=== PATIENT | male | born 1955 | race Two or more races ===

== ENCOUNTER → 2016-09-17 | Outpatient (CLI) | payer OTHER ==
[2016-09-15 09:01] VITALS: BP 166/74
[~2016-09-17] MED LIST: ASPI81TA2 PO; ATOR40TA PO; CARV12.52 PO; CEFA2PIG IV; CLOP75TA27 PO; ESOM40CA25 PO; FLUC100T7 PO; FURO-68 PO; HYDR-2868 PO; HYDR-971 PO; INSU100I17 SQ; INSU100I27 SQ; INSU100V5 IJ; ISOS30TA PO; Insulin Detemir SQ; LISI-338 PO; METO5TAB55 PO; MIDO5TAB PO; OXYC1TAB7 PO; PANT40TA3 PO; PREG75CA PO; SIMV10TA3 PO
--- NOTE | 2016-09-17 16:02 | RAD ---
Bilateral lower extremity venous Doppler ultrasound History: Bilateral lower extremity swelling. Comparison: Lower extremity doppler 09/08/2016. Procedure: Color Doppler, spectral Doppler, and grayscale images are obtained with and without compression in the area of the common femoral vein, superficial femoral vein - femoral vein junction, main femoral vein (superficial femoral vein) and popliteal vein. Veins of the proximal calf are also imaged. Findings: There is normal duplex flow, color flow and compressibility of all visualized vein segments. No evidence of deep venous thrombosis is present. Impression: No evidence of lower extremity deep venous thrombosis.
== END | disposition home or self-care (01) ==
LOC: US 15:09
PROVIDERS: ATTEND Internal Medicine
DX: R22.43 Localized swelling, mass and lump, lower limb, bilateral (principal)
CPT/HCPCS: 93970

== ENCOUNTER 2016-09-22 11:21 | Emergency (ER) | payer OTHER ==
[~2016-09-22] VITALS: Ht 167.6 cm; Wt 73.5 kg
--- NOTE | 2016-09-22 11:32 | PHYS DOC ---
Past Medical History Past Medical History: Arthritis, Diabetes-Type II, Hypertension, Other Additional Past Medical Histor: hyperlipidemia, peripheral neuropathy, hypoglycemia, gastroparesis Past Surgical History: Appendectomy, Pacemaker Additional Past Surgical Histo: LEFT LEG, R toes 3 and 4 amputated, Alcohol Use: None Drug Use: None Adult General Chief Complaint Chief Complaint: HYPOTENSION HPI HPI Patient is a 61 year old male who presents with oxygen. He states he was at wound care this morning at his blood pressure and his systolic blood pressure was perhaps in the 70s. He did feel lightheaded and dizzy at that time. He is sent for the emergency department for evaluation treatment. He denies a chest pain shortness of breath he states he's been eating and drinking fine yesterday until he got to wound clinic he felt actually fine. He denies any dizziness now however he's laying flat. Does have past medical history of diabetes type 2, hypertension, dyslipidemia, gastroparesis, coronary disease with stents and a recent CODE BLUE in August 2016 secondary to oversedation from [facility]. He states he's post follow-up with Dr. Laurent this afternoon. Review of Systems Review of Systems Constitutional: Denies fever or chills [] Eyes: Denies change in visual acuity, redness, or eye pain [] HENT: Denies nasal congestion or sore throat [] Respiratory: Denies cough or shortness of breath [] Cardiovascular: No additional information not addressed in HPI [] GI: Denies abdominal pain, nausea, vomiting, bloody stools or diarrhea [] : Denies dysuria or hematuria [] Musculoskeletal: Denies back pain or joint pain [] Integument: Denies rash or skin lesions [] Neurologic: Denies headache, focal weakness or sensory changes [] Endocrine: Denies polyuria or polydipsia [] Allergies Allergies Allergies Coded Allergies Type Severity Reaction Last Updated Verified hydromorphone Allergy Severe apnea and asystole, code blue 09/02/16 Yes Physical Exam Physical Exam Constitutional: Well developed, well nourished, no acute distress, non-toxic appearance. [] HENT: Normocephalic, atraumatic, bilateral external ears normal, oropharynx moist, no oral exudates, nose normal. [] Eyes: PERRLA, EOMI, conjunctiva normal, no discharge. [] Neck: Normal range of motion, no tenderness, supple, no stridor. [] Cardiovascular:Heart rate regular rhythm, no murmur [] Lungs & Thorax: Bilateral breath sounds clear to auscultation [] Abdomen: Bowel sounds normal, soft, no tenderness, no masses, no pulsatile masses. [] Skin: Warm, dry, no erythema, no rash. [] Back: No tenderness, no CVA tenderness. [] Extremities: No tenderness, no cyanosis, no clubbing, ROM intact, no edema. [] Neurologic: Alert and oriented X 3, normal motor function, normal sensory function, no focal deficits noted. [] Psychologic: Affect normal, judgement normal, mood normal. [] Current Patient Data Vital Signs Vital Signs Date Time Temp Pulse Resp B/P Pulse Ox O2 Delivery O2 Flow Rate FiO2 09/22/16 12:23 81 12 114/59 100 Nasal Cannula 2 09/22/16 11:30 97.9 97.9 Lab Values Laboratory Tests Test 09/22/16 11:40 09/22/16 12:15 White Blood Count 7.6x10^3/uL (4.0-11.0) Red Blood Count 3.79x10^6/uL (4.30-5.70) L Hemoglobin 10.4g/dL (13.0-17.5) L Hematocrit 32.4% (39.0-53.0) L Mean Corpuscular Volume 86fL (79-100) Mean Corpuscular Hemoglobin 27pg (25-35) Mean Corpuscular Hemoglobin Concent 32g/dL (31-37) Red Cell Distribution Width 15.9% (11.5-14.5) H Platelet Count 507x10^3/uL (140-400) #H Neutrophils (%) (Auto) 73% (31-73) Lymphocytes (%) (Auto) 14% (24-48) L Monocytes (%) (Auto) 8% (0-9) Eosinophils (%) (Auto) 4% (0-3) H Basophils (%) (Auto) 1% (0-3) Neutrophils # (Auto) 5.5x10^3uL (1.8-7.7) Lymphocytes # (Auto) 1.0x10^3/uL (1.0-4.8) Monocytes # (Auto) 0.6x10^3/uL (0.0-1.1) Eosinophils # (Auto) 0.3x10^3/uL (0.0-0.7) Basophils # (Auto) 0.1x10^3/uL (0.0-0.2) Prothrombin Time 14.7SEC (11.7-14.0) H Prothrombin Time INR 1.2 (0.8-1.1) H Sodium Level 139mmol/L (136-145) Potassium Level 4.3mmol/L (3.5-5.1) Chloride Level 100mmol/L (98-107) Carbon Dioxide Level 29mmol/L (21-32) Anion Gap 10 (6-14) Blood Urea Nitrogen 59mg/dL (8-26) H Creatinine 2.1mg/dL (0.7-1.3) H Estimated GFR (Cockcroft-Gault) 32.3 Glucose Level 117mg/dL (70-99) H Calcium Level 8.9mg/dL (8.5-10.1) Magnesium Level 2.0mg/dL (1.8-2.4) Total Bilirubin 0.5mg/dL (0.2-1.0) Direct Bilirubin 0.1mg/dL (0.0-0.2) Aspartate Amino Transferase (AST) 12U/L (15-37) L Alanine Aminotransferase (ALT) 16U/L (16-63) Alkaline Phosphatase 153U/L (46-116) H Creatine Kinase 64U/L (39-308) Creatine Kinase MB (Mass) 1.5ng/mL (0.0-3.6) Creatine Kinase MB Relative Index % (0-4) Troponin I Quantitative < 0.017ng/mL (0.000-0.055) NO-Drp-Z-Type Natriuretic Peptide 4454pg/mL (0-124) H Total Protein 7.3g/dL (6.4-8.2) Albumin 3.2g/dL (3.4-5.0) L Thyroid Stimulating Hormone (TSH) 1.209uIU/mL (0.358-3.74) Urine Collection Type Unknown Urine Color Yellow Urine Clarity Clear Urine pH 6.0 Urine Specific [place] <=1.005 Urine Protein Negativemg/dL (NEG-TRACE) Urine Glucose (UA) 100mg/dL (NEG) Urine Ketones (Stick) Negativemg/dL (NEG) Urine Blood Negative (NEG) Urine Nitrite Negative (NEG) Urine Bilirubin Negative (NEG) Urine Urobilinogen Dipstick 0.2mg/dL (0.2 mg/dL) Urine Leukocyte Esterase Negative (NEG) Urine RBC Occ/HPF (0-2) Urine WBC Occ/HPF (0-4) Urine Bacteria Few/HPF (0-FEW) Urine Hyaline Casts Moderate/HPF Urine Mucus Slight/LPF Urine Yeast Present/HPF Urine Sperm Present/HPF Laboratory Tests 09/22/16 11:40 Laboratory Tests 09/22/16 11:40 EKG EKG EKG shows normal sinus any ST elevations or T-wave inversions, normal axis, as interpreted by me. Radiology/Procedures Radiology/Procedures [facility] [address] [place] [address] IMAGING REPORT Signed PATIENT: FREDRICK RUBIO ACCOUNT: [id number] : 1955 LOCATION: ER AGE: 61 SEX: M EXAM STATUS: REG ER ORD. PHYSICIAN: ADIEL KWONG MD REASON: hypotension PROCEDURE: PORTABLE CHEST 1V Indication dizziness and weakness. History of hypertension. A single view of the chest was obtained and is compared to an examination 16 days earlier. Heart size is at the upper limits of normal. There is no congestive heart failure. Pleural effusions, seen previously, have almost completely cleared. A tiny right pleural effusion likely persists. A new finding in the chest is not seen. Bipolar cardiac pacing device is noted. IMPRESSION: Substantial interval improvement. No new finding seen DICTATED and SIGNED BY: CHERYL BAJWA MD DATE: 09/22/16 1213 CC: ADIEL KWONG MD; GARRICK LAURENT MD ~ Impressions: Dizziness, resolved Course & Med Decision Making Course & Med Decision Making Pertinent Labs and Imaging studies reviewed. (See chart for details) His blood pressure initially was around 79 however ever since and HIS blood pressures been normal. He was up and able to Yumi around the department without any lightheadedness or dizziness. His labs are chronic. Spoke with Dr. Laurent is agreeable to patient being discharged home and follow-up as an outpatient. Return for significant lightheadedness dizziness or chest discomfort or other concerns. Dragon Disclaimer Dragon Disclaimer This electronic medical record was generated, in whole or in part, using a voice recognition dictation system. Departure Departure Impression: Primary Impression: Dizziness Disposition: 01 HOME, SELF-CARE Admitting Physician: Garrick Laurent Condition: STABLE Referrals: GARRICK LAURENT MD (PCP) Patient Instructions: Dizziness, Sgrp-de-Wtve Additional Instructions: You were seen for low blood pressure however it's fine here. He being discharged home. Return ER fear dizziness returns or gets worse or you have other concerns. ADIEL KWONG MD Sep 22, 2016 11:32
[2016-09-22 11:54] LABS: BASO # 0.1 x10^3/uL (0.0-0.2); BASO % 1 % (0-3); EOS % 4 % (0-3); HEMATOCRIT 32.4 % (39.0-53.0); HEMOGLOBIN 10.4 g/dL (13.0-17.5); LYMPH % 14 % (24-48); MEAN CORPUSCULAR HEMOGLOBIN 27 pg (25-35); MEAN CORPUSCULAR HGB CONC 32 g/dL (31-37); MEAN CORPUSCULAR VOLUME 86 fL (79-100); MONO % 8 % (0-9); NEUT % 73 % (31-73); PLATELET COUNT 507 x10^3/uL (140-400); RED BLOOD COUNT 3.79 x10^6/uL (4.30-5.70); RED CELL DISTRIBUTION WIDTH 15.9 % (11.5-14.5); WHITE BLOOD COUNT 7.6 x10^3/uL (4.0-11.0)
[2016-09-22 12:05] LABS: CALCIUM 8.9 mg/dL (8.5-10.1); CREATININE 2.1 mg/dL (0.7-1.3); GFR 32.3; INR 1.2 (0.8-1.1); POTASSIUM 4.3 mmol/L (3.5-5.1); PROTHROMBIN TIME PATIENT 14.7 SEC (11.7-14.0)
[2016-09-22 12:10] LABS: ALBUMIN 3.2 g/dL (3.4-5.0); DIRECT BILIRUBIN 0.1 mg/dL (0.0-0.2); TOTAL BILIRUBIN 0.5 mg/dL (0.2-1.0); TOTAL PROTEIN 7.3 g/dL (6.4-8.2)
--- NOTE | 2016-09-22 12:17 | RAD ---
Indication dizziness and weakness. History of hypertension. A single view of the chest was obtained and is compared to an examination 16 days earlier. Heart size is at the upper limits of normal. There is no congestive heart failure. Pleural effusions, seen previously, have almost completely cleared. A tiny right pleural effusion likely persists. A new finding in the chest is not seen. Bipolar cardiac pacing device is noted. IMPRESSION: Substantial interval improvement. No new finding seen
[2016-09-22 12:20] LABS: CKMB MASS 1.5 ng/mL (0.0-3.6); CREATINE KINASE 64 U/L (39-308)
[2016-09-22 12:26] LABS: BILIRUBIN,URINE NEGATIVE (NEG); GLUCOSE,URINE 100 mg/dL (NEG); NITRITE,URINE NEGATIVE (NEG); PROTEIN,URINE NEGATIVE (NEG-TRACE); UROBILINOGEN,URINE 0.2 mg/dL (0.2 mg/dL)
--- NOTE | 2016-09-22 12:26 | EKG ---
[facility] [address] [place] [address] Test Date: 2016-09-22 Test Time: 11:35:11 Pat Name: FREDRICK RUBIO Department: Room: Gender: M Clinic Physician: : 1955 Requested By: ADIEL KWONG Order Number: [id number] Reading MD: Clara Jeronimo Measurements Intervals [place] Rate: 78 P: 28 ND: 150 QRS: 26 QRSD: 86 T: 46 QT: 384 QTc: 441 Interpretive Statements SINUS RHYTHM NORMAL EKG RI6.01 Unconfirmed report Compared to ECG 08/30/2016 13:07:29 No significant changes Electronically Signed On 09-25-2016 0:03:07 [employer] by Clara Jeronimo
[2016-09-22 12:44] LABS: BACTERIA,URINE FEW /HPF (0-FEW); RBC,URINE OCC /HPF (0-2); WBC,URINE OCC /HPF (0-4)
[2016-09-22 12:45] LABS: SPERM,URINE PRESENT /HPF; YEAST,URINE PRESENT /HPF
[2016-09-22 14:15] VITALS: BP 140/68
== END 2016-09-22 14:42 | disposition home or self-care (01) ==
LOC: ER 11:21
DX: R42 Dizziness and giddiness (principal); I95.9 Hypotension, unspecified; E11.9 Type 2 diabetes mellitus without complications; E78.5 Hyperlipidemia, unspecified; I10 Essential (primary) hypertension; E11.42 Type 2 diabetes mellitus with diabetic polyneuropathy; M19.90 Unspecified osteoarthritis, unspecified site; Z95.0 Presence of cardiac pacemaker; Z95.5 Presence of coronary angioplasty implant and graft; Z89.421 Acquired absence of other right toe(s); Z90.49 Acquired absence of other specified parts of digestive tract; Z88.5 Allergy status to narcotic agent
CPT/HCPCS: 36415; 71010; 80048; 80076; 81001; 82553; 83735; 83880; 84443; 84484; 85027; 85610; 93005; 99285-25

== ENCOUNTER 2016-11-25 10:48 | Inpatient (IN) | payer OTHER ==
[~2016-11-25] VITALS: Ht 167.6 cm; Wt 70.5 kg
[2016-11-25] MEDS ORDERED: DEXTROSE 50% 25 GM / 50ML DISP.SYRIN. IV PRN ×2 (12:30→16:00)
[2016-11-25] MEDS ORDERED: HYDRALAZINE 25 MG TABLET PO PRN (13:00)
[2016-11-25] MEDS ORDERED: VANCOMYCIN 1 GM in IV NORMAL SALINE 250ML 250 ML IV SCH (14:00)
[2016-11-25] MEDS ORDERED: VANCOMYCIN 1.75 GM in IV NORMAL SALINE 500ML BAG 500 ML IV ONE (14:00)
[2016-11-25 14:20] LABS: BASO # 0.1 x10^3/uL (0.0-0.2); BASO % 1 % (0-3); EOS % 1 % (0-3); HEMATOCRIT 24.7 % (39.0-53.0); HEMOGLOBIN 7.9 g/dL (13.0-17.5); LYMPH # 1.5 x10^3/uL (1.0-4.8); LYMPH % 9 % (24-48); MEAN CORPUSCULAR HEMOGLOBIN 26 pg (25-35); MEAN CORPUSCULAR HGB CONC 32 g/dL (31-37); MEAN CORPUSCULAR VOLUME 81 fL (79-100); MONO % 7 % (0-9); NEUT % 83 % (31-73); PLATELET COUNT 547 x10^3/uL (140-400); RED BLOOD COUNT 3.06 x10^6/uL (4.30-5.70); RED CELL DISTRIBUTION WIDTH 16.3 % (11.5-14.5); WHITE BLOOD COUNT 17.2 x10^3/uL (4.0-11.0)
[2016-11-25 14:44] LABS: ALBUMIN 2.9 g/dL (3.4-5.0); ALBUMIN/GLOBULIN RATIO 0.6 (1.0-1.7); CALCIUM 9.3 mg/dL (8.5-10.1); CREATININE 2.1 mg/dL (0.7-1.3); GFR 32.3; POTASSIUM 5.5 mmol/L (3.5-5.1); TOTAL BILIRUBIN 0.7 mg/dL (0.2-1.0); TOTAL PROTEIN 7.9 g/dL (6.4-8.2)
[2016-11-25 15:00] VITALS: BP 110/76
--- NOTE | 2016-11-25 15:29 | PDOC2 ---
CONSULT Date of Consult Date of Consult DATE: 11/25/16 TIME: 15:22 Reason for Consult Reason for Consult: CKD III Referring Physician Referring Physician: Dr Slater Identification/Chief Complaint Chief Complaint DFU Problems: Source Source: Chart review, Patient History of Present Illness Reason for Visit: as dictated Past Medical History Cardiovascular: CAD, HTN, [place], Hyperlipidemia, Other Pulmonary: No pertinent hx CENTRAL NERVOUS SYSTEM: Other GI: GI bleed, Peptic Ulcer disease Heme/Onc: Anemia NOS Hepatobiliary: No pertinent hx Psych: No pertinent hx Rheumatologic: No pertinent hx Infectious disease: No pertinent hx Renal/: Chronic renal insuff, Acute renal failure Endocrine: Diabetes Past Surgical History Past Surgical History: Appendectomy, Other Family History Family History: Coronary Artery Disease, Diabetes Social History ALCOHOL: none Drugs: None Lives: with Family Domestic Violence: Neg Current Medications Current Medications Current Medications Dextrose 12.5 gm 12.5 gm PRN Q15MIN PRN IV SEE COMMENTS; Start 11/25/16 at 12: 30 Vancomycin HCl 1 gm/Sodium Chloride 250 ml @ 250 mls/hr Q24H IV ; Start at 14:00; Status UNV Piperacillin Sod/ Tazobactam Sod/ Sodium Chloride (Zosyn/Iv Sodium Chloride 0.9 % 50ml) 50 ml @ 100 mls/hr Q6HRS IV ; Start 11/25/16 at 13:00 Vancomycin HCl (Vanco Per Pharmacy) 1 each PRN DAILY PRN MC SEE COMMENTS; Start 11/25/16 at 13:00 Amlodipine Besylate (Norvasc) 5 mg HS PO ; Start 11/25/16 at 21:00 Aspirin (Children'S Aspirin) 81 mg DAILY PO ; Start 11/26/16 at 09:00 Atorvastatin Calcium (Lipitor) 40 mg QHS PO ; Start 11/25/16 at 21:00 Carvedilol (Coreg) 12.5 mg BIDWMEALS PO ; Start 11/25/16 at 17:00 Clopidogrel Bisulfate (Plavix) 75 mg DAILYWBKFT PO ; Start 11/26/16 at 08:00 Furosemide (Lasix) 40 mg DAILY PO ; Start 11/26/16 at 09:00 Hydralazine HCl (Apresoline) 25 mg PRN Q6HRS PRN PO ELEVATED BP, SEE COMMENTS; Start 3/22/17 at 13:00 Insulin Aspart (Novolog) 9 units TIDAC SQ ; Start 11/25/16 at 16:30 Insulin Detemir (Levemir) 15 units QHS SQ ; Start 11/25/16 at 21:00 Metoclopramide HCl (Reglan) 5 mg DAILY08 PO ; Start 11/26/16 at 08:00 Pantoprazole Sodium (Protonix) 40 mg BIDAC PO ; Start 11/25/16 at 16:30 Pregabalin 75 mg 75 mg BID PO ; Start 11/25/16 at 21:00 Vancomycin HCl/ Sodium Chloride (Iv Sodium Chloride 0.9% 500ml Bag) 500 ml @ 250 mls/hr 1X ONCE IV ; Start 11/25/16 at 14:00; Stop 11/25/16 at 15:59 Active Scripts Active Levemir Flextouch (Insulin Detemir) 100 Unit/1 Ml Insuln.pen 15 Units SQ QHS Protonix (Pantoprazole Sodium) 40 Mg Tablet 40 Mg PO BIDAC Plavix (Clopidogrel Bisulfate) 75 Mg Tablet 75 Mg PO DAILYWBKFT Lipitor (Atorvastatin Calcium) 40 Mg Tablet 40 Mg PO QHS Reported Amlodipine Besylate 5 Mg Tablet 5 Mg PO HS Reglan (Metoclopramide Hcl) 10 Mg Tablet 5 Mg PO DAILY08 Novolog Flexpen (Insulin Aspart) 100 Unit/1 Ml Insuln.pen 9 Unit SQ TIDAC Lasix (Furosemide) 40 Mg Tablet 1 Tab PO DAILY Hydralazine Hcl 25 Mg Tablet 1 Tab PO Q6HRS PRN Aspirin 81 Mg Tab.chew 1 Tab PO DAILY Lyrica (Pregabalin) 75 Mg Capsule 75 Mg PO BID Carvedilol 12.5 Mg Tablet 1 Tab PO BID Allergies Allergies: Coded Allergies: hydromorphone (Verified Allergy, Severe, apnea and asystole, code blue, ) ROS Review of System GEN: no Fevers no Chills EYES: ch Visual Complaints(grdually worsening due to Cataracts) ENT: no EN Drainage no Hearing deficiets CVS: no Orthopnea no CP RESP: no SOB no MAGANA GI: no Nausea no Vomiting : no Dysuria no Urgency HEME: no easy bruising no Palp Ly Nodes NEURO n Focal Weakness tania Sz PSYCH: no Suicidal Ideation no Depression SKIN: no Rashes Foot wound ENDO: no Polyuria or Polydipsia no Hot/Cold Intolerance MU SK: no Arthraigia no Myalgia Physical Exam Physical Exam General Appearance: Awake Alert Oriented x 3 In no Distress Eyes: ? + Cataracts; Conjunctiva Normal EN: No EN Drainage Mucous Memb. moist Neck: no JVD no JVP Supple no Thyromegaly CVS: S1 S2 sys Murmur No Gallop No Rub no Edema Resp: no Rales no Rhonchi no Acc. Muscle use GI: BS +ve NO Bruit Non Tender Non Distended : no CVA tenderness; no Suprapubic Tenderness SKIN: no Rashes Breast Exam deferred Mu.Sk: Adequate ROM Min Muscle Atrophy Heme: Unable to palpate Obvious LAD no Splenomegaly NEURO: Good Strength and Tone Cranial Nerves II - XII grossly intact Psych: not Depressed no Active hallucination Assessment & Plan CKD III - DM/ HTNsive /NS. Creat close to baseline. Current FLuid and E-lyte status does not necessitate emergent need for Dialysis. Will re-evaluate for Dialysis in am ^K - reval after FSBS is better controlled Vol Dpeltion - IVF as ordered Low Na - suspect due to ^ed FSBS - reval after Better controlled Anemai - Start EPO. check Iron, PO Fe prn DFU - Needs IV Access- Given Proximity to [employer] - hew ould benefit from preservation of his upper arm veins for future AV Access. hence a Central line will be placed. Labs Labs Laboratory Tests Test 11/25/16 14:00 White Blood Count 17.2x10^3/uL (4.0-11.0) Red Blood Count 3.06x10^6/uL (4.30-5.70) Hemoglobin 7.9g/dL (13.0-17.5) Hematocrit 24.7% (39.0-53.0) Mean Corpuscular Volume 81fL (79-100) Mean Corpuscular Hemoglobin 26pg (25-35) Mean Corpuscular Hemoglobin Concent 32g/dL (31-37) Red Cell Distribution Width 16.3% (11.5-14.5) Platelet Count 547x10^3/uL (140-400) Neutrophils (%) (Auto) 83% (31-73) Lymphocytes (%) (Auto) 9% (24-48) Monocytes (%) (Auto) 7% (0-9) Eosinophils (%) (Auto) 1% (0-3) Basophils (%) (Auto) 1% (0-3) Neutrophils # (Auto) 14.3x10^3uL (1.8-7.7) Lymphocytes # (Auto) 1.5x10^3/uL (1.0-4.8) Monocytes # (Auto) 1.2x10^3/uL (0.0-1.1) Eosinophils # (Auto) 0.1x10^3/uL (0.0-0.7) Basophils # (Auto) 0.1x10^3/uL (0.0-0.2) Sodium Level 131mmol/L (136-145) Potassium Level 5.5mmol/L (3.5-5.1) Chloride Level 97mmol/L (98-107) Carbon Dioxide Level 21mmol/L (21-32) Anion Gap 13 (6-14) Blood Urea Nitrogen 46mg/dL (8-26) Creatinine 2.1mg/dL (0.7-1.3) Estimated GFR (Cockcroft-Gault) 32.3 BUN/Creatinine Ratio 22 (6-20) Glucose Level 394mg/dL (70-99) Calcium Level 9.3mg/dL (8.5-10.1) Total Bilirubin 0.7mg/dL (0.2-1.0) Aspartate Amino Transf (AST/SGOT) 16U/L (15-37) Alanine Aminotransferase (ALT/SGPT) 14U/L (16-63) Alkaline Phosphatase 116U/L (46-116) Total Protein 7.9g/dL (6.4-8.2) Albumin 2.9g/dL (3.4-5.0) Albumin/Globulin Ratio 0.6 (1.0-1.7) Laboratory Tests Test 11/25/16 14:00 White Blood Count 17.2x10^3/uL (4.0-11.0) Red Blood Count 3.06x10^6/uL (4.30-5.70) Hemoglobin 7.9g/dL (13.0-17.5) Hematocrit 24.7% (39.0-53.0) Mean Corpuscular Volume 81fL (79-100) Mean Corpuscular Hemoglobin 26pg (25-35) Mean Corpuscular Hemoglobin Concent 32g/dL (31-37) Red Cell Distribution Width 16.3% (11.5-14.5) Platelet Count 547x10^3/uL (140-400) Neutrophils (%) (Auto) 83% (31-73) Lymphocytes (%) (Auto) 9% (24-48) Monocytes (%) (Auto) 7% (0-9) Eosinophils (%) (Auto) 1% (0-3) Basophils (%) (Auto) 1% (0-3) Neutrophils # (Auto) 14.3x10^3uL (1.8-7.7) Lymphocytes # (Auto) 1.5x10^3/uL (1.0-4.8) Monocytes # (Auto) 1.2x10^3/uL (0.0-1.1) Eosinophils # (Auto) 0.1x10^3/uL (0.0-0.7) Basophils # (Auto) 0.1x10^3/uL (0.0-0.2) Sodium Level 131mmol/L (136-145) Potassium Level 5.5mmol/L (3.5-5.1) Chloride Level 97mmol/L (98-107) Carbon Dioxide Level 21mmol/L (21-32) Anion Gap 13 (6-14) Blood Urea Nitrogen 46mg/dL (8-26) Creatinine 2.1mg/dL (0.7-1.3) Estimated GFR (Cockcroft-Gault) 32.3 BUN/Creatinine Ratio 22 (6-20) Glucose Level 394mg/dL (70-99) Calcium Level 9.3mg/dL (8.5-10.1) Total Bilirubin 0.7mg/dL (0.2-1.0) Aspartate Amino Transf (AST/SGOT) 16U/L (15-37) Alanine Aminotransferase (ALT/SGPT) 14U/L (16-63) Alkaline Phosphatase 116U/L (46-116) Total Protein 7.9g/dL (6.4-8.2) Albumin 2.9g/dL (3.4-5.0) Albumin/Globulin Ratio 0.6 (1.0-1.7) LEV CHAPA MD Nov 25, 2016 15:29
[2016-11-25] MEDS ORDERED: MAGNESIUM SULFATE 2GM 50 ML IV PRN (15:30)
[2016-11-25] MEDS: IV NORMAL SALINE 1000ML BAG 1,000 ML IV SCH (15:52)
[2016-11-25] MEDS: PIPERACILLIN/TAZOBACTAM 3.375 GM in IV NORMAL SALINE 50ML 50 ML IV SCH ×2 (15:52→20:54)
[2016-11-25 17:16] LABS: CREATININE 2.1 mg/dL (0.7-1.3); GFR 32.3; POTASSIUM 5.9 mmol/L (3.5-5.1)
[2016-11-25 17:26] LABS: CALCIUM 9.1 mg/dL (8.5-10.1)
[2016-11-25] MEDS ORDERED: INSULIN ASPART 300 UNITS/3 ML INSULN.PEN SQ ONE (17:45)
[2016-11-25] MEDS ORDERED: SODIUM POLYSTYRENE SULFONATE 15 GM/60 ML ORAL.SUSP. PO ONE (17:45)
[2016-11-25 17:49] LABS: % SAT IRON 9 % (15-34); IRON,SERUM 20 ug/dL (65-175)
[2016-11-25] MEDS: PANTOPRAZOLE 40 MG TABLET. PO SCH (18:06)
[2016-11-25] MEDS: CARVEDILOL 12.5 MG TABLET PO SCH (18:06)
[2016-11-25] MEDS: HEPARIN PF for SUB-Q USE 5,000 UNIT/0.5 ML VIAL. SQ SCH ×2 (18:23→21:03)
[2016-11-25] MEDS: INSULIN ASPART 300 UNITS/3 ML INSULN.PEN SQ SCH ×2 (18:24→18:25)
[2016-11-25] MEDS: VANCOMYCIN PER PHARMACY MC PRN ×2 (18:38→18:51)
[2016-11-25 19:20] VITALS: BP 128/72
[2016-11-25] MEDS: AMLODIPINE BESYLATE 5 MG TABLET PO SCH (20:55)
[2016-11-25] MEDS: PREGABALIN 75 MG CAPSULE PO SCH (20:56)
[2016-11-25] MEDS: ATORVASTATIN CALCIUM 40 MG TABLET. PO SCH (20:56)
[2016-11-25] MEDS: INSULIN DETEMIR 300 UNITS/3 ML INSULN.PEN. SQ SCH (21:03)
[2016-11-25] MEDS: DARBEPOETIN ALFA 60 MCG/0.3 ML DISP.SYRIN. SQ SCH (21:05)
[2016-11-25] MEDS ORDERED: GUAIFENESIN DM 200MG/20MG 10 ML SYRUP. PO PRN ×2 (22:45)
[2016-11-25 23:19] VITALS: BP 141/77
[2016-11-26] VITALS (13 sets, daily range): BP systolic 92–151; BP diastolic 44–73
[2016-11-26] MEDS: PIPERACILLIN/TAZOBACTAM 3.375 GM in IV NORMAL SALINE 50ML 50 ML IV SCH ×4 (01:40→20:09)
--- NOTE | 2016-11-26 04:55 | CONS ---
DATE OF CONSULTATION: REASON FOR CONSULTATION: CKD stage 3. HISTORY OF PRESENT ILLNESS: The patient is a 61-year-old gentleman, has history of diabetes and chronic kidney disease. He is known to have a baseline creatinine of about 1.6-2.0. He is followed by Dr. Lewis. He was at wound care for a foot wound. He is summoned to go to the hospital for further evaluation and treatment. I was initially called to approve the PICC line placement in this gentleman with CKD. This, however, has been changed to a central line as and when [facility] facilities are not available. For rest of details, see electronic records. LEV CHAPA MD DR: KRUPA/andre JOB#: [id number] / [id number]
[2016-11-26 04:57] LABS: BASO # 0.1 x10^3/uL (0.0-0.2); BASO % 1 % (0-3); EOS % 2 % (0-3); LYMPH # 1.3 x10^3/uL (1.0-4.8); LYMPH % 11 % (24-48); MEAN CORPUSCULAR HEMOGLOBIN 27 pg (25-35); MEAN CORPUSCULAR HGB CONC 34 g/dL (31-37); MEAN CORPUSCULAR VOLUME 79 fL (79-100); MONO % 10 % (0-9); NEUT % 77 % (31-73); PLATELET COUNT 510 x10^3/uL (140-400); RED BLOOD COUNT 2.61 x10^6/uL (4.30-5.70); RED CELL DISTRIBUTION WIDTH 15.9 % (11.5-14.5); WHITE BLOOD COUNT 11.8 x10^3/uL (4.0-11.0)
[2016-11-26 05:01] LABS: HEMATOCRIT 20.7 % (39.0-53.0)
[2016-11-26 05:15] LABS: ALBUMIN 2.3 g/dL (3.4-5.0); CALCIUM 8.8 mg/dL (8.5-10.1); CREATININE 1.8 mg/dL (0.7-1.3); GFR 38.6; PHOSPHORUS 4.3 mg/dL (2.6-4.7); POTASSIUM 4.1 mmol/L (3.5-5.1)
[2016-11-26] MEDS: IV NORMAL SALINE 1000ML BAG 1,000 ML IV SCH ×3 (05:28→22:05)
[2016-11-26] MEDS: INSULIN ASPART 300 UNITS/3 ML INSULN.PEN SQ SCH ×6 (07:30→17:23)
--- NOTE | 2016-11-26 08:24 | PDOC ---
Infectious Disease Note Vital Sign Vital Signs Vital Signs Date Time Temp Pulse Resp B/P Pulse Ox O2 Delivery O2 Flow Rate FiO2 11/26/16 07:55 Room Air 11/26/16 03:22 99.1 77 18 139/71 95 99.1 Labs Lab Laboratory Tests Test 11/25/16 14:00 11/25/16 16:29 11/25/16 16:50 11/25/16 20:53 White Blood Count 17.2x10^3/uL (4.0-11.0) Red Blood Count 3.06x10^6/uL (4.30-5.70) Hemoglobin 7.9g/dL (13.0-17.5) Hematocrit 24.7% (39.0-53.0) Mean Corpuscular Volume 81fL (79-100) Mean Corpuscular Hemoglobin 26pg (25-35) Mean Corpuscular Hemoglobin Concent 32g/dL (31-37) Red Cell Distribution Width 16.3% (11.5-14.5) Platelet Count 547x10^3/uL (140-400) Neutrophils (%) (Auto) 83% (31-73) Lymphocytes (%) (Auto) 9% (24-48) Monocytes (%) (Auto) 7% (0-9) Eosinophils (%) (Auto) 1% (0-3) Basophils (%) (Auto) 1% (0-3) Neutrophils # (Auto) 14.3x10^3uL (1.8-7.7) Lymphocytes # (Auto) 1.5x10^3/uL (1.0-4.8) Monocytes # (Auto) 1.2x10^3/uL (0.0-1.1) Eosinophils # (Auto) 0.1x10^3/uL (0.0-0.7) Basophils # (Auto) 0.1x10^3/uL (0.0-0.2) Erythrocyte Sedimentation Rate 134 (0-15) Sodium Level 131mmol/L (136-145) 132mmol/L (136-145) Potassium Level 5.5mmol/L (3.5-5.1) 5.9mmol/L (3.5-5.1) Chloride Level 97mmol/L (98-107) 97mmol/L (98-107) Carbon Dioxide Level 21mmol/L (21-32) 21mmol/L (21-32) Anion Gap 13 (6-14) 14 (6-14) Blood Urea Nitrogen 46mg/dL (8-26) 48mg/dL (8-26) Creatinine 2.1mg/dL (0.7-1.3) 2.1mg/dL (0.7-1.3) Estimated GFR (Cockcroft-Gault) 32.3 32.3 BUN/Creatinine Ratio 22 (6-20) Glucose Level 394mg/dL (70-99) 478mg/dL (70-99) Calcium Level 9.3mg/dL (8.5-10.1) 9.1mg/dL (8.5-10.1) Total Bilirubin 0.7mg/dL (0.2-1.0) Aspartate Amino Transf (AST/SGOT) 16U/L (15-37) Alanine Aminotransferase (ALT/SGPT) 14U/L (16-63) Alkaline Phosphatase 116U/L (46-116) Total Protein 7.9g/dL (6.4-8.2) Albumin 2.9g/dL (3.4-5.0) Albumin/Globulin Ratio 0.6 (1.0-1.7) Glucose (Fingerstick) 430mg/dL (70-99) 355mg/dL (70-99) Iron Level 20ug/dL (65-175) Total Iron Binding Capacity 215ug/dL (250-450) Iron Saturation 9% (15-34) Ferritin 370ng/mL (26-388) Test 11/26/16 04:15 11/26/16 07:40 White Blood Count 11.8x10^3/uL (4.0-11.0) Red Blood Count 2.61x10^6/uL (4.30-5.70) Hemoglobin 7.0g/dL (13.0-17.5) Hematocrit 20.7% (39.0-53.0) Mean Corpuscular Volume 79fL (79-100) Mean Corpuscular Hemoglobin 27pg (25-35) Mean Corpuscular Hemoglobin Concent 34g/dL (31-37) Red Cell Distribution Width 15.9% (11.5-14.5) Platelet Count 510x10^3/uL (140-400) Neutrophils (%) (Auto) 77% (31-73) Lymphocytes (%) (Auto) 11% (24-48) Monocytes (%) (Auto) 10% (0-9) Eosinophils (%) (Auto) 2% (0-3) Basophils (%) (Auto) 1% (0-3) Neutrophils # (Auto) 9.1x10^3uL (1.8-7.7) Lymphocytes # (Auto) 1.3x10^3/uL (1.0-4.8) Monocytes # (Auto) 1.2x10^3/uL (0.0-1.1) Eosinophils # (Auto) 0.2x10^3/uL (0.0-0.7) Basophils # (Auto) 0.1x10^3/uL (0.0-0.2) Sodium Level 141mmol/L (136-145) Potassium Level 4.1mmol/L (3.5-5.1) Chloride Level 106mmol/L (98-107) Carbon Dioxide Level 22mmol/L (21-32) Anion Gap 13 (6-14) Blood Urea Nitrogen 42mg/dL (8-26) Creatinine 1.8mg/dL (0.7-1.3) Estimated GFR (Cockcroft-Gault) 38.6 Glucose Level 104mg/dL (70-99) Calcium Level 8.8mg/dL (8.5-10.1) Phosphorus Level 4.3mg/dL (2.6-4.7) Magnesium Level 2.7mg/dL (1.8-2.4) Albumin 2.3g/dL (3.4-5.0) Glucose (Fingerstick) 82mg/dL (70-99) Objective Assessment Rt foot 4 th amp site infection 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
[2016-11-26] MEDS: IPRATRPIUM/ALBUTEROL 0.5/2.5MG 3 ML NEBU. NEB SCH ×4 (08:27→18:14)
--- NOTE | 2016-11-26 09:13 | RAD ---
Right foot, 2 views, 11/26/2016: History: Diabetic foot ulcers, possible osteomyelitis There is moderate bony demineralization. There have been previous amputations of the third and fourth toes at the level of the proximal aspects of the proximal phalanges. The remaining fragments of the proximal phalanges demonstrate irregular margins suggesting bone destruction. There is definite cortical destruction involving the head of the third metatarsal. There is minimal loss of definition of the cortex along the medial aspect of the second metatarsal head. Scattered degenerative changes are present. Extensive arterial calcifications are noted. There is generalized subcutaneous edema about the foot. IMPRESSION: 1. Demineralization. 2. Bone destruction involving the stumps of the proximal phalanges of the third and fourth toes as well as the third metatarsal head and possibly the second metatarsal head, suggesting osteomyelitis.
[2016-11-26] MEDS: METOCLOPRAMIDE 10 MG TABLET PO SCH (09:33)
[2016-11-26] MEDS: PREGABALIN 75 MG CAPSULE PO SCH ×2 (09:33→20:09)
[2016-11-26] MEDS: ASPIRIN 81 MG TAB.CHEW PO SCH (09:33)
[2016-11-26] MEDS: PANTOPRAZOLE 40 MG TABLET. PO SCH ×2 (09:33→17:16)
[2016-11-26] MEDS: FUROSEMIDE 40 MG TABLET PO SCH (09:33)
[2016-11-26] MEDS: CLOPIDOGREL BISULFATE 75 MG TABLET PO SCH (09:33)
[2016-11-26] MEDS: CARVEDILOL 12.5 MG TABLET PO SCH ×2 (09:34→17:18)
[2016-11-26] MEDS: HEPARIN PF for SUB-Q USE 5,000 UNIT/0.5 ML VIAL. SQ SCH (09:36)
--- NOTE | 2016-11-26 09:38 | PDOC ---
SUBJECTIVE ROS CKD III Feels Ok today CVS: no Orthopnea, no CP RESP: no SOB, no MAGANA GI: no Nausea, no Vomiting : no Dysuria, no Urgency OBJECTIVE Vital Signs Vital Signs Date Time Temp Pulse Resp B/P Pulse Ox O2 Delivery O2 Flow Rate FiO2 11/26/16 08:34 97 Room Air 11/26/16 07:00 98.2 76 14 123/62 98.2 I & 0 Intake and Output 11/26/16 07:00 Intake Total 1350 ml Output Total 950 ml Balance 400 ml Intake Oral 400 ml IV Total 950 ml Output Urine Total 950 ml # Voids 1 PHYSICAL EXAM Physical Exam General Appearance: Awake Alert Oriented x 3 In no Distress Eyes: ? + Cataracts; Conjunctiva Normal EN: No EN Drainage Mucous Memb. moist Neck: no JVD no JVP Supple no Thyromegaly CVS: S1 S2 sys Murmur No Gallop No Rub no Edema Resp: no Rales no Rhonchi no Acc. Muscle use GI: BS +ve NO Bruit Non Tender Non Distended : no CVA tenderness; no Suprapubic Tenderness Assessment & Plan CKD III - DM/ HTNsive /NS. Creat close to baseline. Current FLuid and E-lyte status does not necessitate emergent need for Dialysis. Will re-evaluate for Dialysis in am ^K - better after FSBS is better controlled Vol Dpeltion - IVF as ordered - ? due to Poorly controlled DM Low Na - resolved after Better FSBS control Anemai - Start EPO. Low Iron, PO Fe for now due to ongoing infecton (Ferritin is not that high though) DFU - Needs (? half-way) IV Access- Given Proximity to TISSUE COORDINATOR - hew ould benefit from preservation of his upper arm veins for future AV Access. hence a Central line [id number] / Groshong should be placed if needed COMMENT/RELEVANT DATA Meds Current Medications Medications (Trade) Dose Ordered Sig/Perlita Start Time Stop Time Status Last Admin Dose Admin Albuterol/ Ipratropium (Duoneb) 3 ml RTQID 11/25/16 22:45 11/26/16 08:27 3 ML Amlodipine Besylate (Norvasc) 5 mg HS 11/25/16 21:00 11/25/16 20:55 5 MG Aspirin (Children'S Aspirin) 81 mg DAILY 11/26/16 09:00 Atorvastatin Calcium (Lipitor) 40 mg QHS 11/25/16 21:00 11/25/16 20:56 40 MG Carvedilol (Coreg) 12.5 mg BIDWMEALS 11/25/16 17:00 11/25/16 18:06 12.5 MG Clopidogrel Bisulfate (Plavix) 75 mg DAILYWBKFT 11/26/16 08:00 Darbepoetin Cali (Aranesp) 60 mcg WEEKLYHS 11/25/16 21:00 11/25/16 21:05 60 MCG Dextrose 12.5 gm PRN Q15MIN PRN 11/25/16 16:00 Dextrose 12.5 gm 12.5 gm PRN Q15MIN PRN 11/25/16 12:30 Furosemide (Lasix) 40 mg DAILY 11/26/16 09:00 Guaifenesin (Robitussin Dm) 10 ml PRN Q4HRS PRN 11/25/16 22:45 Heparin Sodium (Porcine) 5,000 unit Q12HR 11/25/16 17:00 11/25/16 21:03 5,000 UNIT Hydralazine HCl (Apresoline) 25 mg PRN Q6HRS PRN 11/25/16 13:00 Insulin Aspart (Novolog) 10 units 1X ONCE 11/25/16 17:45 11/25/16 17:46 DC 11/25/16 18:25 10 UNITS Insulin Detemir (Levemir) 15 units QHS 11/25/16 21:00 11/25/16 21:03 15 UNITS Magnesium Sulfate/ Dextrose 50 ml @ 25 mls/hr PRN DAILY PRN 11/25/16 15:30 Metoclopramide HCl (Reglan) 5 mg DAILY08 11/26/16 08:00 Pantoprazole Sodium (Protonix) 40 mg BIDAC 11/25/16 16:30 11/25/16 18:06 40 MG Piperacillin Sod/ Tazobactam Sod/ Sodium Chloride (Zosyn/Iv Sodium Chloride 0.9% 50ml) 50 ml @ 100 mls/hr Q6HRS 11/25/16 13:00 11/26/16 05:28 100 MLS/HR Pregabalin 75 mg 75 mg BID 11/25/16 21:00 11/25/16 20:56 75 MG Sodium Polystyrene Sulfonate 30 gm 30 gm 1X ONCE 11/25/16 17:45 11/25/16 17:46 DC 11/25/16 18:05 30 GM Sodium Chloride (Iv Sodium Chloride 0.9% 1000ml Bag) 1,000 ml @ 125 mls/hr Q8H 11/25/16 15:30 11/26/16 05:28 125 MLS/HR Vancomycin HCl 1 each 1X ONCE 11/27/16 17:30 11/27/16 17:30 DC Vancomycin HCl (Vanco Per Pharmacy) 1 each PRN DAILY PRN 11/25/16 13:00 11/26/16 08:23 DC 11/25/16 18:51 1 EACH Vancomycin HCl 1.75 gm/Sodium Chloride 500 ml @ 250 mls/hr 1X ONCE 11/25/16 14:00 11/25/16 15:59 DC 11/25/16 18:05 250 MLS/HR Vancomycin HCl 1 gm/Sodium Chloride 250 ml @ 250 mls/hr Q24H 11/25/16 14:00 UNV Vancomycin HCl/ Sodium Chloride (Iv Sodium Chloride 0.9% 250ml) 250 ml @ 250 mls/hr Q24H 11/26/16 18:00 11/26/16 18:00 DC Lab Laboratory Tests Test 11/25/16 14:00 11/25/16 16:29 11/25/16 16:50 11/25/16 20:53 White Blood Count 17.2x10^3/uL (4.0-11.0) Red Blood Count 3.06x10^6/uL (4.30-5.70) Hemoglobin 7.9g/dL (13.0-17.5) Hematocrit 24.7% (39.0-53.0) Mean Corpuscular Volume 81fL (79-100) Mean Corpuscular Hemoglobin 26pg (25-35) Mean Corpuscular Hemoglobin Concent 32g/dL (31-37) Red Cell Distribution Width 16.3% (11.5-14.5) Platelet Count 547x10^3/uL (140-400) Neutrophils (%) (Auto) 83% (31-73) Lymphocytes (%) (Auto) 9% (24-48) Monocytes (%) (Auto) 7% (0-9) Eosinophils (%) (Auto) 1% (0-3) Basophils (%) (Auto) 1% (0-3) Neutrophils # (Auto) 14.3x10^3uL (1.8-7.7) Lymphocytes # (Auto) 1.5x10^3/uL (1.0-4.8) Monocytes # (Auto) 1.2x10^3/uL (0.0-1.1) Eosinophils # (Auto) 0.1x10^3/uL (0.0-0.7) Basophils # (Auto) 0.1x10^3/uL (0.0-0.2) Erythrocyte Sedimentation Rate 134 (0-15) Sodium Level 131mmol/L (136-145) 132mmol/L (136-145) Potassium Level 5.5mmol/L (3.5-5.1) 5.9mmol/L (3.5-5.1) Chloride Level 97mmol/L (98-107) 97mmol/L (98-107) Carbon Dioxide Level 21mmol/L (21-32) 21mmol/L (21-32) Anion Gap 13 (6-14) 14 (6-14) Blood Urea Nitrogen 46mg/dL (8-26) 48mg/dL (8-26) Creatinine 2.1mg/dL (0.7-1.3) 2.1mg/dL (0.7-1.3) Estimated GFR (Cockcroft-Gault) 32.3 32.3 BUN/Creatinine Ratio 22 (6-20) Glucose Level 394mg/dL (70-99) 478mg/dL (70-99) Calcium Level 9.3mg/dL (8.5-10.1) 9.1mg/dL (8.5-10.1) Total Bilirubin 0.7mg/dL (0.2-1.0) Aspartate Amino Transf (AST/SGOT) 16U/L (15-37) Alanine Aminotransferase (ALT/SGPT) 14U/L (16-63) Alkaline Phosphatase 116U/L (46-116) Total Protein 7.9g/dL (6.4-8.2) Albumin 2.9g/dL (3.4-5.0) Albumin/Globulin Ratio 0.6 (1.0-1.7) Glucose (Fingerstick) 430mg/dL (70-99) 355mg/dL (70-99) Iron Level 20ug/dL (65-175) Total Iron Binding Capacity 215ug/dL (250-450) Iron Saturation 9% (15-34) Ferritin 370ng/mL (26-388) Test 11/26/16 04:15 11/26/16 07:40 White Blood Count 11.8x10^3/uL (4.0-11.0) Red Blood Count 2.61x10^6/uL (4.30-5.70) Hemoglobin 7.0g/dL (13.0-17.5) Hematocrit 20.7% (39.0-53.0) Mean Corpuscular Volume 79fL (79-100) Mean Corpuscular Hemoglobin 27pg (25-35) Mean Corpuscular Hemoglobin Concent 34g/dL (31-37) Red Cell Distribution Width 15.9% (11.5-14.5) Platelet Count 510x10^3/uL (140-400) Neutrophils (%) (Auto) 77% (31-73) Lymphocytes (%) (Auto) 11% (24-48) Monocytes (%) (Auto) 10% (0-9) Eosinophils (%) (Auto) 2% (0-3) Basophils (%) (Auto) 1% (0-3) Neutrophils # (Auto) 9.1x10^3uL (1.8-7.7) Lymphocytes # (Auto) 1.3x10^3/uL (1.0-4.8) Monocytes # (Auto) 1.2x10^3/uL (0.0-1.1) Eosinophils # (Auto) 0.2x10^3/uL (0.0-0.7) Basophils # (Auto) 0.1x10^3/uL (0.0-0.2) Sodium Level 141mmol/L (136-145) Potassium Level 4.1mmol/L (3.5-5.1) Chloride Level 106mmol/L (98-107) Carbon Dioxide Level 22mmol/L (21-32) Anion Gap 13 (6-14) Blood Urea Nitrogen 42mg/dL (8-26) Creatinine 1.8mg/dL (0.7-1.3) Estimated GFR (Cockcroft-Gault) 38.6 Glucose Level 104mg/dL (70-99) Calcium Level 8.8mg/dL (8.5-10.1) Phosphorus Level 4.3mg/dL (2.6-4.7) Magnesium Level 2.7mg/dL (1.8-2.4) Albumin 2.3g/dL (3.4-5.0) Glucose (Fingerstick) 82mg/dL (70-99) LEV CHAPA MD Nov 26, 2016 09:38
--- NOTE | 2016-11-26 10:24 | PDOC ---
Provider Note Provider Note Pt seen.H&P dictated.#[id number]. ELDER LAURENT MD Nov 26, 2016 10:24
--- NOTE | 2016-11-26 10:36 | CONS ---
DATE OF CONSULTATION: 11/26/2016 REQUESTING PHYSICIAN: Dr. Slater. REASON FOR CONSULTATION: Right foot infection. HISTORY OF PRESENT ILLNESS: This is a 61-year-old gentleman with history of diabetes who has had undergone right third and fourth toe amputation in August who comes in with right foot amp site wound with pus coming out. The patient even went through hyperbaric therapy, which did not work and now he is pussing out at the wound. The patient denies any fevers, chills, nausea, vomiting, diarrhea, chest pain, shortness of breath, abdominal pain, urinary symptoms or bowel symptoms. SOCIAL HISTORY: Negative for smoking, alcohol use or illicit drug use. ALLERGIES: No known drug allergies. CURRENT MEDICATIONS: Reviewed. The patient is started on vancomycin and Zosyn. REVIEW OF SYSTEMS: As per HPI, all other systems reviewed are negative. PHYSICAL EXAMINATION: GENERAL: Alert, oriented gentleman, not in any distress. VITAL SIGNS: Stable with a T-max of 99.1. HEENT: NAD. NECK: Supple, no JVP, no lymphadenopathy. LUNGS: Clear. HEART: S1, S2 regular. ABDOMEN: Benign. EXTREMITIES: Left lower extremity is unremarkable with good dorsalis pedis. Right lower extremity has amp site at third and fourth toe missing with that area has ulcer with alberta pus coming out. There is some discoloration of the foot. Dorsalis pedis is weak, but palpable. Rest of the skin examination and foot examination is unremarkable. NEUROLOGIC: The patient is neurologically intact. LABORATORY DATA: White count is 11.8, yesterday was 17,000, hemoglobin 7, platelets are 510,000. BUN 42, creatinine 1.8, albumin is 2.3. Prior cultures were MSSA. There are no x-rays or any scan of the foot done yet. IMPRESSION: 1. Right third and fourth toe amp site wound with alberta purulence, likely he has metatarsal osteomyelitis. 2. Diabetes. 3. Peripheral arterial disease. He has had angiogram done 3 months ago and it was good. 4. Chronic kidney disease. RECOMMENDATIONS: Recommend discontinue vancomycin, continue Zosyn. We will get a bone scan and likely the patient will need further I and D of the area, may be resection of the bone. Thank you very much, Dr. Slater, for giving me the opportunity to participate in this patient's care. LUKE CHAPA MD DR: SYDNEY/andre JOB#: [id number] / [id number]
--- NOTE | 2016-11-26 14:00 | HP ---
ADMIT DATE: 11/25/2016 REASON FOR ADMISSION TO THE HOSPITAL: Nonhealing wound, right foot, diabetic foot, previous amputation of the third and fourth toes and possible osteomyelitis. HISTORY OF PRESENT ILLNESS: The patient is a 61-year-old male with history of diabetes, hypertension, peripheral vascular disease, CAD, CHF, chronic kidney disease. He had amputation of the right fourth and fifth toes for osteomyelitis. He had amputation done more than a month ago and has [facility] and [facility] while probing the wound, you could feel the bone at the base of the ulcer, was admitted to the hospital for further investigation and antibiotics. ID was consulted. CT is being ordered. The patient has a pacemaker, MRI could not be done. PAST MEDICAL HISTORY: He has a history of diabetes insulin-dependent type 2, hypertension, coronary artery disease, peripheral vascular disease, congestive heart failure, arthritis, chronic kidney disease and diabetic neuropathy. PAST SURGICAL HISTORY: Appendectomy, pacemaker, cardiac catheterization, stent placed, amputation of the third and fourth toes. FAMILY HISTORY: Positive for diabetes. ALLERGIES: No known drug allergies. MEDICATIONS: He is on aspirin 81 mg daily, atorvastatin 40 mg daily, Coreg 12.5 twice a day, Plavix 75 mg daily, Lasix 40 mg once a day, hydralazine 25 mg every 6 hours, insulin 9 units with each meal, Levemir 15 units at bedtime, Reglan 5 mg before meals, Protonix 40 mg daily, Lyrica 75 mg twice daily. SOCIAL HISTORY: He does not smoke or drink alcohol. He uses cane for ambulation. REVIEW OF SYSTEMS: CARDIAC: No chest pain. LUNGS: No cough or sputum. GASTROINTESTINAL: No nausea, vomiting. Rest of the 14-system was reviewed and negative. PHYSICAL EXAMINATION: VITAL SIGNS: At the time of admission shows temperature of 98, pulse 87, respirations 22, blood pressure 110/76, 98% on room air. HEENT: Head is atraumatic. Pupils equal. Oral cavity: No congestion. Teeth are not very good with some caries. NECK: Supple. Thyroid not enlarged. JVD not elevated. CHEST: Symmetrical. CARDIOVASCULAR: S1, S2. LUNGS: Clear to auscultation. ABDOMEN: Soft. Bowel sounds present, no mass palpable. The patient has a pacemaker in left side of the chest. EXTERNAL GENITALIA: No Joyner. RECTAL: Deferred. EXTREMITIES: Right leg, no edema. Left foot, small callus at the plantar aspect, otherwise looks fine. Right foot had amputation of the fourth and fifth and there was open wound. Decreased pulses in both legs. NEUROLOGIC: Cranial nerves intact. Power 5/5 in all extremities. LABORATORY DATA: Shows a white count of 17, hemoglobin 7.9, platelets 547. Electrolytes show sodium 131, potassium 5.5, chloride 94, bicarbonate 21, BUN 46, creatinine 2.1, potassium came down to 4.1, creatinine 1.8. FINAL IMPRESSION: 1. Possible osteomyelitis of the right foot. 2. 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 3. Diabetic neuropathy. 4. Coronary artery disease. 5. Chronic systolic heart failure. 6. h/o Pacemaker for bradyarrhythmias. 7. Diabetes, insulin-dependent. 8. Hypertension. 9. Hyperlipidemia. 10. Diabetic neuropathy. PLAN: At this time, admit to hospital. Wound cultures. CT of the foot. ID is consulted. Renal is consulted to see if the infection is limited to superficial or in the bone. Further recommendation to follow. ELDER LAURENT MD DR: BENNIE/andre JOB#: [id number] / [id number] SHAHLA
[2016-11-26] MEDS ORDERED: LIDOCAINE 1% / SOD BICARB 8.4% 20 ML VIAL. IJ ONE ×2 (14:30→14:45)
--- NOTE | 2016-11-26 15:24 | RAD ---
Indication diabetic. Evaluate for potential osteomyelitis. Axial noncontrast images through the right foot were obtained. (IV contrast was not administered because of compromised renal status. Additionally IV contrast would not add appreciably to this study evaluating for potential osteomyelitis). Images were reformatted in the coronal and sagittal planes. There is soft tissue swelling. Moderately extensive vascular calcification is noted. Bony stumps are noted associated with the proximal phalanges of the third and fourth digits. The remaining stumps are not well defined and infection, osteomyelitis, at either these levels is not excluded. There is loss of cortical margins involving the third and fourth metatarsal heads. Osteomyelitis accounting for these findings is not excluded. No additional finding is seen. A dominant soft tissue mass is not seen. IMPRESSION: Irregularity associated with the stumps of the proximal phalanges of the third and fourth digits and bony loss of the metatarsal heads of the same digits. The findings are suggestive of underlying infection. Osteomyelitis not excluded. If additional imaging is clinically warranted MRI may be useful. PQRS Compliance Statement: One or more of the following individualized dose reduction techniques were utilized for this examination: 1. Automated exposure control 2. Adjustment of the mA and/or kV according to patient size 3. Use of iterative reconstruction technique
--- NOTE | 2016-11-26 15:36 | RAD ---
Procedure: Ultrasound and fluoroscopic guided Central line placement Clinical Indication: Patient requiring central venous access Sedation: None Antibiotics: None Fluoro Time: 0.1 minutes. Images: 1 Contrast: None Sterility: All elements of maximal sterile barrier technique including the use of a cap, mask, sterile gown, sterile gloves, large sterile sheet, appropriate hand hygiene, and 2% chlorhexidine for cutaneous antisepsis (or acceptable alternative antiseptic per current guidelines) were followed for this procedure. Consent: The procedure was explained in its entirety to the patient or the patients designated passenger service representative by a member of the treatment team, including a discussion of the risks, benefits and commonly accepted alternatives to the procedure, as well as the expected consequences of no therapy whatsoever. Discussion of the risks included, but was not limited to, those that are most frequent and those that are rare but possibly severe or life-threatening, as well as the possibility of unforeseen complications. Technique and Findings: Following informed consent, the patient was prepped and draped in usual sterile fashion. Ultrasound interrogation of the right neck revealed patency and compressibility of the right internal jugular vein. A hard copy ultrasound image was recorded as a 21-gauge micro puncture needle was used to gain access to this vein with a single stick. The needle was exchanged over a wire for a small dilator followed by a triple lumen central line. All 3 lumens flushed and aspirated with ease and the catheter was sutured to the skin. Complications: No immediate Impression: 1. Central line placement as described
[2016-11-26] MEDS: FERROUS SULFATE 325 MG TABLET PO SCH (17:55)
[2016-11-26] MEDS ORDERED: VANCOMYCIN 1 GM in IV NORMAL SALINE 250ML 250 ML IV SCH (18:00)
[2016-11-26] MEDS: ATORVASTATIN CALCIUM 40 MG TABLET. PO SCH (20:08)
[2016-11-26] MEDS: AMLODIPINE BESYLATE 5 MG TABLET PO SCH (20:09)
[2016-11-26] MEDS: INSULIN DETEMIR 300 UNITS/3 ML INSULN.PEN. SQ SCH (22:37)
[2016-11-27] VITALS (8 sets, daily range): BP systolic 122–165; BP diastolic 61–78
[2016-11-27] MEDS: PIPERACILLIN/TAZOBACTAM 3.375 GM in IV NORMAL SALINE 50ML 50 ML IV SCH ×5 (01:40→23:54)
[2016-11-27 07:56] LABS: BASO # 0.1 x10^3/uL (0.0-0.2); BASO % 1 % (0-3); EOS % 4 % (0-3); HEMATOCRIT 29.1 % (39.0-53.0); HEMOGLOBIN 9.5 g/dL (13.0-17.5); LYMPH # 1.3 x10^3/uL (1.0-4.8); LYMPH % 11 % (24-48); MEAN CORPUSCULAR HEMOGLOBIN 27 pg (25-35); MEAN CORPUSCULAR HGB CONC 33 g/dL (31-37); MEAN CORPUSCULAR VOLUME 81 fL (79-100); MONO % 7 % (0-9); NEUT % 78 % (31-73); PLATELET COUNT 541 x10^3/uL (140-400); RED BLOOD COUNT 3.59 x10^6/uL (4.30-5.70); RED CELL DISTRIBUTION WIDTH 15.3 % (11.5-14.5); WHITE BLOOD COUNT 12.2 x10^3/uL (4.0-11.0)
[2016-11-27] MEDS: INSULIN ASPART 300 UNITS/3 ML INSULN.PEN SQ SCH ×6 (08:00→17:17)
[2016-11-27 08:09] LABS: ALBUMIN 2.4 g/dL (3.4-5.0); CALCIUM 8.5 mg/dL (8.5-10.1); CREATININE 1.7 mg/dL (0.7-1.3); GFR 41.2; PHOSPHORUS 3.4 mg/dL (2.6-4.7); POTASSIUM 4.4 mmol/L (3.5-5.1)
[2016-11-27] MEDS: IPRATRPIUM/ALBUTEROL 0.5/2.5MG 3 ML NEBU. NEB SCH ×4 (08:32→20:51)
[2016-11-27] MEDS: CLOPIDOGREL BISULFATE 75 MG TABLET PO SCH (08:50)
[2016-11-27] MEDS: FUROSEMIDE 40 MG TABLET PO SCH (08:50)
[2016-11-27] MEDS: PREGABALIN 75 MG CAPSULE PO SCH ×2 (08:50→21:54)
[2016-11-27] MEDS: PANTOPRAZOLE 40 MG TABLET. PO SCH ×2 (08:50→17:11)
[2016-11-27] MEDS: ASPIRIN 81 MG TAB.CHEW PO SCH (08:51)
[2016-11-27] MEDS: METOCLOPRAMIDE 10 MG TABLET PO SCH (08:51)
[2016-11-27] MEDS: FERROUS SULFATE 325 MG TABLET PO SCH ×2 (08:51→17:11)
[2016-11-27] MEDS: CARVEDILOL 12.5 MG TABLET PO SCH ×2 (08:52→17:12)
[2016-11-27] MEDS: IV NORMAL SALINE 1000ML BAG 1,000 ML IV SCH (08:55)
--- NOTE | 2016-11-27 09:38 | PDOC ---
Infectious Disease Note Subjective Subjective pt feeling better ROS ROS GEN: Denies fevers, chills, sweats HEENT: Denies blurred vision, sore throat CV: Denies chest pain RESP: Denies shortness of air, cough GI: Denies n/v/d NEURO: Denies confusion, dizziness MSK: Denies weakness, joint pain/swelling Vital Sign Vital Signs Vital Signs Date Time Temp Pulse Resp B/P Pulse Ox O2 Delivery O2 Flow Rate FiO2 11/27/16 08:52 84 151/71 11/27/16 07:00 98.4 18 93 Room Air 98.4 Physical Exam PHYSICAL EXAM GENERAL: NAD, Alert HEENT: PERRL, OC/OP NECK: Supple, no JVD, no LN LUNGS: Clear HEART: S1S2, no gallop, no murmur ABD: Soft, NT, no organomegaly, no rebound EXT: No edema, no cyanosis,, rt foot with drainage SEISMIC OBSERVER: Alert, oriented x 3, no focal neurologic deficit SKIN: No rash IV: ok Labs Lab Laboratory Tests Test 11/26/16 11:14 11/26/16 16:05 11/26/16 20:59 11/27/16 07:40 Glucose (Fingerstick) 214mg/dL (70-99) 184mg/dL (70-99) 134mg/dL (70-99) White Blood Count 12.2x10^3/uL (4.0-11.0) Red Blood Count 3.59x10^6/uL (4.30-5.70) Hemoglobin 9.5g/dL (13.0-17.5) Hematocrit 29.1% (39.0-53.0) Mean Corpuscular Volume 81fL (79-100) Mean Corpuscular Hemoglobin 27pg (25-35) Mean Corpuscular Hemoglobin Concent 33g/dL (31-37) Red Cell Distribution Width 15.3% (11.5-14.5) Platelet Count 541x10^3/uL (140-400) Neutrophils (%) (Auto) 78% (31-73) Lymphocytes (%) (Auto) 11% (24-48) Monocytes (%) (Auto) 7% (0-9) Eosinophils (%) (Auto) 4% (0-3) Basophils (%) (Auto) 1% (0-3) Neutrophils # (Auto) 9.5x10^3uL (1.8-7.7) Lymphocytes # (Auto) 1.3x10^3/uL (1.0-4.8) Monocytes # (Auto) 0.8x10^3/uL (0.0-1.1) Eosinophils # (Auto) 0.4x10^3/uL (0.0-0.7) Basophils # (Auto) 0.1x10^3/uL (0.0-0.2) Sodium Level 138mmol/L (136-145) Potassium Level 4.4mmol/L (3.5-5.1) Chloride Level 104mmol/L (98-107) Carbon Dioxide Level 24mmol/L (21-32) Anion Gap 10 (6-14) Blood Urea Nitrogen 28mg/dL (8-26) Creatinine 1.7mg/dL (0.7-1.3) Estimated GFR (Cockcroft-Gault) 41.2 Glucose Level 289mg/dL (70-99) Calcium Level 8.5mg/dL (8.5-10.1) Phosphorus Level 3.4mg/dL (2.6-4.7) Magnesium Level 1.9mg/dL (1.8-2.4) Albumin 2.4g/dL (3.4-5.0) Test 11/27/16 07:45 Glucose (Fingerstick) 283mg/dL (70-99) Objective Assessment Rt foot 4 th amp site infection likely osteo of metatarsal DM PAD CKD Plan Plan of Care cont zosyn likely will need revision ( amp site I and D) consult vascular surgery for I and D LUKE CHAPA MD Nov 27, 2016 09:37
--- NOTE | 2016-11-27 10:23 | PDOC ---
PROGRESS NOTES Subjective Subjective no new problems Objective Objective Vital Signs Date Time Temp Pulse Resp B/P Pulse Ox O2 Delivery O2 Flow Rate FiO2 11/27/16 09:56 Room Air 11/27/16 08:52 84 151/71 11/27/16 07:00 98.4 18 93 98.4 Intake and Output 11/27/16 07:00 Intake Total 1712 ml Output Total 1225 ml Balance 487 ml Intake Oral 250 ml IV Total 1150 ml Blood Product IV Normal Saline Flush 312 ml Output Urine Total 1225 ml # Voids 1 Physical Exam Abdomen: Normal bowel sounds, Soft Heart: Regular rate, Normal S1 Extremities: No clubbing General: Alert HEENT: Atraumatic MUSCULOSKELETAL: No deformity, No swelling Neuro: Normal speech Psych/Mental Status: Mental status NL Skin: No rashes Diagnosis Problem List Problems Medical Problems: (1) Foot osteomyelitis Status: Acute Assessment Assessment Problems Medical Problems: (1) Foot osteomyelitis Status: Acute FINAL IMPRESSION: 1. Possible osteomyelitis of the right foot. 2. 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 3. Diabetic neuropathy. 4. Coronary artery disease. 5. Chronic systolic heart failure. 6. h/o Pacemaker for bradyarrhythmias. 7. Diabetes, insulin-dependent. 8. Hypertension. 9. Hyperlipidemia. 10. Diabetic neuropathy. PLAN: ct foot showed osteomyelitis. spoke with ID ,will consult vascular. central line placed yesterday. s/p transfusion 2 u prbc ,hb 9 today. cr 1.8 stable At this time, admit to hospital. Wound cultures. CT of the foot. ID is consulted. Renal is consulted to see if the infection is limited to superficial or in the bone. Further recommendation to follow. Problems: Plan Plan of Care Problems Medical Problems: (1) Foot osteomyelitis Status: Acute Comment Review of Relevant I have reviewed the following items luís (where applicable) has been applied. Labs Laboratory Tests Test 11/26/16 11:14 11/26/16 16:05 11/26/16 20:59 11/27/16 07:40 Glucose (Fingerstick) 214mg/dL (70-99) 184mg/dL (70-99) 134mg/dL (70-99) White Blood Count 12.2x10^3/uL (4.0-11.0) Red Blood Count 3.59x10^6/uL (4.30-5.70) Hemoglobin 9.5g/dL (13.0-17.5) Hematocrit 29.1% (39.0-53.0) Mean Corpuscular Volume 81fL (79-100) Mean Corpuscular Hemoglobin 27pg (25-35) Mean Corpuscular Hemoglobin Concent 33g/dL (31-37) Red Cell Distribution Width 15.3% (11.5-14.5) Platelet Count 541x10^3/uL (140-400) Neutrophils (%) (Auto) 78% (31-73) Lymphocytes (%) (Auto) 11% (24-48) Monocytes (%) (Auto) 7% (0-9) Eosinophils (%) (Auto) 4% (0-3) Basophils (%) (Auto) 1% (0-3) Neutrophils # (Auto) 9.5x10^3uL (1.8-7.7) Lymphocytes # (Auto) 1.3x10^3/uL (1.0-4.8) Monocytes # (Auto) 0.8x10^3/uL (0.0-1.1) Eosinophils # (Auto) 0.4x10^3/uL (0.0-0.7) Basophils # (Auto) 0.1x10^3/uL (0.0-0.2) Sodium Level 138mmol/L (136-145) Potassium Level 4.4mmol/L (3.5-5.1) Chloride Level 104mmol/L (98-107) Carbon Dioxide Level 24mmol/L (21-32) Anion Gap 10 (6-14) Blood Urea Nitrogen 28mg/dL (8-26) Creatinine 1.7mg/dL (0.7-1.3) Estimated GFR (Cockcroft-Gault) 41.2 Glucose Level 289mg/dL (70-99) Calcium Level 8.5mg/dL (8.5-10.1) Phosphorus Level 3.4mg/dL (2.6-4.7) Magnesium Level 1.9mg/dL (1.8-2.4) Albumin 2.4g/dL (3.4-5.0) Test 11/27/16 07:45 Glucose (Fingerstick) 283mg/dL (70-99) Microbiology 11/25/16 Gram Stain - Final, Complete Medications Current Medications Ferrous Sulfate (Feosol) 325 mg BIDWMEALS PO Last administered on 11/27/16 08: 51; Start 11/26/16 at 17:00 Heparin Sodium/ Sodium Chloride 60 unit 1X ONCE IV Last administered on 14:30; Start 11/26/16 at 14:30; Stop 11/26/16 at 14:31; Status DC Heparin Sodium/ Sodium Chloride 1,000 unit 1X ONCE IART ; Start 11/26/16 at 14: 45; Stop 11/26/16 at 14:46; Status DC Lidocaine/Sodium Bicarbonate (Buffered Lidocaine 1%) 3 ml 1X ONCE IJ Last administered on 11/26/16 14:30; Start 11/26/16 at 14:30; Stop 11/26/16 at 14:31 ; Status DC Lidocaine/Sodium Bicarbonate (Buffered Lidocaine 1%) 20 ml 1X ONCE IJ ; Start 11/26/16 at 14:45; Stop 11/26/16 at 14:46; Status DC Vancomycin HCl 1 each 1X ONCE MC ; Start 11/27/16 at 17:30; Stop 11/27/16 at 17 :30; Status DC Vancomycin HCl/ Sodium Chloride (Iv Sodium Chloride 0.9% 250ml) 250 ml @ 250 mls/hr Q24H IV ; Start 11/26/16 at 18:00; Stop 11/26/16 at 18:00; Status DC Vitals/I & O Vital Sign - Last 24 Hours 11/26/16 11/26/16 11/26/16 11/26/16 11:00 11:31 15:00 15:40 Temp 98.3 97.9 98.3 97.9 Pulse 79 73 Resp 14 14 B/P 143/69 92/44 Pulse Ox 96 97 96 97 O2 Delivery Room Air Room Air Room Air Room Air 11/26/16 11/26/16 11/26/16 11/26/16 17:18 17:53 18:08 18:14 Temp 97.9 97.7 97.9 97.7 Pulse 76 72 74 Resp 16 16 B/P 92/44 92/44 130/61 O2 Delivery Room Air 11/26/16 11/26/16 11/26/16 11/26/16 18:27 19:15 19:35 19:50 Temp 98.3 98.3 98.3 98.3 Pulse 75 78 78 Resp 20 B/P 133/64 133/73 133/73 Pulse Ox 94 O2 Delivery Room Air Room Air 11/26/16 11/26/16 11/26/16 11/26/16 20:01 20:09 22:37 22:55 Temp 98.5 97.9 97.9 98.5 97.9 97.9 Pulse 77 78 71 71 Resp 20 B/P 137/71 133/73 132/64 132/64 Pulse Ox 93 O2 Delivery Room Air 11/26/16 11/27/16 11/27/16 11/27/16 23:27 00:25 01:31 03:47 Temp 98.1 98.1 98.6 98.7 98.1 98.1 98.6 98.7 Pulse 76 71 71 84 Resp 18 18 B/P 151/68 136/62 158/68 151/71 Pulse Ox 92 O2 Delivery Room Air 11/27/16 11/27/16 11/27/16 07:00 08:52 09:56 Temp 98.4 98.4 Pulse 80 84 Resp 18 B/P 165/78 151/71 Pulse Ox 93 O2 Delivery Room Air Room Air Intake and Output 11/26/16 11/26/16 11/27/16 15:00 23:00 07:00 Intake Total 1362 ml 350 ml Output Total 450 ml 775 ml Balance 912 ml -425 ml ELDER LAURENT MD Nov 27, 2016 10:23
--- NOTE | 2016-11-27 11:19 | PDOC ---
SUBJECTIVE ROS KAYLEE/ CKD III Doing better overall CVS: no Orthopnea, no CP RESP: no SOB, no MAGANA GI: no Nausea, no Vomiting : no Dysuria, no Urgency OBJECTIVE Vital Signs Vital Signs Date Time Temp Pulse Resp B/P Pulse Ox O2 Delivery O2 Flow Rate FiO2 11/27/16 09:56 Room Air 11/27/16 08:52 84 151/71 11/27/16 07:00 98.4 18 93 98.4 I & 0 Intake and Output 11/27/16 07:00 Intake Total 1712 ml Output Total 1225 ml Balance 487 ml Intake Oral 250 ml IV Total 1150 ml Blood Product IV Normal Saline Flush 312 ml Output Urine Total 1225 ml # Voids 1 PHYSICAL EXAM Physical Exam General Appearance: Awake Alert Oriented x 3 In no Distress Eyes: ? + Cataracts; Conjunctiva Normal EN: No EN Drainage Mucous Memb. moist Neck: no JVD no JVP Supple no Thyromegaly CVS: S1 S2 sys Murmur No Gallop No Rub no Edema Resp: no Rales no Rhonchi no Acc. Muscle use GI: BS +ve NO Bruit Non Tender Non Distended : no CVA tenderness; no Suprapubic Tenderness Assessment & Plan CKD III - DM/ HTNsive /NS. Creat close to baseline. Current FLuid and E-lyte status does not necessitate emergent need for Dialysis. Will re-evaluate for Dialysis in am Vol Dpeltion - watch off ofIVF Anemai - Started on EPO. Low Iron, PO Fe for now due to ongoing infecton ( Ferritin is not that high though) DFU - Needs (? 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 hence a Central line [id number] / Groshong should be placed if needed COMMENT/RELEVANT DATA Meds Current Medications Medications (Trade) Dose Ordered Sig/Perlita Start Time Stop Time Status Last Admin Dose Admin Albuterol/ Ipratropium (Duoneb) 3 ml RTQID 11/25/16 22:45 11/27/16 08:32 3 ML Amlodipine Besylate (Norvasc) 5 mg HS 11/25/16 21:00 11/26/16 20:09 5 MG Aspirin (Children'S Aspirin) 81 mg DAILY 11/26/16 09:00 11/27/16 08:51 81 MG Atorvastatin Calcium (Lipitor) 40 mg QHS 11/25/16 21:00 11/26/16 20:08 40 MG Carvedilol (Coreg) 12.5 mg BIDWMEALS 11/25/16 17:00 11/27/16 08:52 12.5 MG Clopidogrel Bisulfate (Plavix) 75 mg DAILYWBKFT 11/26/16 08:00 11/27/16 08:50 75 MG Darbepoetin Cali (Aranesp) 60 mcg WEEKLYHS 11/25/16 21:00 11/25/16 21:05 60 MCG Dextrose 12.5 gm PRN Q15MIN PRN 11/25/16 16:00 Dextrose 12.5 gm 12.5 gm PRN Q15MIN PRN 11/25/16 12:30 11/26/16 11:39 DC Ferrous Sulfate (Feosol) 325 mg BIDWMEALS 11/26/16 17:00 11/27/16 08:51 325 MG Furosemide (Lasix) 40 mg DAILY 11/26/16 09:00 11/27/16 08:50 40 MG Guaifenesin (Robitussin Dm) 10 ml PRN Q4HRS PRN 11/25/16 22:45 11/26/16 20:23 10 ML Heparin Sodium (Porcine) 5,000 unit Q12HR 11/25/16 17:00 11/26/16 13:15 DC 11/26/16 09:36 5,000 UNIT Heparin Sodium/ Sodium Chloride 1,000 unit 1X ONCE 11/26/16 14:45 11/26/16 14:46 DC Hydralazine HCl (Apresoline) 25 mg PRN Q6HRS PRN 11/25/16 13:00 Insulin Aspart (Novolog) 10 units 1X ONCE 11/25/16 17:45 11/25/16 17:46 DC 11/25/16 18:25 10 UNITS Insulin Detemir (Levemir) 15 units QHS 11/25/16 21:00 11/26/16 22:37 15 UNITS Lidocaine/Sodium Bicarbonate (Buffered Lidocaine 1%) 20 ml 1X ONCE 11/26/16 14:45 11/26/16 14:46 DC Magnesium Sulfate/ Dextrose 50 ml @ 25 mls/hr PRN DAILY PRN 11/25/16 15:30 Metoclopramide HCl (Reglan) 5 mg DAILY08 11/26/16 08:00 11/27/16 08:51 5 MG Pantoprazole Sodium (Protonix) 40 mg BIDAC 11/25/16 16:30 11/27/16 08:50 40 MG Piperacillin Sod/ Tazobactam Sod/ Sodium Chloride (Zosyn/Iv Sodium Chloride 0.9% 50ml) 50 ml @ 100 mls/hr Q6HRS 11/25/16 13:00 11/27/16 05:38 100 MLS/HR Pregabalin 75 mg 75 mg BID 11/25/16 21:00 11/27/16 08:50 75 MG Sodium Polystyrene Sulfonate 30 gm 30 gm 1X ONCE 11/25/16 17:45 11/25/16 17:46 DC 11/25/16 18:05 30 GM Sodium Chloride (Iv Sodium Chloride 0.9% 1000ml Bag) 1,000 ml @ 125 mls/hr Q8H 11/25/16 15:30 11/27/16 08:55 125 MLS/HR Vancomycin HCl 1 each 1X ONCE 11/27/16 17:30 11/27/16 17:30 DC Vancomycin HCl (Vanco Per Pharmacy) 1 each PRN DAILY PRN 11/25/16 13:00 11/26/16 08:23 DC 11/25/16 18:51 1 EACH Vancomycin HCl 1.75 gm/Sodium Chloride 500 ml @ 250 mls/hr 1X ONCE 11/25/16 14:00 11/25/16 15:59 DC 11/25/16 18:05 250 MLS/HR Vancomycin HCl 1 gm/Sodium Chloride 250 ml @ 250 mls/hr Q24H 11/25/16 14:00 UNV Vancomycin HCl/ Sodium Chloride (Iv Sodium Chloride 0.9% 250ml) 250 ml @ 250 mls/hr Q24H 11/26/16 18:00 11/26/16 18:00 DC Lab Laboratory Tests Test 11/26/16 16:05 11/26/16 20:59 11/27/16 07:40 11/27/16 07:45 Glucose (Fingerstick) 184mg/dL (70-99) 134mg/dL (70-99) 283mg/dL (70-99) White Blood Count 12.2x10^3/uL (4.0-11.0) Red Blood Count 3.59x10^6/uL (4.30-5.70) Hemoglobin 9.5g/dL (13.0-17.5) Hematocrit 29.1% (39.0-53.0) Mean Corpuscular Volume 81fL (79-100) Mean Corpuscular Hemoglobin 27pg (25-35) Mean Corpuscular Hemoglobin Concent 33g/dL (31-37) Red Cell Distribution Width 15.3% (11.5-14.5) Platelet Count 541x10^3/uL (140-400) Neutrophils (%) (Auto) 78% (31-73) Lymphocytes (%) (Auto) 11% (24-48) Monocytes (%) (Auto) 7% (0-9) Eosinophils (%) (Auto) 4% (0-3) Basophils (%) (Auto) 1% (0-3) Neutrophils # (Auto) 9.5x10^3uL (1.8-7.7) Lymphocytes # (Auto) 1.3x10^3/uL (1.0-4.8) Monocytes # (Auto) 0.8x10^3/uL (0.0-1.1) Eosinophils # (Auto) 0.4x10^3/uL (0.0-0.7) Basophils # (Auto) 0.1x10^3/uL (0.0-0.2) Sodium Level 138mmol/L (136-145) Potassium Level 4.4mmol/L (3.5-5.1) Chloride Level 104mmol/L (98-107) Carbon Dioxide Level 24mmol/L (21-32) Anion Gap 10 (6-14) Blood Urea Nitrogen 28mg/dL (8-26) Creatinine 1.7mg/dL (0.7-1.3) Estimated GFR (Cockcroft-Gault) 41.2 Glucose Level 289mg/dL (70-99) Calcium Level 8.5mg/dL (8.5-10.1) Phosphorus Level 3.4mg/dL (2.6-4.7) Magnesium Level 1.9mg/dL (1.8-2.4) Albumin 2.4g/dL (3.4-5.0) LEV CHAPA MD Nov 27, 2016 11:19
[2016-11-27] MEDS: ACETAMINOPHEN 325 MG TABLET. PO PRN (18:15)
--- NOTE | 2016-11-27 18:32 | PDOC ---
Provider Note Provider Note VASCULAR CONSULT DICTATED right forefoot wound with drainage at the site of previous digit amputation x-ray c/w osteo of metatarsal head#3,4 palpable femoral pulses recent arteriogram show relatively well preserved arterial tree. IMP osteo right foot , metatarsal #3,4 PLAN Ray amp #3,4 with wound VAC , consider HBO, ABX until the residual met head is completely covered with granulation tissue will schedule LASHONDA RODRIGUEZ MD Nov 27, 2016 18:32
--- NOTE | 2016-11-27 19:07 | CONS ---
DATE OF CONSULTATION: 11/27/2016 REASON FOR CONSULTATION: Open wound right foot, status post right third and fourth toes amputation. HISTORY OF PRESENT ILLNESS: This is a 61-year-old male, with history of underlying diabetes, hypertension, peripheral vascular disease, chronic renal insufficiency, coronary artery disease, and congestive heart failure. He underwent third and fourth toes amputation of the right foot and [facility] that [facility]. He was admitted to the hospital because on examination the wound had not healed. There was necrotic tissue at the base. It was draining cloudy serous fluid and there was palpable bone at the base of the wound. Infectious Disease was consulted. Vascular Surgery was consulted. Plain x-rays were obtained. Those have been reviewed. The patient has a history of pacemaker insertion previously. He is an insulin-dependent diabetic. He did have an arteriogram performed prior to his previous digital amputations. That arteriogram shows a patent aortoiliac tree as well as the infrainguinal tree including the infrapopliteal and tibial vessels. He does not appear to have poor circulation as a reason for poor healing. The patient's plain x-rays however show some bony reabsorption in the proximal phalanx. I do not have old films to review, but this certainly is suspicious for underlying osteomyelitis. ASSESSMENT AND PLAN: I discussed this with the patient. If this is in fact ongoing bone infection, then additional surgical debridement and resection of metatarsal head and wound VAC placement for long-term management of this chronic wound would be appropriate. We will examine this wound further tomorrow with a curette which I will procure from the operating room and then make further recommendations and schedule him for surgical debridement early next week. Thank you for this consult. LASHONDA RODRIGUEZ MD DR: LAURA/andre JOB#: [id number] / [id number]
[2016-11-27] MEDS: ATORVASTATIN CALCIUM 40 MG TABLET. PO SCH (21:54)
[2016-11-27] MEDS: AMLODIPINE BESYLATE 5 MG TABLET PO SCH (21:55)
[2016-11-27] MEDS: INSULIN DETEMIR 300 UNITS/3 ML INSULN.PEN. SQ SCH (22:02)
[2016-11-28 03:07] VITALS: BP 152/69
--- NOTE | 2016-11-28 05:34 | PDOC ---
MARTADAVID ORTHODONTIST 11/28/16 0534: IM PROGRESS NOTES- Subjective Subjective sleeping, no c/o when awakened Objective Objective no distress Vitals Vital Signs Date Time Temp Pulse Resp B/P Pulse Ox O2 Delivery O2 Flow Rate FiO2 11/28/16 03:07 98.5 73 18 152/69 100 Room Air 98.5 Input & Output Intake and Output 11/28/16 07:00 Intake Total 800 ml Output Total 1950 ml Balance -1150 ml Intake Oral 800 ml Output Urine Total 1950 ml Physical Exam Physical Exam General appearance - alert,well appearing, and in no distress Mental Status - alert, oriented to person, place, and time, affect appropriate to mood Head - normal Chest - clear to auscultation, no wheezes, rales or rhonchi, symmetric air entry Heart - S1 and S2 normal Abdomen - soft, nontender, nondistended, no masses or organomegaly Neurological - no acute focal neurological deficits ntoed Musculoskeletal - no muscular tenderness noted Extremities - no pedal edema, dressing R foot. Skin - warm and dry Labs Laboratory Tests Test 11/26/16 07:40 11/26/16 11:14 11/26/16 16:05 11/26/16 20:59 Glucose (Fingerstick) 82mg/dL (70-99) 214mg/dL (70-99) 184mg/dL (70-99) 134mg/dL (70-99) Test 11/27/16 07:40 11/27/16 07:45 11/27/16 11:14 11/27/16 16:48 White Blood Count 12.2x10^3/uL (4.0-11.0) Red Blood Count 3.59x10^6/uL (4.30-5.70) Hemoglobin 9.5g/dL (13.0-17.5) Hematocrit 29.1% (39.0-53.0) Mean Corpuscular Volume 81fL (79-100) Mean Corpuscular Hemoglobin 27pg (25-35) Mean Corpuscular Hemoglobin Concent 33g/dL (31-37) Red Cell Distribution Width 15.3% (11.5-14.5) Platelet Count 541x10^3/uL (140-400) Neutrophils (%) (Auto) 78% (31-73) Lymphocytes (%) (Auto) 11% (24-48) Monocytes (%) (Auto) 7% (0-9) Eosinophils (%) (Auto) 4% (0-3) Basophils (%) (Auto) 1% (0-3) Neutrophils # (Auto) 9.5x10^3uL (1.8-7.7) Lymphocytes # (Auto) 1.3x10^3/uL (1.0-4.8) Monocytes # (Auto) 0.8x10^3/uL (0.0-1.1) Eosinophils # (Auto) 0.4x10^3/uL (0.0-0.7) Basophils # (Auto) 0.1x10^3/uL (0.0-0.2) Sodium Level 138mmol/L (136-145) Potassium Level 4.4mmol/L (3.5-5.1) Chloride Level 104mmol/L (98-107) Carbon Dioxide Level 24mmol/L (21-32) Anion Gap 10 (6-14) Blood Urea Nitrogen 28mg/dL (8-26) Creatinine 1.7mg/dL (0.7-1.3) Estimated GFR (Cockcroft-Gault) 41.2 Glucose Level 289mg/dL (70-99) Calcium Level 8.5mg/dL (8.5-10.1) Phosphorus Level 3.4mg/dL (2.6-4.7) Magnesium Level 1.9mg/dL (1.8-2.4) Albumin 2.4g/dL (3.4-5.0) Glucose (Fingerstick) 283mg/dL (70-99) 264mg/dL (70-99) 220mg/dL (70-99) Test 11/27/16 20:31 Glucose (Fingerstick) 220mg/dL (70-99) Laboratory Tests Test 11/27/16 07:40 11/27/16 07:45 11/27/16 11:14 11/27/16 16:48 White Blood Count 12.2x10^3/uL (4.0-11.0) Red Blood Count 3.59x10^6/uL (4.30-5.70) Hemoglobin 9.5g/dL (13.0-17.5) Hematocrit 29.1% (39.0-53.0) Mean Corpuscular Volume 81fL (79-100) Mean Corpuscular Hemoglobin 27pg (25-35) Mean Corpuscular Hemoglobin Concent 33g/dL (31-37) Red Cell Distribution Width 15.3% (11.5-14.5) Platelet Count 541x10^3/uL (140-400) Neutrophils (%) (Auto) 78% (31-73) Lymphocytes (%) (Auto) 11% (24-48) Monocytes (%) (Auto) 7% (0-9) Eosinophils (%) (Auto) 4% (0-3) Basophils (%) (Auto) 1% (0-3) Neutrophils # (Auto) 9.5x10^3uL (1.8-7.7) Lymphocytes # (Auto) 1.3x10^3/uL (1.0-4.8) Monocytes # (Auto) 0.8x10^3/uL (0.0-1.1) Eosinophils # (Auto) 0.4x10^3/uL (0.0-0.7) Basophils # (Auto) 0.1x10^3/uL (0.0-0.2) Sodium Level 138mmol/L (136-145) Potassium Level 4.4mmol/L (3.5-5.1) Chloride Level 104mmol/L (98-107) Carbon Dioxide Level 24mmol/L (21-32) Anion Gap 10 (6-14) Blood Urea Nitrogen 28mg/dL (8-26) Creatinine 1.7mg/dL (0.7-1.3) Estimated GFR (Cockcroft-Gault) 41.2 Glucose Level 289mg/dL (70-99) Calcium Level 8.5mg/dL (8.5-10.1) Phosphorus Level 3.4mg/dL (2.6-4.7) Magnesium Level 1.9mg/dL (1.8-2.4) Albumin 2.4g/dL (3.4-5.0) Glucose (Fingerstick) 283mg/dL (70-99) 264mg/dL (70-99) 220mg/dL (70-99) Test 11/27/16 20:31 Glucose (Fingerstick) 220mg/dL (70-99) Meds Current Medications Acetaminophen (Tylenol) 650 mg PRN Q6HRS PRN PO MILD PAIN / TEMP Last administered on 11/27/16t 18:15; Start 11/27/16 at 18:15 Vancomycin HCl 1 each 1X ONCE MC ; Start 11/27/16 at 17:30; Stop 11/27/16 at 17 :30; Status DC Assessment Assessment Problems Medical Problems: (1) Foot osteomyelitis Status: Acute FINAL IMPRESSION: 1. Possible osteomyelitis of the right foot. 2. 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 3. Diabetic neuropathy. 4. Coronary artery disease. 5. Chronic systolic heart failure. 6. h/o Pacemaker for bradyarrhythmias. 7. Diabetes, insulin-dependent. 8. Hypertension. 9. Hyperlipidemia. 10. Diabetic neuropathy. PLAN: PLAN: osteo metatarsal #3-4, surgical consult: planned Ray amp, wound vac, HBO, IV antibx leukocytosis Admit 17.2 11/27 12.2 wound +gm neg rods Zosyn DM II not controlled BS 220-289 Increase scheduled Novolog to 12u TID ac +SSI low intensity KAYLEE CKD III - Admit BUN/Cr 46/2.1 11/27 28/1.7 off IVF, renal consulted Anemia Admit Hgb 7.9 11/27 9.5 11/26 7.0-2unit PRC For further plan of care, please refer to the orders. Plan Plan For more details regarding further plans, please refer to the orders. AG GUILLAUME MD 11/28/16 0919: IM PROGRESS NOTES- Assessment Assessment The patient was seen and examined by me. Chart reviewed and plan of care formulated. Discussed with, reviewed and agree with [facility]'s notes, plan of care and orders with modifications as necessary. For more details regarding further plans, please refer to the orders. DAVID LOZANO APRN Nov 28, 2016 05:34 AG GUILLAUME MD Nov 28, 2016 09:19
[2016-11-28] MEDS: PANTOPRAZOLE 40 MG TABLET. PO SCH ×2 (05:58→17:24)
[2016-11-28] MEDS: PIPERACILLIN/TAZOBACTAM 3.375 GM in IV NORMAL SALINE 50ML 50 ML IV SCH ×3 (05:59→17:25)
[2016-11-28 07:00] VITALS: BP 159/71
[2016-11-28] MEDS: INSULIN ASPART 300 UNITS/3 ML INSULN.PEN SQ SCH ×6 (07:30→17:32)
[2016-11-28] MEDS: IPRATRPIUM/ALBUTEROL 0.5/2.5MG 3 ML NEBU. NEB SCH ×4 (08:28→20:22)
[2016-11-28] MEDS: PREGABALIN 75 MG CAPSULE PO SCH ×2 (08:40→21:06)
[2016-11-28] MEDS: FERROUS SULFATE 325 MG TABLET PO SCH ×2 (08:40→17:24)
[2016-11-28] MEDS: METOCLOPRAMIDE 10 MG TABLET PO SCH (08:40)
[2016-11-28] MEDS: CLOPIDOGREL BISULFATE 75 MG TABLET PO SCH (08:40)
[2016-11-28] MEDS: ACETAMINOPHEN 325 MG TABLET. PO PRN (08:41)
[2016-11-28] MEDS: CARVEDILOL 12.5 MG TABLET PO SCH ×2 (08:44→17:24)
[2016-11-28] MEDS: ASPIRIN 81 MG TAB.CHEW PO SCH (09:00)
[2016-11-28 11:00] VITALS: BP 123/99
--- NOTE | 2016-11-28 12:40 | PDOC ---
Infectious Disease Note Subjective Subjective Comfortable at the moment ROS ROS GEN: Denies fevers, chills, sweats CV: Denies chest pain RESP: Denies shortness of air, cough GI: Denies n/v/d NEURO: Denies confusion, dizziness MSK: Denies weakness, swelling Vital Sign Vital Signs Vital Signs Date Time Temp Pulse Resp B/P Pulse Ox O2 Delivery O2 Flow Rate FiO2 11/28/16 12:18 98 Room Air 11/28/16 11:00 98.2 70 18 123/99 98.2 Physical Exam PHYSICAL EXAM GENERAL: Propped up in bed, eating HEENT: PERRL, OC/OP clear. edentulous NECK: Supple, no JVD, no LN LUNGS: Clear HEART: S1S2, no gallop, no murmur ABD: Soft, NT, BS present EXT: No edema, no cyanosis. Right toe amp site bandaged. 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 (11/26). clean Labs Lab Laboratory Tests Test 11/27/16 16:48 11/27/16 20:31 11/28/16 07:30 11/28/16 11:27 Glucose (Fingerstick) 220mg/dL (70-99) 220mg/dL (70-99) 76mg/dL (70-99) 194mg/dL (70-99) Micro ANAEROBIC-AEROBIC CULTURE PENDING ANAEROBIC RES 1 PENDING AEROBIC CULT Preliminary Preliminary report AEROBIC RES 1 Preliminary Comment Enterobacter aerogenes Heavy growth AEROBIC RES 2 Preliminary Enterococcus species Moderate growth AEROBIC RES 3 Preliminary Staphylococcus aureus Scant growth Antibiotic RSLT#1 RSLT#2 RSLT#3 RSLT#4 Amoxicillin/Clavulanic Acid R Cefazolin R Cefepime S Ceftriaxone S Cefuroxime R Ciprofloxacin S Ertapenem S Gentamicin S Imipenem S Levofloxacin S Piperacillin S Tetracycline S Tobramycin S Trimethoprim/Sulfa S Objective Assessment Right foot 3rd & 4th amp site infection 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 -Enterobacter, staph auras & enterococcus DM PAD CKD Plan Plan of Care Zosyn Last dose vanc 11/25 ESR 134 Monitor WBC, Cr and temp Appreciate vacular input. further recs to follow likely will need revision ( amp site I and D) Patient seen and examined. Chart reviewed in detail. Case d/w SOFTWARE APPLICATIONS SPECIALIST.Agree with above plan Enterococcus and S. aureus susceptibilities pending Add Zyvox empirically till results are back LESTER DUARTE APRN Nov 28, 2016 12:40 CONRADO CALERO MD Nov 28, 2016 15:42
[2016-11-28 13:50] LABS: ALBUMIN 2.4 g/dL (3.4-5.0); CALCIUM 8.7 mg/dL (8.5-10.1); CREATININE 1.7 mg/dL (0.7-1.3); GFR 41.2; PHOSPHORUS 2.8 mg/dL (2.6-4.7); POTASSIUM 3.8 mmol/L (3.5-5.1)
[2016-11-28 15:00] VITALS: BP 159/73
[2016-11-28 19:32] VITALS: BP 138/67
[2016-11-28] MEDS: INSULIN DETEMIR 300 UNITS/3 ML INSULN.PEN. SQ SCH (21:00)
[2016-11-28] MEDS: LINEZOLID 600 MG TABLET PO SCH (21:05)
[2016-11-28] MEDS: ATORVASTATIN CALCIUM 40 MG TABLET. PO SCH (21:06)
[2016-11-28] MEDS: AMLODIPINE BESYLATE 5 MG TABLET PO SCH (21:10)
[2016-11-28 23:04] VITALS: BP 159/73
[2016-11-29] MEDS: PIPERACILLIN/TAZOBACTAM 3.375 GM in IV NORMAL SALINE 50ML 50 ML IV SCH ×4 (00:28→16:58)
[2016-11-29 03:08] VITALS: BP 157/70
[2016-11-29 07:00] VITALS: BP 158/70
[2016-11-29] MEDS: IPRATRPIUM/ALBUTEROL 0.5/2.5MG 3 ML NEBU. NEB SCH ×4 (07:12→19:36)
[2016-11-29 07:33] LABS: ALBUMIN 2.3 g/dL (3.4-5.0); CALCIUM 8.6 mg/dL (8.5-10.1); CREATININE 1.6 mg/dL (0.7-1.3); GFR 44.2; PHOSPHORUS 2.8 mg/dL (2.6-4.7)
[2016-11-29 07:43] LABS: BASO # 0.2 x10^3/uL (0.0-0.2); BASO % 1 % (0-3); EOS % 3 % (0-3); HEMATOCRIT 28.6 % (39.0-53.0); HEMOGLOBIN 9.3 g/dL (13.0-17.5); LYMPH # 1.4 x10^3/uL (1.0-4.8); LYMPH % 11 % (24-48); MEAN CORPUSCULAR HEMOGLOBIN 27 pg (25-35); MEAN CORPUSCULAR HGB CONC 33 g/dL (31-37); MEAN CORPUSCULAR VOLUME 82 fL (79-100); MONO % 8 % (0-9); NEUT % 76 % (31-73); PLATELET COUNT 551 x10^3/uL (140-400); RED CELL DISTRIBUTION WIDTH 15.4 % (11.5-14.5); WHITE BLOOD COUNT 12.2 x10^3/uL (4.0-11.0)
[2016-11-29] MEDS: INSULIN ASPART 300 UNITS/3 ML INSULN.PEN SQ SCH ×6 (08:00→16:58)
[2016-11-29] MEDS ORDERED: MAGNESIUM SULFATE 2GM 50 ML IV ONE (08:30)
[2016-11-29] MEDS: CLOPIDOGREL BISULFATE 75 MG TABLET PO SCH (08:46)
[2016-11-29] MEDS: METOCLOPRAMIDE 10 MG TABLET PO SCH (08:46)
[2016-11-29] MEDS: ASPIRIN 81 MG TAB.CHEW PO SCH (08:46)
[2016-11-29] MEDS: CARVEDILOL 12.5 MG TABLET PO SCH ×2 (08:47→16:53)
[2016-11-29] MEDS: FERROUS SULFATE 325 MG TABLET PO SCH ×2 (08:47→16:53)
[2016-11-29] MEDS: PREGABALIN 75 MG CAPSULE PO SCH ×2 (08:47→21:25)
[2016-11-29] MEDS: PANTOPRAZOLE 40 MG TABLET. PO SCH ×2 (08:47→16:53)
[2016-11-29] MEDS: LINEZOLID 600 MG TABLET PO SCH ×2 (08:47→21:26)
--- NOTE | 2016-11-29 10:03 | PDOC ---
Provider Note Provider Note VASCULAR Pt needs additional debridement of open infected wound right foot Discussed with pt , he agrees PLAN: debridement and wound VAC in am LASHONDA RODRIGUEZ MD Nov 29, 2016 10:03
--- NOTE | 2016-11-29 10:19 | PDOC ---
IM PROGRESS NOTES- Subjective Subjective No pain,dyspnea. Objective Objective no distress Vitals Vital Signs Date Time Temp Pulse Resp B/P Pulse Ox O2 Delivery O2 Flow Rate FiO2 11/29/16 08:47 75 158/70 11/29/16 07:13 93 Room Air 11/29/16 07:00 98.5 20 98.5 Input & Output Intake and Output 11/29/16 07:00 Intake Total 360 ml Output Total 1000 ml Balance -640 ml Intake Oral 360 ml Output Urine Total 1000 ml Physical Exam Physical Exam General appearance - alert,ill appearing, and in no distress Mental Status - alert, oriented to person, place, and time, affect appropriate to mood Head - normal Chest - clear to auscultation, no wheezes, rales or rhonchi, symmetric air entry Heart - S1 and S2 normal Abdomen - soft, nontender, nondistended, no masses or organomegaly Neurological - no acute focal neurological deficits ntoed Musculoskeletal - no muscular tenderness noted Extremities - no pedal edema, dressing R foot. Skin - warm and dry Labs Laboratory Tests Test 11/27/16 11:14 11/27/16 16:48 11/27/16 20:31 11/28/16 07:30 Glucose (Fingerstick) 264mg/dL (70-99) 220mg/dL (70-99) 220mg/dL (70-99) 76mg/dL (70-99) Test 11/28/16 11:27 11/28/16 13:25 11/28/16 16:50 11/28/16 20:51 Glucose (Fingerstick) 194mg/dL (70-99) 164mg/dL (70-99) 71mg/dL (70-99) Sodium Level 140mmol/L (136-145) Potassium Level 3.8mmol/L (3.5-5.1) Chloride Level 103mmol/L (98-107) Carbon Dioxide Level 26mmol/L (21-32) Anion Gap 11 (6-14) Blood Urea Nitrogen 22mg/dL (8-26) Creatinine 1.7mg/dL (0.7-1.3) Estimated GFR (Cockcroft-Gault) 41.2 Glucose Level 213mg/dL (70-99) Calcium Level 8.7mg/dL (8.5-10.1) Phosphorus Level 2.8mg/dL (2.6-4.7) Magnesium Level 1.6mg/dL (1.8-2.4) Albumin 2.4g/dL (3.4-5.0) Test 11/29/16 07:00 11/29/16 07:49 White Blood Count 12.2x10^3/uL (4.0-11.0) Red Blood Count 3.50x10^6/uL (4.30-5.70) Hemoglobin 9.3g/dL (13.0-17.5) Hematocrit 28.6% (39.0-53.0) Mean Corpuscular Volume 82fL (79-100) Mean Corpuscular Hemoglobin 27pg (25-35) Mean Corpuscular Hemoglobin Concent 33g/dL (31-37) Red Cell Distribution Width 15.4% (11.5-14.5) Platelet Count 551x10^3/uL (140-400) Neutrophils (%) (Auto) 76% (31-73) Lymphocytes (%) (Auto) 11% (24-48) Monocytes (%) (Auto) 8% (0-9) Eosinophils (%) (Auto) 3% (0-3) Basophils (%) (Auto) 1% (0-3) Neutrophils # (Auto) 9.3x10^3uL (1.8-7.7) Lymphocytes # (Auto) 1.4x10^3/uL (1.0-4.8) Monocytes # (Auto) 1.0x10^3/uL (0.0-1.1) Eosinophils # (Auto) 0.4x10^3/uL (0.0-0.7) Basophils # (Auto) 0.2x10^3/uL (0.0-0.2) Sodium Level 140mmol/L (136-145) Potassium Level 4.0mmol/L (3.5-5.1) Chloride Level 104mmol/L (98-107) Carbon Dioxide Level 28mmol/L (21-32) Anion Gap 8 (6-14) Blood Urea Nitrogen 21mg/dL (8-26) Creatinine 1.6mg/dL (0.7-1.3) Estimated GFR (Cockcroft-Gault) 44.2 Glucose Level 159mg/dL (70-99) Calcium Level 8.6mg/dL (8.5-10.1) Phosphorus Level 2.8mg/dL (2.6-4.7) Magnesium Level 1.7mg/dL (1.8-2.4) Albumin 2.3g/dL (3.4-5.0) Glucose (Fingerstick) 137mg/dL (70-99) Laboratory Tests Test 11/28/16 11:27 11/28/16 13:25 11/28/16 16:50 11/28/16 20:51 Glucose (Fingerstick) 194mg/dL (70-99) 164mg/dL (70-99) 71mg/dL (70-99) Sodium Level 140mmol/L (136-145) Potassium Level 3.8mmol/L (3.5-5.1) Chloride Level 103mmol/L (98-107) Carbon Dioxide Level 26mmol/L (21-32) Anion Gap 11 (6-14) Blood Urea Nitrogen 22mg/dL (8-26) Creatinine 1.7mg/dL (0.7-1.3) Estimated GFR (Cockcroft-Gault) 41.2 Glucose Level 213mg/dL (70-99) Calcium Level 8.7mg/dL (8.5-10.1) Phosphorus Level 2.8mg/dL (2.6-4.7) Magnesium Level 1.6mg/dL (1.8-2.4) Albumin 2.4g/dL (3.4-5.0) Test 11/29/16 07:00 11/29/16 07:49 White Blood Count 12.2x10^3/uL (4.0-11.0) Red Blood Count 3.50x10^6/uL (4.30-5.70) Hemoglobin 9.3g/dL (13.0-17.5) Hematocrit 28.6% (39.0-53.0) Mean Corpuscular Volume 82fL (79-100) Mean Corpuscular Hemoglobin 27pg (25-35) Mean Corpuscular Hemoglobin Concent 33g/dL (31-37) Red Cell Distribution Width 15.4% (11.5-14.5) Platelet Count 551x10^3/uL (140-400) Neutrophils (%) (Auto) 76% (31-73) Lymphocytes (%) (Auto) 11% (24-48) Monocytes (%) (Auto) 8% (0-9) Eosinophils (%) (Auto) 3% (0-3) Basophils (%) (Auto) 1% (0-3) Neutrophils # (Auto) 9.3x10^3uL (1.8-7.7) Lymphocytes # (Auto) 1.4x10^3/uL (1.0-4.8) Monocytes # (Auto) 1.0x10^3/uL (0.0-1.1) Eosinophils # (Auto) 0.4x10^3/uL (0.0-0.7) Basophils # (Auto) 0.2x10^3/uL (0.0-0.2) Sodium Level 140mmol/L (136-145) Potassium Level 4.0mmol/L (3.5-5.1) Chloride Level 104mmol/L (98-107) Carbon Dioxide Level 28mmol/L (21-32) Anion Gap 8 (6-14) Blood Urea Nitrogen 21mg/dL (8-26) Creatinine 1.6mg/dL (0.7-1.3) Estimated GFR (Cockcroft-Gault) 44.2 Glucose Level 159mg/dL (70-99) Calcium Level 8.6mg/dL (8.5-10.1) Phosphorus Level 2.8mg/dL (2.6-4.7) Magnesium Level 1.7mg/dL (1.8-2.4) Albumin 2.3g/dL (3.4-5.0) Glucose (Fingerstick) 137mg/dL (70-99) Meds Current Medications Insulin Detemir 10 units 10 units QHS SQ ; Start 11/29/16 at 21:00 Linezolid (Zyvox) 600 mg BID PO Last administered on 11/29/16 08:47; Start at 21:00 Magnesium Sulfate/ Dextrose (Magnesium Sulfate PREMIX 2GM) 50 ml @ 25 mls/hr 1X ONCE IV Last administered on 11/29/16 08:49; Start 11/29/16 at 08:30; Stop 11/29/16 at 10:29 Assessment Assessment FINAL IMPRESSION: 1. Possible osteomyelitis of the right foot. 2. 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 3. Diabetic neuropathy. 4. Coronary artery disease. 5. Chronic systolic heart failure. 6. h/o Pacemaker for bradyarrhythmias. 7. Diabetes, insulin-dependent. 8. Hypertension. 9. Hyperlipidemia. 10. Diabetic neuropathy. PLAN: PLAN: osteo metatarsal #3-4, surgical consult: planned Ray amp, wound vac, HBO, IV antibx leukocytosis Admit 17.2 11/29 12.2 wound +gm neg rods Zosyn Debridement,wound vac tomorropw. DM II not controlled Glucose 71 yesterday- Levemir held.Decrease Levemir from 15 units s/c to 10 units daily. KAYLEE CKD III - Creatinine 1.6 off IVF, renal consulted Anemia Admit Hgb 7.9 11/27 9.5 11/26 7.0-2unit PRC Hypomagnesemia- 1.7. Replace. Plan Plan For more details regarding further plans, please refer to the orders. AG GUILLAUME MD Nov 29, 2016 10:19
[2016-11-29 11:00] VITALS: BP 145/68
--- NOTE | 2016-11-29 11:13 | PDOC ---
Infectious Disease Note Subjective Subjective c/o neuropathy-type pain foot ROS ROS GEN: Denies fevers, chills, sweats CV: Denies chest pain RESP: Denies shortness of air, cough GI: Denies n/v/d Vital Sign Vital Signs Vital Signs Date Time Temp Pulse Resp B/P Pulse Ox O2 Delivery O2 Flow Rate FiO2 11/29/16 11:00 Room Air 11/29/16 08:47 75 158/70 11/29/16 07:13 93 11/29/16 07:00 98.5 20 98.5 Physical Exam PHYSICAL EXAM GENERAL: Propped up in bed, NAD HEENT: PERRL, OC/OP clear. edentulous NECK: Supple, no JVD, no LN LUNGS: Clear HEART: S1S2, no gallop, no murmur ABD: Soft, NT, BS present EXT: No edema, no cyanosis. Right toe amp site wound with thick purulent drainage. 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 (11/26). clean Labs Lab Laboratory Tests Test 11/28/16 11:27 11/28/16 13:25 11/28/16 16:50 11/28/16 20:51 Glucose (Fingerstick) 194mg/dL (70-99) 164mg/dL (70-99) 71mg/dL (70-99) Sodium Level 140mmol/L (136-145) Potassium Level 3.8mmol/L (3.5-5.1) Chloride Level 103mmol/L (98-107) Carbon Dioxide Level 26mmol/L (21-32) Anion Gap 11 (6-14) Blood Urea Nitrogen 22mg/dL (8-26) Creatinine 1.7mg/dL (0.7-1.3) Estimated GFR (Cockcroft-Gault) 41.2 Glucose Level 213mg/dL (70-99) Calcium Level 8.7mg/dL (8.5-10.1) Phosphorus Level 2.8mg/dL (2.6-4.7) Magnesium Level 1.6mg/dL (1.8-2.4) Albumin 2.4g/dL (3.4-5.0) Test 11/29/16 07:00 11/29/16 07:49 White Blood Count 12.2x10^3/uL (4.0-11.0) Red Blood Count 3.50x10^6/uL (4.30-5.70) Hemoglobin 9.3g/dL (13.0-17.5) Hematocrit 28.6% (39.0-53.0) Mean Corpuscular Volume 82fL (79-100) Mean Corpuscular Hemoglobin 27pg (25-35) Mean Corpuscular Hemoglobin Concent 33g/dL (31-37) Red Cell Distribution Width 15.4% (11.5-14.5) Platelet Count 551x10^3/uL (140-400) Neutrophils (%) (Auto) 76% (31-73) Lymphocytes (%) (Auto) 11% (24-48) Monocytes (%) (Auto) 8% (0-9) Eosinophils (%) (Auto) 3% (0-3) Basophils (%) (Auto) 1% (0-3) Neutrophils # (Auto) 9.3x10^3uL (1.8-7.7) Lymphocytes # (Auto) 1.4x10^3/uL (1.0-4.8) Monocytes # (Auto) 1.0x10^3/uL (0.0-1.1) Eosinophils # (Auto) 0.4x10^3/uL (0.0-0.7) Basophils # (Auto) 0.2x10^3/uL (0.0-0.2) Sodium Level 140mmol/L (136-145) Potassium Level 4.0mmol/L (3.5-5.1) Chloride Level 104mmol/L (98-107) Carbon Dioxide Level 28mmol/L (21-32) Anion Gap 8 (6-14) Blood Urea Nitrogen 21mg/dL (8-26) Creatinine 1.6mg/dL (0.7-1.3) Estimated GFR (Cockcroft-Gault) 44.2 Glucose Level 159mg/dL (70-99) Calcium Level 8.6mg/dL (8.5-10.1) Phosphorus Level 2.8mg/dL (2.6-4.7) Magnesium Level 1.7mg/dL (1.8-2.4) Albumin 2.3g/dL (3.4-5.0) Glucose (Fingerstick) 137mg/dL (70-99) Micro ANAEROBIC-AEROBIC CULTURE PENDING ANAEROBIC RES 1 PENDING AEROBIC CULT Preliminary Preliminary report AEROBIC RES 1 Preliminary Comment Enterobacter aerogenes Heavy growth AEROBIC RES 2 Preliminary Enterococcus species Moderate growth AEROBIC RES 3 Preliminary Staphylococcus aureus Scant growth Antibiotic RSLT#1 RSLT#2 RSLT#3 RSLT#4 Amoxicillin/Clavulanic Acid R Cefazolin R Cefepime S Ceftriaxone S Cefuroxime R Ciprofloxacin S Ertapenem S Gentamicin S Imipenem S Levofloxacin S Piperacillin S Tetracycline S Tobramycin S Trimethoprim/Sulfa S Objective Assessment Right foot 3rd & 4th amp site infection 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 -Enterobacter, staph auras & enterococcus DM PAD CKD Plan Plan of Care Zosyn and Zyvox Last dose vanc 11/25 ESR 134 Monitor WBC, Cr and temp I and D with wound vac scheduled for tomorrow Await further culture sensitivities. Patient seen and examined. Chart reviewed. Case discussed with INTEGRATED SPECIALIST. CT result viewed. Agree with above plan. LESTER DUARTE APRN Nov 29, 2016 11:13 CONRADO CALERO MD Nov 29, 2016 16:45
[2016-11-29 15:00] VITALS: BP 173/79
[2016-11-29 19:22] VITALS: BP 146/68
--- NOTE | 2016-11-29 20:41 | PDOC ---
Provider Note Provider Note Provider Note RENAL F/U : LIZABETH S : No new c/o O : Doing better/stable. VSS Afebrile. Lungs : Non labored. CVS : RRR Labs, I/Os reviewed. A/P : ARF : ATN. Cr stable. UOP good. HTN and DM II w CKD. PVD/ DIABETIC FOOT ULCER. Supportive care. No new issues. OMID BARONE MD Nov 29, 2016 20:40
[2016-11-29] MEDS: INSULIN DETEMIR 300 UNITS/3 ML INSULN.PEN. SQ SCH (21:00)
[2016-11-29] MEDS: ATORVASTATIN CALCIUM 40 MG TABLET. PO SCH (21:25)
[2016-11-29] MEDS: AMLODIPINE BESYLATE 5 MG TABLET PO SCH (21:26)
[2016-11-29 23:28] VITALS: BP 138/63
[2016-11-30] VITALS (12 sets, daily range): BP systolic 111–165; BP diastolic 50–67
[2016-11-30] MEDS: PIPERACILLIN/TAZOBACTAM 3.375 GM in IV NORMAL SALINE 50ML 50 ML IV SCH ×4 (00:22→17:41)
[2016-11-30 06:27] LABS: BASO # 0.1 x10^3/uL (0.0-0.2); BASO % 1 % (0-3); EOS % 3 % (0-3); HEMATOCRIT 28.2 % (39.0-53.0); LYMPH # 1.5 x10^3/uL (1.0-4.8); LYMPH % 14 % (24-48); MEAN CORPUSCULAR HEMOGLOBIN 26 pg (25-35); MEAN CORPUSCULAR HGB CONC 32 g/dL (31-37); MEAN CORPUSCULAR VOLUME 83 fL (79-100); MONO % 9 % (0-9); NEUT % 73 % (31-73); PLATELET COUNT 526 x10^3/uL (140-400); RED BLOOD COUNT 3.41 x10^6/uL (4.30-5.70); RED CELL DISTRIBUTION WIDTH 15.9 % (11.5-14.5); WHITE BLOOD COUNT 11.1 x10^3/uL (4.0-11.0)
[2016-11-30 06:43] LABS: ALBUMIN 2.2 g/dL (3.4-5.0); CALCIUM 8.6 mg/dL (8.5-10.1); CREATININE 1.6 mg/dL (0.7-1.3); GFR 44.2; PHOSPHORUS 3.2 mg/dL (2.6-4.7); POTASSIUM 5.2 mmol/L (3.5-5.1)
[2016-11-30] MEDS ORDERED: silver sulfADIAZINE 1% CREAM 25GM TUBE. TP ONE (06:46)
[2016-11-30] MEDS ORDERED: LIDOCAINE 1% 20 ML VIAL. ONE (06:46)
[2016-11-30] MEDS: FERROUS SULFATE 325 MG TABLET PO SCH ×2 (07:24→17:40)
[2016-11-30] MEDS: INSULIN ASPART 300 UNITS/3 ML INSULN.PEN SQ SCH ×6 (07:24→17:00)
[2016-11-30] MEDS: METOCLOPRAMIDE 10 MG TABLET PO SCH (07:24)
[2016-11-30] MEDS: CLOPIDOGREL BISULFATE 75 MG TABLET PO SCH (07:24)
[2016-11-30] MEDS: PANTOPRAZOLE 40 MG TABLET. PO SCH ×2 (07:24→17:40)
[2016-11-30] MEDS: LINEZOLID 600 MG TABLET PO SCH ×2 (07:25→20:35)
[2016-11-30] MEDS: ASPIRIN 81 MG TAB.CHEW PO SCH (07:25)
[2016-11-30] MEDS: PREGABALIN 75 MG CAPSULE PO SCH ×2 (07:25→20:34)
[2016-11-30] MEDS: IPRATRPIUM/ALBUTEROL 0.5/2.5MG 3 ML NEBU. NEB SCH ×4 (08:00→20:34)
[2016-11-30] MEDS: CARVEDILOL 12.5 MG TABLET PO SCH ×2 (08:10→17:40)
[2016-11-30] MEDS ORDERED: PROPOFOL 20 ML IV ONE (08:49)
[2016-11-30] MEDS ORDERED: ONDANSETRON PF 4 MG/2 ML VIAL. ONE (08:49)
[2016-11-30] MEDS ORDERED: LIDOCAINE 2% 100 MG/5 ML DISP.SYRIN. ONE (08:49)
[2016-11-30] MEDS ORDERED: FAMOTIDINE 20 MG/2 ML VIAL ONE (08:49)
[2016-11-30] MEDS ORDERED: FENTANYL PF 100 MCG/2 ML VIAL. ONE (08:50)
[2016-11-30] MEDS ORDERED: INSULIN ASPART 100 UNIT/ML 10ML VIAL. SQ ONE ×3 (09:00→11:30)
--- NOTE | 2016-11-30 09:44 | PDOC ---
PROGRESS NOTES Subjective Subjective foot surgery today Objective Objective Vital Signs Date Time Temp Pulse Resp B/P Pulse Ox O2 Delivery O2 Flow Rate FiO2 11/30/16 08:33 97.8 77 12 180/78 92 Room Air 97.8 Intake and Output 11/30/16 07:00 Intake Total 520 ml Output Total 775 ml Balance -255 ml Intake Oral 520 ml Output Urine Total 775 ml # Voids 1 Physical Exam Abdomen: Normal bowel sounds, Soft Heart: Regular rate, Normal S1 Extremities: No clubbing General: Alert HEENT: Atraumatic MUSCULOSKELETAL: No deformity, No swelling Neuro: Normal speech Psych/Mental Status: Mental status NL Skin: No rashes Diagnosis Problem List Problems Medical Problems: (1) Foot osteomyelitis Status: Acute Assessment Assessment FINAL IMPRESSION: 1. Osteomyelitis of the right foot. 2. 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 3. Diabetic neuropathy. 4. Coronary artery disease. 5. Chronic systolic heart failure. 6. h/o Pacemaker for bradyarrhythmias. 7. Diabetes, insulin-dependent. 8. Hypertension. 9. Hyperlipidemia. 10. Diabetic neuropathy. PLAN: PLAN:surgery today. labs noted. osteo metatarsal #3-4, surgical consult: planned Ray amp, wound vac, HBO, IV antibx leukocytosis Admit 17.2 11/29 12.2 wound +gm neg rods Zosyn Debridement,wound vac today DM II not controlled Glucose 71 yesterday- Levemir held.Decrease Levemir from 15 units s/c to 10 units daily. KAYLEE CKD III - Creatinine 1.6 off IVF, renal consulted Problems: Plan Plan of Care Problems Medical Problems: (1) Foot osteomyelitis Status: Acute Comment Review of Relevant I have reviewed the following items luís (where applicable) has been applied. Labs Laboratory Tests Test 11/29/16 11:50 11/29/16 16:49 11/29/16 20:51 11/30/16 06:10 Glucose (Fingerstick) 82mg/dL (70-99) 232mg/dL (70-99) 146mg/dL (70-99) White Blood Count 11.1x10^3/uL (4.0-11.0) Red Blood Count 3.41x10^6/uL (4.30-5.70) Hemoglobin 9.0g/dL (13.0-17.5) Hematocrit 28.2% (39.0-53.0) Mean Corpuscular Volume 83fL (79-100) Mean Corpuscular Hemoglobin 26pg (25-35) Mean Corpuscular Hemoglobin Concent 32g/dL (31-37) Red Cell Distribution Width 15.9% (11.5-14.5) Platelet Count 526x10^3/uL (140-400) Neutrophils (%) (Auto) 73% (31-73) Lymphocytes (%) (Auto) 14% (24-48) Monocytes (%) (Auto) 9% (0-9) Eosinophils (%) (Auto) 3% (0-3) Basophils (%) (Auto) 1% (0-3) Neutrophils # (Auto) 8.1x10^3uL (1.8-7.7) Lymphocytes # (Auto) 1.5x10^3/uL (1.0-4.8) Monocytes # (Auto) 1.0x10^3/uL (0.0-1.1) Eosinophils # (Auto) 0.4x10^3/uL (0.0-0.7) Basophils # (Auto) 0.1x10^3/uL (0.0-0.2) Sodium Level 134mmol/L (136-145) Potassium Level 5.2mmol/L (3.5-5.1) Chloride Level 100mmol/L (98-107) Carbon Dioxide Level 24mmol/L (21-32) Anion Gap 10 (6-14) Blood Urea Nitrogen 26mg/dL (8-26) Creatinine 1.6mg/dL (0.7-1.3) Estimated GFR (Cockcroft-Gault) 44.2 Glucose Level 358mg/dL (70-99) Calcium Level 8.6mg/dL (8.5-10.1) Phosphorus Level 3.2mg/dL (2.6-4.7) Magnesium Level 2.2mg/dL (1.8-2.4) Albumin 2.2g/dL (3.4-5.0) Test 11/30/16 07:17 Glucose (Fingerstick) 364mg/dL (70-99) Microbiology 11/25/16 Gram Stain - Final, Complete Medications Current Medications Famotidine (Pepcid) 20 mg STK-MED ONCE .ROUTE ; Start 3/27/17 at 08:49; Stop at 08:50; Status DC Fentanyl Citrate (Fentanyl 2ml Vial) 100 mcg STK-MED ONCE .ROUTE ; Start at 08:50; Stop 11/30/16 at 08:51; Status DC Insulin Aspart (Novolog Vial) 100 unit STK-MED ONCE SQ ; Start 11/30/16 at 09:00 ; Stop 11/30/16 at 09:01; Status DC Insulin Detemir (Levemir) 10 units QHS SQ ; Start 11/29/16 at 21:00 Lidocaine HCl 20 ml STK-MED ONCE .ROUTE ; Start 11/30/16 at 06:46; Stop at 06:47; Status DC Lidocaine HCl 100 mg 100 mg STK-MED ONCE .ROUTE ; Start 11/30/16 at 08:49; Stop 11/30/16 at 08:50; Status DC Ondansetron HCl (Zofran) 4 mg STK-MED ONCE .ROUTE ; Start 11/30/16 at 08:49; Stop 11/30/16 at 08:50; Status DC Propofol (Diprivan) 20 ml @ As Directed STK-MED ONCE IV ; Start 11/30/16 at 08: 49; Stop 11/30/16 at 08:50; Status DC Silver Sulfadiazine (Silvadene) 25 beba STK-MED ONCE TP ; Start 11/30/16 at 06:46 ; Stop 11/30/16 at 06:47; Status DC Vitals/I & O Vital Sign - Last 24 Hours 11/29/16 11/29/16 11/29/16 11/29/16 11:00 11:00 15:00 15:17 Temp 98.4 98.2 98.4 98.2 Pulse 74 74 Resp 18 18 B/P 145/68 173/79 Pulse Ox 95 93 O2 Delivery Room Air Room Air Room Air Room Air 11/29/16 11/29/16 11/29/16 11/29/16 16:53 19:22 19:36 20:00 Temp 97.7 97.7 Pulse 74 67 Resp 18 B/P 173/79 146/68 Pulse Ox 97 98 O2 Delivery Room Air Room Air Room Air 11/29/16 11/29/16 11/30/16/27/17 21:26 23:28 03:31 07:00 Temp 98.1 98.8 97.9 98.1 98.8 97.9 Pulse 67 70 79 74 Resp 18 18 20 B/P 146/68 138/63 142/64 155/60 Pulse Ox 95 92 93 O2 Delivery Room Air Room Air Room Air 11/30/16 11/30/16 11/30/16 07:19 08:10 08:33 Temp 97.8 97.8 Pulse 74 77 Resp 12 B/P 159/60 180/78 Pulse Ox 92 O2 Delivery Room Air Room Air Intake and Output 11/29/16 11/29/16 11/30/16 15:00 23:00 07:00 Intake Total 120 ml 400 ml Output Total 375 ml 400 ml Balance 120 ml -375 ml 0 ml ELDER LAURENT MD Nov 30, 2016 09:44
[2016-11-30] MEDS ORDERED: SEVOFLURANE 31 TO 60 MINUTES. IH ONE (10:07)
--- NOTE | 2016-11-30 10:20 | PDOC4 ---
Operative Note Operative Note Op note dictated Dx: nonhealing prior 3rd and 4th toe amp site with osteo of the met heads Op; soft tissue debridement, resection of the 3rd and 4th metatarsal heads, adjacent tendons irrigation and packing Surg: Yaima local mac to rr in [facility] cond. ALLISON SHAH II, MD Nov 30, 2016 10:19
--- NOTE | 2016-11-30 10:42 | OP ---
DATE OF SURGERY: 11/30/2016 PREOPERATIVE DIAGNOSIS: Nonhealing wound, pericardial, status post right 3rd and 4th toe amputations with probable osteomyelitis. POSTOPERATIVE DIAGNOSIS: Nonhealing wound, pericardial, status post right 3rd and 4th toe amputations with probable osteomyelitis. NAME OF OPERATION: Resection of the third and fourth metatarsal heads with subcutaneous and soft tissue debridement. SURGEON: Bryce Erwin M.D. LINUX ADMINISTRATOR: None. ANESTHESIA: Local with monitored sedation. INDICATIONS: This is a gentleman who underwent right third and fourth toe amputations. He has developed drainage from the wound. X-ray shows some bony reabsorption of the proximal phalanx suspicious for underlying osteomyelitis. Risks and benefits were explained. OPERATIVE FINDINGS: The patient had a draining wound extending down to the metatarsal heads, which were rather soft and these required resection. There was an excellent bleeding from the debrided soft tissues. A wedge type resection was done. The wound was irrigated and then packed open. He will have a wound VAC placed on the wound tomorrow. DESCRIPTION OF PROCEDURE: The right foot was prepped and draped in the usual manner. A hemostat was placed in the ____ and this extended down to the metatarsal heads. A wedge resection was done on the dorsum of the foot as well as on the plantar aspect between the fifth and second toe. There was some necrotic fat which was excised with the skin specimen. The metatarsal heads were then resected with a rongeur down to healthy metatarsals. The tendon was likewise were resected. A soft tissue debridement ____ as needed. The bleeding was excellent from the surrounding skin margins and from within the wound itself. Because of this bleeding issue, the wound was packed with saline moistened gauze and a compression dressing was applied. He will have a wound VAC placed tomorrow. BRYCE ERWIN MD DR: YUNIOR/andre JOB#: [id number] / [id number]
[2016-11-30] MEDS ORDERED: INSULIN REGULAR 100 UNIT/ML 10ML VIAL. IV ONE ×2 (11:39→11:45)
--- NOTE | 2016-11-30 11:54 | PDOC ---
Renal-Progress Notes Subjective Notes Notes NONE History of Present Illness Hx of present illness NO CHANGE Vitals Vitals Vital Signs Date Time Temp Pulse Resp B/P Pulse Ox O2 Delivery O2 Flow Rate FiO2 11/30/16 11:25 97.5 75 20 157/66 96 97.5 11/30/16 11:10 Room Air 11/30/16 10:10 10 Weight Weight [ ] I.O. Intake and Output Intake and Output 11/30/16 07:00 Intake Total 570 ml Output Total 775 ml Balance -205 ml Intake Oral 520 ml IV Total 50 ml Output Urine Total 775 ml # Voids 1 Labs Labs Laboratory Tests Test 11/29/16 16:49 11/29/16 20:51 11/30/16 06:10 11/30/16 07:17 Glucose (Fingerstick) 232mg/dL (70-99) 146mg/dL (70-99) 364mg/dL (70-99) White Blood Count 11.1x10^3/uL (4.0-11.0) Red Blood Count 3.41x10^6/uL (4.30-5.70) Hemoglobin 9.0g/dL (13.0-17.5) Hematocrit 28.2% (39.0-53.0) Mean Corpuscular Volume 83fL (79-100) Mean Corpuscular Hemoglobin 26pg (25-35) Mean Corpuscular Hemoglobin Concent 32g/dL (31-37) Red Cell Distribution Width 15.9% (11.5-14.5) Platelet Count 526x10^3/uL (140-400) Neutrophils (%) (Auto) 73% (31-73) Lymphocytes (%) (Auto) 14% (24-48) Monocytes (%) (Auto) 9% (0-9) Eosinophils (%) (Auto) 3% (0-3) Basophils (%) (Auto) 1% (0-3) Neutrophils # (Auto) 8.1x10^3uL (1.8-7.7) Lymphocytes # (Auto) 1.5x10^3/uL (1.0-4.8) Monocytes # (Auto) 1.0x10^3/uL (0.0-1.1) Eosinophils # (Auto) 0.4x10^3/uL (0.0-0.7) Basophils # (Auto) 0.1x10^3/uL (0.0-0.2) Sodium Level 134mmol/L (136-145) Potassium Level 5.2mmol/L (3.5-5.1) Chloride Level 100mmol/L (98-107) Carbon Dioxide Level 24mmol/L (21-32) Anion Gap 10 (6-14) Blood Urea Nitrogen 26mg/dL (8-26) Creatinine 1.6mg/dL (0.7-1.3) Estimated GFR (Cockcroft-Gault) 44.2 Glucose Level 358mg/dL (70-99) Calcium Level 8.6mg/dL (8.5-10.1) Phosphorus Level 3.2mg/dL (2.6-4.7) Magnesium Level 2.2mg/dL (1.8-2.4) Albumin 2.2g/dL (3.4-5.0) Test 11/30/16 10:16 Glucose (Fingerstick) 318mg/dL (70-99) Micro Micro Microbiology 11/25/16 Gram Stain - Final, Complete Review of Systems Constitutional: yes: alert, no symptom reported, weakness Ears/Nose/Throat: Yes: no symptom reported Eyes: Yes: no symptom reported Pulmonary: Yes no symptom reported Gastrointestional: Yes: no symptom reported Genitourinary: Yes: no symptom reported Physical Exam General Appearance: no apparent distress Skin: warm Respiratory: bilateral CTA Heart: S1S2, RRR Abdomen: soft, bowel sounds present Neurology: alert Assessment Assessment MP CKD STAGE 3 STABLE MILD HYPERKALEMIA DM II LE WOUND PLAN LABS IN AM ANTIBIOTICS ZUNILDA FARR MD Nov 30, 2016 11:54
[2016-11-30] MEDS: ACETAMINOPHEN 325 MG TABLET. PO PRN ×2 (12:00→20:58)
[2016-11-30] MEDS: ATORVASTATIN CALCIUM 40 MG TABLET. PO SCH (20:34)
[2016-11-30] MEDS: AMLODIPINE BESYLATE 5 MG TABLET PO SCH (20:35)
[2016-11-30] MEDS: INSULIN DETEMIR 300 UNITS/3 ML INSULN.PEN. SQ SCH (20:52)
[2016-12-01] MEDS: PIPERACILLIN/TAZOBACTAM 3.375 GM in IV NORMAL SALINE 50ML 50 ML IV SCH ×2 (00:12→05:41)
[2016-12-01] MEDS ORDERED: LIDOCAINE 1%/EPI 1:100,000 20 ML VIAL. INJ ONE (01:00)
[2016-12-01] MEDS ORDERED: HYDROCODONE/APAP 10/325 TABLET. PO PRN (01:15)
[2016-12-01] MEDS: HYDROCODONE/APAP 10/325 TABLET. PO PRN ×2 (01:31→09:49)
[2016-12-01 03:00] VITALS: BP 121/57
[2016-12-01 05:54] LABS: BASO # 0.1 x10^3/uL (0.0-0.2); BASO % 1 % (0-3); EOS % 4 % (0-3); HEMOGLOBIN 8.3 g/dL (13.0-17.5); LYMPH # 1.3 x10^3/uL (1.0-4.8); LYMPH % 13 % (24-48); MEAN CORPUSCULAR HEMOGLOBIN 27 pg (25-35); MEAN CORPUSCULAR HGB CONC 32 g/dL (31-37); MEAN CORPUSCULAR VOLUME 83 fL (79-100); MONO % 9 % (0-9); NEUT % 73 % (31-73); PLATELET COUNT 506 x10^3/uL (140-400); RED BLOOD COUNT 3.14 x10^6/uL (4.30-5.70); RED CELL DISTRIBUTION WIDTH 16.4 % (11.5-14.5); WHITE BLOOD COUNT 10.3 x10^3/uL (4.0-11.0)
[2016-12-01 06:19] LABS: ALBUMIN 2.1 g/dL (3.4-5.0); CALCIUM 8.5 mg/dL (8.5-10.1); CREATININE 1.6 mg/dL (0.7-1.3); GFR 44.2; PHOSPHORUS 3.7 mg/dL (2.6-4.7); POTASSIUM 4.5 mmol/L (3.5-5.1)
[2016-12-01 07:00] VITALS: BP 136/64
[2016-12-01] MEDS: IPRATRPIUM/ALBUTEROL 0.5/2.5MG 3 ML NEBU. NEB SCH ×4 (08:03→19:38)
[2016-12-01] MEDS: METOCLOPRAMIDE 10 MG TABLET PO SCH (09:48)
[2016-12-01] MEDS: CLOPIDOGREL BISULFATE 75 MG TABLET PO SCH (09:48)
[2016-12-01] MEDS: PANTOPRAZOLE 40 MG TABLET. PO SCH ×2 (09:49→17:44)
[2016-12-01] MEDS: ASPIRIN 81 MG TAB.CHEW PO SCH (09:49)
[2016-12-01] MEDS: PREGABALIN 75 MG CAPSULE PO SCH ×2 (09:49→20:56)
[2016-12-01] MEDS: CARVEDILOL 12.5 MG TABLET PO SCH ×2 (09:49→17:00)
[2016-12-01] MEDS: LINEZOLID 600 MG TABLET PO SCH ×2 (09:49→20:57)
[2016-12-01] MEDS: FERROUS SULFATE 325 MG TABLET PO SCH ×2 (09:49→17:44)
[2016-12-01] MEDS: INSULIN ASPART 300 UNITS/3 ML INSULN.PEN SQ SCH ×6 (09:52→17:00)
--- NOTE | 2016-12-01 10:19 | PDOC ---
PROGRESS NOTES Subjective Subjective feels ok today ,post op day #1 Objective Objective Vital Signs Date Time Temp Pulse Resp B/P Pulse Ox O2 Delivery O2 Flow Rate FiO2 12/01/16 09:49 18 Room Air 12/01/16 09:49 64 136/64 12/01/16 08:03 98 12/01/16 07:00 97.9 97.9 11/30/16 10:10 10 Intake and Output 12/01/16 07:00 Intake Total 300 ml Output Total 800 ml Balance -500 ml Intake Oral 250 ml IV Total 50 ml Output Urine Total 750 ml Estimated Blood Loss 50 ml # Voids 2 # Bowel Movements 1 Physical Exam Abdomen: Normal bowel sounds, Soft Heart: Regular rate, Normal S1 Extremities: No clubbing General: Alert HEENT: Atraumatic MUSCULOSKELETAL: No deformity, No swelling Neuro: Normal speech Psych/Mental Status: Mental status NL Skin: No rashes Diagnosis Problem List Problems Medical Problems: (1) Foot osteomyelitis Status: Acute Assessment Assessment FINAL IMPRESSION: 1. Osteomyelitis of the right foot. 2. 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 3. Diabetic neuropathy. 4. Coronary artery disease. 5. Chronic systolic heart failure. 6. h/o Pacemaker for bradyarrhythmias. 7. Diabetes, insulin-dependent. 8. Hypertension. 9. Hyperlipidemia. 10. Diabetic neuropathy. PLAN: PLAN:surgery yesterday,partial resection of bones in 3 ,4 th metatarsal Picc line today. zyvox+invanz, snu placement. spoke with director of casework department. osteo metatarsal #3-4, surgical consult: planned Ray amp, wound vac, HBO, IV antibx leukocytosis Admit 17.2 11/29 12.2 wound +gm neg rods Zosyn Debridement,wound vac today DM II not controlled Glucose 71 yesterday- Levemir held.Decrease Levemir from 15 units s/c to 10 units daily. KAYLEE CKD III - Creatinine 1.6 off IVF, renal consulted Problems: Plan Plan of Care Problems Medical Problems: (1) Foot osteomyelitis Status: Acute Comment Review of Relevant I have reviewed the following items luís (where applicable) has been applied. Labs Laboratory Tests Test 11/30/16 12:42 11/30/16 16:16 11/30/16 20:47 12/01/16 05:40 Glucose (Fingerstick) 270mg/dL (70-99) 134mg/dL (70-99) 130mg/dL (70-99) White Blood Count 10.3x10^3/uL (4.0-11.0) Red Blood Count 3.14x10^6/uL (4.30-5.70) Hemoglobin 8.3g/dL (13.0-17.5) Hematocrit 26.0% (39.0-53.0) Mean Corpuscular Volume 83fL (79-100) Mean Corpuscular Hemoglobin 27pg (25-35) Mean Corpuscular Hemoglobin Concent 32g/dL (31-37) Red Cell Distribution Width 16.4% (11.5-14.5) Platelet Count 506x10^3/uL (140-400) Neutrophils (%) (Auto) 73% (31-73) Lymphocytes (%) (Auto) 13% (24-48) Monocytes (%) (Auto) 9% (0-9) Eosinophils (%) (Auto) 4% (0-3) Basophils (%) (Auto) 1% (0-3) Neutrophils # (Auto) 7.6x10^3uL (1.8-7.7) Lymphocytes # (Auto) 1.3x10^3/uL (1.0-4.8) Monocytes # (Auto) 0.9x10^3/uL (0.0-1.1) Eosinophils # (Auto) 0.4x10^3/uL (0.0-0.7) Basophils # (Auto) 0.1x10^3/uL (0.0-0.2) Sodium Level 140mmol/L (136-145) Potassium Level 4.5mmol/L (3.5-5.1) Chloride Level 106mmol/L (98-107) Carbon Dioxide Level 27mmol/L (21-32) Anion Gap 7 (6-14) Blood Urea Nitrogen 25mg/dL (8-26) Creatinine 1.6mg/dL (0.7-1.3) Estimated GFR (Cockcroft-Gault) 44.2 Glucose Level 169mg/dL (70-99) Calcium Level 8.5mg/dL (8.5-10.1) Phosphorus Level 3.7mg/dL (2.6-4.7) Albumin 2.1g/dL (3.4-5.0) Test 12/01/16 07:30 Glucose (Fingerstick) 179mg/dL (70-99) Microbiology 11/30/16 Gram Stain - Final, Complete Medications Current Medications Acetaminophen/ Hydrocodone Bitart (Lortab 10/325) 1 tab PRN Q4HRS PRN PO PAIN; Start 12/01/16 at 01:15 Acetaminophen/ Hydrocodone Bitart (Lortab 10/325) 1 tab PRN Q6HRS PRN PO PAIN Last administered on 12/01/16 09:49; Start 12/01/16 at 01:15 Insulin Aspart (Novolog Vial) 4 unit 1X ONCE SQ ; Start 11/30/16 at 11:15; Stop 11/30/16 at 11:38; Status DC Insulin Aspart (Novolog Vial) 4 unit 1X ONCE SQ ; Start 11/30/16 at 11:30; Stop 11/30/16 at 11:38; Status DC Insulin Human Regular (Novolin R Vial) 4 unit 1X ONCE IV Last administered on 11/30/16 11:42; Start 11/30/16 at 11:39; Stop 11/30/16 at 11:41; Status DC Insulin Human Regular (Novolin R Vial) 4 unit 1X ONCE IV ; Start 11/30/16 at 11 :45; Stop 11/30/16 at 11:45; Status DC Lidocaine/ Epinephrine (Xylocaine 1%-Epi 1:100,000) 20 ml 1X ONCE INJ Last administered on 12/01/16 00:51; Start 12/01/16 at 01:00; Stop 12/01/16 at 01:01 ; Status DC Vitals/I & O Vital Sign - Last 24 Hours 11/30/16 11/30/16 11/30/16 11/30/16 10:25 10:40 10:55 11:10 Temp 97.8 97.8 Pulse 70 72 73 75 Resp 20 20 20 20 B/P 160/69 159/70 163/74 151/66 Pulse Ox 97 95 95 95 O2 Delivery Room Air Room Air Room Air Room Air 11/30/16 11/30/16 11/30/16 11/30/16 11:25 11:40 12:06 13:13 Temp 97.5 96.1 97.5 96.1 Pulse 75 72 71 Resp 20 20 16 B/P 157/66 157/69 136/64 Pulse Ox 96 96 94 94 O2 Delivery Room Air Room Air Room Air 11/30/16 11/30/16 11/30/16 11/30/16 13:27 13:42 13:57 14:12 Pulse 70 68 66 67 Resp 16 16 16 16 B/P 144/61 165/57 111/50 135/60 Pulse Ox 93 96 93 95 O2 Delivery Room Air Room Air Room Air Room Air 11/30/16 11/30/16 11/30/16 11/30/16 14:42 15:00 15:49 16:12 Pulse 68 64 63 Resp 16 16 16 B/P 147/65 134/65 120/54 Pulse Ox 96 96 97 96 O2 Delivery Room Air Room Air Room Air Room Air 11/30/16 11/30/16 11/30/16 11/30/16 17:40 19:00 20:30 20:34 Temp 98.4 98.4 Pulse 71 66 Resp 18 B/P 136/64 142/67 Pulse Ox 95 O2 Delivery Room Air Room Air Room Air 11/30/16 11/30/16 12/01/16 12/01/16 20:35 23:01 01:31 02:35 Temp 98.4 98.4 Pulse 66 74 Resp 18 20 20 B/P 142/67 142/63 Pulse Ox 97 97 97 O2 Delivery Room Air Room Air Room Air 12/01/16 12/01/16 12/01/16 12/01/16 03:00 07:00 07:50 08:03 Temp 97.9 97.9 97.9 97.9 Pulse 64 64 Resp 18 18 B/P 121/57 136/64 Pulse Ox 94 94 98 O2 Delivery Room Air Room Air Room Air Room Air 12/01/16 12/01/16 09:49 09:49 Pulse 64 Resp 18 B/P 136/64 O2 Delivery Room Air Intake and Output 11/30/16 11/30/16 12/01/16 15:00 23:00 07:00 Intake Total 50 ml 250 ml Output Total 50 ml 750 ml Balance 0 ml -500 ml ELDER LAURENT MD Dec 01, 2016 10:19
--- NOTE | 2016-12-01 10:26 | PDOC ---
Infectious Disease Note Subjective Subjective s/p I and D, pt feeling fine ROS ROS GEN: Denies fevers, chills, sweats HEENT: Denies blurred vision, sore throat CV: Denies chest pain RESP: Denies shortness of air, cough GI: Denies n/v/d NEURO: Denies confusion, dizziness MSK: Denies weakness, joint pain/swelling Vital Sign Vital Signs Vital Signs Date Time Temp Pulse Resp B/P Pulse Ox O2 Delivery O2 Flow Rate FiO2 12/01/16 09:49 18 Room Air 12/01/16 09:49 64 136/64 12/01/16 08:03 98 12/01/16 07:00 97.9 97.9 11/30/16 10:10 10 Physical Exam PHYSICAL EXAM GENERAL: NAD, Alert HEENT: PERRL, OC/OP NECK: Supple, no JVD, no LN LUNGS: Clear HEART: S1S2, no gallop, no murmur ABD: Soft, NT, no organomegaly, no rebound EXT: No edema, no cyanosis,, post op dressing not opened V[employer]: Alert, oriented x 3, no focal neurologic deficit SKIN: No rash IV: ok Labs Lab Laboratory Tests Test 11/30/16 12:42 11/30/16 16:16 11/30/16 20:47 12/01/16 05:40 Glucose (Fingerstick) 270mg/dL (70-99) 134mg/dL (70-99) 130mg/dL (70-99) White Blood Count 10.3x10^3/uL (4.0-11.0) Red Blood Count 3.14x10^6/uL (4.30-5.70) Hemoglobin 8.3g/dL (13.0-17.5) Hematocrit 26.0% (39.0-53.0) Mean Corpuscular Volume 83fL (79-100) Mean Corpuscular Hemoglobin 27pg (25-35) Mean Corpuscular Hemoglobin Concent 32g/dL (31-37) Red Cell Distribution Width 16.4% (11.5-14.5) Platelet Count 506x10^3/uL (140-400) Neutrophils (%) (Auto) 73% (31-73) Lymphocytes (%) (Auto) 13% (24-48) Monocytes (%) (Auto) 9% (0-9) Eosinophils (%) (Auto) 4% (0-3) Basophils (%) (Auto) 1% (0-3) Neutrophils # (Auto) 7.6x10^3uL (1.8-7.7) Lymphocytes # (Auto) 1.3x10^3/uL (1.0-4.8) Monocytes # (Auto) 0.9x10^3/uL (0.0-1.1) Eosinophils # (Auto) 0.4x10^3/uL (0.0-0.7) Basophils # (Auto) 0.1x10^3/uL (0.0-0.2) Sodium Level 140mmol/L (136-145) Potassium Level 4.5mmol/L (3.5-5.1) Chloride Level 106mmol/L (98-107) Carbon Dioxide Level 27mmol/L (21-32) Anion Gap 7 (6-14) Blood Urea Nitrogen 25mg/dL (8-26) Creatinine 1.6mg/dL (0.7-1.3) Estimated GFR (Cockcroft-Gault) 44.2 Glucose Level 169mg/dL (70-99) Calcium Level 8.5mg/dL (8.5-10.1) Phosphorus Level 3.7mg/dL (2.6-4.7) Albumin 2.1g/dL (3.4-5.0) Test 12/01/16 07:30 Glucose (Fingerstick) 179mg/dL (70-99) Micro ANAEROBIC-AEROBIC CULTURE Final Final report ANAEROBIC RES 1 Final Comment No anaerobic growth in five days. AEROBIC CULT Final Final report AEROBIC RES 1 Final Comment Enterobacter aerogenes Heavy growth AEROBIC RES 2 Final Enterococcus faecalis Moderate growth AEROBIC RES 3 Final Staphylococcus aureus Scant growth Methicillin resistant (MRSA) Based on resistance to oxacillin this isolate would be resistant to all currently available beta-lactam antimicrobial agents, with the exception of the newer cephalosporins with anti-MRSA activity, such as Ceftaroline ANTIMICROBIAL SUSCEPTIBILITY Final Comment CONTINUED ON NEXT PAGE RUN DATE: 12/01/16 PAGE 2 RUN TIME: 0825 [facility] [address] [place] [address] Brady Smith M.D., [employer] SPEC: [id number] PATIENT: FREDRICK RUBIO [id number] ( Continued) Procedure Result ANTIMICROBIAL SUSCEPTIBILITY Final (continued) S = Susceptible; I = Intermediate; R = Resistant P = Positive; N = Negative MICS are expressed in micrograms per mL Antibiotic RSLT#1 RSLT#2 RSLT#3 RSLT#4 Amoxicillin/Clavulanic Acid R Cefazolin R Cefepime S Ceftriaxone S Cefuroxime R Ciprofloxacin S R Clindamycin S Ertapenem S Erythromycin R Gentamicin S S Imipenem S Levofloxacin S R Linezolid S Oxacillin R Penicillin S R Piperacillin S Rifampin S Tetracycline S S Tobramycin S Trimethoprim/Sulfa S S Vancomycin S S Performed at: [facility] - [address], [place], [place] [id number] [employer] Member: Jazmín Enciso MD, Phone: [phone] END OF REPORT Objective Assessment Rt foot 4 th amp site infection 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
[2016-12-01 11:00] VITALS: BP 139/66
--- NOTE | 2016-12-01 11:20 | PDOC ---
Renal-Progress Notes Subjective Notes Notes FEELING OK History of Present Illness Hx of present illness STABLE Vitals Vitals Vital Signs Date Time Temp Pulse Resp B/P Pulse Ox O2 Delivery O2 Flow Rate FiO2 12/01/16 09:49 18 Room Air 12/01/16 09:49 64 136/64 12/01/16 08:03 98 12/01/16 07:00 97.9 97.9 11/30/16 10:10 10 Weight Weight [ ] I.O. Intake and Output Intake and Output 12/01/16 07:00 Intake Total 300 ml Output Total 800 ml Balance -500 ml Intake Oral 250 ml IV Total 50 ml Output Urine Total 750 ml Estimated Blood Loss 50 ml # Voids 2 # Bowel Movements 1 Labs Labs Laboratory Tests Test 11/30/16 12:42 11/30/16 16:16 11/30/16 20:47 12/01/16 05:40 Glucose (Fingerstick) 270mg/dL (70-99) 134mg/dL (70-99) 130mg/dL (70-99) White Blood Count 10.3x10^3/uL (4.0-11.0) Red Blood Count 3.14x10^6/uL (4.30-5.70) Hemoglobin 8.3g/dL (13.0-17.5) Hematocrit 26.0% (39.0-53.0) Mean Corpuscular Volume 83fL (79-100) Mean Corpuscular Hemoglobin 27pg (25-35) Mean Corpuscular Hemoglobin Concent 32g/dL (31-37) Red Cell Distribution Width 16.4% (11.5-14.5) Platelet Count 506x10^3/uL (140-400) Neutrophils (%) (Auto) 73% (31-73) Lymphocytes (%) (Auto) 13% (24-48) Monocytes (%) (Auto) 9% (0-9) Eosinophils (%) (Auto) 4% (0-3) Basophils (%) (Auto) 1% (0-3) Neutrophils # (Auto) 7.6x10^3uL (1.8-7.7) Lymphocytes # (Auto) 1.3x10^3/uL (1.0-4.8) Monocytes # (Auto) 0.9x10^3/uL (0.0-1.1) Eosinophils # (Auto) 0.4x10^3/uL (0.0-0.7) Basophils # (Auto) 0.1x10^3/uL (0.0-0.2) Sodium Level 140mmol/L (136-145) Potassium Level 4.5mmol/L (3.5-5.1) Chloride Level 106mmol/L (98-107) Carbon Dioxide Level 27mmol/L (21-32) Anion Gap 7 (6-14) Blood Urea Nitrogen 25mg/dL (8-26) Creatinine 1.6mg/dL (0.7-1.3) Estimated GFR (Cockcroft-Gault) 44.2 Glucose Level 169mg/dL (70-99) Calcium Level 8.5mg/dL (8.5-10.1) Phosphorus Level 3.7mg/dL (2.6-4.7) Albumin 2.1g/dL (3.4-5.0) Test 12/01/16 07:30 Glucose (Fingerstick) 179mg/dL (70-99) Micro Micro Microbiology 11/30/16 Gram Stain - Final, Complete Review of Systems Constitutional: yes: alert, no symptom reported, weakness Ears/Nose/Throat: Yes: no symptom reported Eyes: Yes: no symptom reported Pulmonary: Yes no symptom reported Gastrointestional: Yes: no symptom reported Genitourinary: Yes: no symptom reported Physical Exam General Appearance: no apparent distress Skin: warm Respiratory: bilateral CTA Heart: S1S2, RRR Abdomen: soft, bowel sounds present Neurology: alert Assessment Assessment MP CKD STAGE 3 STABLE WITH CR OF 1.6 MILD HYPERKALEMIA-RESOLVED DM II LE WOUND PLAN LABS IN AM ANTIBIOTICS HAS OP F/U APPT IN THE NEXT FEW MONTHS ZUNILDA FARR MD Dec 01, 2016 11:20
[2016-12-01] MEDS ORDERED: LIDOCAINE 1% / SOD BICARB 8.4% 20 ML VIAL. IJ ONE ×2 (11:29→12:00)
--- NOTE | 2016-12-01 12:02 | PDOC ---
PROGRESS NOTES Subjective Subjective "Will I have my own wound vac put back on?" Objective Objective Vascular Surgery - POD#1 Resection of the third and fourth metatarsal heads with subcutaneous and soft tissue debridement. Patient in wheelchair getting ready to go to radiology for PICC line placement. Complains of mild right foot pain. Right foot dressing dry and intact. No drainage noted through the dressing. I have spoke with Dr. Rush Gavin and need for chronic IV antibiotics upon discharge. Assessment/Plan: 1. Nonhealing wound status post right 3rd and 4th toe amputations with probable osteomyelitis - POD#1 Open amp to 3rd and 4th toes. 2. Dressing to be removed when wound vac placed. 3. PICC line to be placed shortly for chronic IV antibiotics - per ID 4. Plan for discharge back to SNF when medically stable. 5. May return to [facility] or be followed by Dr. Benítez at [facility] located in [place]. [phone] Vital Signs Date Time Temp Pulse Resp B/P Pulse Ox O2 Delivery O2 Flow Rate FiO2 12/01/16 11:00 97.7 64 18 139/66 96 Room Air 97.7 11/30/16 10:10 10 Intake and Output 12/01/16 07:00 Intake Total 300 ml Output Total 800 ml Balance -500 ml Intake Oral 250 ml IV Total 50 ml Output Urine Total 750 ml Estimated Blood Loss 50 ml # Voids 2 # Bowel Movements 1 Assessment Assessment Problems Medical Problems: (1) Foot osteomyelitis Status: Acute Comment Review of Relevant I have reviewed the following items luís (where applicable) has been applied. Labs Laboratory Tests Test 11/29/16 16:49 11/29/16 20:51 11/30/16 06:10 11/30/16 07:17 Glucose (Fingerstick) 232mg/dL (70-99) 146mg/dL (70-99) 364mg/dL (70-99) White Blood Count 11.1x10^3/uL (4.0-11.0) Red Blood Count 3.41x10^6/uL (4.30-5.70) Hemoglobin 9.0g/dL (13.0-17.5) Hematocrit 28.2% (39.0-53.0) Mean Corpuscular Volume 83fL (79-100) Mean Corpuscular Hemoglobin 26pg (25-35) Mean Corpuscular Hemoglobin Concent 32g/dL (31-37) Red Cell Distribution Width 15.9% (11.5-14.5) Platelet Count 526x10^3/uL (140-400) Neutrophils (%) (Auto) 73% (31-73) Lymphocytes (%) (Auto) 14% (24-48) Monocytes (%) (Auto) 9% (0-9) Eosinophils (%) (Auto) 3% (0-3) Basophils (%) (Auto) 1% (0-3) Neutrophils # (Auto) 8.1x10^3uL (1.8-7.7) Lymphocytes # (Auto) 1.5x10^3/uL (1.0-4.8) Monocytes # (Auto) 1.0x10^3/uL (0.0-1.1) Eosinophils # (Auto) 0.4x10^3/uL (0.0-0.7) Basophils # (Auto) 0.1x10^3/uL (0.0-0.2) Sodium Level 134mmol/L (136-145) Potassium Level 5.2mmol/L (3.5-5.1) Chloride Level 100mmol/L (98-107) Carbon Dioxide Level 24mmol/L (21-32) Anion Gap 10 (6-14) Blood Urea Nitrogen 26mg/dL (8-26) Creatinine 1.6mg/dL (0.7-1.3) Estimated GFR (Cockcroft-Gault) 44.2 Glucose Level 358mg/dL (70-99) Calcium Level 8.6mg/dL (8.5-10.1) Phosphorus Level 3.2mg/dL (2.6-4.7) Magnesium Level 2.2mg/dL (1.8-2.4) Albumin 2.2g/dL (3.4-5.0) Test 11/30/16 10:16 11/30/16 12:42 11/30/16 16:16 11/30/16 20:47 Glucose (Fingerstick) 318mg/dL (70-99) 270mg/dL (70-99) 134mg/dL (70-99) 130mg/dL (70-99) Test 12/01/16 05:40 12/01/16 07:30 12/01/16 10:37 White Blood Count 10.3x10^3/uL (4.0-11.0) Red Blood Count 3.14x10^6/uL (4.30-5.70) Hemoglobin 8.3g/dL (13.0-17.5) Hematocrit 26.0% (39.0-53.0) Mean Corpuscular Volume 83fL (79-100) Mean Corpuscular Hemoglobin 27pg (25-35) Mean Corpuscular Hemoglobin Concent 32g/dL (31-37) Red Cell Distribution Width 16.4% (11.5-14.5) Platelet Count 506x10^3/uL (140-400) Neutrophils (%) (Auto) 73% (31-73) Lymphocytes (%) (Auto) 13% (24-48) Monocytes (%) (Auto) 9% (0-9) Eosinophils (%) (Auto) 4% (0-3) Basophils (%) (Auto) 1% (0-3) Neutrophils # (Auto) 7.6x10^3uL (1.8-7.7) Lymphocytes # (Auto) 1.3x10^3/uL (1.0-4.8) Monocytes # (Auto) 0.9x10^3/uL (0.0-1.1) Eosinophils # (Auto) 0.4x10^3/uL (0.0-0.7) Basophils # (Auto) 0.1x10^3/uL (0.0-0.2) Sodium Level 140mmol/L (136-145) Potassium Level 4.5mmol/L (3.5-5.1) Chloride Level 106mmol/L (98-107) Carbon Dioxide Level 27mmol/L (21-32) Anion Gap 7 (6-14) Blood Urea Nitrogen 25mg/dL (8-26) Creatinine 1.6mg/dL (0.7-1.3) Estimated GFR (Cockcroft-Gault) 44.2 Glucose Level 169mg/dL (70-99) Calcium Level 8.5mg/dL (8.5-10.1) Phosphorus Level 3.7mg/dL (2.6-4.7) Albumin 2.1g/dL (3.4-5.0) Glucose (Fingerstick) 179mg/dL (70-99) 185mg/dL (70-99) Laboratory Tests Test 11/30/16 12:42 11/30/16 16:16 11/30/16 20:47 12/01/16 05:40 Glucose (Fingerstick) 270mg/dL (70-99) 134mg/dL (70-99) 130mg/dL (70-99) White Blood Count 10.3x10^3/uL (4.0-11.0) Red Blood Count 3.14x10^6/uL (4.30-5.70) Hemoglobin 8.3g/dL (13.0-17.5) Hematocrit 26.0% (39.0-53.0) Mean Corpuscular Volume 83fL (79-100) Mean Corpuscular Hemoglobin 27pg (25-35) Mean Corpuscular Hemoglobin Concent 32g/dL (31-37) Red Cell Distribution Width 16.4% (11.5-14.5) Platelet Count 506x10^3/uL (140-400) Neutrophils (%) (Auto) 73% (31-73) Lymphocytes (%) (Auto) 13% (24-48) Monocytes (%) (Auto) 9% (0-9) Eosinophils (%) (Auto) 4% (0-3) Basophils (%) (Auto) 1% (0-3) Neutrophils # (Auto) 7.6x10^3uL (1.8-7.7) Lymphocytes # (Auto) 1.3x10^3/uL (1.0-4.8) Monocytes # (Auto) 0.9x10^3/uL (0.0-1.1) Eosinophils # (Auto) 0.4x10^3/uL (0.0-0.7) Basophils # (Auto) 0.1x10^3/uL (0.0-0.2) Sodium Level 140mmol/L (136-145) Potassium Level 4.5mmol/L (3.5-5.1) Chloride Level 106mmol/L (98-107) Carbon Dioxide Level 27mmol/L (21-32) Anion Gap 7 (6-14) Blood Urea Nitrogen 25mg/dL (8-26) Creatinine 1.6mg/dL (0.7-1.3) Estimated GFR (Cockcroft-Gault) 44.2 Glucose Level 169mg/dL (70-99) Calcium Level 8.5mg/dL (8.5-10.1) Phosphorus Level 3.7mg/dL (2.6-4.7) Albumin 2.1g/dL (3.4-5.0) Test 12/01/16 07:30 12/01/16 10:37 Glucose (Fingerstick) 179mg/dL (70-99) 185mg/dL (70-99) Microbiology 11/30/16 Gram Stain - Final, Complete Medications Current Medications Dextrose 12.5 gm 12.5 gm PRN Q15MIN PRN IV SEE COMMENTS; Start 11/25/16 at 12: 30; Stop 11/26/16 at 11:39; Status DC Vancomycin HCl 1 gm/Sodium Chloride 250 ml @ 250 mls/hr Q24H IV ; Start at 14:00; Status UNV Piperacillin Sod/ Tazobactam Sod/ Sodium Chloride (Zosyn/Iv Sodium Chloride 0.9 % 50ml) 50 ml @ 100 mls/hr Q6HRS IV Last administered on 12/01/16 05:41; Start 11/25/16 at 13:00; Stop 12/01/16 at 10:28; Status DC Vancomycin HCl (Vanco Per Pharmacy) 1 each PRN DAILY PRN MC SEE COMMENTS Last administered on 11/25/16 18:51; Start 11/25/16 at 13:00; Stop 11/26/16 at 08:23 ; Status DC Amlodipine Besylate (Norvasc) 5 mg HS PO Last administered on 11/30/16 20:35; Start 11/25/16 at 21:00 Aspirin (Children'S Aspirin) 81 mg DAILY PO Last administered on 12/01/16 09: 49; Start 11/26/16 at 09:00 Atorvastatin Calcium (Lipitor) 40 mg QHS PO Last administered on 11/30/16 20: 34; Start 11/25/16 at 21:00 Carvedilol (Coreg) 12.5 mg BIDWMEALS PO Last administered on 12/01/16 09:49; Start 11/25/16 at 17:00 Clopidogrel Bisulfate (Plavix) 75 mg DAILYWBKFT PO Last administered on 09:48; Start 11/26/16 at 08:00 Furosemide (Lasix) 40 mg DAILY PO Last administered on 11/27/16 08:50; Start 11/26/16 at 09:00; Stop 11/27/16 at 11:20; Status DC Hydralazine HCl (Apresoline) 25 mg PRN Q6HRS PRN PO ELEVATED BP, SEE COMMENTS; Start 11/25/16 at 13:00 Insulin Aspart (Novolog) 9 units TIDAC SQ Last administered on 11/27/16 17:17 ; Start 11/25/16 at 16:30; Stop 11/28/16 at 05:28; Status DC Insulin Detemir (Levemir) 15 units QHS SQ Last administered on 11/27/16 22:02 ; Start 11/25/16 at 21:00; Stop 11/29/16 at 08:30; Status DC Metoclopramide HCl (Reglan) 5 mg DAILY08 PO Last administered on 12/01/16 09: 48; Start 11/26/16 at 08:00 Pantoprazole Sodium (Protonix) 40 mg BIDAC PO Last administered on 12/01/16 09 :49; Start 11/25/16 at 16:30 Pregabalin 75 mg 75 mg BID PO Last administered on 12/01/16 09:49; Start 11/25 at 21:00 Vancomycin HCl 1.75 gm/Sodium Chloride 500 ml @ 250 mls/hr 1X ONCE IV Last administered on 11/25/16 18:05; Start 11/25/16 at 14:00; Stop 11/25/16 at 15:59 ; Status DC Magnesium Sulfate/ Dextrose 50 ml @ 25 mls/hr PRN DAILY PRN IV for Mag < 1.7 on am labs; Start 11/25/16 at 15:30 Sodium Chloride (Iv Sodium Chloride 0.9% 1000ml Bag) 1,000 ml @ 125 mls/hr Q8H IV Last administered on 11/27/16 08:55; Start 11/25/16 at 15:30; Stop at 11:20; Status DC Darbepoetin Cali (Aranesp) 60 mcg WEEKLYHS SQ Last administered on 11/25/16 21 :05; Start 11/25/16 at 21:00 Insulin Aspart (Novolog) 0-5 UNITS TIDWMEALS SQ Last administered on 12/01/16 09:53; Start 11/25/16 at 17:00 Dextrose 12.5 gm PRN Q15MIN PRN IV SEE COMMENTS; Start 11/25/16 at 16:00 Heparin Sodium (Porcine) 5,000 unit Q12HR SQ Last administered on 11/26/16 09: 36; Start 11/25/16 at 17:00; Stop 11/26/16 at 13:15; Status DC Insulin Aspart (Novolog) 10 units 1X ONCE SQ Last administered on 11/25/16 18 :25; Start 11/25/16 at 17:45; Stop 11/25/16 at 17:46; Status DC Sodium Polystyrene Sulfonate 30 gm 30 gm 1X ONCE PO Last administered on 18:05; Start 11/25/16 at 17:45; Stop 11/25/16 at 17:46; Status DC Vancomycin HCl/ Sodium Chloride (Iv Sodium Chloride 0.9% 250ml) 250 ml @ 250 mls/hr Q24H IV ; Start 11/26/16 at 18:00; Stop 11/26/16 at 18:00; Status DC Vancomycin HCl 1 each 1X ONCE MC ; Start 11/27/16 at 17:30; Stop 11/27/16 at 17 :30; Status DC Albuterol/ Ipratropium (Duoneb) 3 ml RTQID NEB Last administered on 12/01/16 08:03; Start 11/25/16 at 22:45 Guaifenesin (Robitussin Dm) 5 ml PRN Q4HRS PRN PO COUGH, 1ST CHOICE Last administered on 11/25/16 22:55; Start 11/25/16 at 22:45 Guaifenesin (Robitussin Dm) 10 ml PRN Q4HRS PRN PO COUGH, 2ND CHOICE Last administered on 11/26/16 20:23; Start 11/25/16 at 22:45 Ferrous Sulfate (Feosol) 325 mg BIDWMEALS PO Last administered on 12/01/16 09: 49; Start 11/26/16 at 17:00 Lidocaine/Sodium Bicarbonate (Buffered Lidocaine 1%) 3 ml 1X ONCE IJ Last administered on 11/26/16 14:30; Start 11/26/16 at 14:30; Stop 11/26/16 at 14:31 ; Status DC Heparin Sodium/ Sodium Chloride 60 unit 1X ONCE IV Last administered on 14:30; Start 11/26/16 at 14:30; Stop 11/26/16 at 14:31; Status DC Heparin Sodium/ Sodium Chloride 1,000 unit 1X ONCE IART ; Start 11/26/16 at 14: 45; Stop 11/26/16 at 14:46; Status DC Lidocaine/Sodium Bicarbonate (Buffered Lidocaine 1%) 20 ml 1X ONCE IJ ; Start 11/26/16 at 14:45; Stop 11/26/16 at 14:46; Status DC Acetaminophen (Tylenol) 650 mg PRN Q6HRS PRN PO MILD PAIN / TEMP Last administered on 11/30/16 20:58; Start 11/27/16 at 18:15 Insulin Aspart (Novolog) 12 units TIDAC SQ Last administered on 12/01/16 09:52 ; Start 11/28/16 at 07:30 Linezolid (Zyvox) 600 mg BID PO Last administered on 12/01/16 09:49; Start at 21:00 Insulin Detemir 10 units 10 units QHS SQ Last administered on 11/30/16 20:52; Start 11/29/16 at 21:00 Magnesium Sulfate/ Dextrose (Magnesium Sulfate PREMIX 2GM) 50 ml @ 25 mls/hr 1X ONCE IV Last administered on 11/29/16 08:49; Start 11/29/16 at 08:30; Stop 11/29/16 at 10:29; Status DC Silver Sulfadiazine (Silvadene) 25 beba STK-MED ONCE TP ; Start 11/30/16 at 06:46 ; Stop 11/30/16 at 06:47; Status DC Lidocaine HCl 20 ml STK-MED ONCE .ROUTE ; Start 11/30/16 at 06:46; Stop at 06:47; Status DC Lidocaine HCl 100 mg 100 mg STK-MED ONCE .ROUTE ; Start 11/30/16 at 08:49; Stop 11/30/16 at 08:50; Status DC Propofol (Diprivan) 20 ml @ As Directed STK-MED ONCE IV ; Start 11/30/16 at 08: 49; Stop 11/30/16 at 08:50; Status DC Famotidine (Pepcid) 20 mg STK-MED ONCE .ROUTE ; Start 11/30/16 at 08:49; Stop at 08:50; Status DC Ondansetron HCl (Zofran) 4 mg STK-MED ONCE .ROUTE ; Start 11/30/16 at 08:49; Stop 11/30/16 at 08:50; Status DC Fentanyl Citrate (Fentanyl 2ml Vial) 100 mcg STK-MED ONCE .ROUTE ; Start at 08:50; Stop 11/30/16 at 08:51; Status DC Insulin Aspart (Novolog Vial) 100 unit STK-MED ONCE SQ ; Start 11/30/16 at 09:00 ; Stop 11/30/16 at 11:38; Status DC Sevoflurane (Ultane) 30 ml STK-MED ONCE IH ; Start 11/30/16 at 10:07; Stop 11/30 at 10:08; Status DC Insulin Aspart (Novolog Vial) 4 unit 1X ONCE SQ ; Start 11/30/16 at 11:15; Stop 11/30/16 at 11:38; Status DC Insulin Aspart (Novolog Vial) 4 unit 1X ONCE SQ ; Start 11/30/16 at 11:30; Stop 11/30/16 at 11:38; Status DC Insulin Human Regular (Novolin R Vial) 4 unit 1X ONCE IV ; Start 11/30/16 at 11 :45; Stop 11/30/16 at 11:45; Status DC Insulin Human Regular (Novolin R Vial) 4 unit 1X ONCE IV Last administered on 11/30/16 11:42; Start 11/30/16 at 11:39; Stop 11/30/16 at 11:41; Status DC Lidocaine/ Epinephrine (Xylocaine 1%-Epi 1:100,000) 20 ml 1X ONCE INJ Last administered on 12/01/16 00:51; Start 12/01/16 at 01:00; Stop 12/01/16 at 01:01 ; Status DC Acetaminophen/ Hydrocodone Bitart (Lortab 10/325) 1 tab PRN Q6HRS PRN PO PAIN Last administered on 3/28/17at 09:49; Start 12/01/16 at 01:15; Stop 12/01/16 at 10:29; Status DC Acetaminophen/ Hydrocodone Bitart 1 tab 1 tab PRN Q4HRS PRN PO PAIN; Start at 01:15 Ertapenem/Sodium Chloride (Invanz/Iv Sodium Chloride 0.9% 50ml) 50 ml @ 100 mls /hr Q24H IV ; Start 12/01/16 at 11:00 Lidocaine/Sodium Bicarbonate 20 ml 20 ml STK-MED ONCE IJ ; Start 12/01/16 at 11: 29; Stop 12/01/16 at 11:30; Status DC Heparin Sodium/ Sodium Chloride 500 ml @ As Directed STK-MED ONCE .ROUTE ; Start 12/01/16 at 11:29; Stop 12/01/16 at 11:30; Status DC Active Scripts Active Levemir Flextouch (Insulin Detemir) 100 Unit/1 Ml Insuln.pen 15 Units SQ QHS Protonix (Pantoprazole Sodium) 40 Mg Tablet 40 Mg PO BIDAC Plavix (Clopidogrel Bisulfate) 75 Mg Tablet 75 Mg PO DAILYWBKFT Lipitor (Atorvastatin Calcium) 40 Mg Tablet 40 Mg PO QHS Reported Amlodipine Besylate 5 Mg Tablet 5 Mg PO HS Reglan (Metoclopramide Hcl) 10 Mg Tablet 5 Mg PO DAILY08 Novolog Flexpen (Insulin Aspart) 100 Unit/1 Ml Insuln.pen 9 Unit SQ TIDAC Lasix (Furosemide) 40 Mg Tablet 1 Tab PO DAILY Hydralazine Hcl 25 Mg Tablet 1 Tab PO Q6HRS PRN Aspirin 81 Mg Tab.chew 1 Tab PO DAILY Lyrica (Pregabalin) 75 Mg Capsule 75 Mg PO BID Carvedilol 12.5 Mg Tablet 1 Tab PO BID Vitals/I & O Vital Sign - Last 24 Hours 11/30/16 11/30/16 11/30/16 11/30/16 12:06 13:13 13:27 13:42 Temp 96.1 96.1 Pulse 71 70 68 Resp 16 16 16 B/P 136/64 144/61 165/57 Pulse Ox 94 94 93 96 O2 Delivery Room Air Room Air Room Air Room Air 11/30/16 11/30/16 11/30/16 11/30/16 13:57 14:12 14:42 15:00 Pulse 66 67 68 64 Resp 16 16 16 16 B/P 111/50 135/60 147/65 134/65 Pulse Ox 93 95 96 96 O2 Delivery Room Air Room Air Room Air Room Air 11/30/16 11/30/16 11/30/16 11/30/16 15:49 16:12 17:40 19:00 Temp 98.4 98.4 Pulse 63 71 66 Resp 16 18 B/P 120/54 136/64 142/67 Pulse Ox 97 96 95 O2 Delivery Room Air Room Air Room Air 11/30/16 11/30/16 11/30/16 11/30/16 20:30 20:34 20:35 23:01 Temp 98.4 98.4 Pulse 66 74 Resp 18 B/P 142/67 142/63 Pulse Ox 97 O2 Delivery Room Air Room Air Room Air 12/01/16 12/01/16 12/01/16 12/01/16 01:31 02:35 03:00 07:00 Temp 97.9 97.9 97.9 97.9 Pulse 64 64 Resp 20 20 18 18 B/P 121/57 136/64 Pulse Ox 97 97 94 94 O2 Delivery Room Air Room Air Room Air Room Air 12/01/16 12/01/16 12/01/16 12/01/16 07:50 08:03 09:49 09:49 Pulse 64 Resp 18 B/P 136/64 Pulse Ox 98 O2 Delivery Room Air Room Air Room Air 12/01/16 11:00 Temp 97.7 97.7 Pulse 64 Resp 18 B/P 139/66 Pulse Ox 96 O2 Delivery Room Air Intake and Output 11/30/16 11/30/16 12/01/16 15:00 23:00 07:00 Intake Total 50 ml 250 ml Output Total 50 ml 750 ml Balance 0 ml -500 ml REAL WYLIE APRN Dec 01, 2016 12:02
--- NOTE | 2016-12-01 12:06 | PDOC ---
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 Post-Procedure Diagnosis Post-Procedure Diagnosis Same Procedure Performed Procedure Performed Sono/fluoro guided Power Picc insertion Type of Anesthesia Type of Anesthesia Local Estimated Blood Loss EBL: Minimal Drain/Tubes Drains/Tubes Right brachial vein 5F 2L 42cm Power Picc Condition of Patient Condition of Patient Stable. No apparent complication. Disposition Disposition From IR return to 416. OK to use Power Picc. Full report to follow. BAKARI NGO MD Dec 01, 2016 12:06
[2016-12-01] MEDS: ERTAPENEM 1 GM in IV NORMAL SALINE 50ML 50 ML IV SCH (12:42)
[2016-12-01] MEDS: ONDANSETRON PF 4 MG/2 ML VIAL. IV PRN ×2 (14:51→20:56)
[2016-12-01 15:00] VITALS: BP 146/68
[2016-12-01 19:00] VITALS: BP 149/67
[2016-12-01] MEDS: ATORVASTATIN CALCIUM 40 MG TABLET. PO SCH (20:56)
[2016-12-01] MEDS: AMLODIPINE BESYLATE 5 MG TABLET PO SCH (20:58)
[2016-12-01] MEDS: INSULIN DETEMIR 300 UNITS/3 ML INSULN.PEN. SQ SCH (21:02)
[2016-12-01 23:00] VITALS: BP 161/74
[2016-12-02 03:00] VITALS: BP 168/75
[2016-12-02 05:59] LABS: ALBUMIN 2.1 g/dL (3.4-5.0); CALCIUM 8.5 mg/dL (8.5-10.1); CREATININE 1.4 mg/dL (0.7-1.3); GFR 51.5; POTASSIUM 4.6 mmol/L (3.5-5.1)
[2016-12-02 06:00] LABS: BASO # 0.1 x10^3/uL (0.0-0.2); BASO % 2 % (0-3); EOS % 3 % (0-3); HEMOGLOBIN 8.4 g/dL (13.0-17.5); LYMPH # 1.4 x10^3/uL (1.0-4.8); LYMPH % 16 % (24-48); MEAN CORPUSCULAR HEMOGLOBIN 27 pg (25-35); MEAN CORPUSCULAR HGB CONC 33 g/dL (31-37); MEAN CORPUSCULAR VOLUME 82 fL (79-100); MONO % 8 % (0-9); NEUT % 73 % (31-73); PLATELET COUNT 445 x10^3/uL (140-400); RED BLOOD COUNT 3.16 x10^6/uL (4.30-5.70); WHITE BLOOD COUNT 9.2 x10^3/uL (4.0-11.0)
[2016-12-02 07:00] VITALS: BP 154/65
[2016-12-02] MEDS: IPRATRPIUM/ALBUTEROL 0.5/2.5MG 3 ML NEBU. NEB SCH ×4 (07:28→19:16)
--- NOTE | 2016-12-02 07:31 | RAD ---
Ultrasound and fluoro guided power PICC placement Indication: 61-year-old male with diabetes, PAD, and nonhealing right foot wounds with osteomyelitis, status post right toe amputations, followed by subsequent I&D and resection of metatarsal heads. Image guided PICC insertion has been requested for long-term IV antibiotics. Fluoro time: 1.7 minutes Kerma-Area Product: 2 Gycm2 Anesthesia: Local only Sterility: All elements of maximal sterile barrier technique were utilized, including cap, mask, sterile gown, sterile gloves, large sterile sheet, appropriate hand hygiene, and 2% chlorhexidine for cutaneous antisepsis Procedure: Informed consent was obtained from the patient. He was placed supine on the angiography table. Preliminary ultrasound examination of right upper arm revealed wide patency of right brachial vein, which was documented with a hard copy ultrasound image. Right upper arm was then prepped and draped in the usual sterile fashion, utilizing all elements of maximal sterile barrier technique, as described above. Using aseptic technique, local anesthesia, direct ultrasound guidance, and the micropuncture system, successful percutaneous entry was achieved into right brachial vein at the level of distal humerus. A 5 Marshallese dual lumen power PICC was trimmed to 42 cm in length, was inserted through a 5 Marshallese peel-away sheath, and was easily advanced centrally under fluoroscopic control. Tip of the power PICC was positioned at upper-mid right atrium. This was documented with a single fluoroscopic spot image. The PICC was then demonstrated to flush and aspirate normally, and was secured at the skin exit site utilizing suture and sterile dressing. The patient tolerated the procedure well without apparent complication. Impression: Successful, uneventful ultrasound and fluoro guided placement of right brachial vein 5 Marshallese dual-lumen 42 cm power PICC, as described.
[2016-12-02] MEDS: PREGABALIN 75 MG CAPSULE PO SCH ×2 (09:35→21:07)
[2016-12-02] MEDS: FERROUS SULFATE 325 MG TABLET PO SCH ×2 (09:35→17:48)
[2016-12-02] MEDS: PANTOPRAZOLE 40 MG TABLET. PO SCH ×2 (09:35→17:48)
[2016-12-02] MEDS: ASPIRIN 81 MG TAB.CHEW PO SCH (09:35)
[2016-12-02] MEDS: LINEZOLID 600 MG TABLET PO SCH ×2 (09:35→21:07)
[2016-12-02] MEDS: METOCLOPRAMIDE 10 MG TABLET PO SCH (09:35)
[2016-12-02] MEDS: CLOPIDOGREL BISULFATE 75 MG TABLET PO SCH (09:35)
[2016-12-02] MEDS: CARVEDILOL 12.5 MG TABLET PO SCH ×2 (09:36→17:48)
[2016-12-02] MEDS: INSULIN ASPART 300 UNITS/3 ML INSULN.PEN SQ SCH ×6 (09:39→17:00)
--- NOTE | 2016-12-02 10:20 | PDOC ---
PROGRESS NOTES Subjective Subjective no new complaints Objective Objective Vital Signs Date Time Temp Pulse Resp B/P Pulse Ox O2 Delivery O2 Flow Rate FiO2 12/02/16 09:36 Room Air 12/02/16 09:36 67 154/65 12/02/16 07:28 96 12/02/16 07:00 98.1 18 98.1 Intake and Output 12/02/16 07:00 Intake Total 50 ml Output Total 1125 ml Balance -1075 ml Intake Oral 50 ml Output Urine Total 1125 ml Physical Exam Abdomen: Normal bowel sounds, Soft Heart: Regular rate, Normal S1 Extremities: No clubbing General: Alert HEENT: Atraumatic MUSCULOSKELETAL: No deformity, No swelling Neuro: Normal speech Psych/Mental Status: Mental status NL Skin: No rashes Diagnosis Problem List Problems Medical Problems: (1) Foot osteomyelitis Status: Acute Assessment Assessment FINAL IMPRESSION: 1. Osteomyelitis of the right foot. 2. 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 3. Diabetic neuropathy. 4. Coronary artery disease. 5. Chronic systolic heart failure. 6. h/o Pacemaker for bradyarrhythmias. 7. Diabetes, insulin-dependent. 8. Hypertension. 9. Hyperlipidemia. 10. Diabetic neuropathy. PLAN:no skilled days left d/c home with home health surgery done,partial resection of bones in 3 ,4 th metatarsal Picc line placed po zyvox+invanz IV spoke with ID spoke with shoe caser. Problems: Plan Plan of Care Problems Medical Problems: (1) Foot osteomyelitis Status: Acute Comment Review of Relevant I have reviewed the following items luís (where applicable) has been applied. Labs Laboratory Tests Test 12/01/16 10:37 12/01/16 16:43 12/01/16 17:16 12/01/16 18:23 Glucose (Fingerstick) 185mg/dL (70-99) 44mg/dL (70-99) 44mg/dL (70-99) 155mg/dL (70-99) Test 12/01/16 20:48 12/02/16 05:35 12/02/16 08:10 Glucose (Fingerstick) 188mg/dL (70-99) 213mg/dL (70-99) White Blood Count 9.2x10^3/uL (4.0-11.0) Red Blood Count 3.16x10^6/uL (4.30-5.70) Hemoglobin 8.4g/dL (13.0-17.5) Hematocrit 26.0% (39.0-53.0) Mean Corpuscular Volume 82fL (79-100) Mean Corpuscular Hemoglobin 27pg (25-35) Mean Corpuscular Hemoglobin Concent 33g/dL (31-37) Red Cell Distribution Width 16.0% (11.5-14.5) Platelet Count 445x10^3/uL (140-400) Neutrophils (%) (Auto) 73% (31-73) Lymphocytes (%) (Auto) 16% (24-48) Monocytes (%) (Auto) 8% (0-9) Eosinophils (%) (Auto) 3% (0-3) Basophils (%) (Auto) 2% (0-3) Neutrophils # (Auto) 6.7x10^3uL (1.8-7.7) Lymphocytes # (Auto) 1.4x10^3/uL (1.0-4.8) Monocytes # (Auto) 0.7x10^3/uL (0.0-1.1) Eosinophils # (Auto) 0.3x10^3/uL (0.0-0.7) Basophils # (Auto) 0.1x10^3/uL (0.0-0.2) Sodium Level 138mmol/L (136-145) Potassium Level 4.6mmol/L (3.5-5.1) Chloride Level 104mmol/L (98-107) Carbon Dioxide Level 29mmol/L (21-32) Anion Gap 5 (6-14) Blood Urea Nitrogen 17mg/dL (8-26) Creatinine 1.4mg/dL (0.7-1.3) Estimated GFR (Cockcroft-Gault) 51.5 Glucose Level 228mg/dL (70-99) Calcium Level 8.5mg/dL (8.5-10.1) Phosphorus Level 3.0mg/dL (2.6-4.7) Albumin 2.1g/dL (3.4-5.0) Microbiology 11/30/16 Gram Stain - Final, Complete Medications Current Medications Ertapenem/Sodium Chloride (Invanz/Iv Sodium Chloride 0.9% 50ml) 50 ml @ 100 mls /hr Q24H IV Last administered on 12/01/16 12:42; Start 12/01/16 at 11:00 Heparin Sodium/ Sodium Chloride 60 unit 1X ONCE IV Last administered on 12:03; Start 12/01/16 at 12:00; Stop 12/01/16 at 12:01; Status DC Heparin Sodium/ Sodium Chloride 500 ml @ As Directed STK-MED ONCE .ROUTE ; Start 12/01/16 at 11:29; Stop 12/01/16 at 11:30; Status DC Insulin Aspart (Novolog) 10 units TIDAC SQ Last administered on 12/02/16 09:39 ; Start 12/02/16 at 07:30 Lidocaine/Sodium Bicarbonate (Buffered Lidocaine 1%) 3 ml 1X ONCE IJ Last administered on 12/01/16 12:03; Start 12/01/16 at 12:00; Stop 12/01/16 at 12:01 ; Status DC Lidocaine/Sodium Bicarbonate 20 ml 20 ml STK-MED ONCE IJ ; Start 12/01/16 at 11: 29; Stop 12/01/16 at 11:30; Status DC Ondansetron HCl (Zofran) 4 mg PRN Q6HRS PRN IV NAUSEA/VOMITING Last administered on 12/01/16 20:56; Start 12/01/16 at 14:45 Vitals/I & O Vital Sign - Last 24 Hours 12/01/16 12/01/16 12/01/16 12/01/16 11:00 15:00 16:42 17:00 Temp 97.7 97.4 97.7 97.4 Pulse 64 60 Resp 18 18 B/P 139/66 146/68 146/68 Pulse Ox 96 96 O2 Delivery Room Air Room Air Room Air 12/01/16 12/01/16 12/01/16 12/01/16 19:00 19:39 20:30 20:58 Temp 97.7 97.7 Pulse 63 63 Resp 18 B/P 149/67 149/67 Pulse Ox 94 O2 Delivery Room Air Room Air Room Air 12/01/16 12/02/16 12/02/16 12/02/16 23:00 03:00 07:00 07:28 Temp 97.9 97.7 98.1 97.9 97.7 98.1 Pulse 73 68 67 Resp 18 18 18 B/P 161/74 168/75 154/65 Pulse Ox 93 95 96 96 O2 Delivery Room Air Room Air Room Air Room Air 12/02/16 12/02/16 09:36 09:36 Pulse 67 B/P 154/65 O2 Delivery Room Air Intake and Output 12/01/16 12/01/16 12/02/16 15:00 23:00 07:00 Intake Total 0 ml 50 ml Output Total 325 ml 800 ml Balance -325 ml 0 ml -750 ml ELDER LAURENT MD Dec 02, 2016 10:20
--- NOTE | 2016-12-02 10:40 | PDOC ---
Infectious Disease Note Subjective Subjective pt feeling fine ROS ROS GEN: Denies fevers, chills, sweats HEENT: Denies blurred vision, sore throat CV: Denies chest pain RESP: Denies shortness of air, cough GI: Denies n/v/d NEURO: Denies confusion, dizziness MSK: Denies weakness, joint pain/swelling Vital Sign Vital Signs Vital Signs Date Time Temp Pulse Resp B/P Pulse Ox O2 Delivery O2 Flow Rate FiO2 12/02/16 09:36 Room Air 12/02/16 09:36 67 154/65 12/02/16 07:28 96 12/02/16 07:00 98.1 18 98.1 Physical Exam PHYSICAL EXAM GENERAL: NAD, Alert HEENT: PERRL, OC/OP NECK: Supple, no JVD, no LN LUNGS: Clear HEART: S1S2, no gallop, no murmur ABD: Soft, NT, no organomegaly, no rebound EXT: No edema, no cyanosis,, rt foot I and D TORCH CUTTER: Alert, oriented x 3, no focal neurologic deficit SKIN: No rash IV: ok Labs Lab Laboratory Tests Test 12/01/16 16:43 12/01/16 17:16 12/01/16 18:23 12/01/16 20:48 Glucose (Fingerstick) 44mg/dL (70-99) 44mg/dL (70-99) 155mg/dL (70-99) 188mg/dL (70-99) Test 12/02/16 05:35 12/02/16 08:10 White Blood Count 9.2x10^3/uL (4.0-11.0) Red Blood Count 3.16x10^6/uL (4.30-5.70) Hemoglobin 8.4g/dL (13.0-17.5) Hematocrit 26.0% (39.0-53.0) Mean Corpuscular Volume 82fL (79-100) Mean Corpuscular Hemoglobin 27pg (25-35) Mean Corpuscular Hemoglobin Concent 33g/dL (31-37) Red Cell Distribution Width 16.0% (11.5-14.5) Platelet Count 445x10^3/uL (140-400) Neutrophils (%) (Auto) 73% (31-73) Lymphocytes (%) (Auto) 16% (24-48) Monocytes (%) (Auto) 8% (0-9) Eosinophils (%) (Auto) 3% (0-3) Basophils (%) (Auto) 2% (0-3) Neutrophils # (Auto) 6.7x10^3uL (1.8-7.7) Lymphocytes # (Auto) 1.4x10^3/uL (1.0-4.8) Monocytes # (Auto) 0.7x10^3/uL (0.0-1.1) Eosinophils # (Auto) 0.3x10^3/uL (0.0-0.7) Basophils # (Auto) 0.1x10^3/uL (0.0-0.2) Sodium Level 138mmol/L (136-145) Potassium Level 4.6mmol/L (3.5-5.1) Chloride Level 104mmol/L (98-107) Carbon Dioxide Level 29mmol/L (21-32) Anion Gap 5 (6-14) Blood Urea Nitrogen 17mg/dL (8-26) Creatinine 1.4mg/dL (0.7-1.3) Estimated GFR (Cockcroft-Gault) 51.5 Glucose Level 228mg/dL (70-99) Calcium Level 8.5mg/dL (8.5-10.1) Phosphorus Level 3.0mg/dL (2.6-4.7) Albumin 2.1g/dL (3.4-5.0) Glucose (Fingerstick) 213mg/dL (70-99) Micro ANAEROBIC-AEROBIC CULTURE Final Final report ANAEROBIC RES 1 Final Comment No anaerobic growth in five days. AEROBIC CULT Final Final report AEROBIC RES 1 Final Comment Enterobacter aerogenes Heavy growth AEROBIC RES 2 Final Enterococcus faecalis Moderate growth AEROBIC RES 3 Final Staphylococcus aureus Scant growth Methicillin resistant (MRSA) Based on resistance to oxacillin this isolate would be resistant to all currently available beta-lactam antimicrobial agents, with the exception of the newer cephalosporins with anti-MRSA activity, such as Ceftaroline ANTIMICROBIAL SUSCEPTIBILITY Final Comment CONTINUED ON NEXT PAGE RUN DATE: 12/01/16 PAGE 2 RUN TIME: 0825 [facility] [address] [place] [address] Brady Smith M.D., [place] Operator SPEC: [id number] PATIENT: FREDRICK RUBIO [id number] ( Continued) Procedure Result ANTIMICROBIAL SUSCEPTIBILITY Final (continued) S = Susceptible; I = Intermediate; R = Resistant P = Positive; N = Negative MICS are expressed in micrograms per mL Antibiotic RSLT#1 RSLT#2 RSLT#3 RSLT#4 Amoxicillin/Clavulanic Acid R Cefazolin R Cefepime S Ceftriaxone S Cefuroxime R Ciprofloxacin S R Clindamycin S Ertapenem S Erythromycin R Gentamicin S S Imipenem S Levofloxacin S R Linezolid S Oxacillin R Penicillin S R Piperacillin S Rifampin S Tetracycline S S Tobramycin S Trimethoprim/Sulfa S S Vancomycin S S Performed at: [facility] - [address] [id number] [place] Maintainer: Jazmín Enciso MD, Phone: [phone] END OF REPORT Objective Assessment Rt foot 4 th amp site infection osteo of metatarsal s/p I and D DM PAD CKD Plan Plan of Care zyvox and invaz picc wound vac d/c cv line d/w dr Bryon CHAPA,LUKE Ackerman MD Dec 02, 2016 10:40
[2016-12-02 11:00] VITALS: BP 154/73
--- NOTE | 2016-12-02 11:00 | PDOC ---
Renal-Progress Notes Subjective Notes Notes NONE History of Present Illness Hx of present illness NO CHANGE Vitals Vitals Vital Signs Date Time Temp Pulse Resp B/P Pulse Ox O2 Delivery O2 Flow Rate FiO2 12/02/16 09:36 Room Air 12/02/16 09:36 67 154/65 12/02/16 07:28 96 12/02/16 07:00 98.1 18 98.1 Weight Weight [ ] I.O. Intake and Output Intake and Output 12/02/16 07:00 Intake Total 50 ml Output Total 1125 ml Balance -1075 ml Intake Oral 50 ml Output Urine Total 1125 ml Labs Labs Laboratory Tests Test 12/01/16 16:43 12/01/16 17:16 12/01/16 18:23 12/01/16 20:48 Glucose (Fingerstick) 44mg/dL (70-99) 44mg/dL (70-99) 155mg/dL (70-99) 188mg/dL (70-99) Test 12/02/16 05:35 12/02/16 08:10 White Blood Count 9.2x10^3/uL (4.0-11.0) Red Blood Count 3.16x10^6/uL (4.30-5.70) Hemoglobin 8.4g/dL (13.0-17.5) Hematocrit 26.0% (39.0-53.0) Mean Corpuscular Volume 82fL (79-100) Mean Corpuscular Hemoglobin 27pg (25-35) Mean Corpuscular Hemoglobin Concent 33g/dL (31-37) Red Cell Distribution Width 16.0% (11.5-14.5) Platelet Count 445x10^3/uL (140-400) Neutrophils (%) (Auto) 73% (31-73) Lymphocytes (%) (Auto) 16% (24-48) Monocytes (%) (Auto) 8% (0-9) Eosinophils (%) (Auto) 3% (0-3) Basophils (%) (Auto) 2% (0-3) Neutrophils # (Auto) 6.7x10^3uL (1.8-7.7) Lymphocytes # (Auto) 1.4x10^3/uL (1.0-4.8) Monocytes # (Auto) 0.7x10^3/uL (0.0-1.1) Eosinophils # (Auto) 0.3x10^3/uL (0.0-0.7) Basophils # (Auto) 0.1x10^3/uL (0.0-0.2) Sodium Level 138mmol/L (136-145) Potassium Level 4.6mmol/L (3.5-5.1) Chloride Level 104mmol/L (98-107) Carbon Dioxide Level 29mmol/L (21-32) Anion Gap 5 (6-14) Blood Urea Nitrogen 17mg/dL (8-26) Creatinine 1.4mg/dL (0.7-1.3) Estimated GFR (Cockcroft-Gault) 51.5 Glucose Level 228mg/dL (70-99) Calcium Level 8.5mg/dL (8.5-10.1) Phosphorus Level 3.0mg/dL (2.6-4.7) Albumin 2.1g/dL (3.4-5.0) Glucose (Fingerstick) 213mg/dL (70-99) Micro Micro Microbiology 11/30/16 Gram Stain - Final, Complete Review of Systems Constitutional: yes: alert, no symptom reported, weakness Ears/Nose/Throat: Yes: no symptom reported Eyes: Yes: no symptom reported Pulmonary: Yes no symptom reported Gastrointestional: Yes: no symptom reported Genitourinary: Yes: no symptom reported Physical Exam General Appearance: no apparent distress Skin: warm Respiratory: bilateral CTA Heart: S1S2, RRR Abdomen: soft, bowel sounds present Neurology: alert Assessment Assessment MP CKD STAGE 3 STABLE WITH CR OF 1.4 MILD HYPERKALEMIA-RESOLVED DM II LE WOUND PLAN LABS IN AM ANTIBIOTICS OP F/U APPT IN THE OFFICE ALREADY SET UP ZUNILDA FARR MD Dec 02, 2016 11:00
--- NOTE | 2016-12-02 11:32 | PDOC ---
PROGRESS NOTES Subjective Subjective "I have a wound vac machine at home. The nurse comes every Wednesday, Wednesday and Wednesday." Objective Objective Vascular Surgery - POD#2 Open amp toes #3/4 right foot Wound vac has been applied to right foot. Surrounding tissue without erythema or swelling. PICC line placed yesterday. Spoke with case mgmt and arrangements being made for d/c to home Will need ongoing wound vac therapy and dressing changes M-W- until healed. IV antibiotics per ID. Please follow up with [facility] or may follow at [facility] with Dr. Jeyson Palacios [facility] located in [place]. [phone] Vital Signs Date Time Temp Pulse Resp B/P Pulse Ox O2 Delivery O2 Flow Rate FiO2 12/02/16 11:08 Room Air 12/02/16 09:36 67 154/65 12/02/16 07:28 96 12/02/16 07:00 98.1 18 98.1 11/30/16 10:10 10 Intake and Output 12/02/16 07:00 Intake Total 50 ml Output Total 1125 ml Balance -1075 ml Intake Oral 50 ml Output Urine Total 1125 ml Assessment Assessment Problems Medical Problems: (1) Foot osteomyelitis Status: Acute Comment Review of Relevant I have reviewed the following items luís (where applicable) has been applied. Labs Laboratory Tests Test 11/30/16 12:42 11/30/16 16:16 11/30/16 20:47 12/01/16 05:40 Glucose (Fingerstick) 270mg/dL (70-99) 134mg/dL (70-99) 130mg/dL (70-99) White Blood Count 10.3x10^3/uL (4.0-11.0) Red Blood Count 3.14x10^6/uL (4.30-5.70) Hemoglobin 8.3g/dL (13.0-17.5) Hematocrit 26.0% (39.0-53.0) Mean Corpuscular Volume 83fL (79-100) Mean Corpuscular Hemoglobin 27pg (25-35) Mean Corpuscular Hemoglobin Concent 32g/dL (31-37) Red Cell Distribution Width 16.4% (11.5-14.5) Platelet Count 506x10^3/uL (140-400) Neutrophils (%) (Auto) 73% (31-73) Lymphocytes (%) (Auto) 13% (24-48) Monocytes (%) (Auto) 9% (0-9) Eosinophils (%) (Auto) 4% (0-3) Basophils (%) (Auto) 1% (0-3) Neutrophils # (Auto) 7.6x10^3uL (1.8-7.7) Lymphocytes # (Auto) 1.3x10^3/uL (1.0-4.8) Monocytes # (Auto) 0.9x10^3/uL (0.0-1.1) Eosinophils # (Auto) 0.4x10^3/uL (0.0-0.7) Basophils # (Auto) 0.1x10^3/uL (0.0-0.2) Sodium Level 140mmol/L (136-145) Potassium Level 4.5mmol/L (3.5-5.1) Chloride Level 106mmol/L (98-107) Carbon Dioxide Level 27mmol/L (21-32) Anion Gap 7 (6-14) Blood Urea Nitrogen 25mg/dL (8-26) Creatinine 1.6mg/dL (0.7-1.3) Estimated GFR (Cockcroft-Gault) 44.2 Glucose Level 169mg/dL (70-99) Calcium Level 8.5mg/dL (8.5-10.1) Phosphorus Level 3.7mg/dL (2.6-4.7) Albumin 2.1g/dL (3.4-5.0) Test 12/01/16 07:30 12/01/16 10:37 12/01/16 16:43 12/01/16 17:16 Glucose (Fingerstick) 179mg/dL (70-99) 185mg/dL (70-99) 44mg/dL (70-99) 44mg/dL (70-99) Test 12/01/16 18:23 12/01/16 20:48 12/02/16 05:35 12/02/16 08:10 Glucose (Fingerstick) 155mg/dL (70-99) 188mg/dL (70-99) 213mg/dL (70-99) White Blood Count 9.2x10^3/uL (4.0-11.0) Red Blood Count 3.16x10^6/uL (4.30-5.70) Hemoglobin 8.4g/dL (13.0-17.5) Hematocrit 26.0% (39.0-53.0) Mean Corpuscular Volume 82fL (79-100) Mean Corpuscular Hemoglobin 27pg (25-35) Mean Corpuscular Hemoglobin Concent 33g/dL (31-37) Red Cell Distribution Width 16.0% (11.5-14.5) Platelet Count 445x10^3/uL (140-400) Neutrophils (%) (Auto) 73% (31-73) Lymphocytes (%) (Auto) 16% (24-48) Monocytes (%) (Auto) 8% (0-9) Eosinophils (%) (Auto) 3% (0-3) Basophils (%) (Auto) 2% (0-3) Neutrophils # (Auto) 6.7x10^3uL (1.8-7.7) Lymphocytes # (Auto) 1.4x10^3/uL (1.0-4.8) Monocytes # (Auto) 0.7x10^3/uL (0.0-1.1) Eosinophils # (Auto) 0.3x10^3/uL (0.0-0.7) Basophils # (Auto) 0.1x10^3/uL (0.0-0.2) Sodium Level 138mmol/L (136-145) Potassium Level 4.6mmol/L (3.5-5.1) Chloride Level 104mmol/L (98-107) Carbon Dioxide Level 29mmol/L (21-32) Anion Gap 5 (6-14) Blood Urea Nitrogen 17mg/dL (8-26) Creatinine 1.4mg/dL (0.7-1.3) Estimated GFR (Cockcroft-Gault) 51.5 Glucose Level 228mg/dL (70-99) Calcium Level 8.5mg/dL (8.5-10.1) Phosphorus Level 3.0mg/dL (2.6-4.7) Albumin 2.1g/dL (3.4-5.0) Laboratory Tests Test 12/01/16 16:43 12/01/16 17:16 12/01/16 18:23 12/01/16 20:48 Glucose (Fingerstick) 44mg/dL (70-99) 44mg/dL (70-99) 155mg/dL (70-99) 188mg/dL (70-99) Test 12/02/16 05:35 12/02/16 08:10 White Blood Count 9.2x10^3/uL (4.0-11.0) Red Blood Count 3.16x10^6/uL (4.30-5.70) Hemoglobin 8.4g/dL (13.0-17.5) Hematocrit 26.0% (39.0-53.0) Mean Corpuscular Volume 82fL (79-100) Mean Corpuscular Hemoglobin 27pg (25-35) Mean Corpuscular Hemoglobin Concent 33g/dL (31-37) Red Cell Distribution Width 16.0% (11.5-14.5) Platelet Count 445x10^3/uL (140-400) Neutrophils (%) (Auto) 73% (31-73) Lymphocytes (%) (Auto) 16% (24-48) Monocytes (%) (Auto) 8% (0-9) Eosinophils (%) (Auto) 3% (0-3) Basophils (%) (Auto) 2% (0-3) Neutrophils # (Auto) 6.7x10^3uL (1.8-7.7) Lymphocytes # (Auto) 1.4x10^3/uL (1.0-4.8) Monocytes # (Auto) 0.7x10^3/uL (0.0-1.1) Eosinophils # (Auto) 0.3x10^3/uL (0.0-0.7) Basophils # (Auto) 0.1x10^3/uL (0.0-0.2) Sodium Level 138mmol/L (136-145) Potassium Level 4.6mmol/L (3.5-5.1) Chloride Level 104mmol/L (98-107) Carbon Dioxide Level 29mmol/L (21-32) Anion Gap 5 (6-14) Blood Urea Nitrogen 17mg/dL (8-26) Creatinine 1.4mg/dL (0.7-1.3) Estimated GFR (Cockcroft-Gault) 51.5 Glucose Level 228mg/dL (70-99) Calcium Level 8.5mg/dL (8.5-10.1) Phosphorus Level 3.0mg/dL (2.6-4.7) Albumin 2.1g/dL (3.4-5.0) Glucose (Fingerstick) 213mg/dL (70-99) Microbiology 11/30/16 Gram Stain - Final, Complete Medications Current Medications Dextrose 12.5 gm 12.5 gm PRN Q15MIN PRN IV SEE COMMENTS; Start 11/25/16 at 12: 30; Stop 11/26/16 at 11:39; Status DC Vancomycin HCl 1 gm/Sodium Chloride 250 ml @ 250 mls/hr Q24H IV ; Start at 14:00; Status UNV Piperacillin Sod/ Tazobactam Sod/ Sodium Chloride (Zosyn/Iv Sodium Chloride 0.9 % 50ml) 50 ml @ 100 mls/hr Q6HRS IV Last administered on 12/01/16 05:41; Start 11/25/16 at 13:00; Stop 12/01/16 at 10:28; Status DC Vancomycin HCl (Vanco Per Pharmacy) 1 each PRN DAILY PRN MC SEE COMMENTS Last administered on 11/25/16 18:51; Start 11/25/16 at 13:00; Stop 11/26/16 at 08:23 ; Status DC Amlodipine Besylate (Norvasc) 5 mg HS PO Last administered on 12/01/16 20:58; Start 11/25/16 at 21:00 Aspirin (Children'S Aspirin) 81 mg DAILY PO Last administered on 12/02/16 09: 35; Start 11/26/16 at 09:00 Atorvastatin Calcium (Lipitor) 40 mg QHS PO Last administered on 12/01/16 20: 56; Start 11/25/16 at 21:00 Carvedilol (Coreg) 12.5 mg BIDWMEALS PO Last administered on 12/02/16 09:36; Start 11/25/16 at 17:00 Clopidogrel Bisulfate (Plavix) 75 mg DAILYWBKFT PO Last administered on 09:35; Start 11/26/16 at 08:00 Furosemide (Lasix) 40 mg DAILY PO Last administered on 11/27/16 08:50; Start 11/26/16 at 09:00; Stop 11/27/16 at 11:20; Status DC Hydralazine HCl (Apresoline) 25 mg PRN Q6HRS PRN PO ELEVATED BP, SEE COMMENTS; Start 11/25/16 at 13:00 Insulin Aspart (Novolog) 9 units TIDAC SQ Last administered on 11/27/16 17:17 ; Start 11/25/16 at 16:30; Stop 11/28/16 at 05:28; Status DC Insulin Detemir (Levemir) 15 units QHS SQ Last administered on 11/27/16 22:02 ; Start 11/25/16 at 21:00; Stop 11/29/16 at 08:30; Status DC Metoclopramide HCl (Reglan) 5 mg DAILY08 PO Last administered on 12/02/16 09: 35; Start 11/26/16 at 08:00 Pantoprazole Sodium (Protonix) 40 mg BIDAC PO Last administered on 12/02/16 09 :35; Start 11/25/16 at 16:30 Pregabalin 75 mg 75 mg BID PO Last administered on 12/02/16 09:35; Start 11/25 at 21:00 Vancomycin HCl 1.75 gm/Sodium Chloride 500 ml @ 250 mls/hr 1X ONCE IV Last administered on 11/25/16 18:05; Start 11/25/16 at 14:00; Stop 11/25/16 at 15:59 ; Status DC Magnesium Sulfate/ Dextrose 50 ml @ 25 mls/hr PRN DAILY PRN IV for Mag < 1.7 on am labs; Start 11/25/16 at 15:30 Sodium Chloride (Iv Sodium Chloride 0.9% 1000ml Bag) 1,000 ml @ 125 mls/hr Q8H IV Last administered on 11/27/16 08:55; Start 11/25/16 at 15:30; Stop at 11:20; Status DC Darbepoetin Cali (Aranesp) 60 mcg WEEKLYHS SQ Last administered on 11/25/16 21 :05; Start 11/25/16 at 21:00 Insulin Aspart (Novolog) 0-5 UNITS TIDWMEALS SQ Last administered on 12/02/16 09:39; Start 11/25/16 at 17:00 Dextrose 12.5 gm PRN Q15MIN PRN IV SEE COMMENTS; Start 11/25/16 at 16:00 Heparin Sodium (Porcine) 5,000 unit Q12HR SQ Last administered on 11/26/16 09: 36; Start 11/25/16 at 17:00; Stop 11/26/16 at 13:15; Status DC Insulin Aspart (Novolog) 10 units 1X ONCE SQ Last administered on 11/25/16 18 :25; Start 11/25/16 at 17:45; Stop 11/25/16 at 17:46; Status DC Sodium Polystyrene Sulfonate 30 gm 30 gm 1X ONCE PO Last administered on 18:05; Start 11/25/16 at 17:45; Stop 11/25/16 at 17:46; Status DC Vancomycin HCl/ Sodium Chloride (Iv Sodium Chloride 0.9% 250ml) 250 ml @ 250 mls/hr Q24H IV ; Start 11/26/16 at 18:00; Stop 11/26/16 at 18:00; Status DC Vancomycin HCl 1 each 1X ONCE MC ; Start 11/27/16 at 17:30; Stop 11/27/16 at 17 :30; Status DC Albuterol/ Ipratropium (Duoneb) 3 ml RTQID NEB Last administered on 12/02/16 11:07; Start 11/25/16 at 22:45 Guaifenesin (Robitussin Dm) 5 ml PRN Q4HRS PRN PO COUGH, 1ST CHOICE Last administered on 11/25/16 22:55; Start 11/25/16 at 22:45 Guaifenesin (Robitussin Dm) 10 ml PRN Q4HRS PRN PO COUGH, 2ND CHOICE Last administered on 11/26/16 20:23; Start 11/25/16 at 22:45 Ferrous Sulfate (Feosol) 325 mg BIDWMEALS PO Last administered on 12/02/16 09: 35; Start 11/26/16 at 17:00 Lidocaine/Sodium Bicarbonate (Buffered Lidocaine 1%) 3 ml 1X ONCE IJ Last administered on 11/26/16 14:30; Start 11/26/16 at 14:30; Stop 11/26/16 at 14:31 ; Status DC Heparin Sodium/ Sodium Chloride 60 unit 1X ONCE IV Last administered on 14:30; Start 11/26/16 at 14:30; Stop 11/26/16 at 14:31; Status DC Heparin Sodium/ Sodium Chloride 1,000 unit 1X ONCE IART ; Start 11/26/16 at 14: 45; Stop 11/26/16 at 14:46; Status DC Lidocaine/Sodium Bicarbonate (Buffered Lidocaine 1%) 20 ml 1X ONCE IJ ; Start 11/26/16 at 14:45; Stop 11/26/16 at 14:46; Status DC Acetaminophen (Tylenol) 650 mg PRN Q6HRS PRN PO MILD PAIN / TEMP Last administered on 11/30/16 20:58; Start 11/27/16 at 18:15 Insulin Aspart (Novolog) 12 units TIDAC SQ Last administered on 12/01/16 12:57 ; Start 11/28/16 at 07:30; Stop 12/01/16 at 18:31; Status DC Linezolid (Zyvox) 600 mg BID PO Last administered on 12/02/16 09:35; Start at 21:00 Insulin Detemir 10 units 10 units QHS SQ Last administered on 12/01/16 21:02; Start 11/29/16 at 21:00 Magnesium Sulfate/ Dextrose (Magnesium Sulfate PREMIX 2GM) 50 ml @ 25 mls/hr 1X ONCE IV Last administered on 11/29/16 08:49; Start 11/29/16 at 08:30; Stop 11/29/16 at 10:29; Status DC Silver Sulfadiazine (Silvadene) 25 beba STK-MED ONCE TP ; Start 11/30/16 at 06:46 ; Stop 11/30/16 at 06:47; Status DC Lidocaine HCl 20 ml STK-MED ONCE .ROUTE ; Start 11/30/16 at 06:46; Stop at 06:47; Status DC Lidocaine HCl 100 mg 100 mg STK-MED ONCE .ROUTE ; Start 11/30/16 at 08:49; Stop 11/30/16 at 08:50; Status DC Propofol (Diprivan) 20 ml @ As Directed STK-MED ONCE IV ; Start 11/30/16 at 08: 49; Stop 11/30/16 at 08:50; Status DC Famotidine (Pepcid) 20 mg STK-MED ONCE .ROUTE ; Start 11/30/16 at 08:49; Stop at 08:50; Status DC Ondansetron HCl (Zofran) 4 mg STK-MED ONCE .ROUTE ; Start 11/30/16 at 08:49; Stop 11/30/16 at 08:50; Status DC Fentanyl Citrate (Fentanyl 2ml Vial) 100 mcg STK-MED ONCE .ROUTE ; Start at 08:50; Stop 11/30/16 at 08:51; Status DC Insulin Aspart (Novolog Vial) 100 unit STK-MED ONCE SQ ; Start 11/30/16 at 09:00 ; Stop 11/30/16 at 11:38; Status DC Sevoflurane (Ultane) 30 ml STK-MED ONCE IH ; Start 11/30/16 at 10:07; Stop 11/30 at 10:08; Status DC Insulin Aspart (Novolog Vial) 4 unit 1X ONCE SQ ; Start 11/30/16 at 11:15; Stop 11/30/16 at 11:38; Status DC Insulin Aspart (Novolog Vial) 4 unit 1X ONCE SQ ; Start 11/30/16 at 11:30; Stop 11/30/16 at 11:38; Status DC Insulin Human Regular (Novolin R Vial) 4 unit 1X ONCE IV ; Start 11/30/16 at 11 :45; Stop 11/30/16 at 11:45; Status DC Insulin Human Regular (Novolin R Vial) 4 unit 1X ONCE IV Last administered on 11/30/16 11:42; Start 11/30/16 at 11:39; Stop 11/30/16 at 11:41; Status DC Lidocaine/ Epinephrine (Xylocaine 1%-Epi 1:100,000) 20 ml 1X ONCE INJ Last administered on 12/01/16 00:51; Start 12/01/16 at 01:00; Stop 12/01/16 at 01:01 ; Status DC Acetaminophen/ Hydrocodone Bitart (Lortab 10/325) 1 tab PRN Q6HRS PRN PO PAIN Last administered on 12/01/16 09:49; Start 12/01/16 at 01:15; Stop 12/01/16 at 10:29; Status DC Acetaminophen/ Hydrocodone Bitart 1 tab 1 tab PRN Q4HRS PRN PO PAIN Last administered on 12/02/16 09:36; Start 12/01/16 at 01:15 Ertapenem/Sodium Chloride (Invanz/Iv Sodium Chloride 0.9% 50ml) 50 ml @ 100 mls /hr Q24H IV Last administered on 12/01/16 12:42; Start 12/01/16 at 11:00 Lidocaine/Sodium Bicarbonate 20 ml 20 ml STK-MED ONCE IJ ; Start 12/01/16 at 11: 29; Stop 12/01/16 at 11:30; Status DC Heparin Sodium/ Sodium Chloride 500 ml @ As Directed STK-MED ONCE .ROUTE ; Start 12/01/16 at 11:29; Stop 12/01/16 at 11:30; Status DC Lidocaine/Sodium Bicarbonate (Buffered Lidocaine 1%) 3 ml 1X ONCE IJ Last administered on 12/01/16 12:03; Start 12/01/16 at 12:00; Stop 12/01/16 at 12:01 ; Status DC Heparin Sodium/ Sodium Chloride 60 unit 1X ONCE IV Last administered on 12:03; Start 12/01/16 at 12:00; Stop 12/01/16 at 12:01; Status DC Ondansetron HCl (Zofran) 4 mg PRN Q6HRS PRN IV NAUSEA/VOMITING Last administered on 12/01/16 20:56; Start 12/01/16 at 14:45 Insulin Aspart (Novolog) 10 units TIDAC SQ Last administered on 12/02/16 09:39 ; Start 12/02/16 at 07:30 Active Scripts Active Levemir Flextouch (Insulin Detemir) 100 Unit/1 Ml Insuln.pen 15 Units SQ QHS Protonix (Pantoprazole Sodium) 40 Mg Tablet 40 Mg PO BIDAC Plavix (Clopidogrel Bisulfate) 75 Mg Tablet 75 Mg PO DAILYWBKFT Lipitor (Atorvastatin Calcium) 40 Mg Tablet 40 Mg PO QHS Reported Amlodipine Besylate 5 Mg Tablet 5 Mg PO HS Reglan (Metoclopramide Hcl) 10 Mg Tablet 5 Mg PO DAILY08 Novolog Flexpen (Insulin Aspart) 100 Unit/1 Ml Insuln.pen 9 Unit SQ TIDAC Lasix (Furosemide) 40 Mg Tablet 1 Tab PO DAILY Hydralazine Hcl 25 Mg Tablet 1 Tab PO Q6HRS PRN Aspirin 81 Mg Tab.chew 1 Tab PO DAILY Lyrica (Pregabalin) 75 Mg Capsule 75 Mg PO BID Carvedilol 12.5 Mg Tablet 1 Tab PO BID Vitals/I & O Vital Sign - Last 24 Hours 12/01/16 12/01/16 12/01/16 12/01/16 15:00 16:42 17:00 19:00 Temp 97.4 97.7 97.4 97.7 Pulse 60 63 Resp 18 18 B/P 146/68 146/68 149/67 Pulse Ox 96 94 O2 Delivery Room Air Room Air Room Air 12/01/16 12/01/16 12/01/16 12/01/16 19:39 20:30 20:58 23:00 Temp 97.9 97.9 Pulse 63 73 Resp 18 B/P 149/67 161/74 Pulse Ox 93 O2 Delivery Room Air Room Air Room Air 12/02/16 12/02/16 12/02/16 12/02/16 03:00 07:00 07:28 09:36 Temp 97.7 98.1 97.7 98.1 Pulse 68 67 67 Resp 18 18 B/P 168/75 154/65 154/65 Pulse Ox 95 96 96 O2 Delivery Room Air Room Air Room Air 12/02/16 12/02/16 09:36 11:08 O2 Delivery Room Air Room Air Intake and Output 12/01/16 12/01/16 12/02/16 15:00 23:00 07:00 Intake Total 0 ml 50 ml Output Total 325 ml 800 ml Balance -325 ml 0 ml -750 ml REAL WYLIE APRN Dec 02, 2016 11:32
--- NOTE | 2016-12-02 12:06 | PATHOLOGY ---
PATHOLOGY REPORT * * * * * * * * FINAL DIAGNOSIS: Segments of skin, subcutaneous tissue, and bone with focal attached articular cartilage, third and fourth metatarsal head right foot debridement: - Ulceration and pseudoepitheliomatous hyperplasia of skin with acute cellulitis and focal acute osteomyelitis. (JPM:; d/t: 12/02/16) REPORT ELECTRONICALLY SIGNED BY: Brady Smith M.D. DATE/TIME: 12/02/2016 12:04 * * * * * * * * GROSS PATHOLOGY: The specimen is received in formalin labeled "Fredrick Toney, third and fourth metatarsal head". Received are multiple segments of light alfaro bone admixed with yellow-alfaro to white-alfaro fibrous soft tissue measuring 5.2 x 4.3 x 1.5 cm in aggregate dimensions. The specimen is submitted representatively in cassette A1, following light decalcification. (CAA; 12/01/2016) INITIAL CPT CODE(S): A; 07701, 08429 Professional services performed [place] [facility] [place] [address] Technical services performed by [facility] at [address] [place] [address]. SPECIMEN(S) RECEIVED: A.3rd and 4th metatarsal head CLINICAL HISTORY: DM, right foot wound PATIENT: FREDRICK TONEY /AGE: 12 1955 (Age: 61) PATIENT #: [id number] ALT CASE #: SPECIMEN COLLECTION DATE: 11/30/2016 SPECIMEN RECEIVED DATE: 11/30/2016 [facility] - [address] [place] [address] - PHONE: [phone] * * * END OF REPORT * * *
[2016-12-02] MEDS: ERTAPENEM 1 GM in IV NORMAL SALINE 50ML 50 ML IV SCH (12:19)
[2016-12-02 15:00] VITALS: BP 117/55
[2016-12-02 19:25] VITALS: BP 162/78
[2016-12-02] MEDS: DARBEPOETIN ALFA 60 MCG/0.3 ML DISP.SYRIN. SQ SCH (21:07)
[2016-12-02] MEDS: ATORVASTATIN CALCIUM 40 MG TABLET. PO SCH (21:07)
[2016-12-02] MEDS: AMLODIPINE BESYLATE 5 MG TABLET PO SCH (21:08)
[2016-12-02] MEDS: INSULIN DETEMIR 300 UNITS/3 ML INSULN.PEN. SQ SCH (21:18)
[2016-12-02 23:31] VITALS: BP 162/69
[2016-12-03 03:33] VITALS: BP 147/66
[2016-12-03] MEDS ORDERED: ASPIRIN CHEWABLE 81 MG TABLET. PO SCH (05:10)
[2016-12-03] MEDS ORDERED: ACETAMINOPHEN 325 MG TABLET. PO PRN (05:10)
[2016-12-03] MEDS ORDERED: ONDANSETRON PF 4 MG/2 ML VIAL. IV PRN (05:11)
[2016-12-03] MEDS: PANTOPRAZOLE 40 MG TABLET. PO SCH (06:22)
[2016-12-03 07:00] VITALS: BP 149/62
[2016-12-03] MEDS: IPRATRPIUM/ALBUTEROL 0.5/2.5MG 3 ML NEBU. NEB SCH ×2 (07:29→11:22)
[2016-12-03] MEDS ORDERED: CARVEDILOL 12.5 MG TABLET. PO SCH (08:00)
[2016-12-03] MEDS: METOCLOPRAMIDE 10 MG TABLET PO SCH (08:43)
[2016-12-03] MEDS: CLOPIDOGREL BISULFATE 75 MG TABLET PO SCH (08:43)
[2016-12-03] MEDS: LINEZOLID 600 MG TABLET PO SCH (08:44)
[2016-12-03] MEDS: FERROUS SULFATE 325 MG TABLET PO SCH (08:44)
[2016-12-03] MEDS: PREGABALIN 75 MG CAPSULE PO SCH (08:44)
[2016-12-03] MEDS: INSULIN ASPART 300 UNITS/3 ML INSULN.PEN SQ SCH ×4 (08:53→12:00)
--- NOTE | 2016-12-03 10:06 | PDOC ---
Infectious Disease Note Subjective Subjective pt feeling fine ROS ROS GEN: Denies fevers, chills, sweats HEENT: Denies blurred vision, sore throat CV: Denies chest pain RESP: Denies shortness of air, cough GI: Denies n/v/d NEURO: Denies confusion, dizziness MSK: Denies weakness, joint pain/swelling Vital Sign Vital Signs Vital Signs Date Time Temp Pulse Resp B/P Pulse Ox O2 Delivery O2 Flow Rate FiO2 12/03/16 08:44 66 147/66 12/03/16 07:30 98 Room Air 12/03/16 07:00 98.5 18 98.5 Physical Exam PHYSICAL EXAM GENERAL: NAD, Alert HEENT: PERRL, OC/OP NECK: Supple, no JVD, no LN LUNGS: Clear HEART: S1S2, no gallop, no murmur ABD: Soft, NT, no organomegaly, no rebound EXT: No edema, no cyanosis, foot wound clean and red healthy tissue 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 AEROBIC CULT Final Final report AEROBIC RES 1 Final Comment Enterobacter aerogenes Heavy growth AEROBIC RES 2 Final Enterococcus faecalis Moderate growth AEROBIC RES 3 Final Staphylococcus aureus Scant growth Methicillin resistant (MRSA) Based on resistance to oxacillin this isolate would be resistant to all currently available beta-lactam antimicrobial agents, with the exception of the newer cephalosporins with anti-MRSA activity, such as Ceftaroline ANTIMICROBIAL SUSCEPTIBILITY Final Comment CONTINUED ON NEXT PAGE RUN DATE: 12/01/16 PAGE 2 RUN TIME: 08 [facility] [address] [place] [address] Brady Smith M.D., Acrobatic Dancer SPEC: [id number] PATIENT: FREDRICK RUBIO [id number] ( Continued) Procedure Result ANTIMICROBIAL SUSCEPTIBILITY Final (continued) S = Susceptible; I = Intermediate; R = Resistant P = Positive; N = Negative MICS are expressed in micrograms per mL Antibiotic RSLT#1 RSLT#2 RSLT#3 RSLT#4 Amoxicillin/Clavulanic Acid R Cefazolin R Cefepime S Ceftriaxone S Cefuroxime R Ciprofloxacin S R Clindamycin S Ertapenem S Erythromycin R Gentamicin S S Imipenem S Levofloxacin S R Linezolid S Oxacillin R Penicillin S R Piperacillin S Rifampin S Tetracycline S S Tobramycin S Trimethoprim/Sulfa S S Vancomycin S S Performed at: [address] [place], [place] [id number] [employer]: Jazmín Enciso MD, Phone: [phone] END OF REPORT Objective Assessment Rt foot 4 th amp site infection osteo of metatarsal s/p I and D DM PAD CKD Plan Plan of Care zyvox and invaz picc wound vac d/c cv line d/w dr Slater f/u with me in 2 wks wkly cbc, bun/cr and sed rate LUKE CHAPA MD Dec 03, 2016 10:06
[2016-12-03] MEDS: ERTAPENEM 1 GM in IV NORMAL SALINE 50ML 50 ML IV SCH (10:16)
--- NOTE | 2016-12-03 10:16 | PDOC ---
PROGRESS NOTES Subjective Subjective feeling good Objective Objective Vital Signs Date Time Temp Pulse Resp B/P Pulse Ox O2 Delivery O2 Flow Rate FiO2 12/03/16 08:44 66 147/66 12/03/16 07:30 98 Room Air 12/03/16 07:00 98.5 18 98.5 Intake and Output 12/03/16 07:00 Intake Total 360 ml Output Total 1600 ml Balance -1240 ml Intake Oral 360 ml Output Urine Total 1600 ml # Voids 3 Physical Exam Abdomen: Normal bowel sounds, Soft Heart: Regular rate, Normal S1 Extremities: No clubbing General: Alert HEENT: Atraumatic MUSCULOSKELETAL: No deformity, No swelling Neuro: Normal speech Psych/Mental Status: Mental status NL Skin: No rashes Diagnosis Problem List Problems Medical Problems: (1) Foot osteomyelitis Status: Acute Assessment Assessment FINAL IMPRESSION: 1. Osteomyelitis of the right foot. 2. 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 3. Diabetic neuropathy. 4. Coronary artery disease. 5. Chronic systolic heart failure. 6. h/o Pacemaker for bradyarrhythmias. 7. Diabetes, insulin-dependent. 8. Hypertension. 9. Hyperlipidemia. 10. Diabetic neuropathy. PLAN:wound vac at home no skilled days left d/c home with home health today surgery done,partial resection of bones in 3 ,4 th metatarsal Picc line placed po zyvox+invanz IV for 2 weeks at home spoke with ID spoke with egg caser. Problems: Plan Plan of Care Problems Medical Problems: (1) Foot osteomyelitis Status: Acute Comment Review of Relevant I have reviewed the following items luís (where applicable) has been applied. Labs Laboratory Tests Test 12/02/16 16:42 12/02/16 21:12 12/03/16 07:19 Glucose (Fingerstick) 90mg/dL (70-99) 239mg/dL (70-99) 234mg/dL (70-99) Microbiology 11/30/16 Gram Stain - Final, Complete Medications Current Medications Acetaminophen (Tylenol) 650 mg PRN Q6HRS PRN PO MILD PAIN / TEMP Last administered on 12/03/16 08:43; Start 12/03/16 at 05:10 Aspirin (Children'S Aspirin) 81 mg DAILY PO Last administered on 12/03/16 08: 43; Start 12/03/16 at 05:10 Atorvastatin Calcium (Lipitor) 40 mg QHS PO ; Start 12/03/16 at 21:00 Carvedilol (Coreg) 12.5 mg BIDWMEALS PO Last administered on 12/03/16 08:44; Start 12/03/16 at 08:00 Ondansetron HCl (Zofran) 4 mg PRN Q6HRS PRN IV NAUSEA/VOMITING Last administered on 12/03/16 06:28; Start 12/03/16 at 05:11 Vitals/I & O Vital Sign - Last 24 Hours 12/02/16 12/02/16 12/02/16 12/02/16 10:40 11:00 11:08 15:00 Temp 97.6 98.1 97.6 98.1 Pulse 68 61 Resp 18 18 B/P 154/73 117/55 Pulse Ox 95 97 O2 Delivery Room Air Room Air Room Air Room Air 12/02/16 12/02/16 12/02/16 12/02/16 17:48 19:16 19:25 20:00 Temp 98.0 98.0 Pulse 61 61 Resp 18 B/P 162/78 Pulse Ox 98 100 O2 Delivery Room Air Room Air Room Air 12/02/16 12/02/16 12/03/16 12/03/16 21:08 23:31 03:33 07:00 Temp 98.1 97.7 98.5 98.1 97.7 98.5 Pulse 61 68 66 69 Resp 18 18 18 B/P 162/78 162/69 147/66 149/62 Pulse Ox 94 96 94 O2 Delivery Room Air Room Air Room Air 12/03/16 12/03/16 07:30 08:44 Pulse 66 B/P 147/66 Pulse Ox 98 O2 Delivery Room Air Intake and Output 12/02/16 12/02/16 12/03/16 15:00 23:00 07:00 Intake Total 360 ml Output Total 1600 ml Balance 360 ml -1600 ml ELDER LAURENT MD Dec 03, 2016 10:16
[2016-12-03] MEDS ORDERED: ACET325T9 PO (10:39)
[2016-12-03] MEDS ORDERED: ERTA1VIA IV (10:41)
[2016-12-03] MEDS ORDERED: FERR-26 PO (10:42)
[2016-12-03] MEDS ORDERED: GUAI5SYR PO (10:42)
[2016-12-03] MEDS ORDERED: HYDR-2868 PO (10:45)
[2016-12-03] MEDS ORDERED: HYDR-2672 PO (10:47)
[2016-12-03] MEDS ORDERED: LINE600T PO (10:49)
[2016-12-03 11:00] VITALS: BP 144/68
--- NOTE | 2016-12-03 11:24 | PDOC ---
Renal-Progress Notes Subjective Notes Notes NONE History of Present Illness Hx of present illness STABLE Vitals Vitals Vital Signs Date Time Temp Pulse Resp B/P Pulse Ox O2 Delivery O2 Flow Rate FiO2 12/03/16 08:44 66 147/66 12/03/16 07:30 98 Room Air 12/03/16 07:00 98.5 18 98.5 Weight Weight [ ] I.O. Intake and Output Intake and Output 12/03/16 07:00 Intake Total 360 ml Output Total 1600 ml Balance -1240 ml Intake Oral 360 ml Output Urine Total 1600 ml # Voids 3 Labs Labs Laboratory Tests Test 12/02/16 16:42 12/02/16 21:12 12/03/16 07:19 Glucose (Fingerstick) 90mg/dL (70-99) 239mg/dL (70-99) 234mg/dL (70-99) Micro Micro Microbiology 11/30/16 Gram Stain - Final, Complete Review of Systems Constitutional: yes: alert, no symptom reported, weakness Ears/Nose/Throat: Yes: no symptom reported Eyes: Yes: no symptom reported Pulmonary: Yes no symptom reported Gastrointestional: Yes: no symptom reported Genitourinary: Yes: no symptom reported Physical Exam General Appearance: no apparent distress Skin: warm Respiratory: bilateral CTA Heart: S1S2, RRR Abdomen: soft, bowel sounds present Neurology: alert Assessment Assessment MP CKD STAGE 3 STABLE WITH CR OF 1.4 MILD HYPERKALEMIA-RESOLVED DM II HTN LE WOUND PLAN LABS IN AM ADD GEETHA-I ANTIBIOTICS OP F/U APPT IN THE OFFICE ALREADY SET UP ZUNILDA FARR MD Dec 03, 2016 11:24
[2016-12-03] MEDS ORDERED: LISINOPRIL 10 MG TABLET PO SCH (12:00)
[2016-12-03 12:01] VITALS: BP 147/66
[2016-12-03] MEDS ORDERED: ATORVASTATIN CALCIUM 40 MG TABLET. PO SCH (21:00)
== END 2016-12-03 13:30 | disposition home or self-care (01) | DRG 503 ==
LOC: 4 NORTH 10:59
PROVIDERS: ADMIT Internal Medicine; ATTEND Internal Medicine
PROC: 30233N1 Transfusion of Nonautologous Red Blood Cells into Peripheral Vein, Percutaneous Approach (ICD-10-PCS; 2016-11-26)
PROC: 0QBN0ZZ Excision of Right Metatarsal, Open Approach (ICD-10-PCS; principal; 2016-11-30 09:45)
PROC: 02HV33Z Insertion of Infusion Device into Superior Vena Cava, Percutaneous Approach (ICD-10-PCS; 2016-12-01)
PROC: B5181ZA Fluoroscopy of Superior Vena Cava using Low Osmolar Contrast, Guidance (ICD-10-PCS; 2016-12-01)
PROC: 3E04329 Introduction of Other Anti-infective into Central Vein, Percutaneous Approach (ICD-10-PCS; 2016-12-01)
DX: T87.43 Infection of amputation stump, right lower extremity (principal); E43 Unspecified severe protein-calorie malnutrition; N17.0 Acute kidney failure with tubular necrosis; I13.0 Hypertensive heart and chronic kidney disease with heart failure and stage 1 through stage 4 chronic kidney disease, or unspecified chronic kidney disease; I50.22 Chronic systolic (congestive) heart failure; M86.9 Osteomyelitis, unspecified; E11.69 Type 2 diabetes mellitus with other specified complication; E11.51 Type 2 diabetes mellitus with diabetic peripheral angiopathy without gangrene; E11.40 Type 2 diabetes mellitus with diabetic neuropathy, unspecified; E11.22 Type 2 diabetes mellitus with diabetic chronic kidney disease; E11.621 Type 2 diabetes mellitus with foot ulcer; E83.42 Hypomagnesemia; Y83.8 Other surgical procedures as the cause of abnormal reaction of the patient, or of later complication, without mention of misadventure at the time of the procedure; E78.5 Hyperlipidemia, unspecified; E87.5 Hyperkalemia; I25.10 Atherosclerotic heart disease of native coronary artery without angina pectoris; M19.90 Unspecified osteoarthritis, unspecified site; D64.9 Anemia, unspecified; L97.509 Non-pressure chronic ulcer of other part of unspecified foot with unspecified severity; N18.3 Chronic kidney disease, stage 3 (moderate); Z79.4 Long term (current) use of insulin; Z82.49 Family history of ischemic heart disease and other diseases of the circulatory system; Z87.11 Personal history of peptic ulcer disease; Z83.3 Family history of diabetes mellitus; Z89.429 Acquired absence of other toe(s), unspecified side; Z95.0 Presence of cardiac pacemaker; I25.2 Old myocardial infarction; Z90.49 Acquired absence of other specified parts of digestive tract; Z88.8 Allergy status to other drugs, medicaments and biological substances; Z79.2 Long term (current) use of antibiotics; Z68.23 Body mass index [BMI] 23.0-23.9, adult
CPT/HCPCS: 11043; 36415; 36556; 36569; 73620; 73700; 76937; 77001; 80048; 80053; 80069; 82728; 82947; 83540; 83550; 83735; 85027; 85651; 86850; 86900; 86901; 86920; 87071; 87075; 87186; 87205; 88304; 88311; 94250; 94640; 94760; C1751; C1892; J0881; J1335; J1815; J2405; J2543; J2704; J3010; J3370; J3490; J7030; J7040; J7060; J7120; J7620; J8597; P9016; S0028

== ENCOUNTER → 2016-11-25 | Outpatient (CLI) | payer OTHER ==
[2016-11-11 11:41] VITALS: BP 106/63
[~2016-11-25] MED LIST changes: +AMLO5TAB2 PO; +METO10TA81 PO
== END | disposition home or self-care (01) ==
LOC: PMGWOUND 09:36
PROVIDERS: ATTEND Preventive Medicine Undersea and Hyperbaric Medicine
DX: E11.621 Type 2 diabetes mellitus with foot ulcer (principal); L97.511 Non-pressure chronic ulcer of other part of right foot limited to breakdown of skin; E11.51 Type 2 diabetes mellitus with diabetic peripheral angiopathy without gangrene; I25.10 Atherosclerotic heart disease of native coronary artery without angina pectoris; I10 Essential (primary) hypertension; E78.5 Hyperlipidemia, unspecified; K21.9 Gastro-esophageal reflux disease without esophagitis; E11.40 Type 2 diabetes mellitus with diabetic neuropathy, unspecified; I25.2 Old myocardial infarction
CPT/HCPCS: 11043

== ENCOUNTER → 2016-12-11 | Outpatient (CLI) | payer OTHER ==
[2016-12-03 12:01] VITALS: BP 147/66
[~2016-12-11] MED LIST changes: +ACET325T9 PO; +ERTA1VIA IV; +FERR-26 PO; +GUAI5SYR PO; +HYDR-2672 PO; +KETO5DRO24 RIGHTEYE; +LINE600T PO; +PRED5DRO6 RIGHTEYE; +TOBR5DRO13 RIGHT EAR
== END | disposition home or self-care (01) ==
LOC: PMGWOUND 08:20
PROVIDERS: ATTEND Preventive Medicine Undersea and Hyperbaric Medicine
DX: E11.621 Type 2 diabetes mellitus with foot ulcer (principal); L97.514 Non-pressure chronic ulcer of other part of right foot with necrosis of bone; E11.51 Type 2 diabetes mellitus with diabetic peripheral angiopathy without gangrene; I25.10 Atherosclerotic heart disease of native coronary artery without angina pectoris; I10 Essential (primary) hypertension; I25.2 Old myocardial infarction; E78.5 Hyperlipidemia, unspecified; K21.9 Gastro-esophageal reflux disease without esophagitis; E11.40 Type 2 diabetes mellitus with diabetic neuropathy, unspecified; Z89.421 Acquired absence of other right toe(s)
CPT/HCPCS: 11042; 97597; 97605

== ENCOUNTER 2016-12-31 07:04 | Emergency (ER) | payer OTHER ==
[~2016-12-31 07:04] MED LIST changes: +CIPR250T PO; +DOXY100T PO
[2016-12-31] MEDS ORDERED: DEXTROSE 50% 25 GM / 50ML DISP.SYRIN. IV ONE (07:15)
--- NOTE | 2016-12-31 07:38 | PHYS DOC ---
Past Medical History Past Medical History: Arthritis, Diabetes-Type II, High Cholesterol, Hypertension, [place], Other Additional Past Medical Histor: peripheral neuropathy, hypoglycemia, gastroparesis Past Surgical History: Appendectomy, Pacemaker Additional Past Surgical Histo: LEFT LEG, R toes 3 and 4 amputated, cataract Alcohol Use: None Drug Use: None Adult General Chief Complaint Chief Complaint: HYPOGLYCEMIA HPI HPI Patient is a 61 year old male brought in by EMS for evaluation of altered mental status. Patient was very difficult to arouse this morning so the son called EMS and his blood sugar was found to be 27. Son said that the home glucose monitor said that his blood sugar was 50. Glucagon was given any started slowly arousing and he was brought to the emergency department for further evaluation. Currently patient is alert and oriented 3 says he feels slightly cold and tired but close to his baseline. Son thinks that his glucose monitor has been office he gave himself 15 units yesterday evening when his blood sugar was 200 and he thinks this may have been too much. Patient ate normally yesterday. Patient denies any pain nausea vomiting diarrhea dysuria. Patient does feel cold to the touch and his core temperature was found to be 93.8. Review of Systems Review of Systems Constitutional: Denies fever or chills [] Eyes: Denies change in visual acuity, redness, or eye pain [] HENT: Denies nasal congestion or sore throat [] Respiratory: Denies cough or shortness of breath [] Cardiovascular: No chest pain GI: Denies abdominal pain, nausea, vomiting, bloody stools or diarrhea [] : Denies dysuria or hematuria [] Musculoskeletal: Denies back pain or joint pain [] Integument: Denies rash or skin lesions [] Neurologic: Denies headache, focal weakness or sensory changes [] Current Medications Current Medications Current Medications Medications (Trade) Dose Ordered Sig/Perlita Start Time Stop Time Status Last Admin Dose Admin Dextrose 25 gm 25 gm 1X ONCE 12/31/16 07:15 12/31/16 07:16 DC Sodium Chloride (Iv Sodium Chloride 0.9% 500ml Bag) 500 ml @ 500 mls/hr 1X ONCE 12/31/16 09:00 12/31/16 09:59 12/31/16 08:47 500 MLS/HR Allergies Allergies Allergies Coded Allergies Type Severity Reaction Last Updated Verified hydromorphone Allergy Severe apnea and asystole, code blue 09/02/16 Yes I S O L A T I O N *CONTACT* Allergy Unknown 12/16/16 Yes Physical Exam Physical Exam Constitutional: Well developed, well nourished, no acute distress, non-toxic appearance. [] HENT: Normocephalic, atraumatic, bilateral external ears normal, oropharynx moist, no oral exudates, nose normal. [] Eyes: PERRLA, EOMI, conjunctiva normal, no discharge. [] Neck: Normal range of motion, no tenderness, supple, no stridor. [] Cardiovascular:Heart rate regular rhythm, no murmur [] Lungs & Thorax: Bilateral breath sounds clear to auscultation [] Abdomen: Bowel sounds normal, soft, no tenderness, no masses, no pulsatile masses. [] Skin: Cool to touch with diaphoresis noted in the axilla. Back: No tenderness, no CVA tenderness. [] Extremities: No tenderness, no cyanosis, no clubbing, ROM intact, no edema. Wound VAC intact to right foot. Neurologic: Alert and oriented X 3, normal motor function, normal sensory function, no focal deficits noted. [] Current Patient Data Vital Signs Vital Signs Date Time Temp Pulse Resp B/P Pulse Ox O2 Delivery O2 Flow Rate FiO2 12/31/16 09:00 97.4 97.4 12/31/16 09:00 82 15 95/54 99 Room Air Lab Values Laboratory Tests Test 12/31/16 07:11 12/31/16 07:58 12/31/16 08:52 Glucose (Fingerstick) 128mg/dL (70-99) H 372mg/dL (70-99) H White Blood Count 11.9x10^3/uL (4.0-11.0) H Red Blood Count 3.98x10^6/uL (4.30-5.70) L Hemoglobin 10.7g/dL (13.0-17.5) L Hematocrit 33.1% (39.0-53.0) L Mean Corpuscular Volume 83fL (79-100) Mean Corpuscular Hemoglobin 27pg (25-35) Mean Corpuscular Hemoglobin Concent 32g/dL (31-37) Red Cell Distribution Width 16.9% (11.5-14.5) H Platelet Count 482x10^3/uL (140-400) #H Neutrophils (%) (Auto) 89% (31-73) H Lymphocytes (%) (Auto) 6% (24-48) L Monocytes (%) (Auto) 4% (0-9) Eosinophils (%) (Auto) 1% (0-3) Basophils (%) (Auto) 1% (0-3) Neutrophils # (Auto) 10.6x10^3uL (1.8-7.7) H Lymphocytes # (Auto) 0.7x10^3/uL (1.0-4.8) L Monocytes # (Auto) 0.4x10^3/uL (0.0-1.1) Eosinophils # (Auto) 0.2x10^3/uL (0.0-0.7) Basophils # (Auto) 0.1x10^3/uL (0.0-0.2) Platelet Estimate Pending Sodium Level 137mmol/L (136-145) Potassium Level 4.0mmol/L (3.5-5.1) Chloride Level 103mmol/L (98-107) Carbon Dioxide Level 25mmol/L (21-32) Anion Gap 9 (6-14) Blood Urea Nitrogen 50mg/dL (8-26) H Creatinine 2.0mg/dL (0.7-1.3) H Estimated GFR (Cockcroft-Gault) 34.1 BUN/Creatinine Ratio 25 (6-20) H Glucose Level 209mg/dL (70-99) H Calcium Level 9.1mg/dL (8.5-10.1) Total Bilirubin 0.7mg/dL (0.2-1.0) Aspartate Amino Transferase (AST) 34U/L (15-37) Alanine Aminotransferase (ALT) 43U/L (16-63) Alkaline Phosphatase 181U/L (46-116) H Total Protein 8.1g/dL (6.4-8.2) Albumin 3.6g/dL (3.4-5.0) Albumin/Globulin Ratio 0.8 (1.0-1.7) L Thyroid Stimulating Hormone (TSH) 1.642uIU/mL (0.358-3.74) Laboratory Tests 12/31/16 07:58 Laboratory Tests 12/31/16 07:58 EKG EKG [] Radiology/Procedures Radiology/Procedures [] Impressions: #1 encephalopathy #2 hypoglycemia #3 hypothermia Course & Med Decision Making Course & Med Decision Making Patient is hypoglycemic and he started sweating which likely cooled his core temperature down. He will be put on bear hugger do some screening labs, give him a meal tray to eat, and then reassess. Patient ate a meal tray and was put on the bear hugger and his blood sugar increased to the 300s and his temperature is now 97.8. He was also given some IV fluids as he has some worsening renal insufficiency. Patient is now laughing and joking and requesting to go home as he feels he is back to his baseline. He was told to get a new blood sugar monitoring device and told to take his insulin as prescribed and make sure he is checking it more often. Patient and son aware and agreeable with plan for discharge and verbalized understanding of the need for short-term follow-up and strict ER return precautions discussed including worsening pain weakness or general concerns. Dragon Disclaimer Dragon Disclaimer This electronic medical record was generated, in whole or in part, using a voice recognition dictation system. Departure Departure Impression: Primary Impression: Hypoglycemia Additional Impressions: Encephalopathy acute Hypothermia Renal insufficiency Disposition: HOME, SELF-CARE Referrals: ELDER LAURENT MD (PCP) Patient Instructions: Hypoglycemia (Low Blood Sugar) Problem Qualifiers CEE TY DO Dec 31, 2016 07:38
[2016-12-31 08:11] LABS: BASO # 0.1 x10^3/uL (0.0-0.2); BASO % 1 % (0-3); EOS % 1 % (0-3); HEMATOCRIT 33.1 % (39.0-53.0); HEMOGLOBIN 10.7 g/dL (13.0-17.5); LYMPH # 0.7 x10^3/uL (1.0-4.8); LYMPH % 6 % (24-48); MEAN CORPUSCULAR HEMOGLOBIN 27 pg (25-35); MEAN CORPUSCULAR HGB CONC 32 g/dL (31-37); MEAN CORPUSCULAR VOLUME 83 fL (79-100); MONO % 4 % (0-9); NEUT % 89 % (31-73); PLATELET COUNT 482 x10^3/uL (140-400); RED BLOOD COUNT 3.98 x10^6/uL (4.30-5.70); RED CELL DISTRIBUTION WIDTH 16.9 % (11.5-14.5); WHITE BLOOD COUNT 11.9 x10^3/uL (4.0-11.0)
[2016-12-31 08:23] LABS: CALCIUM 9.1 mg/dL (8.5-10.1); GFR 34.1
[2016-12-31 08:27] LABS: ALBUMIN 3.6 g/dL (3.4-5.0); ALBUMIN/GLOBULIN RATIO 0.8 (1.0-1.7); TOTAL BILIRUBIN 0.7 mg/dL (0.2-1.0); TOTAL PROTEIN 8.1 g/dL (6.4-8.2)
[2016-12-31] MEDS ORDERED: IV NORMAL SALINE 1000ML BAG 1,000 ML IV ONE (08:30)
[2016-12-31] MEDS ORDERED: IV NORMAL SALINE 500ML BAG 500 ML IV ONE (09:00)
[2016-12-31 09:20] VITALS: BP 100/56
[2016-12-31 13:01] LABS: % EOS 1 % (0-5); PLT ESTIMATE INCREASED (ADEQUATE)
== END 2016-12-31 09:32 | disposition home or self-care (01) ==
LOC: ER 07:04
DX: E11.65 Type 2 diabetes mellitus with hyperglycemia (principal); T68.XXXA Hypothermia, initial encounter; G93.40 Encephalopathy, unspecified; E78.00 Pure hypercholesterolemia, unspecified; I10 Essential (primary) hypertension; Z95.0 Presence of cardiac pacemaker; N28.9 Disorder of kidney and ureter, unspecified; I25.2 Old myocardial infarction; Z90.49 Acquired absence of other specified parts of digestive tract; Z89.421 Acquired absence of other right toe(s); Z88.5 Allergy status to narcotic agent; Z91.041 Radiographic dye allergy status
CPT/HCPCS: 36415; 80053; 82533; 82947; 84443; 85007; 85027; 96360; 99284; J7030; J7040

== ENCOUNTER → 2017-01-01 | Outpatient (CLI) | payer OTHER ==
[2016-12-31 09:20] VITALS: BP 100/56
== END | disposition home or self-care (01) ==
LOC: PMGWOUND 09:02
PROVIDERS: ATTEND Preventive Medicine Undersea and Hyperbaric Medicine
DX: E11.621 Type 2 diabetes mellitus with foot ulcer (principal); L97.511 Non-pressure chronic ulcer of other part of right foot limited to breakdown of skin; I73.89 Other specified peripheral vascular diseases; I25.10 Atherosclerotic heart disease of native coronary artery without angina pectoris; I10 Essential (primary) hypertension; I25.2 Old myocardial infarction; E78.5 Hyperlipidemia, unspecified; K21.9 Gastro-esophageal reflux disease without esophagitis; E11.40 Type 2 diabetes mellitus with diabetic neuropathy, unspecified; Z95.0 Presence of cardiac pacemaker
CPT/HCPCS: 11042; 97605

== ENCOUNTER 2017-01-08 03:14 | Emergency (ER) | payer OTHER ==
[~2017-01-08] VITALS: Ht 167.6 cm; Wt 68.9 kg
[~2017-01-08 03:14] MED LIST changes: -FENT1PAT15 TD; -LIDO30CR TP; -LIDO700A27 TD
[2017-01-08 03:21] VITALS: BP 88/53
--- NOTE | 2017-01-08 03:39 | PHYS DOC ---
Past Medical History Past Medical History: Arthritis, Diabetes-Type II, High Cholesterol, Hypertension, [place], Other Additional Past Medical Histor: peripheral neuropathy, hypoglycemia, gastroparesis Past Surgical History: Appendectomy, Pacemaker Additional Past Surgical Histo: LEFT LEG RODS AND PLATES, R toes 3 and 4 amputated, cataract Alcohol Use: None Drug Use: None Adult General Chief Complaint Chief Complaint: HEMORRHOIDS HPI HPI Patient is a 61 year old male who presents with son for evaluation of external rectal pain that is constant, burning, and worse with BMs; associated with bright red blood streaks on stools. Denies large blood amounts or drips in toilet. Thinks he has hemorrhoids and has been using tucks hemorrhoid pads. Denies abdominal pain, nausea or vomiting, fever or chills, constipation, diarrhea. Denies internal rectal pain. Last bowel movement was yesterday, without straining. Review of Systems Review of Systems Constitutional: Denies fever or chills [] Eyes: Denies change in visual acuity, redness, or eye pain [] HENT: Denies nasal congestion or sore throat [] Respiratory: Denies cough or shortness of breath [] Cardiovascular: No additional information not addressed in HPI [] GI: Denies abdominal pain, nausea, vomiting, or diarrhea [] : Denies dysuria or hematuria [] Musculoskeletal: Denies back pain or joint pain [] Integument: Denies rash or skin lesions [] Neurologic: Denies headache, focal weakness or sensory changes [] Endocrine: Denies polyuria or polydipsia [] Allergies Allergies Allergies Coded Allergies Type Severity Reaction Last Updated Verified hydromorphone Allergy Severe apnea and asystole, code blue 09/02/16 Yes I S O L A T I O N *CONTACT* Allergy Unknown 12/16/16 Yes Physical Exam Physical Exam Constitutional: Well developed, well nourished, no acute distress, non-toxic appearance. [] HENT: Normocephalic, atraumatic, bilateral external ears normal, oropharynx moist, nose normal. [] Eyes: PERRLA, EOMI. [] Neck: Normal range of motion, supple. [] Cardiovascular:Heart rate regular rhythm [] Lungs & Thorax: Bilateral breath sounds clear to auscultation [] Abdomen: Bowel sounds normal, soft, no tenderness. Rectal exam shows external maceration with slight oozing bleeding with no hemorrhoid or fissure; there was formed stool that was wiped away to perform exam; digital rectal exam nontender with no palpable mass or induration or fullness; light brown stool on glove per FRANKO [] Skin: Warm, dry, no erythema, no rash. [] Back: No tenderness, no CVA tenderness. [] Extremities: ROM intact, no edema. [] Neurologic: Alert and oriented X 3, normal motor function, normal sensory function, no focal deficits noted. [] Psychologic: Affect normal, judgement normal, mood normal. [] Current Patient Data Vital Signs Vital Signs Date Time Temp Pulse Resp B/P (MAP) Pulse Ox O2 Delivery O2 Flow Rate FiO2 01/08/17 03:21 97.5 74 20 88/53 (65) 97 Room Air 97.5 Course & Med Decision Making Course & Med Decision Making Discussed he has maceration with bleeding. Discussed use of barrier cream and lido cream prn pain. Return precautions given. He and son understand and agree with plan. Dragon Disclaimer Dragon Disclaimer This electronic medical record was generated, in whole or in part, using a voice recognition dictation system. Departure Departure Impression: Primary Impression: Rectal pain Additional Impression: Maceration of skin Disposition: HOME, SELF-CARE Condition: STABLE Referrals: ELDER LAURENT MD (PCP) Patient Instructions: Skin Ulcer Additional Instructions: Use lidocaine jelly as needed for pain. Use a barrier cream (like Butt Paste brand) to help the rectal area heal. Follow up with your primary care doctor within 1 week. Return for any concerns. Scripts Lidocaine/Prilocaine (LIDOCAINE-PRILOCAINE CREAM) 30 Gm Cream..g. 1 RAEGAN TP UD Y for rectal pain, #30 GM 0 Refills Apply to rectal area as needed 3 times per day Prov: Drea FREY MD 01/08/17 Problem Qualifiers Drea FREY MD January 08, 2017 03:39
[2017-01-08] MEDS ORDERED: LIDO30CR TP (03:43)
== END 2017-01-08 03:50 | disposition home or self-care (01) ==
LOC: ER 03:14
DX: K62.89 Other specified diseases of anus and rectum (principal); M19.90 Unspecified osteoarthritis, unspecified site; E78.00 Pure hypercholesterolemia, unspecified; I25.2 Old myocardial infarction; E11.40 Type 2 diabetes mellitus with diabetic neuropathy, unspecified; E11.43 Type 2 diabetes mellitus with diabetic autonomic (poly)neuropathy; K31.84 Gastroparesis; I10 Essential (primary) hypertension; E11.36 Type 2 diabetes mellitus with diabetic cataract; Z95.0 Presence of cardiac pacemaker; Z88.5 Allergy status to narcotic agent; Z91.041 Radiographic dye allergy status
CPT/HCPCS: 99283

== ENCOUNTER → 2017-01-08 | Outpatient (CLI) | payer OTHER ==
[~2017-01-08] MED LIST changes: +FENT1PAT15 TD; +LIDO30CR TP; +LIDO700A27 TD
[2017-01-08 03:21] VITALS: BP 88/53
--- NOTE | 2017-01-08 16:46 | RAD ---
Indication pain. AP and lateral views of the thoracic spine were obtained as well as a swimmer's view. There is a suggested well-defined nodule in the right upper lobe. This is not apparent on a single view of the chest 12/15/2016 or on a study September 22, 2016. It may be artifactual. Additional imaging should be considered. The thoracic spine appears unremarkable. No acute finding is seen. There are no significant degenerative changes. IMPRESSION: Unremarkable thoracic spine. Possible pulmonary nodule in the right upper lobe.
--- NOTE | 2017-01-08 16:49 | RAD ---
Indication rib pain. Films, 3, targeted to left ribs were obtained. There is irregularity involving the posterior eighth rib and possibly the seventh rib consistent with recent traumatic fractures. IMPRESSION: Fractured left eighth rib and possible seventh
== END | disposition home or self-care (01) ==
LOC: RAD 16:08
PROVIDERS: ATTEND Internal Medicine
DX: S22.32XA Fracture of one rib, left side, initial encounter for closed fracture (principal); M54.6 Pain in thoracic spine; X58.XXXA Exposure to other specified factors, initial encounter; Y93.89 Activity, other specified; Y92.89 Other specified places as the place of occurrence of the external cause; Y99.8 Other external cause status
CPT/HCPCS: 71100; 72072

== ENCOUNTER → 2017-01-08 | Outpatient (CLI) | payer OTHER ==
[2017-01-08 03:21] VITALS: BP 88/53
== END | disposition home or self-care (01) ==
LOC: PMGWOUND 09:17
PROVIDERS: ATTEND Preventive Medicine Undersea and Hyperbaric Medicine
DX: E11.621 Type 2 diabetes mellitus with foot ulcer (principal); L97.514 Non-pressure chronic ulcer of other part of right foot with necrosis of bone; E11.51 Type 2 diabetes mellitus with diabetic peripheral angiopathy without gangrene; I25.10 Atherosclerotic heart disease of native coronary artery without angina pectoris; I10 Essential (primary) hypertension; E78.5 Hyperlipidemia, unspecified; K21.9 Gastro-esophageal reflux disease without esophagitis; E11.40 Type 2 diabetes mellitus with diabetic neuropathy, unspecified; Z89.421 Acquired absence of other right toe(s)
CPT/HCPCS: 99214

== ENCOUNTER → 2017-01-15 | Outpatient (CLI) | payer OTHER ==
[2017-01-12 08:28] VITALS: BP 171/83
[~2017-01-15] MED LIST changes: +FENT1PAT15 TD; +LIDO30CR TP; +LIDO700A27 TD
== END | disposition home or self-care (01) ==
LOC: PMGWOUND 09:42
PROVIDERS: ATTEND Preventive Medicine Undersea and Hyperbaric Medicine
DX: E11.621 Type 2 diabetes mellitus with foot ulcer (principal); L97.514 Non-pressure chronic ulcer of other part of right foot with necrosis of bone; I25.10 Atherosclerotic heart disease of native coronary artery without angina pectoris; I25.2 Old myocardial infarction; E78.5 Hyperlipidemia, unspecified; K21.9 Gastro-esophageal reflux disease without esophagitis; E78.00 Pure hypercholesterolemia, unspecified; E11.22 Type 2 diabetes mellitus with diabetic chronic kidney disease; I13.0 Hypertensive heart and chronic kidney disease with heart failure and stage 1 through stage 4 chronic kidney disease, or unspecified chronic kidney disease; N18.4 Chronic kidney disease, stage 4 (severe); I50.42 Chronic combined systolic (congestive) and diastolic (congestive) heart failure; E11.52 Type 2 diabetes mellitus with diabetic peripheral angiopathy with gangrene; E11.42 Type 2 diabetes mellitus with diabetic polyneuropathy; E11.69 Type 2 diabetes mellitus with other specified complication; E11.610 Type 2 diabetes mellitus with diabetic neuropathic arthropathy; M86.679 Other chronic osteomyelitis, unspecified ankle and foot; Z95.1 Presence of aortocoronary bypass graft; Z79.4 Long term (current) use of insulin; Z95.0 Presence of cardiac pacemaker; Z89.421 Acquired absence of other right toe(s)
CPT/HCPCS: 99214

== ENCOUNTER → 2017-01-22 | Outpatient (CLI) | payer OTHER ==
[2017-01-12 08:28] VITALS: BP 171/83
== END | disposition home or self-care (01) ==
LOC: PMGWOUND 09:48
PROVIDERS: ATTEND Preventive Medicine Undersea and Hyperbaric Medicine
DX: E11.621 Type 2 diabetes mellitus with foot ulcer (principal); L97.514 Non-pressure chronic ulcer of other part of right foot with necrosis of bone; E11.51 Type 2 diabetes mellitus with diabetic peripheral angiopathy without gangrene; K21.9 Gastro-esophageal reflux disease without esophagitis; E78.5 Hyperlipidemia, unspecified; I25.2 Old myocardial infarction; E78.00 Pure hypercholesterolemia, unspecified; E11.610 Type 2 diabetes mellitus with diabetic neuropathic arthropathy; E11.42 Type 2 diabetes mellitus with diabetic polyneuropathy; E11.52 Type 2 diabetes mellitus with diabetic peripheral angiopathy with gangrene; E11.43 Type 2 diabetes mellitus with diabetic autonomic (poly)neuropathy; E11.22 Type 2 diabetes mellitus with diabetic chronic kidney disease; I13.0 Hypertensive heart and chronic kidney disease with heart failure and stage 1 through stage 4 chronic kidney disease, or unspecified chronic kidney disease; N18.4 Chronic kidney disease, stage 4 (severe); I50.42 Chronic combined systolic (congestive) and diastolic (congestive) heart failure; I25.10 Atherosclerotic heart disease of native coronary artery without angina pectoris; Z95.0 Presence of cardiac pacemaker; Z95.1 Presence of aortocoronary bypass graft; Z79.4 Long term (current) use of insulin; Z89.421 Acquired absence of other right toe(s)
CPT/HCPCS: 99213

== ENCOUNTER → 2017-01-28 | Outpatient (CLI) | payer OTHER ==
[2017-01-12 08:28] VITALS: BP 171/83
[~2017-01-28] MED LIST changes: +ASPI-630 PO; -ASPI81TA2 PO; -CLOP75TA27 PO; +CLOP75TA57 PO; -HYDR-2672 PO; +HYDR-2766 PO; +PRED5DRO16 RIGHTEYE; -PRED5DRO6 RIGHTEYE
== END | disposition home or self-care (01) ==
LOC: PMGWOUND 11:48
PROVIDERS: ATTEND Emergency Medicine Undersea and Hyperbaric Medicine
DX: E11.621 Type 2 diabetes mellitus with foot ulcer (principal); L97.514 Non-pressure chronic ulcer of other part of right foot with necrosis of bone; K21.9 Gastro-esophageal reflux disease without esophagitis; E78.5 Hyperlipidemia, unspecified; I25.2 Old myocardial infarction; E78.00 Pure hypercholesterolemia, unspecified; E11.610 Type 2 diabetes mellitus with diabetic neuropathic arthropathy; E11.43 Type 2 diabetes mellitus with diabetic autonomic (poly)neuropathy; E11.52 Type 2 diabetes mellitus with diabetic peripheral angiopathy with gangrene; E11.69 Type 2 diabetes mellitus with other specified complication; M86.679 Other chronic osteomyelitis, unspecified ankle and foot; M19.90 Unspecified osteoarthritis, unspecified site; E11.36 Type 2 diabetes mellitus with diabetic cataract; E11.22 Type 2 diabetes mellitus with diabetic chronic kidney disease; I13.0 Hypertensive heart and chronic kidney disease with heart failure and stage 1 through stage 4 chronic kidney disease, or unspecified chronic kidney disease; N18.4 Chronic kidney disease, stage 4 (severe); Z95.0 Presence of cardiac pacemaker; Z79.4 Long term (current) use of insulin; Z95.1 Presence of aortocoronary bypass graft; Z89.421 Acquired absence of other right toe(s); I50.42 Chronic combined systolic (congestive) and diastolic (congestive) heart failure
CPT/HCPCS: 17250

== ENCOUNTER → 2017-02-04 | Outpatient (CLI) | payer OTHER ==
[2017-01-12 08:28] VITALS: BP 171/83
[~2017-02-04] MED LIST changes: -ASPI-630 PO; +ASPI81TA2 PO; +CLOP75TA27 PO; -CLOP75TA57 PO; +HYDR-2672 PO; -HYDR-2766 PO; -PRED5DRO16 RIGHTEYE; +PRED5DRO6 RIGHTEYE
== END | disposition home or self-care (01) ==
LOC: PMGWOUND 08:34
PROVIDERS: ATTEND Emergency Medicine Undersea and Hyperbaric Medicine
DX: E11.621 Type 2 diabetes mellitus with foot ulcer (principal); L97.514 Non-pressure chronic ulcer of other part of right foot with necrosis of bone; E11.51 Type 2 diabetes mellitus with diabetic peripheral angiopathy without gangrene; K21.9 Gastro-esophageal reflux disease without esophagitis; E78.5 Hyperlipidemia, unspecified; I25.2 Old myocardial infarction; E78.00 Pure hypercholesterolemia, unspecified; I13.0 Hypertensive heart and chronic kidney disease with heart failure and stage 1 through stage 4 chronic kidney disease, or unspecified chronic kidney disease; E11.22 Type 2 diabetes mellitus with diabetic chronic kidney disease; I50.42 Chronic combined systolic (congestive) and diastolic (congestive) heart failure; N18.4 Chronic kidney disease, stage 4 (severe); E11.610 Type 2 diabetes mellitus with diabetic neuropathic arthropathy; E11.43 Type 2 diabetes mellitus with diabetic autonomic (poly)neuropathy; E11.36 Type 2 diabetes mellitus with diabetic cataract; E11.52 Type 2 diabetes mellitus with diabetic peripheral angiopathy with gangrene; E11.42 Type 2 diabetes mellitus with diabetic polyneuropathy; M19.90 Unspecified osteoarthritis, unspecified site; E11.69 Type 2 diabetes mellitus with other specified complication; M86.679 Other chronic osteomyelitis, unspecified ankle and foot; Z79.4 Long term (current) use of insulin; Z89.421 Acquired absence of other right toe(s); Z95.1 Presence of aortocoronary bypass graft; Z95.0 Presence of cardiac pacemaker
CPT/HCPCS: 17250

== ENCOUNTER → 2017-02-11 | Outpatient (CLI) | payer OTHER ==
[2017-01-12 08:28] VITALS: BP 171/83
[~2017-02-11] MED LIST changes: +ASPI-630 PO; -ASPI81TA2 PO; -CLOP75TA27 PO; +CLOP75TA57 PO; -HYDR-2672 PO; +HYDR-2766 PO; +PRED5DRO16 RIGHTEYE; -PRED5DRO6 RIGHTEYE
== END | disposition home or self-care (01) ==
LOC: PMGWOUND 11:29
PROVIDERS: ATTEND Emergency Medicine Undersea and Hyperbaric Medicine
DX: E11.621 Type 2 diabetes mellitus with foot ulcer (principal); L97.514 Non-pressure chronic ulcer of other part of right foot with necrosis of bone; E11.51 Type 2 diabetes mellitus with diabetic peripheral angiopathy without gangrene; I25.10 Atherosclerotic heart disease of native coronary artery without angina pectoris; I10 Essential (primary) hypertension; E78.5 Hyperlipidemia, unspecified; K21.9 Gastro-esophageal reflux disease without esophagitis; E11.40 Type 2 diabetes mellitus with diabetic neuropathy, unspecified; I25.2 Old myocardial infarction; Z95.0 Presence of cardiac pacemaker; Z89.421 Acquired absence of other right toe(s)
CPT/HCPCS: 17250

== ENCOUNTER → 2017-02-25 | Outpatient (CLI) | payer OTHER ==
[2017-01-12 08:28] VITALS: BP 171/83
--- NOTE | 2017-02-25 12:50 | RAD ---
Indication nonhealing foot ulcer. AP oblique and lateral views of the left foot were obtained. Note is made of a previous examination 12/10/2014. There are some degenerative changes at the interphalangeal joint of the great toe and at the first metatarsal phalangeal joint. There is vascular calcification. An acute bony abnormality is not seen. A significant change relative to the previous exam is not seen. Orthopedic hardware is noted at the level of the ankle. Plain film findings of osteomyelitis are not seen. IMPRESSION: Chronic changes. No acute finding
== END | disposition home or self-care (01) ==
LOC: PMGWOUND 11:00
PROVIDERS: ATTEND Preventive Medicine Undersea and Hyperbaric Medicine
DX: E11.621 Type 2 diabetes mellitus with foot ulcer (principal); L97.514 Non-pressure chronic ulcer of other part of right foot with necrosis of bone; L97.523 Non-pressure chronic ulcer of other part of left foot with necrosis of muscle; E11.51 Type 2 diabetes mellitus with diabetic peripheral angiopathy without gangrene; K21.9 Gastro-esophageal reflux disease without esophagitis; E78.5 Hyperlipidemia, unspecified; I25.2 Old myocardial infarction; E11.22 Type 2 diabetes mellitus with diabetic chronic kidney disease; I13.0 Hypertensive heart and chronic kidney disease with heart failure and stage 1 through stage 4 chronic kidney disease, or unspecified chronic kidney disease; N18.4 Chronic kidney disease, stage 4 (severe); I50.42 Chronic combined systolic (congestive) and diastolic (congestive) heart failure; E78.00 Pure hypercholesterolemia, unspecified; E11.610 Type 2 diabetes mellitus with diabetic neuropathic arthropathy; E11.36 Type 2 diabetes mellitus with diabetic cataract; E11.42 Type 2 diabetes mellitus with diabetic polyneuropathy; E11.52 Type 2 diabetes mellitus with diabetic peripheral angiopathy with gangrene; M19.90 Unspecified osteoarthritis, unspecified site; Z89.421 Acquired absence of other right toe(s); Z79.4 Long term (current) use of insulin; Z95.0 Presence of cardiac pacemaker; Z95.1 Presence of aortocoronary bypass graft
CPT/HCPCS: 11042; 73630; 82962

== ENCOUNTER → 2017-03-04 | Outpatient (CLI) | payer OTHER ==
[2017-01-12 08:28] VITALS: BP 171/83
== END | disposition home or self-care (01) ==
LOC: PMGWOUND 08:00
PROVIDERS: ATTEND Preventive Medicine Undersea and Hyperbaric Medicine
DX: E11.621 Type 2 diabetes mellitus with foot ulcer (principal); L97.514 Non-pressure chronic ulcer of other part of right foot with necrosis of bone; L97.521 Non-pressure chronic ulcer of other part of left foot limited to breakdown of skin; I25.10 Atherosclerotic heart disease of native coronary artery without angina pectoris; I25.2 Old myocardial infarction; E78.5 Hyperlipidemia, unspecified; E11.40 Type 2 diabetes mellitus with diabetic neuropathy, unspecified; K21.9 Gastro-esophageal reflux disease without esophagitis; E78.00 Pure hypercholesterolemia, unspecified; E11.610 Type 2 diabetes mellitus with diabetic neuropathic arthropathy; E11.42 Type 2 diabetes mellitus with diabetic polyneuropathy; E11.52 Type 2 diabetes mellitus with diabetic peripheral angiopathy with gangrene; E11.22 Type 2 diabetes mellitus with diabetic chronic kidney disease; I13.0 Hypertensive heart and chronic kidney disease with heart failure and stage 1 through stage 4 chronic kidney disease, or unspecified chronic kidney disease; N18.4 Chronic kidney disease, stage 4 (severe); I50.42 Chronic combined systolic (congestive) and diastolic (congestive) heart failure; Z95.0 Presence of cardiac pacemaker; Z89.421 Acquired absence of other right toe(s); Z79.4 Long term (current) use of insulin; Z95.1 Presence of aortocoronary bypass graft
CPT/HCPCS: 99214

== ENCOUNTER → 2017-03-11 | Outpatient (CLI) | payer OTHER ==
[2017-01-12 08:28] VITALS: BP 171/83
== END | disposition home or self-care (01) ==
LOC: PMGWOUND 08:08
PROVIDERS: ATTEND Emergency Medicine Undersea and Hyperbaric Medicine
DX: E11.621 Type 2 diabetes mellitus with foot ulcer (principal); L97.521 Non-pressure chronic ulcer of other part of left foot limited to breakdown of skin; I25.10 Atherosclerotic heart disease of native coronary artery without angina pectoris; I25.2 Old myocardial infarction; E78.5 Hyperlipidemia, unspecified; K21.9 Gastro-esophageal reflux disease without esophagitis; E11.40 Type 2 diabetes mellitus with diabetic neuropathy, unspecified; E11.22 Type 2 diabetes mellitus with diabetic chronic kidney disease; I13.0 Hypertensive heart and chronic kidney disease with heart failure and stage 1 through stage 4 chronic kidney disease, or unspecified chronic kidney disease; N18.4 Chronic kidney disease, stage 4 (severe); I50.40 Unspecified combined systolic (congestive) and diastolic (congestive) heart failure; E78.00 Pure hypercholesterolemia, unspecified; E11.52 Type 2 diabetes mellitus with diabetic peripheral angiopathy with gangrene; E11.69 Type 2 diabetes mellitus with other specified complication; M86.68 Other chronic osteomyelitis, other site; E11.43 Type 2 diabetes mellitus with diabetic autonomic (poly)neuropathy; E11.36 Type 2 diabetes mellitus with diabetic cataract; Z79.4 Long term (current) use of insulin; Z95.1 Presence of aortocoronary bypass graft; Z95.0 Presence of cardiac pacemaker; Z89.421 Acquired absence of other right toe(s)
CPT/HCPCS: 99213

== ENCOUNTER → 2017-03-18 | Outpatient (CLI) | payer OTHER ==
[2017-01-12 08:28] VITALS: BP 171/83
== END | disposition home or self-care (01) ==
LOC: PMGWOUND 08:34
PROVIDERS: ATTEND Emergency Medicine Undersea and Hyperbaric Medicine
DX: E11.621 Type 2 diabetes mellitus with foot ulcer (principal); L97.521 Non-pressure chronic ulcer of other part of left foot limited to breakdown of skin; E11.52 Type 2 diabetes mellitus with diabetic peripheral angiopathy with gangrene; I25.10 Atherosclerotic heart disease of native coronary artery without angina pectoris; K21.9 Gastro-esophageal reflux disease without esophagitis; E78.5 Hyperlipidemia, unspecified; I25.2 Old myocardial infarction; E11.69 Type 2 diabetes mellitus with other specified complication; M86.679 Other chronic osteomyelitis, unspecified ankle and foot; E11.22 Type 2 diabetes mellitus with diabetic chronic kidney disease; I13.0 Hypertensive heart and chronic kidney disease with heart failure and stage 1 through stage 4 chronic kidney disease, or unspecified chronic kidney disease; N18.4 Chronic kidney disease, stage 4 (severe); I50.42 Chronic combined systolic (congestive) and diastolic (congestive) heart failure; E78.00 Pure hypercholesterolemia, unspecified; E11.610 Type 2 diabetes mellitus with diabetic neuropathic arthropathy; E11.36 Type 2 diabetes mellitus with diabetic cataract; E11.43 Type 2 diabetes mellitus with diabetic autonomic (poly)neuropathy; E11.42 Type 2 diabetes mellitus with diabetic polyneuropathy; Z89.421 Acquired absence of other right toe(s); Z79.4 Long term (current) use of insulin; Z95.1 Presence of aortocoronary bypass graft; Z95.0 Presence of cardiac pacemaker
CPT/HCPCS: 99214

== ENCOUNTER → 2017-03-25 | Outpatient (CLI) | payer OTHER ==
[2017-01-12 08:28] VITALS: BP 171/83
== END | disposition home or self-care (01) ==
LOC: PMGWOUND 09:06
PROVIDERS: ATTEND Emergency Medicine Undersea and Hyperbaric Medicine
DX: E11.621 Type 2 diabetes mellitus with foot ulcer (principal); L97.521 Non-pressure chronic ulcer of other part of left foot limited to breakdown of skin; I25.10 Atherosclerotic heart disease of native coronary artery without angina pectoris; E11.22 Type 2 diabetes mellitus with diabetic chronic kidney disease; I13.0 Hypertensive heart and chronic kidney disease with heart failure and stage 1 through stage 4 chronic kidney disease, or unspecified chronic kidney disease; N18.4 Chronic kidney disease, stage 4 (severe); I50.42 Chronic combined systolic (congestive) and diastolic (congestive) heart failure; K21.9 Gastro-esophageal reflux disease without esophagitis; E78.5 Hyperlipidemia, unspecified; I25.2 Old myocardial infarction; E11.69 Type 2 diabetes mellitus with other specified complication; M86.68 Other chronic osteomyelitis, other site; E78.00 Pure hypercholesterolemia, unspecified; E11.618 Type 2 diabetes mellitus with other diabetic arthropathy; E11.36 Type 2 diabetes mellitus with diabetic cataract; E11.42 Type 2 diabetes mellitus with diabetic polyneuropathy; E11.52 Type 2 diabetes mellitus with diabetic peripheral angiopathy with gangrene; E11.43 Type 2 diabetes mellitus with diabetic autonomic (poly)neuropathy; M19.90 Unspecified osteoarthritis, unspecified site; Z89.421 Acquired absence of other right toe(s); Z79.4 Long term (current) use of insulin; Z95.1 Presence of aortocoronary bypass graft; Z95.0 Presence of cardiac pacemaker
CPT/HCPCS: 99214

== ENCOUNTER → 2017-04-02 | Outpatient (CLI) | payer OTHER ==
[2017-01-12 08:28] VITALS: BP 171/83
== END | disposition home or self-care (01) ==
LOC: PMGWOUND 07:49
PROVIDERS: ATTEND Preventive Medicine Undersea and Hyperbaric Medicine
DX: E11.621 Type 2 diabetes mellitus with foot ulcer (principal); L97.521 Non-pressure chronic ulcer of other part of left foot limited to breakdown of skin; I25.10 Atherosclerotic heart disease of native coronary artery without angina pectoris; I25.2 Old myocardial infarction; E78.5 Hyperlipidemia, unspecified; K21.9 Gastro-esophageal reflux disease without esophagitis; E11.40 Type 2 diabetes mellitus with diabetic neuropathy, unspecified; E11.22 Type 2 diabetes mellitus with diabetic chronic kidney disease; I13.0 Hypertensive heart and chronic kidney disease with heart failure and stage 1 through stage 4 chronic kidney disease, or unspecified chronic kidney disease; N18.4 Chronic kidney disease, stage 4 (severe); I50.42 Chronic combined systolic (congestive) and diastolic (congestive) heart failure; E11.69 Type 2 diabetes mellitus with other specified complication; M86.68 Other chronic osteomyelitis, other site; E78.00 Pure hypercholesterolemia, unspecified; E11.36 Type 2 diabetes mellitus with diabetic cataract; E11.42 Type 2 diabetes mellitus with diabetic polyneuropathy; E11.52 Type 2 diabetes mellitus with diabetic peripheral angiopathy with gangrene; Z79.4 Long term (current) use of insulin; Z95.0 Presence of cardiac pacemaker; Z89.421 Acquired absence of other right toe(s)
CPT/HCPCS: 99213

== ENCOUNTER → 2017-04-08 | Outpatient (CLI) | payer OTHER ==
[2017-01-12 08:28] VITALS: BP 171/83
== END | disposition home or self-care (01) ==
LOC: PMGWOUND 09:03
PROVIDERS: ATTEND Emergency Medicine Undersea and Hyperbaric Medicine
DX: E11.621 Type 2 diabetes mellitus with foot ulcer (principal); L97.521 Non-pressure chronic ulcer of other part of left foot limited to breakdown of skin; E11.51 Type 2 diabetes mellitus with diabetic peripheral angiopathy without gangrene; I25.10 Atherosclerotic heart disease of native coronary artery without angina pectoris; E11.22 Type 2 diabetes mellitus with diabetic chronic kidney disease; I13.0 Hypertensive heart and chronic kidney disease with heart failure and stage 1 through stage 4 chronic kidney disease, or unspecified chronic kidney disease; N18.4 Chronic kidney disease, stage 4 (severe); I50.42 Chronic combined systolic (congestive) and diastolic (congestive) heart failure; E78.5 Hyperlipidemia, unspecified; I25.2 Old myocardial infarction; E11.69 Type 2 diabetes mellitus with other specified complication; M86.679 Other chronic osteomyelitis, unspecified ankle and foot; E78.00 Pure hypercholesterolemia, unspecified; E11.36 Type 2 diabetes mellitus with diabetic cataract; E11.42 Type 2 diabetes mellitus with diabetic polyneuropathy; E11.52 Type 2 diabetes mellitus with diabetic peripheral angiopathy with gangrene; E11.610 Type 2 diabetes mellitus with diabetic neuropathic arthropathy; E11.43 Type 2 diabetes mellitus with diabetic autonomic (poly)neuropathy; M19.90 Unspecified osteoarthritis, unspecified site; Z95.0 Presence of cardiac pacemaker; Z95.1 Presence of aortocoronary bypass graft; Z79.4 Long term (current) use of insulin; Z89.421 Acquired absence of other right toe(s)
CPT/HCPCS: 97597

== ENCOUNTER → 2017-04-16 | Outpatient (CLI) | payer OTHER ==
[2017-01-12 08:28] VITALS: BP 171/83
== END | disposition home or self-care (01) ==
LOC: PMGWOUND 08:39
PROVIDERS: ATTEND Preventive Medicine Undersea and Hyperbaric Medicine
DX: E11.621 Type 2 diabetes mellitus with foot ulcer (principal); L97.521 Non-pressure chronic ulcer of other part of left foot limited to breakdown of skin; E11.51 Type 2 diabetes mellitus with diabetic peripheral angiopathy without gangrene; E11.40 Type 2 diabetes mellitus with diabetic neuropathy, unspecified; I25.10 Atherosclerotic heart disease of native coronary artery without angina pectoris; I25.2 Old myocardial infarction; E78.5 Hyperlipidemia, unspecified; K21.9 Gastro-esophageal reflux disease without esophagitis; E11.22 Type 2 diabetes mellitus with diabetic chronic kidney disease; I13.0 Hypertensive heart and chronic kidney disease with heart failure and stage 1 through stage 4 chronic kidney disease, or unspecified chronic kidney disease; I50.42 Chronic combined systolic (congestive) and diastolic (congestive) heart failure; N18.4 Chronic kidney disease, stage 4 (severe); E11.69 Type 2 diabetes mellitus with other specified complication; M86.679 Other chronic osteomyelitis, unspecified ankle and foot; E78.00 Pure hypercholesterolemia, unspecified; E11.610 Type 2 diabetes mellitus with diabetic neuropathic arthropathy; Z95.0 Presence of cardiac pacemaker; Z98.61 Coronary angioplasty status; Z89.431 Acquired absence of right foot
CPT/HCPCS: 99214

== ENCOUNTER → 2017-04-23 | Outpatient (CLI) | payer OTHER ==
[2017-01-12 08:28] VITALS: BP 171/83
== END | disposition home or self-care (01) ==
LOC: PMGWOUND 08:39
PROVIDERS: ATTEND Preventive Medicine Undersea and Hyperbaric Medicine
DX: E11.621 Type 2 diabetes mellitus with foot ulcer (principal); L97.521 Non-pressure chronic ulcer of other part of left foot limited to breakdown of skin; I25.10 Atherosclerotic heart disease of native coronary artery without angina pectoris; K21.9 Gastro-esophageal reflux disease without esophagitis; E78.5 Hyperlipidemia, unspecified; E11.22 Type 2 diabetes mellitus with diabetic chronic kidney disease; I13.0 Hypertensive heart and chronic kidney disease with heart failure and stage 1 through stage 4 chronic kidney disease, or unspecified chronic kidney disease; N18.4 Chronic kidney disease, stage 4 (severe); I50.42 Chronic combined systolic (congestive) and diastolic (congestive) heart failure; E11.610 Type 2 diabetes mellitus with diabetic neuropathic arthropathy; E11.36 Type 2 diabetes mellitus with diabetic cataract; E11.42 Type 2 diabetes mellitus with diabetic polyneuropathy; E11.43 Type 2 diabetes mellitus with diabetic autonomic (poly)neuropathy; E11.52 Type 2 diabetes mellitus with diabetic peripheral angiopathy with gangrene; M19.90 Unspecified osteoarthritis, unspecified site; I25.2 Old myocardial infarction; E11.69 Type 2 diabetes mellitus with other specified complication; M86.679 Other chronic osteomyelitis, unspecified ankle and foot; Z95.1 Presence of aortocoronary bypass graft; Z99.2 Dependence on renal dialysis; Z79.4 Long term (current) use of insulin; Z89.431 Acquired absence of right foot
CPT/HCPCS: 11042

== ENCOUNTER → 2017-04-30 | Outpatient (CLI) | payer OTHER ==
[2017-01-12 08:28] VITALS: BP 171/83
== END | disposition home or self-care (01) ==
LOC: PMGWOUND 08:51
PROVIDERS: ATTEND Preventive Medicine Undersea and Hyperbaric Medicine
DX: E11.621 Type 2 diabetes mellitus with foot ulcer (principal); L97.521 Non-pressure chronic ulcer of other part of left foot limited to breakdown of skin; I25.10 Atherosclerotic heart disease of native coronary artery without angina pectoris; K21.9 Gastro-esophageal reflux disease without esophagitis; E11.22 Type 2 diabetes mellitus with diabetic chronic kidney disease; I13.0 Hypertensive heart and chronic kidney disease with heart failure and stage 1 through stage 4 chronic kidney disease, or unspecified chronic kidney disease; N18.4 Chronic kidney disease, stage 4 (severe); I50.42 Chronic combined systolic (congestive) and diastolic (congestive) heart failure; E78.5 Hyperlipidemia, unspecified; I25.2 Old myocardial infarction; E11.69 Type 2 diabetes mellitus with other specified complication; M86.679 Other chronic osteomyelitis, unspecified ankle and foot; E11.610 Type 2 diabetes mellitus with diabetic neuropathic arthropathy; E11.36 Type 2 diabetes mellitus with diabetic cataract; E11.42 Type 2 diabetes mellitus with diabetic polyneuropathy; E11.43 Type 2 diabetes mellitus with diabetic autonomic (poly)neuropathy; E11.52 Type 2 diabetes mellitus with diabetic peripheral angiopathy with gangrene; M19.90 Unspecified osteoarthritis, unspecified site; Z95.1 Presence of aortocoronary bypass graft; Z99.2 Dependence on renal dialysis; Z79.4 Long term (current) use of insulin; Z89.431 Acquired absence of right foot
CPT/HCPCS: 99214

== ENCOUNTER → 2017-05-06 | Outpatient (CLI) | payer OTHER ==
[2017-01-12 08:28] VITALS: BP 171/83
== END | disposition home or self-care (01) ==
LOC: PMGWOUND 08:44
PROVIDERS: ATTEND Emergency Medicine Undersea and Hyperbaric Medicine
DX: E11.621 Type 2 diabetes mellitus with foot ulcer (principal); L97.521 Non-pressure chronic ulcer of other part of left foot limited to breakdown of skin; I25.10 Atherosclerotic heart disease of native coronary artery without angina pectoris; K21.9 Gastro-esophageal reflux disease without esophagitis; E11.22 Type 2 diabetes mellitus with diabetic chronic kidney disease; I13.0 Hypertensive heart and chronic kidney disease with heart failure and stage 1 through stage 4 chronic kidney disease, or unspecified chronic kidney disease; N18.4 Chronic kidney disease, stage 4 (severe); I50.42 Chronic combined systolic (congestive) and diastolic (congestive) heart failure; E78.5 Hyperlipidemia, unspecified; I25.2 Old myocardial infarction; E11.69 Type 2 diabetes mellitus with other specified complication; M86.679 Other chronic osteomyelitis, unspecified ankle and foot; E11.610 Type 2 diabetes mellitus with diabetic neuropathic arthropathy; E11.42 Type 2 diabetes mellitus with diabetic polyneuropathy; E11.36 Type 2 diabetes mellitus with diabetic cataract; E11.43 Type 2 diabetes mellitus with diabetic autonomic (poly)neuropathy; E11.52 Type 2 diabetes mellitus with diabetic peripheral angiopathy with gangrene; M19.90 Unspecified osteoarthritis, unspecified site; Z99.2 Dependence on renal dialysis; Z95.1 Presence of aortocoronary bypass graft; Z98.61 Coronary angioplasty status; Z89.431 Acquired absence of right foot; Z79.4 Long term (current) use of insulin
CPT/HCPCS: 99214

== ENCOUNTER → 2017-05-20 | Outpatient (CLI) | payer OTHER ==
[2017-01-12 08:28] VITALS: BP 171/83
== END | disposition home or self-care (01) ==
LOC: PMGWOUND 08:53
PROVIDERS: ATTEND Emergency Medicine Undersea and Hyperbaric Medicine
DX: E11.621 Type 2 diabetes mellitus with foot ulcer (principal); L97.521 Non-pressure chronic ulcer of other part of left foot limited to breakdown of skin; I25.10 Atherosclerotic heart disease of native coronary artery without angina pectoris; K21.9 Gastro-esophageal reflux disease without esophagitis; E11.22 Type 2 diabetes mellitus with diabetic chronic kidney disease; I13.0 Hypertensive heart and chronic kidney disease with heart failure and stage 1 through stage 4 chronic kidney disease, or unspecified chronic kidney disease; N18.4 Chronic kidney disease, stage 4 (severe); I50.42 Chronic combined systolic (congestive) and diastolic (congestive) heart failure; E78.5 Hyperlipidemia, unspecified; I25.2 Old myocardial infarction; E11.69 Type 2 diabetes mellitus with other specified complication; M86.679 Other chronic osteomyelitis, unspecified ankle and foot; M86.68 Other chronic osteomyelitis, other site; E11.610 Type 2 diabetes mellitus with diabetic neuropathic arthropathy; E11.36 Type 2 diabetes mellitus with diabetic cataract; E11.42 Type 2 diabetes mellitus with diabetic polyneuropathy; E11.43 Type 2 diabetes mellitus with diabetic autonomic (poly)neuropathy; E11.52 Type 2 diabetes mellitus with diabetic peripheral angiopathy with gangrene; M19.90 Unspecified osteoarthritis, unspecified site; Z95.1 Presence of aortocoronary bypass graft; Z99.2 Dependence on renal dialysis; Z79.4 Long term (current) use of insulin; Z89.431 Acquired absence of right foot
CPT/HCPCS: 11042

== ENCOUNTER → 2017-05-27 | Outpatient (CLI) | payer OTHER ==
[2017-01-12 08:28] VITALS: BP 171/83
== END | disposition home or self-care (01) ==
LOC: PMGWOUND 10:04
PROVIDERS: ATTEND Emergency Medicine Undersea and Hyperbaric Medicine
DX: E11.621 Type 2 diabetes mellitus with foot ulcer (principal); L97.521 Non-pressure chronic ulcer of other part of left foot limited to breakdown of skin; E11.51 Type 2 diabetes mellitus with diabetic peripheral angiopathy without gangrene; I25.10 Atherosclerotic heart disease of native coronary artery without angina pectoris; I25.2 Old myocardial infarction; E78.5 Hyperlipidemia, unspecified; K21.9 Gastro-esophageal reflux disease without esophagitis; E11.40 Type 2 diabetes mellitus with diabetic neuropathy, unspecified; Z95.0 Presence of cardiac pacemaker; Z89.431 Acquired absence of right foot
CPT/HCPCS: 97597

== ENCOUNTER → 2017-06-03 | Outpatient (CLI) | payer OTHER ==
[2017-01-12 08:28] VITALS: BP 171/83
== END | disposition home or self-care (01) ==
LOC: PMGWOUND 09:47
PROVIDERS: ATTEND Emergency Medicine Undersea and Hyperbaric Medicine
DX: E11.621 Type 2 diabetes mellitus with foot ulcer (principal); L97.521 Non-pressure chronic ulcer of other part of left foot limited to breakdown of skin; I25.10 Atherosclerotic heart disease of native coronary artery without angina pectoris; K21.9 Gastro-esophageal reflux disease without esophagitis; E78.5 Hyperlipidemia, unspecified; I25.2 Old myocardial infarction; E11.69 Type 2 diabetes mellitus with other specified complication; M86.68 Other chronic osteomyelitis, other site; E11.22 Type 2 diabetes mellitus with diabetic chronic kidney disease; I13.0 Hypertensive heart and chronic kidney disease with heart failure and stage 1 through stage 4 chronic kidney disease, or unspecified chronic kidney disease; N18.4 Chronic kidney disease, stage 4 (severe); I50.42 Chronic combined systolic (congestive) and diastolic (congestive) heart failure; E11.610 Type 2 diabetes mellitus with diabetic neuropathic arthropathy; E11.43 Type 2 diabetes mellitus with diabetic autonomic (poly)neuropathy; E11.52 Type 2 diabetes mellitus with diabetic peripheral angiopathy with gangrene; E11.42 Type 2 diabetes mellitus with diabetic polyneuropathy; Z95.1 Presence of aortocoronary bypass graft; Z99.2 Dependence on renal dialysis; Z79.4 Long term (current) use of insulin; Z89.431 Acquired absence of right foot
CPT/HCPCS: 97597

== ENCOUNTER → 2017-06-10 | Outpatient (CLI) | payer OTHER ==
[2017-01-12 08:28] VITALS: BP 171/83
== END | disposition home or self-care (01) ==
LOC: PMGWOUND 09:49
PROVIDERS: ATTEND Emergency Medicine Undersea and Hyperbaric Medicine
DX: E11.621 Type 2 diabetes mellitus with foot ulcer (principal); L97.521 Non-pressure chronic ulcer of other part of left foot limited to breakdown of skin; E11.51 Type 2 diabetes mellitus with diabetic peripheral angiopathy without gangrene; I25.10 Atherosclerotic heart disease of native coronary artery without angina pectoris; I25.2 Old myocardial infarction; E78.5 Hyperlipidemia, unspecified; K21.9 Gastro-esophageal reflux disease without esophagitis; E11.40 Type 2 diabetes mellitus with diabetic neuropathy, unspecified; Z95.0 Presence of cardiac pacemaker; E11.36 Type 2 diabetes mellitus with diabetic cataract; E11.52 Type 2 diabetes mellitus with diabetic peripheral angiopathy with gangrene
CPT/HCPCS: 99214

== ENCOUNTER → 2017-06-17 | Outpatient (CLI) | payer OTHER ==
[2017-01-12 08:28] VITALS: BP 171/83
== END | disposition home or self-care (01) ==
LOC: PMGWOUND 10:17
PROVIDERS: ATTEND Emergency Medicine Undersea and Hyperbaric Medicine
DX: E11.621 Type 2 diabetes mellitus with foot ulcer (principal); L97.521 Non-pressure chronic ulcer of other part of left foot limited to breakdown of skin; E11.51 Type 2 diabetes mellitus with diabetic peripheral angiopathy without gangrene; I25.10 Atherosclerotic heart disease of native coronary artery without angina pectoris; I25.2 Old myocardial infarction; I10 Essential (primary) hypertension; K21.9 Gastro-esophageal reflux disease without esophagitis; E11.40 Type 2 diabetes mellitus with diabetic neuropathy, unspecified; Z95.0 Presence of cardiac pacemaker; Z89.431 Acquired absence of right foot
CPT/HCPCS: 99212

== ENCOUNTER 2017-12-24 17:34 | Emergency (ER) | payer OTHER ==
[2017-12-24 19:26] LABS: ADD MAN DIFF? NO
[2017-12-24 19:27] LABS: POC GLUCOSE 362 mg/dL (70-99)
[2017-12-24 19:31] LABS: BASO % 0 % (0-3); EOS # 0.1 x10^3/uL (0.0-0.7); EOS % 1 % (0-3); HEMATOCRIT 24.8 % (39.0-53.0); HEMOGLOBIN 8.2 g/dL (13.0-17.5); LYMPH # 1.1 x10^3/uL (1.0-4.8); LYMPH % 10 % (24-48); MEAN CORPUSCULAR HEMOGLOBIN 30 pg (25-35); MEAN CORPUSCULAR HGB CONC 33 g/dL (31-37); MEAN CORPUSCULAR VOLUME 90 fL (79-100); MONO # 0.5 x10^3/uL (0.0-1.1); MONO % 5 % (0-9); NEUT # 9.8 x10^3uL (1.8-7.7); NEUT % 84 % (31-73); PLATELET COUNT 209 x10^3/uL (140-400); RED BLOOD COUNT 2.74 x10^6/uL (4.30-5.70); RED CELL DISTRIBUTION WIDTH 14.8 % (11.5-14.5); WHITE BLOOD COUNT 11.6 x10^3/uL (4.0-11.0)
[2017-12-24 19:42] LABS: BILIRUBIN,URINE NEGATIVE (NEG); CLARITY,URINE CLEAR; COLOR,URINE YELLOW; GLUCOSE,URINE >=1000 mg/dL (NEG); NITRITE,URINE NEGATIVE (NEG); PH,URINE 5.5; PROTEIN,URINE NEGATIVE (NEG-TRACE); UROBILINOGEN,URINE 0.2 mg/dL (0.2 mg/dL)
[2017-12-24 19:53] LABS: BARBITURATES NEG (NEG); BENZODIAZEPINES NEG (NEG); CANNABINOIDS NEG (NEG); COCAINE NEG (NEG); METHADONE NEG (NEG); OPIATES NEG (NEG); PHENCYCLIDINE NEG (NEG)
[2017-12-24 19:54] LABS: ANION GAP 12 (6-14); BLOOD UREA NITROGEN 33 mg/dL (8-26); CALCIUM 8.6 mg/dL (8.5-10.1); CARBON DIOXIDE 22 mmol/L (21-32); CHLORIDE 103 mmol/L (98-107); CREATININE 1.6 mg/dL (0.7-1.3); GLUCOSE 399 mg/dL (70-99); HYALINE CASTS, URINE FEW /HPF; POTASSIUM 3.4 mmol/L (3.5-5.1); SODIUM 137 mmol/L (136-145)
[2017-12-24 19:55] LABS: BACTERIA,URINE 0 /HPF (0-FEW); RBC,URINE 0 /HPF (0-2); WBC,URINE OCC /HPF (0-4)
[2017-12-24 19:59] LABS: ALBUMIN 3.3 g/dL (3.4-5.0); ALK PHOS 87 U/L (46-116); ALT (SGPT) 40 U/L (16-63); AST (SGOT) 27 U/L (15-37); DIRECT BILIRUBIN 0.3 mg/dL (0.0-0.2); LIPASE 125 U/L (73-393); MAGNESIUM 2.1 mg/dL (1.8-2.4); TOTAL BILIRUBIN 1.2 mg/dL (0.2-1.0); TOTAL PROTEIN 6.7 g/dL (6.4-8.2)
[2017-12-24 20:03] LABS: NT-PRO BNP 1171 pg/mL (0-124)
[2017-12-24 20:16] LABS: AMPHETAMINE/METHAMPHETAMINE NEG (NEG); ETHANOL, URINE NEG (NEG)
[2017-12-24 20:16] LABS: TROPONINI < 0.017 ng/mL (0.000-0.055)
[2017-12-24 20:37] LABS: POC GLUCOSE 342 mg/dL (70-99)
[2017-12-24] MEDS: CARVEDILOL 12.5 MG TABLET. PO (20:48)
== END 2017-12-24 21:05 | disposition home or self-care (01) ==
LOC: ER 17:34
DX: E11.649 Type 2 diabetes mellitus with hypoglycemia without coma (principal); E78.00 Pure hypercholesterolemia, unspecified; K21.9 Gastro-esophageal reflux disease without esophagitis; I10 Essential (primary) hypertension; Z95.0 Presence of cardiac pacemaker; Z90.49 Acquired absence of other specified parts of digestive tract; Z79.4 Long term (current) use of insulin; Z88.8 Allergy status to other drugs, medicaments and biological substances; Z88.5 Allergy status to narcotic agent
CPT/HCPCS: 36415; 71045; 80048; 80076; 80307; 81001; 82962; 83690; 83735; 83880; 84484; 85025; 85610; 93005; 99285-25

== ENCOUNTER → 2018-10-25 | Outpatient (CLI) | payer OTHER ==
[2018-09-08 08:06] VITALS: BP 165/52
[~2018-10-25] MED LIST changes: +AMLO5TAB10 PO; -AMLO5TAB2 PO; +ASPI325T11 PO; +CARV12.511 PO; -CARV12.52 PO; +CARV3.1210 PO; +CIPR500T94 PO; -FERR-26 PO; +FERR325T14 PO; +HYDR-2761 PO; -HYDR-2766 PO; +HYDR-2769 PO; +HYDR-3164 PO; -HYDR-971 PO; +TAMS0.4C97 PO; +WARF10TA45 MC
--- NOTE | 2018-10-25 15:11 | RAD ---
Left calcaneus, 2 views, 10/25/2018: HISTORY: Pain and swelling, diabetic wound The bony structures are demineralized. No calcaneal fracture or destructive bony lesion is seen. There is a soft tissue defect along the plantar surface of the heel. There appears to be chronic fusion of the tibiotalar articulation with [address] There is degenerative change at the subtalar articulation. Extensive arterial calcifications are noted. IMPRESSION: 1. Demineralization. 2. No acute calcaneal abnormality is detected. Electronically signed by: Rob Seay MD (10/25/2018 3:08 PM) [facility]
== END | disposition home or self-care (01) ==
LOC: PMGWOUND 08:44
PROVIDERS: ATTEND Emergency Medicine Undersea and Hyperbaric Medicine
DX: E11.621 Type 2 diabetes mellitus with foot ulcer (principal); L97.511 Non-pressure chronic ulcer of other part of right foot limited to breakdown of skin; L97.421 Non-pressure chronic ulcer of left heel and midfoot limited to breakdown of skin; E11.65 Type 2 diabetes mellitus with hyperglycemia; E11.43 Type 2 diabetes mellitus with diabetic autonomic (poly)neuropathy; E11.51 Type 2 diabetes mellitus with diabetic peripheral angiopathy without gangrene; E11.40 Type 2 diabetes mellitus with diabetic neuropathy, unspecified; I12.9 Hypertensive chronic kidney disease with stage 1 through stage 4 chronic kidney disease, or unspecified chronic kidney disease; E11.22 Type 2 diabetes mellitus with diabetic chronic kidney disease; N18.9 Chronic kidney disease, unspecified; L84 Corns and callosities; I25.2 Old myocardial infarction; E78.5 Hyperlipidemia, unspecified; M19.90 Unspecified osteoarthritis, unspecified site; K21.9 Gastro-esophageal reflux disease without esophagitis; I25.10 Atherosclerotic heart disease of native coronary artery without angina pectoris; Z79.4 Long term (current) use of insulin; Z90.49 Acquired absence of other specified parts of digestive tract
CPT/HCPCS: 73650; 93923; 99214; G0463

== ENCOUNTER → 2018-11-01 | Outpatient (CLI) | payer OTHER ==
[2018-09-08 08:06] VITALS: BP 165/52
[~2018-11-01] MED LIST changes: +ASPI325T8 PO; +ATOR20TA58 PO; +CARV12.53 PO; +FURO20TA3 PO; +INSU100I32 SQ; +ISOS30TA4 PO; +MERO500V15 IV; +MULT1TAB52 PO; +OMEP20TA8 PO; +PANT20TA2 PO; +TRAM50TA PO
== END | disposition home or self-care (01) ==
LOC: MERGE 08:41 → UNMERGE 08:41 → PMGWOUND 08:41
PROVIDERS: ATTEND Emergency Medicine Undersea and Hyperbaric Medicine
DX: E11.621 Type 2 diabetes mellitus with foot ulcer (principal); L97.423 Non-pressure chronic ulcer of left heel and midfoot with necrosis of muscle; L97.511 Non-pressure chronic ulcer of other part of right foot limited to breakdown of skin; E11.65 Type 2 diabetes mellitus with hyperglycemia; E11.43 Type 2 diabetes mellitus with diabetic autonomic (poly)neuropathy; K31.84 Gastroparesis; E11.51 Type 2 diabetes mellitus with diabetic peripheral angiopathy without gangrene; I12.9 Hypertensive chronic kidney disease with stage 1 through stage 4 chronic kidney disease, or unspecified chronic kidney disease; E11.22 Type 2 diabetes mellitus with diabetic chronic kidney disease; N18.9 Chronic kidney disease, unspecified; L84 Corns and callosities; I25.2 Old myocardial infarction; E78.5 Hyperlipidemia, unspecified; M19.90 Unspecified osteoarthritis, unspecified site; K21.9 Gastro-esophageal reflux disease without esophagitis; I25.10 Atherosclerotic heart disease of native coronary artery without angina pectoris; Z79.4 Long term (current) use of insulin; Z90.49 Acquired absence of other specified parts of digestive tract
CPT/HCPCS: 11042; 11045

== ENCOUNTER → 2018-11-08 | Outpatient (CLI) | payer OTHER ==
[2018-09-08 08:06] VITALS: BP 165/52
== END | disposition home or self-care (01) ==
LOC: UNMERGE 09:02 → MERGE 09:02 → PMGWOUND 09:02
PROVIDERS: ATTEND Emergency Medicine Undersea and Hyperbaric Medicine
DX: E11.621 Type 2 diabetes mellitus with foot ulcer (principal); L97.423 Non-pressure chronic ulcer of left heel and midfoot with necrosis of muscle; L97.511 Non-pressure chronic ulcer of other part of right foot limited to breakdown of skin; E11.40 Type 2 diabetes mellitus with diabetic neuropathy, unspecified; E11.43 Type 2 diabetes mellitus with diabetic autonomic (poly)neuropathy; K31.84 Gastroparesis; E11.51 Type 2 diabetes mellitus with diabetic peripheral angiopathy without gangrene; E11.65 Type 2 diabetes mellitus with hyperglycemia; I13.10 Hypertensive heart and chronic kidney disease without heart failure, with stage 1 through stage 4 chronic kidney disease, or unspecified chronic kidney disease; E11.22 Type 2 diabetes mellitus with diabetic chronic kidney disease; N18.9 Chronic kidney disease, unspecified; L84 Corns and callosities; I25.2 Old myocardial infarction; E78.5 Hyperlipidemia, unspecified; M19.90 Unspecified osteoarthritis, unspecified site; K21.9 Gastro-esophageal reflux disease without esophagitis; I25.10 Atherosclerotic heart disease of native coronary artery without angina pectoris; Z79.4 Long term (current) use of insulin; Z90.49 Acquired absence of other specified parts of digestive tract
CPT/HCPCS: 99214; G0463

== ENCOUNTER → 2018-11-15 | Outpatient (CLI) | payer OTHER ==
[2018-09-08 08:06] VITALS: BP 165/52
== END | disposition home or self-care (01) ==
LOC: PMGWOUND 08:45 → MERGE 08:45 → UNMERGE 08:45
PROVIDERS: ATTEND Emergency Medicine Undersea and Hyperbaric Medicine
DX: E11.621 Type 2 diabetes mellitus with foot ulcer (principal); L97.423 Non-pressure chronic ulcer of left heel and midfoot with necrosis of muscle; E11.65 Type 2 diabetes mellitus with hyperglycemia; E11.43 Type 2 diabetes mellitus with diabetic autonomic (poly)neuropathy; K31.84 Gastroparesis; E11.51 Type 2 diabetes mellitus with diabetic peripheral angiopathy without gangrene; E11.40 Type 2 diabetes mellitus with diabetic neuropathy, unspecified; I12.9 Hypertensive chronic kidney disease with stage 1 through stage 4 chronic kidney disease, or unspecified chronic kidney disease; E11.22 Type 2 diabetes mellitus with diabetic chronic kidney disease; N18.9 Chronic kidney disease, unspecified; L84 Corns and callosities; I25.2 Old myocardial infarction; E78.5 Hyperlipidemia, unspecified; M19.90 Unspecified osteoarthritis, unspecified site; K21.9 Gastro-esophageal reflux disease without esophagitis; I25.10 Atherosclerotic heart disease of native coronary artery without angina pectoris; Z79.4 Long term (current) use of insulin; Z90.49 Acquired absence of other specified parts of digestive tract
CPT/HCPCS: 11042; 99214; G0463

== ENCOUNTER 2018-11-22 13:37 | Inpatient (IN) | payer OTHER ==
[~2018-11-22] VITALS: Ht 167.6 cm; Wt 73.9 kg
[~2018-11-22 13:37] MED LIST changes: -ASPI325T8 PO; -ATOR20TA58 PO; -CARV12.53 PO; -FURO20TA3 PO; -INSU100I32 SQ; -ISOS30TA4 PO; -MERO500V15 IV; -MULT1TAB52 PO; -OMEP20TA8 PO; -PANT20TA2 PO; -TRAM50TA PO
[2018-11-22 15:00] VITALS: BP 186/83
[2018-11-22 17:37] LABS: BASO % 0 % (0-3); EOS # 0.2 x10^3/uL (0.0-0.7); EOS % 2 % (0-3); HEMATOCRIT 32.8 % (39.0-53.0); HEMOGLOBIN 10.6 g/dL (13.0-17.5); LYMPH # 1.5 x10^3/uL (1.0-4.8); LYMPH % 14 % (24-48); MEAN CORPUSCULAR HEMOGLOBIN 28 pg (25-35); MEAN CORPUSCULAR HGB CONC 32 g/dL (31-37); MEAN CORPUSCULAR VOLUME 85 fL (79-100); MONO # 0.7 x10^3/uL (0.0-1.1); MONO % 6 % (0-9); NEUT # 8.7 x10^3uL (1.8-7.7); NEUT % 78 % (31-73); PLATELET COUNT 291 x10^3/uL (140-400); RED BLOOD COUNT 3.84 x10^6/uL (4.30-5.70); RED CELL DISTRIBUTION WIDTH 16.6 % (11.5-14.5); WHITE BLOOD COUNT 11.2 x10^3/uL (4.0-11.0)
[2018-11-22 17:43] LABS: CALCIUM 9.1 mg/dL (8.5-10.1); CREATININE 1.6 mg/dL (0.7-1.3); GFR 43.9; POTASSIUM 4.8 mmol/L (3.5-5.1)
[2018-11-22 17:52] LABS: ALBUMIN 3.5 g/dL (3.4-5.0); ALBUMIN/GLOBULIN RATIO 0.9 (1.0-1.7); TOTAL PROTEIN 7.5 g/dL (6.4-8.2)
[2018-11-22 19:00] VITALS: BP 197/98
[2018-11-22] MEDS ORDERED: PREG75CA PO (19:42)
[2018-11-22] MEDS ORDERED: CARV12.53 PO (19:42)
[2018-11-22] MEDS ORDERED: ASPI325T8 PO (19:42)
[2018-11-22] MEDS ORDERED: TAMS0.4C97 PO (19:42)
[2018-11-22] MEDS ORDERED: INSU100I17 SQ (19:42)
[2018-11-22] MEDS ORDERED: PANT20TA2 PO (19:42)
[2018-11-22] MEDS ORDERED: FERR325T14 PO (19:42)
[2018-11-22] MEDS ORDERED: INSU100I27 SQ (19:42)
[2018-11-22] MEDS ORDERED: HYDR-2761 PO (19:42)
[2018-11-22] MEDS ORDERED: MIDO5TAB PO (19:42)
[2018-11-22] MEDS: VANCOMYCIN PER PHARMACY MC PRN ×3 (19:50→21:09)
[2018-11-22] MEDS ORDERED: VANCOMYCIN 1.25 GM in IV NORMAL SALINE 250ML 250 ML IV SCH (20:00)
[2018-11-22] MEDS ORDERED: VANCOMYCIN 1.75 GM in IV NORMAL SALINE 500ML BAG 500 ML IV ONE ×2 (20:00→23:00)
[2018-11-22] MEDS: TAMSULOSIN 0.4 MG CAP.ER.24H. PO SCH (21:19)
[2018-11-22] MEDS: CARVEDILOL 12.5 MG TABLET. PO SCH (21:19)
[2018-11-22] MEDS: PREGABALIN 75 MG CAPSULE PO SCH (21:20)
[2018-11-22] MEDS: INSULIN GLARGINE 300 UNITS/3 ML INSULN.PEN. SQ SCH (21:26)
[2018-11-22] MEDS ORDERED: ATOR20TA58 PO (21:41)
[2018-11-22] MEDS ORDERED: HYDROcodone/APAP 5/325MG 1 TAB TABLET PO PRN (21:45)
[2018-11-22] MEDS: ATORVASTATIN CALCIUM 20 MG TABLET PO SCH (21:50)
[2018-11-22] MEDS ORDERED: INSULIN LISPRO 300 UNITS/3 ML INSULN.PEN. SQ ONE (22:00)
[2018-11-22 23:00] VITALS: BP 167/91
[2018-11-22] MEDS: hydrALAZINE 25 MG TABLET PO SCH (23:07)
--- NOTE | 2018-11-22 23:41 | RAD ---
CHEST AP ONLY History: line placement Comparison: September 01, 2018 Findings: Single view of the chest is submitted. There is again dual lead left electronic cardiac device. Heart size is stable. There is now a right upper extremity PICC with the tip near the cavoatrial junction. There is no pneumothorax, pleural fluid, infiltrate. Impression: 1. There is right upper extremity PICC with the tip near the cavoatrial junction. Electronically signed by: Adrian Chaudhary MD (11/22/2018 11:39 PM) [facility]
[2018-11-23] VITALS (7 sets, daily range): BP systolic 121–151; BP diastolic 66–93
[2018-11-23] MEDS ORDERED: TRAM50TA PO (01:15)
[2018-11-23] MEDS: traMADol 50 MG TABLET PO PRN ×2 (01:25→08:48)
[2018-11-23] MEDS: PIPERACILLIN/TAZOBACTAM 3.375 GM in IV NORMAL SALINE 50ML 50 ML IV SCH ×4 (01:25→21:54)
[2018-11-23] MEDS: MIDODRINE 5 MG TABLET PO SCH ×3 (06:05→18:00)
[2018-11-23] MEDS: FERROUS SULFATE 325 MG TABLET. PO SCH (08:46)
[2018-11-23] MEDS: CARVEDILOL 12.5 MG TABLET. PO SCH ×2 (08:46→20:49)
[2018-11-23] MEDS: ASPIRIN 325 MG TABLET PO SCH (08:46)
[2018-11-23] MEDS: PANTOPRAZOLE 40 MG TABLET.DR. PO SCH (08:46)
[2018-11-23] MEDS: PREGABALIN 75 MG CAPSULE PO SCH ×2 (08:47→20:48)
[2018-11-23] MEDS: INSULIN LISPRO 300 UNITS/3 ML INSULN.PEN. SQ SCH ×4 (08:51→18:01)
[2018-11-23] MEDS: hydrALAZINE 25 MG TABLET PO SCH ×3 (08:52→22:15)
--- NOTE | 2018-11-23 09:20 | PDOC ---
ORTHO PROGRESS NOTES Vitals Vital Signs Date Time Temp Pulse Resp B/P (MAP) Pulse Ox O2 Delivery O2 Flow Rate FiO2 11/23/18 08:52 75 130/77 11/23/18 08:48 18 98 Room Air 11/23/18 07:00 97.9 97.9 Labs Laboratory Tests Test 11/22/18 17:30 11/22/18 17:49 11/22/18 21:07 11/23/18 06:10 White Blood Count 11.2 x10^3/uL (4.0-11.0) Red Blood Count 3.84 x10^6/uL (4.30-5.70) Hemoglobin 10.6 g/dL (13.0-17.5) Hematocrit 32.8 % (39.0-53.0) Mean Corpuscular Volume 85 fL (79-100) Mean Corpuscular Hemoglobin 28 pg (25-35) Mean Corpuscular Hemoglobin Concent 32 g/dL (31-37) Red Cell Distribution Width 16.6 % (11.5-14.5) Platelet Count 291 x10^3/uL (140-400) Neutrophils (%) (Auto) 78 % (31-73) Lymphocytes (%) (Auto) 14 % (24-48) Monocytes (%) (Auto) 6 % (0-9) Eosinophils (%) (Auto) 2 % (0-3) Basophils (%) (Auto) 0 % (0-3) Neutrophils # (Auto) 8.7 x10^3uL (1.8-7.7) Lymphocytes # (Auto) 1.5 x10^3/uL (1.0-4.8) Monocytes # (Auto) 0.7 x10^3/uL (0.0-1.1) Eosinophils # (Auto) 0.2 x10^3/uL (0.0-0.7) Basophils # (Auto) 0.0 x10^3/uL (0.0-0.2) Sodium Level 135 mmol/L (136-145) Potassium Level 4.8 mmol/L (3.5-5.1) Chloride Level 101 mmol/L (98-107) Carbon Dioxide Level 21 mmol/L (21-32) Anion Gap 13 (6-14) Blood Urea Nitrogen 43 mg/dL (8-26) Creatinine 1.6 mg/dL (0.7-1.3) Estimated GFR (Cockcroft-Gault) 43.9 BUN/Creatinine Ratio 27 (6-20) Glucose Level 366 mg/dL (70-99) Calcium Level 9.1 mg/dL (8.5-10.1) Total Bilirubin 1.0 mg/dL (0.2-1.0) Aspartate Amino Transf (AST/SGOT) 26 U/L (15-37) Alanine Aminotransferase (ALT/SGPT) 32 U/L (16-63) Alkaline Phosphatase 113 U/L (46-116) Total Protein 7.5 g/dL (6.4-8.2) Albumin 3.5 g/dL (3.4-5.0) Albumin/Globulin Ratio 0.9 (1.0-1.7) Glucose (Fingerstick) 351 mg/dL (70-99) 499 mg/dL (70-99) Erythrocyte Sedimentation Rate 32 (0-15) Test 11/23/18 07:48 Glucose (Fingerstick) 95 mg/dL (70-99) Laboratory Tests Test 11/22/18 17:30 11/22/18 17:49 11/22/18 21:07 11/23/18 06:10 White Blood Count 11.2 x10^3/uL (4.0-11.0) Red Blood Count 3.84 x10^6/uL (4.30-5.70) Hemoglobin 10.6 g/dL (13.0-17.5) Hematocrit 32.8 % (39.0-53.0) Mean Corpuscular Volume 85 fL (79-100) Mean Corpuscular Hemoglobin 28 pg (25-35) Mean Corpuscular Hemoglobin Concent 32 g/dL (31-37) Red Cell Distribution Width 16.6 % (11.5-14.5) Platelet Count 291 x10^3/uL (140-400) Neutrophils (%) (Auto) 78 % (31-73) Lymphocytes (%) (Auto) 14 % (24-48) Monocytes (%) (Auto) 6 % (0-9) Eosinophils (%) (Auto) 2 % (0-3) Basophils (%) (Auto) 0 % (0-3) Neutrophils # (Auto) 8.7 x10^3uL (1.8-7.7) Lymphocytes # (Auto) 1.5 x10^3/uL (1.0-4.8) Monocytes # (Auto) 0.7 x10^3/uL (0.0-1.1) Eosinophils # (Auto) 0.2 x10^3/uL (0.0-0.7) Basophils # (Auto) 0.0 x10^3/uL (0.0-0.2) Sodium Level 135 mmol/L (136-145) Potassium Level 4.8 mmol/L (3.5-5.1) Chloride Level 101 mmol/L (98-107) Carbon Dioxide Level 21 mmol/L (21-32) Anion Gap 13 (6-14) Blood Urea Nitrogen 43 mg/dL (8-26) Creatinine 1.6 mg/dL (0.7-1.3) Estimated GFR (Cockcroft-Gault) 43.9 BUN/Creatinine Ratio 27 (6-20) Glucose Level 366 mg/dL (70-99) Calcium Level 9.1 mg/dL (8.5-10.1) Total Bilirubin 1.0 mg/dL (0.2-1.0) Aspartate Amino Transf (AST/SGOT) 26 U/L (15-37) Alanine Aminotransferase (ALT/SGPT) 32 U/L (16-63) Alkaline Phosphatase 113 U/L (46-116) Total Protein 7.5 g/dL (6.4-8.2) Albumin 3.5 g/dL (3.4-5.0) Albumin/Globulin Ratio 0.9 (1.0-1.7) Glucose (Fingerstick) 351 mg/dL (70-99) 499 mg/dL (70-99) Erythrocyte Sedimentation Rate 32 (0-15) Test 11/23/18 07:48 Glucose (Fingerstick) 95 mg/dL (70-99) Assessment and Plan Patient seen, we will plan on irrigation and debridement with wound VAC application tomorrow at about 11 AM. Nothing by mouth midnight. I discussed this plan with his nurse. I discussed his care with the wound care team as well. IVY SARMIENTO II, MD Nov 23, 2018 09:20
--- NOTE | 2018-11-23 09:42 | PDOC ---
Provider Note Provider Note Pt seen .H&P to be dictated. ELDER LAURENT MD Nov 23, 2018 09:42
[2018-11-23] MEDS: IV NORMAL SALINE 1000ML BAG 1,000 ML IV SCH (10:27)
--- NOTE | 2018-11-23 10:31 | PDOC ---
Infectious Disease Note Vital Sign Vital Signs Vital Signs Date Time Temp Pulse Resp B/P (MAP) Pulse Ox O2 Delivery O2 Flow Rate FiO2 11/23/18 08:52 75 130/77 11/23/18 08:48 18 98 Room Air 11/23/18 07:00 97.9 97.9 Labs Lab Laboratory Tests Test 11/22/18 17:30 11/22/18 17:49 11/22/18 21:07 11/23/18 06:10 White Blood Count 11.2 x10^3/uL (4.0-11.0) Red Blood Count 3.84 x10^6/uL (4.30-5.70) Hemoglobin 10.6 g/dL (13.0-17.5) Hematocrit 32.8 % (39.0-53.0) Mean Corpuscular Volume 85 fL (79-100) Mean Corpuscular Hemoglobin 28 pg (25-35) Mean Corpuscular Hemoglobin Concent 32 g/dL (31-37) Red Cell Distribution Width 16.6 % (11.5-14.5) Platelet Count 291 x10^3/uL (140-400) Neutrophils (%) (Auto) 78 % (31-73) Lymphocytes (%) (Auto) 14 % (24-48) Monocytes (%) (Auto) 6 % (0-9) Eosinophils (%) (Auto) 2 % (0-3) Basophils (%) (Auto) 0 % (0-3) Neutrophils # (Auto) 8.7 x10^3uL (1.8-7.7) Lymphocytes # (Auto) 1.5 x10^3/uL (1.0-4.8) Monocytes # (Auto) 0.7 x10^3/uL (0.0-1.1) Eosinophils # (Auto) 0.2 x10^3/uL (0.0-0.7) Basophils # (Auto) 0.0 x10^3/uL (0.0-0.2) Sodium Level 135 mmol/L (136-145) Potassium Level 4.8 mmol/L (3.5-5.1) Chloride Level 101 mmol/L (98-107) Carbon Dioxide Level 21 mmol/L (21-32) Anion Gap 13 (6-14) Blood Urea Nitrogen 43 mg/dL (8-26) Creatinine 1.6 mg/dL (0.7-1.3) Estimated GFR (Cockcroft-Gault) 43.9 BUN/Creatinine Ratio 27 (6-20) Glucose Level 366 mg/dL (70-99) Calcium Level 9.1 mg/dL (8.5-10.1) Total Bilirubin 1.0 mg/dL (0.2-1.0) Aspartate Amino Transf (AST/SGOT) 26 U/L (15-37) Alanine Aminotransferase (ALT/SGPT) 32 U/L (16-63) Alkaline Phosphatase 113 U/L (46-116) Total Protein 7.5 g/dL (6.4-8.2) Albumin 3.5 g/dL (3.4-5.0) Albumin/Globulin Ratio 0.9 (1.0-1.7) Glucose (Fingerstick) 351 mg/dL (70-99) 499 mg/dL (70-99) Erythrocyte Sedimentation Rate 32 (0-15) Test 11/23/18 07:48 Glucose (Fingerstick) 95 mg/dL (70-99) Objective Assessment Left calcaneal wound DM HTN CAD Pacemaker Renal insufficiency Plan Plan of Care change vanco to zyvox cont zosyn I and D today supportive care LUKE CHAPA MD Nov 23, 2018 10:31
--- NOTE | 2018-11-23 10:36 | RAD ---
EXAM: CT left foot DATE: 11/23/2018 9:40 AM COMPARISON: No prior INDICATION: Soft tissue ulceration, evaluate for osteomyelitis. TECHNIQUE: CT of the left foot was performed without IV contrast. Axial, coronal and sagittal reformatted images were generated at the groover operator console. PQRS compliance statement - One or more of the following individualized dose reduction techniques were utilized for this study: 1. Automated exposure control 2. Adjustment of the mA and/or kV according to patient size 3. Use of iterative reconstruction technique FINDINGS: Large soft tissue ulceration is seen overlying the calcaneus dorsally with prominent soft tissue defect. This ulceration extends inferiorly from the inferior margin of the calcaneal attachment. Intermittent erosive change of the posterior calcaneus is seen. Although there is diffuse osteopenia of the left lower extremity, focal relatively increased osteopenia is seen within the dorsal calcaneus. Postoperative changes of ankle joint arthrodesis are seen with solid fusion at the ankle joint. No evidence for fracture or AVN. Borderline hallux valgus. Hallux MTP joint degenerative changes. Dense atherosclerotic vascular calcifications are seen. There is deformity of several toes and respective nails, this is amenable to clinical examination. IMPRESSION: 1. Prominent soft tissue ulceration at the dorsal aspect of the calcaneus with subtle erosive change and associated focal relative increased osteopenia, highly suspicious for acute osteomyelitis. 2. Solid fusion at the ankle joint arthrodesis. 3. Within the constraints of diffuse osteopenia no evidence for acute fracture. 4. Dense atherosclerotic calcifications are seen throughout the visualized lower leg and ankle. Electronically signed by: Wilfrid Holder MD (11/23/2018 10:33 AM) [id number]
--- NOTE | 2018-11-23 12:05 | PDOC2 ---
CONSULT Date of Consult Date of Consult DATE: 11/23/18 TIME: 12:03 Reason for Consult Reason for Consult: PVD, Left heel ulcer Referring Physician Referring Physician: Dr. Slater Identification/Chief Complaint Chief Complaint Left heel ulcer Source Source: Chart review, Patient History of Present Illness Reason for Visit: 63-year-old male who presents with left heel ulcer with necrotic tissue. Lower extremity arterial Ultrasound does demonstrate dimished arterial flow left leg. The patient states the ulcer has been present for approximately 3 weeks, he has been followed in the wound care center. He denies any pain, states he has neuropathy. He has a remote history of left hip, left knee surgery and left ankle fusion. In addition he has a history of right 3rd toe ulcer with well healed left 3rd toe amputation. He is currently scheduled for an I&D with wound VAC placement tomorrow with orthopedics. He denies any symptoms of claudication. He denies any fever or chills. His Creatinine on admission is 1.6. The patient has a history of CAD with previous stent placement and pacemaker. Past Medical History Cardiovascular: CAD, HTN, Other (pacemaker) CENTRAL NERVOUS SYSTEM: Periperal neuropathy Renal/: Other (renal insufficiency) Endocrine: Diabetes Past Surgical History Past Surgical History: Appendectomy, Total hip replacement, Other (left ankle fusion, knee fracture) Family History Family History non-contributory Social History No ALCOHOL: none Lives: with Family Current Medications Current Medications Current Medications Piperacillin Sod/ Tazobactam Sod 3.375 gm/Sodium Chloride 50 ml @ 100 mls/hr Q8HRS IV Last administered on 11/23/18at 06:05; Start 11/22/18 at 22:00 Vancomycin HCl (Vanco Per Pharmacy) 1 each PRN DAILY PRN MC SEE COMMENTS Last administered on 11/22/18at 21:09; Start 11/22/18 at 18:15; Stop 11/23/18 at 10:27 ; Status DC Vancomycin HCl 1.75 gm/Sodium Chloride 500 ml @ 250 mls/hr 1X ONCE IV ; Start 11/22/18 at 20:00; Stop 11/22/18 at 21:06; Status DC Vancomycin HCl 1.25 gm/Sodium Chloride 250 ml @ 167 mls/hr Q24H IV ; Start at 20:00; Stop 11/22/18 at 21:05; Status DC Vancomycin HCl (Vancomycin Trough Level) 1 each 1X ONCE MC ; Start 11/24/18 at 23:00; Stop 11/24/18 at 23:01; Status Cancel Aspirin (Tera Aspirin) 325 mg DAILY PO Last administered on 11/23/18at 08:46; Start 11/23/18 at 09:00 Carvedilol (Coreg) 12.5 mg BID PO Last administered on 11/23/18 08:46; Start 11/22/18 at 21:00 Ferrous Sulfate (Feosol) 325 mg DAILYWBKFT PO Last administered on 11/23/18 08 :46; Start 11/23/18 at 08:00 Pregabalin (Lyrica) 75 mg BID PO Last administered on 11/23/18 08:47; Start at 21:00 Tamsulosin HCl (Flomax) 0.4 mg QHS PO Last administered on 11/22/18at 21:19; Start 11/22/18 at 21:00 Insulin Human Lispro (HumaLOG) 10 units TIDWMEALS SQ Last administered on at 08:51; Start 11/23/18 at 08:00 Insulin Glargine (Lantus) 15 units QHS SQ Last administered on 11/22/18 21:26 ; Start 11/22/18 at 21:00 Pantoprazole Sodium (Protonix) 40 mg DAILYAC PO Last administered on 11/23/18 08:46; Start 11/23/18 at 07:30 Midodrine (Proamatine) 5 mg [id number] PO ; Start 11/23/18 at 07:00 Vancomycin HCl 1.25 gm/Sodium Chloride 250 ml @ 167 mls/hr Q24H IV ; Start at 23:00; Stop 11/23/18 at 23:00; Status DC Vancomycin HCl 1.75 gm/Sodium Chloride 500 ml @ 250 mls/hr 1X ONCE IV Last administered on 11/22/18at 23:00; Start 11/22/18 at 23:00; Stop 11/23/18 at 00:59 ; Status DC Atorvastatin Calcium (Lipitor) 20 mg HS PO Last administered on 11/22/18at 21:50 ; Start 11/22/18 at 22:00 Acetaminophen/ Hydrocodone Bitart (Lortab 5/325) 1 tab PRN Q6HRS PRN PO MODERATE PAIN; Start 11/22/18 at 21:45; Status Cancel Hydralazine HCl (Apresoline) 25 mg TID PO Last administered on 11/23/18at 08:52 ; Start 11/22/18 at 22:00 Insulin Human Lispro (HumaLOG) 10 units 1X ONCE SQ Last administered on at 21:53; Start 11/22/18 at 22:00; Stop 11/22/18 at 22:01; Status DC Tramadol HCl (Ultram) 50 mg PRN BID PRN PO MODERATE PAIN Last administered on at 08:48; Start 11/23/18 at 01:15 Sodium Chloride 1,000 ml @ 75 mls/hr [id number] IV Last administered on at 10:27; Start 11/23/18 at 10:30 Linezolid/Dextrose 300 ml @ 300 mls/hr Q12HR IV ; Start 11/23/18 at 21:00 Active Scripts Active Reported Tramadol Hcl 50 Mg Tablet 50 Mg PO PRN BID PRN Atorvastatin Calcium 20 Mg Tablet 20 Mg PO HS Levemir Flextouch (Insulin Detemir) 100 Unit/1 Ml Insuln.pen 15 Unit SQ QHS Novolog Flexpen (Insulin Aspart) 100 Unit/1 Ml Insuln.pen 10 Unit SQ TIDAC Protonix (Pantoprazole Sodium) 20 Mg Tablet.dr 40 Mg PO DAILY Lyrica (Pregabalin) 75 Mg Capsule 1 Cap PO BID Aspirin 325 Mg Tablet 1 Tab PO DAILY Carvedilol 12.5 Mg Tablet 12.5 Mg PO BID Ferrous Sulfate 325 Mg Tablet 1 Tab PO DAILYWBKFT Flomax (Tamsulosin Hcl) 0.4 Mg Cap.er.24h 1 Cap PO QHS Midodrine Hcl 5 Mg Tablet 5 Mg PO [id number] Allergies Allergies: Coded Allergies: hydromorphone (Verified Allergy, Severe, Anaphylaxis, 11/23/18) Apnea and asystole, CODE BLUE Tolerates hydrocodone ertapenem (Verified Adverse Reaction, Severe, 11/23/18) Insomnia, confusion oxycodone (Verified Adverse Reaction, Mild, Nausea and Vomiting, 11/22/18) ROS Review of System Constitutional: No fever, chills, fatigue or weight loss. Respiratory: No cough or sputum production. Cardiovascular: No chest pain, palpitations or peripheral edema. Gastrointestinal: No abdominal pain, nausea, constipation or diarrhea. Integumentary/breast: as per HPI Musculoskeletal: as per HPI Neurological: No gross deficits All other reviews systems negative except history of present illness. Physical Exam General: Alert, Oriented X3, Cooperative Heart: Regular rate, Other (normal carotid pulses) Abdomen: Normal bowel sounds, Soft, No tenderness, No masses Extremities: Other (1+ bilateral femoral pulses, unable to palpated distal pulses, 2+ bilateral brachial pulses) Skin: Other (healed right 3rd toe amputation, left heel with dark eschar, no bogginess or drainage noted, no swelling, mild surrounding erythema.) Neuro: Strength at 5/5 X4 ext, Sensation intact MUSCULOSKELETAL: No swelling Vitals VITALS Vital Signs Date Time Temp Pulse Resp B/P (MAP) Pulse Ox O2 Delivery O2 Flow Rate FiO2 11/23/18 11:00 97.9 71 16 121/66 (84) 97 Room Air 97.9 Labs Labs Laboratory Tests Test 11/22/18 17:30 11/22/18 17:49 11/22/18 21:07 11/23/18 06:10 White Blood Count 11.2 x10^3/uL (4.0-11.0) Red Blood Count 3.84 x10^6/uL (4.30-5.70) Hemoglobin 10.6 g/dL (13.0-17.5) Hematocrit 32.8 % (39.0-53.0) Mean Corpuscular Volume 85 fL (79-100) Mean Corpuscular Hemoglobin 28 pg (25-35) Mean Corpuscular Hemoglobin Concent 32 g/dL (31-37) Red Cell Distribution Width 16.6 % (11.5-14.5) Platelet Count 291 x10^3/uL (140-400) Neutrophils (%) (Auto) 78 % (31-73) Lymphocytes (%) (Auto) 14 % (24-48) Monocytes (%) (Auto) 6 % (0-9) Eosinophils (%) (Auto) 2 % (0-3) Basophils (%) (Auto) 0 % (0-3) Neutrophils # (Auto) 8.7 x10^3uL (1.8-7.7) Lymphocytes # (Auto) 1.5 x10^3/uL (1.0-4.8) Monocytes # (Auto) 0.7 x10^3/uL (0.0-1.1) Eosinophils # (Auto) 0.2 x10^3/uL (0.0-0.7) Basophils # (Auto) 0.0 x10^3/uL (0.0-0.2) Sodium Level 135 mmol/L (136-145) Potassium Level 4.8 mmol/L (3.5-5.1) Chloride Level 101 mmol/L (98-107) Carbon Dioxide Level 21 mmol/L (21-32) Anion Gap 13 (6-14) Blood Urea Nitrogen 43 mg/dL (8-26) Creatinine 1.6 mg/dL (0.7-1.3) Estimated GFR (Cockcroft-Gault) 43.9 BUN/Creatinine Ratio 27 (6-20) Glucose Level 366 mg/dL (70-99) Calcium Level 9.1 mg/dL (8.5-10.1) Total Bilirubin 1.0 mg/dL (0.2-1.0) Aspartate Amino Transf (AST/SGOT) 26 U/L (15-37) Alanine Aminotransferase (ALT/SGPT) 32 U/L (16-63) Alkaline Phosphatase 113 U/L (46-116) Total Protein 7.5 g/dL (6.4-8.2) Albumin 3.5 g/dL (3.4-5.0) Albumin/Globulin Ratio 0.9 (1.0-1.7) Glucose (Fingerstick) 351 mg/dL (70-99) 499 mg/dL (70-99) Erythrocyte Sedimentation Rate 32 (0-15) Test 11/23/18 07:48 11/23/18 10:33 Glucose (Fingerstick) 95 mg/dL (70-99) 97 mg/dL (70-99) Laboratory Tests Test 11/22/18 17:30 11/22/18 17:49 11/22/18 21:07 11/23/18 06:10 White Blood Count 11.2 x10^3/uL (4.0-11.0) Red Blood Count 3.84 x10^6/uL (4.30-5.70) Hemoglobin 10.6 g/dL (13.0-17.5) Hematocrit 32.8 % (39.0-53.0) Mean Corpuscular Volume 85 fL (79-100) Mean Corpuscular Hemoglobin 28 pg (25-35) Mean Corpuscular Hemoglobin Concent 32 g/dL (31-37) Red Cell Distribution Width 16.6 % (11.5-14.5) Platelet Count 291 x10^3/uL (140-400) Neutrophils (%) (Auto) 78 % (31-73) Lymphocytes (%) (Auto) 14 % (24-48) Monocytes (%) (Auto) 6 % (0-9) Eosinophils (%) (Auto) 2 % (0-3) Basophils (%) (Auto) 0 % (0-3) Neutrophils # (Auto) 8.7 x10^3uL (1.8-7.7) Lymphocytes # (Auto) 1.5 x10^3/uL (1.0-4.8) Monocytes # (Auto) 0.7 x10^3/uL (0.0-1.1) Eosinophils # (Auto) 0.2 x10^3/uL (0.0-0.7) Basophils # (Auto) 0.0 x10^3/uL (0.0-0.2) Sodium Level 135 mmol/L (136-145) Potassium Level 4.8 mmol/L (3.5-5.1) Chloride Level 101 mmol/L (98-107) Carbon Dioxide Level 21 mmol/L (21-32) Anion Gap 13 (6-14) Blood Urea Nitrogen 43 mg/dL (8-26) Creatinine 1.6 mg/dL (0.7-1.3) Estimated GFR (Cockcroft-Gault) 43.9 BUN/Creatinine Ratio 27 (6-20) Glucose Level 366 mg/dL (70-99) Calcium Level 9.1 mg/dL (8.5-10.1) Total Bilirubin 1.0 mg/dL (0.2-1.0) Aspartate Amino Transf (AST/SGOT) 26 U/L (15-37) Alanine Aminotransferase (ALT/SGPT) 32 U/L (16-63) Alkaline Phosphatase 113 U/L (46-116) Total Protein 7.5 g/dL (6.4-8.2) Albumin 3.5 g/dL (3.4-5.0) Albumin/Globulin Ratio 0.9 (1.0-1.7) Glucose (Fingerstick) 351 mg/dL (70-99) 499 mg/dL (70-99) Erythrocyte Sedimentation Rate 32 (0-15) Test 11/23/18 07:48 11/23/18 10:33 Glucose (Fingerstick) 95 mg/dL (70-99) 97 mg/dL (70-99) Assessment/Plan Assessment/Plan Assessment/Plan: Atherosclerosis left lower extremity with left calcaneal wound with necrotic eschar. Dr. Bravo has reviewed chart along with the arterial US which demonstrates diminished arterial flow left lower extremity. The patient was unavailable for him to examine earlier today. Bone Scan 11/18/2017 demonstrates abnormal increase in uptake raising possibility of osteomyelitis. Today's CT scan suggests soft tissue ulceration at the dorsal aspect of the calcaneus with subtle erosive change and associated focal relative increased osteopenia, highly suspicious for acute osteomyelitis. Recommend angiogram with possible intervention left lower extremity to optimize healing. Tentatively planned for tomorrow afternoon following patient's scheduled I&D procedure. Cr. 1.6 patient, recommend hydration prior to procedure. Continue antibiotics and wound care therapy. Discussed plan of care with the nurse and patient. I spent 70 minutes in review of images, chart and coordination of care and counseling of patient. I did discuss with the patient the difficulty of healing wounds in this location and that aggressive therapy is recommended in order for limb salvage. I independently saw and examined this patient and then discussed above with WILNER Comer. I independently reviewed his ultrasound, etc. This was all done on 11/23 day of initial note. Fatimah Bravo MD Vascular Surgery ENRICO BARKLEY APRN Nov 23, 2018 12:04 FATIMAH BRAVO MD Nov 30, 2018 12:33
[2018-11-23] MEDS ORDERED: ZOLPIDEM 5 MG TABLET. PO PRN (13:30)
[2018-11-23] MEDS: HYDROcodone/APAP 5/325MG 1 TAB TABLET PO PRN ×2 (13:51→20:49)
--- NOTE | 2018-11-23 18:20 | HP ---
ADMIT DATE: 11/22/2018 PATIENT LOCATION: 4 REASON FOR ADMISSION TO THE HOSPITAL: Left heel ulcer, osteomyelitis. HISTORY OF PRESENT ILLNESS: The patient is a 63-year-old male with history of diabetes. The patient also has a history of peripheral vascular disease. He had a previous amputation of the toes on the right foot. He has a nonhealing ulcer on the left Achilles tendon, which has been not healing well, been [facility], has come to a point where he could feel the bone at the base of the ulcer with necrosis and the patient was admitted to the hospital for more aggressive treatment including IV antibiotics, CT scan, surgical debridement of the wound and maybe a vascular consult. PAST MEDICAL HISTORY: As mentioned above, the patient has a history of diabetes, insulin dependent; peripheral vascular disease; coronary artery disease, previous angioplasty, stent; congestive heart failure; sick sinus syndrome; pacemaker; orthostatic hypotension; diabetic neuropathy; previous strokes. PAST SURGICAL HISTORY: Had a pacemaker, cardiac catheterization and stent, amputation of the right third and fourth toes. PERSONAL HISTORY: Smoked long time back. Has not smoked for many years. Denies alcohol, drug abuse. SOCIAL HISTORY: Lives at home with the family. The patient is ambulating with a wheelchair now, is offloading shoe at bedtime. ALLERGIES: THE PATIENT IS ALLERGIC TO IV ANTIBIOTICS, I BELIEVE, ERTAPENEM THAT MADE HIM CONFUSED. MEDICATIONS AT HOME: The patient is on midodrine 5 mg 3 times daily, insulin 15 units Lantus, NovoLog 10 units 3 times daily. He is on Coreg, Lipitor, aspirin, Plavix and Lyrica twice a day. REVIEW OF SYMPTOMS: CARDIAC: Denies any chest pain, shortness of breath. GASTROINTESTINAL: No nausea or vomiting. FAMILY HISTORY: Positive for diabetes, heart disease. PHYSICAL EXAMINATION: GENERAL: The patient is pleasant, not in any distress. VITAL SIGNS: Temperature 98; pulse 80; blood pressure 110/60, it was like 180/70 yesterday; 93% on room air. HEENT: Head is atraumatic. Pupils are equal. Oral cavity: Few teeth present. NECK: Supple. Thyroid not enlarged. JVD not elevated. CHEST: Symmetrical. CARDIOVASCULAR: S1, S2. No murmurs. LUNGS: Clear to auscultation. No wheezing. ABDOMEN: Soft, bowel sounds present, no mass palpable. The patient has a PICC line, right upper extremity, placed yesterday. EXTERNAL GENITALIA: No Joyner. RECTAL: Deferred. EXTREMITIES: The patient has 30 dorsalis and posterior pulsations. No edema. Has a large necrotic ulcer on the left heel, which is 1 inch size with necrotic base. The patient has a significant diabetic neuropathy, decreased sensation. Right foot: The patient has decreased pulsation, but had a previous amputation of the third and fourth toes on the right side. FINAL IMPRESSION: 1. Left heel ulcer, over Achillis tendon and calcaneus , not improving even with the outpatient treatment. Possible osteomyelitis of the calcaneus. 2. Peripheral vascular disease with diabetes. 3. Insulin-dependent diabetes. 4. Coronary artery disease, previous angioplasty, stent. 5. Chronic systolic heart failure. 6. Pacemaker for sick sinus syndrome. 7. Hypertension. 8. Hyperlipidemia. 9. 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 CRF stage 3, cr 1.6 PLAN: At this time was admitted to hospital. Wound culture, IV antibiotics. ID was consulted. The patient is scheduled to see Vascular as well as Orthopedics, scheduled to have a surgical debridement of the heel ulcer and possible arteriogram to look at the circulation. In the meantime, the patient was placed in a PICC line for long-term IV antibiotics. ELDER LAURENT MD DR: BENNIE/andre JOB#: [id number] / [id number]
--- NOTE | 2018-11-23 20:30 | CONS ---
DATE OF CONSULTATION: 11/23/2018 REQUESTING PHYSICIAN: Dr. Slater. REASON FOR CONSULTATION: Left calcaneal osteomyelitis. HISTORY OF PRESENT ILLNESS: This is a 63-year-old gentleman who was admitted for left calcaneal wound, which he says is there for about 3 weeks or so. The patient did have a hip replacement done in August and he underwent rehabilitation, etc., but he says he had not been bedbound and he does not know how he got this wound. The patient has had black eschar on the left heel. Denies any fever, denies any nausea, vomiting, diarrhea. In fact, he has been in this hospital multiple times before, but I cannot see his records because they are not merging right now. The patient has been started on vancomycin and Zosyn and the patient has been seen by Dr. Vallejo and surgery has been planned. PAST MEDICAL HISTORY: Positive for diabetes mellitus, hypertension, renal insufficiency, coronary artery disease with coronary artery surgery done as well as pacemaker in place, cerebrovascular accident, diverticulitis, gastroesophageal reflux disease. PAST SURGICAL HISTORY: Right foot 2 toe amputation done in the past, left ankle surgery done in the past and the hip surgery done recently. SOCIAL HISTORY: Negative for smoking, alcohol, illicit drug use. ALLERGIES: LISTED ALLERGIC TO ERTAPENEM. IT MADE HIM CONFUSED AND HALLUCINATING. CURRENT MEDICATIONS: Reviewed. REVIEW OF SYSTEMS: As per HPI, all other systems reviewed are negative. PHYSICAL EXAMINATION: GENERAL: Alert, oriented gentleman, not in any distress. VITAL SIGNS: Stable, afebrile. HEENT: NAD. NECK: Supple, no JVP, no lymphadenopathy. LUNGS: Clear. HEART: S1, S2 regular. ABDOMEN: Benign. EXTREMITIES: Thin legs with no muscle mass. Dorsalis pedis is palpable. He does have a calcaneal black eschar, depth cannot be judged. NEUROLOGIC: The patient is alert, awake, no focal neurologic deficit. LABORATORY DATA: White count is 11.2. Sed rate is 32, BUN and creatinine is [address] of the lower extremities is pending. Chest x-ray is unremarkable. IMPRESSION: 1. Left calcaneal wound with eschar depth cannot be judged. Evidently, he had CT done 2 weeks ago. The results are not available. 2. Diabetes. 3. Hypertension. 4. Coronary artery disease. 5. Renal insufficiency. RECOMMENDATIONS: We would discontinue vancomycin, replace with Zyvox, continue Zosyn, supportive care. I and D has been planned for today. We will try to obtain the records and check on the CT and we will continue to follow. Thank you very much, Dr. Slater, for giving me the opportunity to participate in this patient's care. LUKE CHAPA MD DR: SYDNEY/andre JOB#: [id number] / [id number]
[2018-11-23] MEDS: TAMSULOSIN 0.4 MG CAP.ER.24H. PO SCH (20:48)
[2018-11-23] MEDS: ATORVASTATIN CALCIUM 20 MG TABLET PO SCH (20:48)
[2018-11-23] MEDS: LACTOBACILLUS RHAMNOSUS GG 1 CAPSULE. PO SCH (20:49)
[2018-11-23] MEDS: INSULIN GLARGINE 300 UNITS/3 ML INSULN.PEN. SQ SCH (20:51)
[2018-11-23] MEDS ORDERED: VANCOMYCIN 1.25 GM in IV NORMAL SALINE 250ML 250 ML IV SCH (23:00)
[2018-11-23] MEDS: ONDANSETRON PF 4 MG/2 ML VIAL. IV PRN (23:33)
[2018-11-24] MEDS: IV NORMAL SALINE 1000ML BAG 1,000 ML IV SCH ×3 (02:42→20:33)
[2018-11-24 03:00] VITALS: BP 132/63
[2018-11-24] MEDS: PIPERACILLIN/TAZOBACTAM 3.375 GM in IV NORMAL SALINE 50ML 50 ML IV SCH ×3 (05:32→20:31)
[2018-11-24 06:01] LABS: BASO # 0.1 x10^3/uL (0.0-0.2); BASO % 1 % (0-3); EOS # 0.4 x10^3/uL (0.0-0.7); EOS % 6 % (0-3); HEMOGLOBIN 8.3 g/dL (13.0-17.5); LYMPH # 1.3 x10^3/uL (1.0-4.8); LYMPH % 16 % (24-48); MEAN CORPUSCULAR HEMOGLOBIN 27 pg (25-35); MEAN CORPUSCULAR HGB CONC 32 g/dL (31-37); MEAN CORPUSCULAR VOLUME 85 fL (79-100); MONO # 0.6 x10^3/uL (0.0-1.1); MONO % 8 % (0-9); NEUT # 5.4 x10^3uL (1.8-7.7); NEUT % 70 % (31-73); PLATELET COUNT 231 x10^3/uL (140-400); RED BLOOD COUNT 3.07 x10^6/uL (4.30-5.70); RED CELL DISTRIBUTION WIDTH 16.9 % (11.5-14.5); WHITE BLOOD COUNT 7.8 x10^3/uL (4.0-11.0)
[2018-11-24 06:14] LABS: CALCIUM 8.3 mg/dL (8.5-10.1); CREATININE 1.8 mg/dL (0.7-1.3); GFR 38.3; POTASSIUM 4.9 mmol/L (3.5-5.1)
[2018-11-24] MEDS: MIDODRINE 5 MG TABLET PO SCH ×3 (06:24→17:02)
[2018-11-24 07:00] VITALS: BP 175/88
[2018-11-24] MEDS ORDERED: IV RINGERS,LACTATED 1000ML 1,000 ML IV SCH ×2 (07:00)
[2018-11-24] MEDS ORDERED: ONDANSETRON PF 4 MG/2 ML VIAL. IV PRN (07:00)
[2018-11-24] MEDS ORDERED: LIDOCAINE 1% PF 2 ML VIAL. ID PRN (07:00)
[2018-11-24] MEDS ORDERED: PROCHLORPERAZINE 10 MG/2 ML VIAL. IV PRN ×2 (07:00)
[2018-11-24] MEDS: FERROUS SULFATE 325 MG TABLET. PO SCH (07:29)
[2018-11-24] MEDS: PANTOPRAZOLE 40 MG TABLET.DR. PO SCH (07:29)
[2018-11-24] MEDS: LACTOBACILLUS RHAMNOSUS GG 1 CAPSULE. PO SCH ×2 (07:30→20:28)
[2018-11-24] MEDS: PREGABALIN 75 MG CAPSULE PO SCH ×2 (07:30→20:29)
[2018-11-24] MEDS: ASPIRIN 325 MG TABLET PO SCH (07:30)
[2018-11-24] MEDS: CARVEDILOL 12.5 MG TABLET. PO SCH ×2 (07:58→20:30)
[2018-11-24] MEDS: HYDROcodone/APAP 5/325MG 1 TAB TABLET PO PRN ×3 (07:58→22:14)
[2018-11-24] MEDS: hydrALAZINE 25 MG TABLET PO SCH ×3 (07:59→20:30)
[2018-11-24] MEDS: INSULIN LISPRO 300 UNITS/3 ML INSULN.PEN. SQ SCH ×3 (08:04→17:05)
[2018-11-24] MEDS ORDERED: INSULIN LISPRO 300 UNITS/3 ML INSULN.PEN. SQ ONE (09:30)
[2018-11-24] MEDS ORDERED: INSULIN GLARGINE 300 UNITS/3 ML INSULN.PEN. SQ ONE (09:30)
--- NOTE | 2018-11-24 09:31 | PDOC ---
Infectious Disease Note Subjective Subjective pt is feeling good, waiting for surgery ROS ROS no n/v/d/sob/fever Vital Sign Vital Signs Vital Signs Date Time Temp Pulse Resp B/P (MAP) Pulse Ox O2 Delivery O2 Flow Rate FiO2 11/24/18 07:59 84 174/88 11/24/18 07:58 Room Air 11/24/18 07:00 98.0 17 97 98.0 Physical Exam PHYSICAL EXAM GENERAL: Alert, oriented gentleman, not in any distress. VITAL SIGNS: Stable, afebrile. HEENT: NAD. NECK: Supple, no JVP, no lymphadenopathy. LUNGS: Clear. HEART: S1, S2 regular. ABDOMEN: Benign. EXTREMITIES: Thin legs with no muscle mass. Dorsalis pedis is palpable. He does have a calcaneal black eschar, depth cannot be judged. NEUROLOGIC: The patient is alert, awake, no focal neurologic deficit. Labs Lab Laboratory Tests Test 11/23/18 10:33 11/23/18 12:44 11/23/18 13:11 11/23/18 17:00 Glucose (Fingerstick) 97 mg/dL (70-99) 43 mg/dL (70-99) 99 mg/dL (70-99) 250 mg/dL (70-99) Test 11/23/18 20:45 11/24/18 05:35 11/24/18 07:38 11/24/18 09:15 Glucose (Fingerstick) 262 mg/dL (70-99) 364 mg/dL (70-99) 416 mg/dL (70-99) White Blood Count 7.8 x10^3/uL (4.0-11.0) Red Blood Count 3.07 x10^6/uL (4.30-5.70) Hemoglobin 8.3 g/dL (13.0-17.5) Hematocrit 26.0 % (39.0-53.0) Mean Corpuscular Volume 85 fL (79-100) Mean Corpuscular Hemoglobin 27 pg (25-35) Mean Corpuscular Hemoglobin Concent 32 g/dL (31-37) Red Cell Distribution Width 16.9 % (11.5-14.5) Platelet Count 231 x10^3/uL (140-400) Neutrophils (%) (Auto) 70 % (31-73) Lymphocytes (%) (Auto) 16 % (24-48) Monocytes (%) (Auto) 8 % (0-9) Eosinophils (%) (Auto) 6 % (0-3) Basophils (%) (Auto) 1 % (0-3) Neutrophils # (Auto) 5.4 x10^3uL (1.8-7.7) Lymphocytes # (Auto) 1.3 x10^3/uL (1.0-4.8) Monocytes # (Auto) 0.6 x10^3/uL (0.0-1.1) Eosinophils # (Auto) 0.4 x10^3/uL (0.0-0.7) Basophils # (Auto) 0.1 x10^3/uL (0.0-0.2) Sodium Level 138 mmol/L (136-145) Potassium Level 4.9 mmol/L (3.5-5.1) Chloride Level 103 mmol/L (98-107) Carbon Dioxide Level 25 mmol/L (21-32) Anion Gap 10 (6-14) Blood Urea Nitrogen 29 mg/dL (8-26) Creatinine 1.8 mg/dL (0.7-1.3) Estimated GFR (Cockcroft-Gault) 38.3 Glucose Level 400 mg/dL (70-99) Calcium Level 8.3 mg/dL (8.5-10.1) Objective Assessment Left calcaneal wound,, CT + for osteo DM HTN CAD Pacemaker Renal insufficiency Plan Plan of Care zyvox cont zosyn I and D today supportive care LUKE CHAPA MD Nov 24, 2018 09:31
[2018-11-24] MEDS ORDERED: LIDOCAINE 1% PF 30 ML VIAL. ONE (09:32)
[2018-11-24] MEDS ORDERED: BUPIVACAINE MPF 0.5% 30 ML VIAL. ONE (09:32)
--- NOTE | 2018-11-24 09:48 | PDOC ---
PROGRESS NOTES Subjective Subjective feeling better today Objective Objective Vital Signs Date Time Temp Pulse Resp B/P (MAP) Pulse Ox O2 Delivery O2 Flow Rate FiO2 11/24/18 07:59 84 174/88 11/24/18 07:58 Room Air 11/24/18 07:00 98.0 17 97 98.0 Intake and Output 11/24/18 07:00 Intake Total 1950 ml Balance 1950 ml Intake Oral 600 ml IV Total 1350 ml # Voids 3 # Bowel Movements 1 Physical Exam Abdomen: Normal bowel sounds, Soft, No tenderness, No masses Heart: Regular rate, Other (normal carotid pulses) Extremities: Other (1+ bilateral femoral pulses, unable to palpated distal pulses, 2+ bilateral brachial pulses) General: Alert, Oriented X3, Cooperative MUSCULOSKELETAL: No swelling Neuro: Strength at 5/5 X4 ext, Sensation intact Skin: Other (healed right 3rd toe amputation, left heel with dark eschar, no bogginess or drainage noted, no swelling, mild surrounding erythema.) Assessment Assessment FINAL IMPRESSION: 1. Left heel ulcer, over Achillis tendon and calcaneus , not improving even with the outpatient treatment. Possible osteomyelitis of the calcaneus.CT scan and bone scan suggestive of osteo. 2. Peripheral vascular disease with diabetes. 3. Insulin-dependent diabetes. 4. Coronary artery disease, previous angioplasty, stent. 5. Chronic systolic heart failure. 6. Pacemaker for sick sinus syndrome. 7. Hypertension. 8. Hyperlipidemia. 9. 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 CRF stage 3, cr 1.6-1.8 PLAN: Hydrate with iv fluids surgical debridement today. arteriogram today monitor kidney function.1.8 today. IV antibiotics. At this time was admitted to hospital. Wound culture, IV antibiotics. ID was consulted. The patient is scheduled to see Vascular as well as Orthopedics, scheduled to have a surgical debridement of the heel ulcer and possible arteriogram to look at the circulation. In the meantime, the patient was placed in a PICC line for long-term IV antibiotics. Comment Review of Relevant I have reviewed the following items luís (where applicable) has been applied. Labs Laboratory Tests Test 11/23/18 10:33 11/23/18 12:44 11/23/18 13:11 11/23/18 17:00 Glucose (Fingerstick) 97 mg/dL (70-99) 43 mg/dL (70-99) 99 mg/dL (70-99) 250 mg/dL (70-99) Test 11/23/18 20:45 11/24/18 05:35 11/24/18 07:38 11/24/18 09:15 Glucose (Fingerstick) 262 mg/dL (70-99) 364 mg/dL (70-99) 416 mg/dL (70-99) White Blood Count 7.8 x10^3/uL (4.0-11.0) Red Blood Count 3.07 x10^6/uL (4.30-5.70) Hemoglobin 8.3 g/dL (13.0-17.5) Hematocrit 26.0 % (39.0-53.0) Mean Corpuscular Volume 85 fL (79-100) Mean Corpuscular Hemoglobin 27 pg (25-35) Mean Corpuscular Hemoglobin Concent 32 g/dL (31-37) Red Cell Distribution Width 16.9 % (11.5-14.5) Platelet Count 231 x10^3/uL (140-400) Neutrophils (%) (Auto) 70 % (31-73) Lymphocytes (%) (Auto) 16 % (24-48) Monocytes (%) (Auto) 8 % (0-9) Eosinophils (%) (Auto) 6 % (0-3) Basophils (%) (Auto) 1 % (0-3) Neutrophils # (Auto) 5.4 x10^3uL (1.8-7.7) Lymphocytes # (Auto) 1.3 x10^3/uL (1.0-4.8) Monocytes # (Auto) 0.6 x10^3/uL (0.0-1.1) Eosinophils # (Auto) 0.4 x10^3/uL (0.0-0.7) Basophils # (Auto) 0.1 x10^3/uL (0.0-0.2) Sodium Level 138 mmol/L (136-145) Potassium Level 4.9 mmol/L (3.5-5.1) Chloride Level 103 mmol/L (98-107) Carbon Dioxide Level 25 mmol/L (21-32) Anion Gap 10 (6-14) Blood Urea Nitrogen 29 mg/dL (8-26) Creatinine 1.8 mg/dL (0.7-1.3) Estimated GFR (Cockcroft-Gault) 38.3 Glucose Level 400 mg/dL (70-99) Calcium Level 8.3 mg/dL (8.5-10.1) Medications Current Medications Acetaminophen/ Hydrocodone Bitart (Lortab 5/325) 1 tab PRN Q6HRS PRN PO PAIN Last administered on 11/24/18at 07:58; Start 11/23/18 at 13:30 Insulin Glargine (Lantus) 7 units 1X ONCE SQ Last administered on 11/24/18at 09 :37; Start 11/24/18 at 09:30; Stop 11/24/18 at 09:31; Status DC Insulin Human Lispro (HumaLOG) 5 units 1X ONCE SQ Last administered on at 09:38; Start 11/24/18 at 09:30; Stop 11/24/18 at 09:31; Status DC Lactobacillus Rhamnosus (Culturelle) 1 cap BID PO Last administered on at 20:49; Start 11/23/18 at 21:00 Lidocaine HCl (Xylocaine-Mpf 1% 2ml Vial) 2 ml PRN 1X PRN ID PRIOR TO IV START ; Start 11/24/18 at 07:00; Stop 11/25/18 at 06:59 Linezolid/Dextrose 300 ml @ 300 mls/hr Q12HR IV Last administered on at 07:59; Start 11/23/18 at 21:00 Ondansetron HCl (Zofran) 4 mg PRN Q6HRS PRN IV NAUSEA/VOMITING; Start 11/24/18 at 07:00; Stop 11/25/18 at 06:59 Ondansetron HCl (Zofran) 8 mg PRN Q6HRS PRN IV NAUSEA/VOMITING Last administered on 11/23/18at 23:33; Start 11/23/18 at 23:30 Prochlorperazine Edisylate (Compazine) 5 mg PACU PRN PRN IV NAUSEA, MRX1; Start 11/24/18 at 07:00; Stop 11/24/18 at 19:00 Prochlorperazine Edisylate (Compazine) 5 mg PACU PRN PRN IV NAUSEA, MRX1; Start 11/24/18 at 07:00; Stop 11/25/18 at 06:59 Ringer's Solution 1,000 ml @ 30 mls/hr Q24H IV ; Start 11/24/18 at 07:00; Stop 11/24/18 at 18:59 Ringer's Solution 1,000 ml @ 30 mls/hr Q24H IV ; Start 11/24/18 at 07:00; Stop 11/24/18 at 18:59 Sodium Chloride 1,000 ml @ 75 mls/hr [id number] IV Last administered on at 02:42; Start 11/23/18 at 10:30 Vancomycin HCl (Vancomycin Trough Level) 1 each 1X ONCE MC ; Start 11/24/18 at 23:00; Stop 11/24/18 at 23:01; Status Cancel Vancomycin HCl 1.25 gm/Sodium Chloride 250 ml @ 167 mls/hr Q24H IV ; Start at 23:00; Stop 11/23/18 at 23:00; Status DC Zolpidem Tartrate (Ambien) 5 mg PRN QHS PRN PO INSOMNIA Last administered on at 22:14; Start 11/23/18 at 13:30 Vitals/I & O Vital Sign - Last 24 Hours 11/23/18 11/23/18 11/23/18 11/23/18 09:48 11:00 11:00 13:51 Temp 97.8 97.9 97.8 97.9 Pulse 71 71 Resp 18 16 16 18 B/P (MAP) 121/66 (84) 121/66 (84) Pulse Ox 98 97 97 97 O2 Delivery Room Air Room Air Room Air Room Air 11/23/18 11/23/18 11/23/18 11/23/18 13:52 15:00 16:17 18:00 Temp 97.9 97.9 Pulse 72 69 69 76 Resp 19 B/P (MAP) 99/53 129/68 (88) 129/68 133/52 Pulse Ox 99 O2 Delivery Room Air 11/23/18 11/23/18 11/23/18 11/23/18 19:00 20:00 20:49 20:49 Temp 98.1 98.1 Pulse 71 71 Resp 20 16 B/P (MAP) 132/68 (89) 132/68 Pulse Ox 97 97 O2 Delivery Room Air Room Air Room Air 11/23/18 11/23/18 11/23/18 11/23/18 21:55 22:15 22:15 23:00 Temp 98.4 97.9 98.4 97.9 Pulse 66 66 67 Resp 14 17 20 B/P (MAP) 151/93 151/93 (112) 128/70 (89) Pulse Ox 97 97 98 O2 Delivery Room Air Room Air Room Air 11/24/18 11/24/18 11/24/18 11/24/18 03:00 06:24 07:00 07:58 Temp 97.6 98.0 97.6 98.0 Pulse 69 73 84 84 Resp 20 17 B/P (MAP) 132/63 (86) 178/88 175/88 (117) 174/88 Pulse Ox 95 97 O2 Delivery Room Air Room Air 11/24/18 11/24/18 07:58 07:59 Pulse 84 B/P (MAP) 174/88 O2 Delivery Room Air Intake and Output 11/23/18 11/23/18 11/24/18 15:00 23:00 07:00 Intake Total 550 ml 1400 ml Balance 550 ml 1400 ml ELDER LAURENT MD Nov 24, 2018 09:48
[2018-11-24] MEDS ORDERED: PROPOFOL 20 ML IV ONE (10:25)
[2018-11-24] MEDS ORDERED: fentaNYL PF VIAL 100 MCG/2 ML VIAL ONE ×2 (10:25→12:48)
[2018-11-24] MEDS ORDERED: DEXAMETHASONE SOD PHOS 20 MG/5 ML VIAL. ONE (10:25)
[2018-11-24] MEDS ORDERED: LIDOCAINE 2% PF 5 ML VIAL. ONE (10:25)
[2018-11-24] MEDS ORDERED: ONDANSETRON PF 4 MG/2 ML VIAL. ONE (10:25)
[2018-11-24] MEDS ORDERED: PHENYLEPHRINE in 0.9% NACL PF 1 MG/10 ML SYRINGE. IV ONE (11:05)
[2018-11-24] MEDS ORDERED: fentaNYL PF VIAL 100 MCG/2 ML VIAL IV ONE (11:32)
--- NOTE | 2018-11-24 11:35 | PDOC2 ---
CONSULT Date of Consult Date of Consult DATE: 11/24/18 TIME: 11:31 Reason for Consult Reason for Consult: Left heel wound Referring Physician Referring Physician: Bryon Identification/Chief Complaint Chief Complaint Left heel wound Source Source: Chart review, Patient History of Present Illness Reason for Visit: Patient is a pleasant 63-year-old gentleman who I been following for his left hip and knee arthroplasty. He developed a rash or sore at his posterior left heel that has been managed by wound care. He was admitted due to worsening appearance of this. They noticed black eschar was covering the wound. There was not necessarily increase or change in the wilson. Or drainage. The patient tells me he has been following up with wound care and have been doing dressing changes at his facility as well. He has no particular complaints or concerns other than this. Past Medical History Cardiovascular: CAD, HTN, Other (pacemaker) CENTRAL NERVOUS SYSTEM: Periperal neuropathy Renal/: Other (renal insufficiency) Endocrine: Diabetes Past Surgical History Past Surgical History: Appendectomy, Total hip replacement, Other (left ankle fusion, knee fracture) Social History No ALCOHOL: none Lives: with Family Current Medications Current Medications Current Medications Piperacillin Sod/ Tazobactam Sod 3.375 gm/Sodium Chloride 50 ml @ 100 mls/hr Q8HRS IV Last administered on 11/24/18at 05:32; Start 11/22/18 at 22:00 Vancomycin HCl (Vanco Per Pharmacy) 1 each PRN DAILY PRN MC SEE COMMENTS Last administered on 11/22/18at 21:09; Start 11/22/18 at 18:15; Stop 11/23/18 at 10:27 ; Status DC Vancomycin HCl 1.75 gm/Sodium Chloride 500 ml @ 250 mls/hr 1X ONCE IV ; Start 11/22/18 at 20:00; Stop 11/22/18 at 21:06; Status DC Vancomycin HCl 1.25 gm/Sodium Chloride 250 ml @ 167 mls/hr Q24H IV ; Start at 20:00; Stop 11/22/18 at 21:05; Status DC Vancomycin HCl (Vancomycin Trough Level) 1 each 1X ONCE MC ; Start 11/24/18 at 23:00; Stop 11/24/18 at 23:01; Status Cancel Aspirin (Tera Aspirin) 325 mg DAILY PO Last administered on 11/23/18at 08:46; Start 11/23/18 at 09:00 Carvedilol (Coreg) 12.5 mg BID PO Last administered on 11/24/18 07:58; Start 11/22/18 at 21:00 Ferrous Sulfate (Feosol) 325 mg DAILYWBKFT PO Last administered on 11/23/18 08 :46; Start 11/23/18 at 08:00 Pregabalin (Lyrica) 75 mg BID PO Last administered on 11/23/18 20:48; Start at 21:00 Tamsulosin HCl (Flomax) 0.4 mg QHS PO Last administered on 11/23/18 20:48; Start 11/22/18 at 21:00 Insulin Human Lispro (HumaLOG) 10 units TIDWMEALS SQ Last administered on at 08:04; Start 11/23/18 at 08:00 Insulin Glargine (Lantus) 15 units QHS SQ Last administered on 11/22/18 21:26 ; Start 11/22/18 at 21:00 Pantoprazole Sodium (Protonix) 40 mg DAILYAC PO Last administered on 11/23/18 08:46; Start 11/23/18 at 07:30 Midodrine (Proamatine) 5 mg [id number] PO Last administered on 11/23/18at 13:52; Start 11/23/18 at 07:00 Vancomycin HCl 1.25 gm/Sodium Chloride 250 ml @ 167 mls/hr Q24H IV ; Start at 23:00; Stop 11/23/18 at 23:00; Status DC Vancomycin HCl 1.75 gm/Sodium Chloride 500 ml @ 250 mls/hr 1X ONCE IV Last administered on 11/22/18at 23:00; Start 11/22/18 at 23:00; Stop 11/23/18 at 00:59 ; Status DC Atorvastatin Calcium (Lipitor) 20 mg HS PO Last administered on 11/23/18at 20:48 ; Start 11/22/18 at 22:00 Acetaminophen/ Hydrocodone Bitart (Lortab 5/325) 1 tab PRN Q6HRS PRN PO MODERATE PAIN; Start 11/22/18 at 21:45; Status Cancel Hydralazine HCl (Apresoline) 25 mg TID PO Last administered on 11/24/18 07:59 ; Start 11/22/18 at 22:00 Insulin Human Lispro (HumaLOG) 10 units 1X ONCE SQ Last administered on at 21:53; Start 11/22/18 at 22:00; Stop 11/22/18 at 22:01; Status DC Tramadol HCl (Ultram) 50 mg PRN BID PRN PO MODERATE PAIN Last administered on 08:48; Start 11/23/18 at 01:15 Sodium Chloride 1,000 ml @ 75 mls/hr [id number] IV Last administered on 02:42; Start 11/23/18 at 10:30 Linezolid/Dextrose 300 ml @ 300 mls/hr Q12HR IV Last administered on at 07:59; Start 11/23/18 at 21:00 Ondansetron HCl (Zofran) 4 mg PRN Q6HRS PRN IV NAUSEA/VOMITING; Start 11/24/18 at 07:00; Stop 11/25/18 at 06:59 Ringer's Solution 1,000 ml @ 30 mls/hr Q24H IV Last administered on 11/24/18at 10:15; Start 11/24/18 at 07:00; Stop 11/24/18 at 18:59 Lidocaine HCl (Xylocaine-Mpf 1% 2ml Vial) 2 ml PRN 1X PRN ID PRIOR TO IV START ; Start 11/24/18 at 07:00; Stop 11/25/18 at 06:59 Prochlorperazine Edisylate (Compazine) 5 mg PACU PRN PRN IV NAUSEA, MRX1; Start 11/24/18 at 07:00; Stop 11/25/18 at 06:59 Acetaminophen/ Hydrocodone Bitart (Lortab 5/325) 1 tab PRN Q6HRS PRN PO PAIN Last administered on 11/24/18at 07:58; Start 11/23/18 at 13:30 Zolpidem Tartrate (Ambien) 5 mg PRN QHS PRN PO INSOMNIA Last administered on at 22:14; Start 11/23/18 at 13:30 Ringer's Solution 1,000 ml @ 30 mls/hr Q24H IV ; Start 11/24/18 at 07:00; Stop 11/24/18 at 18:59 Prochlorperazine Edisylate (Compazine) 5 mg PACU PRN PRN IV NAUSEA, MRX1; Start 11/24/18 at 07:00; Stop 11/24/18 at 19:00 Lactobacillus Rhamnosus (Culturelle) 1 cap BID PO Last administered on at 20:49; Start 11/23/18 at 21:00 Ondansetron HCl (Zofran) 8 mg PRN Q6HRS PRN IV NAUSEA/VOMITING Last administered on 11/23/18at 23:33; Start 11/23/18 at 23:30 Insulin Glargine (Lantus) 7 units 1X ONCE SQ Last administered on 11/24/18at 09 :37; Start 11/24/18 at 09:30; Stop 11/24/18 at 09:31; Status DC Insulin Human Lispro (HumaLOG) 5 units 1X ONCE SQ Last administered on at 09:38; Start 11/24/18 at 09:30; Stop 11/24/18 at 09:31; Status DC Fentanyl Citrate (Fentanyl 2ml Vial) 100 mcg STK-MED ONCE .ROUTE ; Start at 10:25; Stop 11/24/18 at 10:26; Status DC Propofol 20 ml @ As Directed STK-MED ONCE IV ; Start 11/24/18 at 10:25; Stop at 10:26; Status DC Dexamethasone Sodium Phosphate (Decadron) 20 mg STK-MED ONCE .ROUTE ; Start at 10:25; Stop 11/24/18 at 10:26; Status DC Lidocaine HCl (Lidocaine Pf 2% Vial) 5 ml STK-MED ONCE .ROUTE ; Start 11/24/18 at 10:25; Stop 11/24/18 at 10:26; Status DC Ondansetron HCl (Zofran) 4 mg STK-MED ONCE .ROUTE ; Start 11/24/18 at 10:25; Stop 11/24/18 at 10:26; Status DC Lidocaine HCl (Xylocaine 1% Pf 30ml Vial) 30 ml STK-MED ONCE .ROUTE ; Start at 09:32; Stop 11/24/18 at 10:32; Status DC Bupivacaine HCl (Sensorcaine Mpf 0.5%) 30 ml STK-MED ONCE .ROUTE ; Start at 09:32; Stop 11/24/18 at 10:32; Status DC Phenylephrine HCl (PHENYLEPHRINE in 0.9% NACL PF) 1 mg STK-MED ONCE IV ; Start 11/24/18 at 11:05; Stop 11/24/18 at 11:06; Status DC Active Scripts Active Cipro (Ciprofloxacin Hcl) 500 Mg Tablet 500 Mg PO BID 7 Days Hydrocodone-Apap 5-325 (Hydrocodone Bit/Acetaminophen) 1 Tab Tablet 1 Tab PO PRN Q6HRS PRN 7 Days Flomax (Tamsulosin Hcl) 0.4 Mg Cap.er.24h 0.4 Mg PO QHS 30 Days Aspirin Ec (Aspirin) 325 Mg Tablet.dr 1 Tab PO DAILY Levemir Flextouch (Insulin Detemir) 100 Unit/1 Ml Insuln.pen 15 Units SQ QHS Reported Tramadol Hcl 50 Mg Tablet 50 Mg PO PRN BID PRN Atorvastatin Calcium 20 Mg Tablet 20 Mg PO HS Levemir Flextouch (Insulin Detemir) 100 Unit/1 Ml Insuln.pen 15 Unit SQ QHS Novolog Flexpen (Insulin Aspart) 100 Unit/1 Ml Insuln.pen 10 Unit SQ TIDAC Protonix (Pantoprazole Sodium) 20 Mg Tablet.dr 40 Mg PO DAILY Lyrica (Pregabalin) 75 Mg Capsule 1 Cap PO BID Aspirin 325 Mg Tablet 1 Tab PO DAILY Carvedilol 12.5 Mg Tablet 12.5 Mg PO BID Ferrous Sulfate 325 Mg Tablet 1 Tab PO DAILYWBKFT Flomax (Tamsulosin Hcl) 0.4 Mg Cap.er.24h 1 Cap PO QHS Midodrine Hcl 5 Mg Tablet 5 Mg PO [id number] Midodrine Hcl 5 Mg Tablet 5 Mg PO [id number] Ferrous Sulfate 325 Mg Tablet 325 Mg PO DAILYWBKFT Protonix (Pantoprazole Sodium) 40 Mg Tablet.dr 1 Tab PO DAILY Novolog Flexpen (Insulin Aspart) 100 Unit/1 Ml Insuln.pen 10 Unit SQ TIDAC Lyrica (Pregabalin) 75 Mg Capsule 75 Mg PO BID Carvedilol (Carvedilol) 12.5 Mg Tablet 1 Tab PO BID Allergies Allergies: Coded Allergies: hydromorphone (Verified Allergy, Severe, Anaphylaxis, 11/23/18) Apnea and asystole, CODE BLUE Tolerates hydrocodone ertapenem (Verified Adverse Reaction, Severe, 11/23/18) Insomnia, confusion oxycodone (Verified Adverse Reaction, Mild, Nausea and Vomiting, 11/22/18) ROS General: No: Chills, Night Sweats, Fatigue, Malaise, Appetite, Other PSYCHOLOGICAL ROS: No: Anxiety, Behavioral Disorder, Concentration difficultie , Decreased libido, Depression, Disorientation, Hallucinations, Hostility, Irritablity, Memory difficulties, Mood Swings, Obsessive thoughts, Physical abuse, Sexual abuse, Sleep disturbances, Suicidal ideation, Other Eyes: No Blurry vision, No Decreased vision, No Double vision, No Dry eyes, No Excessive tearing, No Eye Pain, No Itchy Eyes, No Loss of vision, No Photophobia , No Scotomata, No Uses contacts, No Uses glasses, No Other HEENT: No: Heacaches, Visual Changes, Hearing change, Nasal congestion, Nasal discharge, Oral lesions, Sinus pain, Sore Throat, Epistaxis, Sneezing, Snoring, Tinnitus, Vertigo, Vocal changes, Other ALLERGY AND IMMUNOLOGY: No: Hives, Insect Bite Sensitivity, Itchy/Watery Eyes, Nasal Congestion, Post Nasal Drip, Seasonal Allergies, Other Hematological and Lymphatic: No: Bleeding Problems, Blood Clots, Blood Transfusions, Brusing, Night Sweats, Pallor, Swollen Lymph Nodes, Other Respiratory: No: Cough, Hemoptysis, Orthopnea, Pleuritic Pain, Shortness of breath, SOB with excertion, Sputum Changes, Stridor, Tachypnea, Wheezing, Other Cardiovascular: No Chest Pain, No Palpitations, No Orthopnea, No Paroxysmal Noc. Dyspnea, No Edema, No Lt Headedness, No Other Gastrointestinal: No Nausea, No Vomiting, No Abdominal Pain, No Diarrhea, No Constipation, No Melena, No Hematochezia, No Other Genitourinary: No Dysuria, No Frequency, No Incontinence, No Hematuria, No Retention, No Discharge, No Urgency, No Pain, No Flank Pain, No Other, No , No , No , No , No , No , No Musculoskeletal: No Gait Disturbance, No Joint Pain, No Joint Stiffness, No Joint Swelling, No Muscle Pain, No Muscular Weakness, No Pain In:, No Swelling In:, No Other Neurological: No Behavorial Changes, No Bowel/Bladder ControlChng, No Confusion , No Dizziness, No Gait Disturbance, No Headaches, No Impaired Coord/balance, No Memory Loss, No Numbness/Tingling, No Seizures, No Speech Problems, No Tremors, No Visual Changes, No Weakness, No Other Skin: No Dry Skin, No Eczema, No Hair Changes, No Lumps, No Mole Changes, No Mottling, No Nail Changes, No Pruritus, No Rash, No Skin Lesion Changes, No Other, No Acne Physical Exam General: Alert, Oriented X3 HEENT: Atraumatic, EOMI Lungs: Clear to auscultation, Normal air movement Heart: Regular rate Abdomen: Soft, No tenderness Extremities: No edema, Other (no edema but weak pulses bilaterally.) Neuro: Normal speech, Strength at 5/5 X4 ext, Sensation intact, Other ( decreased sensation bilateral feet, otherwise normal) Psych/Mental Status: Mental status NL, Mood NL MUSCULOSKELETAL: Other (he has approximately a 4 x 6 cm wound at his posterior calcaneal region his left side. There is black eschar covering it. No appreciable surrounding fluctuance or erythema.) Vitals VITALS Vital Signs Date Time Temp Pulse Resp B/P (MAP) Pulse Ox O2 Delivery O2 Flow Rate FiO2 11/24/18 10:18 97.4 79 15 201/79 96 Room Air 97.4 Labs Labs Laboratory Tests Test 11/22/18 17:30 11/22/18 17:49 11/22/18 21:07 11/23/18 06:10 White Blood Count 11.2 x10^3/uL (4.0-11.0) Red Blood Count 3.84 x10^6/uL (4.30-5.70) Hemoglobin 10.6 g/dL (13.0-17.5) Hematocrit 32.8 % (39.0-53.0) Mean Corpuscular Volume 85 fL (79-100) Mean Corpuscular Hemoglobin 28 pg (25-35) Mean Corpuscular Hemoglobin Concent 32 g/dL (31-37) Red Cell Distribution Width 16.6 % (11.5-14.5) Platelet Count 291 x10^3/uL (140-400) Neutrophils (%) (Auto) 78 % (31-73) Lymphocytes (%) (Auto) 14 % (24-48) Monocytes (%) (Auto) 6 % (0-9) Eosinophils (%) (Auto) 2 % (0-3) Basophils (%) (Auto) 0 % (0-3) Neutrophils # (Auto) 8.7 x10^3uL (1.8-7.7) Lymphocytes # (Auto) 1.5 x10^3/uL (1.0-4.8) Monocytes # (Auto) 0.7 x10^3/uL (0.0-1.1) Eosinophils # (Auto) 0.2 x10^3/uL (0.0-0.7) Basophils # (Auto) 0.0 x10^3/uL (0.0-0.2) Sodium Level 135 mmol/L (136-145) Potassium Level 4.8 mmol/L (3.5-5.1) Chloride Level 101 mmol/L (98-107) Carbon Dioxide Level 21 mmol/L (21-32) Anion Gap 13 (6-14) Blood Urea Nitrogen 43 mg/dL (8-26) Creatinine 1.6 mg/dL (0.7-1.3) Estimated GFR (Cockcroft-Gault) 43.9 BUN/Creatinine Ratio 27 (6-20) Glucose Level 366 mg/dL (70-99) Calcium Level 9.1 mg/dL (8.5-10.1) Total Bilirubin 1.0 mg/dL (0.2-1.0) Aspartate Amino Transf (AST/SGOT) 26 U/L (15-37) Alanine Aminotransferase (ALT/SGPT) 32 U/L (16-63) Alkaline Phosphatase 113 U/L (46-116) Total Protein 7.5 g/dL (6.4-8.2) Albumin 3.5 g/dL (3.4-5.0) Albumin/Globulin Ratio 0.9 (1.0-1.7) Glucose (Fingerstick) 351 mg/dL (70-99) 499 mg/dL (70-99) Erythrocyte Sedimentation Rate 32 (0-15) Test 11/23/18 07:48 11/23/18 10:33 11/23/18 12:44 11/23/18 13:11 Glucose (Fingerstick) 95 mg/dL (70-99) 97 mg/dL (70-99) 43 mg/dL (70-99) 99 mg/dL (70-99) Test 11/23/18 17:00 11/23/18 20:45 11/24/18 05:35 11/24/18 07:38 Glucose (Fingerstick) 250 mg/dL (70-99) 262 mg/dL (70-99) 364 mg/dL (70-99) White Blood Count 7.8 x10^3/uL (4.0-11.0) Red Blood Count 3.07 x10^6/uL (4.30-5.70) Hemoglobin 8.3 g/dL (13.0-17.5) Hematocrit 26.0 % (39.0-53.0) Mean Corpuscular Volume 85 fL (79-100) Mean Corpuscular Hemoglobin 27 pg (25-35) Mean Corpuscular Hemoglobin Concent 32 g/dL (31-37) Red Cell Distribution Width 16.9 % (11.5-14.5) Platelet Count 231 x10^3/uL (140-400) Neutrophils (%) (Auto) 70 % (31-73) Lymphocytes (%) (Auto) 16 % (24-48) Monocytes (%) (Auto) 8 % (0-9) Eosinophils (%) (Auto) 6 % (0-3) Basophils (%) (Auto) 1 % (0-3) Neutrophils # (Auto) 5.4 x10^3uL (1.8-7.7) Lymphocytes # (Auto) 1.3 x10^3/uL (1.0-4.8) Monocytes # (Auto) 0.6 x10^3/uL (0.0-1.1) Eosinophils # (Auto) 0.4 x10^3/uL (0.0-0.7) Basophils # (Auto) 0.1 x10^3/uL (0.0-0.2) Sodium Level 138 mmol/L (136-145) Potassium Level 4.9 mmol/L (3.5-5.1) Chloride Level 103 mmol/L (98-107) Carbon Dioxide Level 25 mmol/L (21-32) Anion Gap 10 (6-14) Blood Urea Nitrogen 29 mg/dL (8-26) Creatinine 1.8 mg/dL (0.7-1.3) Estimated GFR (Cockcroft-Gault) 38.3 Glucose Level 400 mg/dL (70-99) Calcium Level 8.3 mg/dL (8.5-10.1) Test 11/24/18 09:15 11/24/18 10:08 Glucose (Fingerstick) 416 mg/dL (70-99) 296 mg/dL (70-99) Laboratory Tests Test 11/23/18 12:44 11/23/18 13:11 11/23/18 17:00 11/23/18 20:45 Glucose (Fingerstick) 43 mg/dL (70-99) 99 mg/dL (70-99) 250 mg/dL (70-99) 262 mg/dL (70-99) Test 11/24/18 05:35 11/24/18 07:38 11/24/18 09:15 11/24/18 10:08 White Blood Count 7.8 x10^3/uL (4.0-11.0) Red Blood Count 3.07 x10^6/uL (4.30-5.70) Hemoglobin 8.3 g/dL (13.0-17.5) Hematocrit 26.0 % (39.0-53.0) Mean Corpuscular Volume 85 fL (79-100) Mean Corpuscular Hemoglobin 27 pg (25-35) Mean Corpuscular Hemoglobin Concent 32 g/dL (31-37) Red Cell Distribution Width 16.9 % (11.5-14.5) Platelet Count 231 x10^3/uL (140-400) Neutrophils (%) (Auto) 70 % (31-73) Lymphocytes (%) (Auto) 16 % (24-48) Monocytes (%) (Auto) 8 % (0-9) Eosinophils (%) (Auto) 6 % (0-3) Basophils (%) (Auto) 1 % (0-3) Neutrophils # (Auto) 5.4 x10^3uL (1.8-7.7) Lymphocytes # (Auto) 1.3 x10^3/uL (1.0-4.8) Monocytes # (Auto) 0.6 x10^3/uL (0.0-1.1) Eosinophils # (Auto) 0.4 x10^3/uL (0.0-0.7) Basophils # (Auto) 0.1 x10^3/uL (0.0-0.2) Sodium Level 138 mmol/L (136-145) Potassium Level 4.9 mmol/L (3.5-5.1) Chloride Level 103 mmol/L (98-107) Carbon Dioxide Level 25 mmol/L (21-32) Anion Gap 10 (6-14) Blood Urea Nitrogen 29 mg/dL (8-26) Creatinine 1.8 mg/dL (0.7-1.3) Estimated GFR (Cockcroft-Gault) 38.3 Glucose Level 400 mg/dL (70-99) Calcium Level 8.3 mg/dL (8.5-10.1) Glucose (Fingerstick) 364 mg/dL (70-99) 416 mg/dL (70-99) 296 mg/dL (70-99) Images Images Reviewed Assessment/Plan Assessment/Plan Left heel wound, chronic. I did discuss this patient with wound care. I will plan on performing irrigation and debridement and wound VAC application. He has healed a similar wound on his contralateral side with this treatment regimen, as well as hyperbaric treatments. I discussed with the patient and he would like to proceed. IVY SARMIENTO II, MD Nov 24, 2018 11:35
--- NOTE | 2018-11-24 11:42 | PDOC4 ---
Operative Note Operative Note Date of procedure: 11/24/2018 Surgeon: Johan Sarmiento Preoperative diagnosis: Chronic wound left heel Postoperative diagnosis: Same Procedure performed: Irrigation and debridement, skin and subcutaneous tissue, excisional Application of wound VAC to wound 6 x 7 cm Anesthesia: Gen. Blood loss: 5 mL Tourniquet time: None used Specimens: Tissue sent for routine cultures Findings: Wound did not call the way down to bone after debridement, intact periosteum. No gross purulence was encountered, there was necrotic debris superficially. Reason for procedure: Patient is very pleasant 63-year-old gentleman who is well -known to me. I was asked to see him in consultation after wound care and concerns over worsening appearance of his left heel wound have been treating. Please see my outpatient consult note for further details. I discussion of the risks, benefits, alternatives and he wished to proceed with surgery. Description of procedure: Patient was greeted in the preoperative area by myself for the correct extremity was verified and marked. He was taken to the operative suite, maintaining on his scheduled antibiotics. Once in the operating room, transferred gently supine to the operating room table and secured the bed with all pressure points padded. Nonsterile tourniquet was taped in place to his left upper thigh but not used. Betadine paint was used to scrub and prep his left lower extremity, we then draped in our usual sterile fashion and conducted our standard preoperative timeout. I then used a scalpel to debride the overlying eschar and edges of the wound. I encountered healthy appearing bleeding tissue. I used a Rominger to remove the necrotic tissue at the base of the wound. I continued with my Poncho debridement until I encountered healthy appearing tissue. After this, I irrigated out the wound with approximately 2000 L of sterile saline. I then inspected the wound, I used electrocautery to couple spots for hemostasis. I then continued on with my debridement followed by repeating my irrigation using a total of about 3000 mL. After this, I cut and fashion the wound VAC sponge to fit the defect and created a tract on the skin to connect the wound VAC over his anterior distal tibial region. I sealed this off and ensured it had a good seal on the wound VAC machine. I then used a Rominger to trim his toenails which were curving over and putting pressure on his skin. After this, he is awake from anesthesia and transferred gently supine to the hospital bed and taken to PACU in a stable and extubated condition. Postoperative plan is to readmitted to the floor under the care of his primary care provider. We will follow along with his postoperative course. Wound care will continue to see him for VAC changes. JOHAN SARMIENTO II, MD Nov 24, 2018 11:42
[2018-11-24] MEDS ORDERED: hydrALAZINE 20 MG/ML VIAL. ONE (12:13)
[2018-11-24] MEDS ORDERED: hydrALAZINE 20 MG/ML VIAL. IVP ONE (12:15)
[2018-11-24] MEDS ORDERED: HEPARIN for ARTERIAL LINE 1,500 ML ONE (12:37)
[2018-11-24] MEDS ORDERED: IODIXANOL 320 MG/ML 100 ML VIAL. ONE (12:37)
[2018-11-24] MEDS ORDERED: LIDOCAINE 1% Multi-Dose 20 ML VIAL. ONE (12:37)
[2018-11-24 15:00] VITALS: BP 128/58
--- NOTE | 2018-11-24 16:48 | PDOC ---
SURGICAL PROGRESS NOTE Subjective Doing well. No complaints today. Vital Signs Vital Signs Date Time Temp Pulse Resp B/P (MAP) Pulse Ox O2 Delivery O2 Flow Rate FiO2 11/24/18 16:38 97 Room Air 11/24/18 15:31 75 129/65 11/24/18 15:00 98.1 18 98.1 11/24/18 11:45 6 I&O Intake and Output 11/24/18 07:00 Intake Total 1950 ml Balance 1950 ml Intake Oral 600 ml IV Total 1350 ml # Voids 3 # Bowel Movements 1 General: Alert, Oriented X3, Cooperative Lungs: Clear to auscultation, Normal air movement Heart: Regular rate, Normal S1, Normal S2 Abdomen: Normal bowel sounds, Soft, No tenderness Skin: Other (Left heel wound with VAC in place. No evidence of cellulitis.) Labs Laboratory Tests Test 11/22/18 17:30 11/22/18 17:49 11/22/18 21:07 11/23/18 06:10 White Blood Count 11.2 x10^3/uL (4.0-11.0) Red Blood Count 3.84 x10^6/uL (4.30-5.70) Hemoglobin 10.6 g/dL (13.0-17.5) Hematocrit 32.8 % (39.0-53.0) Mean Corpuscular Volume 85 fL (79-100) Mean Corpuscular Hemoglobin 28 pg (25-35) Mean Corpuscular Hemoglobin Concent 32 g/dL (31-37) Red Cell Distribution Width 16.6 % (11.5-14.5) Platelet Count 291 x10^3/uL (140-400) Neutrophils (%) (Auto) 78 % (31-73) Lymphocytes (%) (Auto) 14 % (24-48) Monocytes (%) (Auto) 6 % (0-9) Eosinophils (%) (Auto) 2 % (0-3) Basophils (%) (Auto) 0 % (0-3) Neutrophils # (Auto) 8.7 x10^3uL (1.8-7.7) Lymphocytes # (Auto) 1.5 x10^3/uL (1.0-4.8) Monocytes # (Auto) 0.7 x10^3/uL (0.0-1.1) Eosinophils # (Auto) 0.2 x10^3/uL (0.0-0.7) Basophils # (Auto) 0.0 x10^3/uL (0.0-0.2) Sodium Level 135 mmol/L (136-145) Potassium Level 4.8 mmol/L (3.5-5.1) Chloride Level 101 mmol/L (98-107) Carbon Dioxide Level 21 mmol/L (21-32) Anion Gap 13 (6-14) Blood Urea Nitrogen 43 mg/dL (8-26) Creatinine 1.6 mg/dL (0.7-1.3) Estimated GFR (Cockcroft-Gault) 43.9 BUN/Creatinine Ratio 27 (6-20) Glucose Level 366 mg/dL (70-99) Calcium Level 9.1 mg/dL (8.5-10.1) Total Bilirubin 1.0 mg/dL (0.2-1.0) Aspartate Amino Transf (AST/SGOT) 26 U/L (15-37) Alanine Aminotransferase (ALT/SGPT) 32 U/L (16-63) Alkaline Phosphatase 113 U/L (46-116) Total Protein 7.5 g/dL (6.4-8.2) Albumin 3.5 g/dL (3.4-5.0) Albumin/Globulin Ratio 0.9 (1.0-1.7) Glucose (Fingerstick) 351 mg/dL (70-99) 499 mg/dL (70-99) Erythrocyte Sedimentation Rate 32 (0-15) Test 11/23/18 07:48 11/23/18 10:33 11/23/18 12:44 11/23/18 13:11 Glucose (Fingerstick) 95 mg/dL (70-99) 97 mg/dL (70-99) 43 mg/dL (70-99) 99 mg/dL (70-99) Test 11/23/18 17:00 11/23/18 20:45 11/24/18 05:35 11/24/18 07:38 Glucose (Fingerstick) 250 mg/dL (70-99) 262 mg/dL (70-99) 364 mg/dL (70-99) White Blood Count 7.8 x10^3/uL (4.0-11.0) Red Blood Count 3.07 x10^6/uL (4.30-5.70) Hemoglobin 8.3 g/dL (13.0-17.5) Hematocrit 26.0 % (39.0-53.0) Mean Corpuscular Volume 85 fL (79-100) Mean Corpuscular Hemoglobin 27 pg (25-35) Mean Corpuscular Hemoglobin Concent 32 g/dL (31-37) Red Cell Distribution Width 16.9 % (11.5-14.5) Platelet Count 231 x10^3/uL (140-400) Neutrophils (%) (Auto) 70 % (31-73) Lymphocytes (%) (Auto) 16 % (24-48) Monocytes (%) (Auto) 8 % (0-9) Eosinophils (%) (Auto) 6 % (0-3) Basophils (%) (Auto) 1 % (0-3) Neutrophils # (Auto) 5.4 x10^3uL (1.8-7.7) Lymphocytes # (Auto) 1.3 x10^3/uL (1.0-4.8) Monocytes # (Auto) 0.6 x10^3/uL (0.0-1.1) Eosinophils # (Auto) 0.4 x10^3/uL (0.0-0.7) Basophils # (Auto) 0.1 x10^3/uL (0.0-0.2) Sodium Level 138 mmol/L (136-145) Potassium Level 4.9 mmol/L (3.5-5.1) Chloride Level 103 mmol/L (98-107) Carbon Dioxide Level 25 mmol/L (21-32) Anion Gap 10 (6-14) Blood Urea Nitrogen 29 mg/dL (8-26) Creatinine 1.8 mg/dL (0.7-1.3) Estimated GFR (Cockcroft-Gault) 38.3 Glucose Level 400 mg/dL (70-99) Calcium Level 8.3 mg/dL (8.5-10.1) Test 11/24/18 09:15 11/24/18 10:08 11/24/18 11:51 Glucose (Fingerstick) 416 mg/dL (70-99) 296 mg/dL (70-99) 185 mg/dL (70-99) Laboratory Tests Test 11/23/18 17:00 11/23/18 20:45 11/24/18 05:35 11/24/18 07:38 Glucose (Fingerstick) 250 mg/dL (70-99) 262 mg/dL (70-99) 364 mg/dL (70-99) White Blood Count 7.8 x10^3/uL (4.0-11.0) Red Blood Count 3.07 x10^6/uL (4.30-5.70) Hemoglobin 8.3 g/dL (13.0-17.5) Hematocrit 26.0 % (39.0-53.0) Mean Corpuscular Volume 85 fL (79-100) Mean Corpuscular Hemoglobin 27 pg (25-35) Mean Corpuscular Hemoglobin Concent 32 g/dL (31-37) Red Cell Distribution Width 16.9 % (11.5-14.5) Platelet Count 231 x10^3/uL (140-400) Neutrophils (%) (Auto) 70 % (31-73) Lymphocytes (%) (Auto) 16 % (24-48) Monocytes (%) (Auto) 8 % (0-9) Eosinophils (%) (Auto) 6 % (0-3) Basophils (%) (Auto) 1 % (0-3) Neutrophils # (Auto) 5.4 x10^3uL (1.8-7.7) Lymphocytes # (Auto) 1.3 x10^3/uL (1.0-4.8) Monocytes # (Auto) 0.6 x10^3/uL (0.0-1.1) Eosinophils # (Auto) 0.4 x10^3/uL (0.0-0.7) Basophils # (Auto) 0.1 x10^3/uL (0.0-0.2) Sodium Level 138 mmol/L (136-145) Potassium Level 4.9 mmol/L (3.5-5.1) Chloride Level 103 mmol/L (98-107) Carbon Dioxide Level 25 mmol/L (21-32) Anion Gap 10 (6-14) Blood Urea Nitrogen 29 mg/dL (8-26) Creatinine 1.8 mg/dL (0.7-1.3) Estimated GFR (Cockcroft-Gault) 38.3 Glucose Level 400 mg/dL (70-99) Calcium Level 8.3 mg/dL (8.5-10.1) Test 11/24/18 09:15 11/24/18 10:08 11/24/18 11:51 Glucose (Fingerstick) 416 mg/dL (70-99) 296 mg/dL (70-99) 185 mg/dL (70-99) Assessment/Plan Atherosclerosis with gangrene left--Angiogram cancelled today due to other emergency. Rescheduled for next week 11/30 0830. Discussed with patient. All questions answered. ISABEL RODRIGUEZ DO Nov 24, 2018 16:48
[2018-11-24 19:00] VITALS: BP 135/70
[2018-11-24] MEDS: TAMSULOSIN 0.4 MG CAP.ER.24H. PO SCH (20:29)
[2018-11-24] MEDS: ATORVASTATIN CALCIUM 20 MG TABLET PO SCH (20:29)
[2018-11-24] MEDS: traMADol 50 MG TABLET PO PRN (20:30)
[2018-11-24] MEDS: INSULIN GLARGINE 300 UNITS/3 ML INSULN.PEN. SQ SCH (22:20)
[2018-11-24 23:00] VITALS: BP 137/66
[2018-11-25 03:00] VITALS: BP 169/83
[2018-11-25] MEDS: PIPERACILLIN/TAZOBACTAM 3.375 GM in IV NORMAL SALINE 50ML 50 ML IV SCH ×3 (05:29→22:34)
[2018-11-25] MEDS: HYDROcodone/APAP 5/325MG 1 TAB TABLET PO PRN ×3 (05:31→19:53)
[2018-11-25 05:41] LABS: BASO % 0 % (0-3); EOS % 1 % (0-3); HEMATOCRIT 25.3 % (39.0-53.0); HEMOGLOBIN 8.3 g/dL (13.0-17.5); LYMPH # 1.2 x10^3/uL (1.0-4.8); LYMPH % 14 % (24-48); MEAN CORPUSCULAR HEMOGLOBIN 28 pg (25-35); MEAN CORPUSCULAR HGB CONC 33 g/dL (31-37); MEAN CORPUSCULAR VOLUME 84 fL (79-100); MONO # 0.6 x10^3/uL (0.0-1.1); MONO % 7 % (0-9); NEUT # 6.8 x10^3uL (1.8-7.7); NEUT % 78 % (31-73); PLATELET COUNT 220 x10^3/uL (140-400); RED BLOOD COUNT 3.01 x10^6/uL (4.30-5.70); RED CELL DISTRIBUTION WIDTH 16.8 % (11.5-14.5); WHITE BLOOD COUNT 8.6 x10^3/uL (4.0-11.0)
[2018-11-25 05:53] LABS: CALCIUM 8.4 mg/dL (8.5-10.1); CREATININE 1.8 mg/dL (0.7-1.3); GFR 38.3; POTASSIUM 4.3 mmol/L (3.5-5.1)
[2018-11-25 07:00] VITALS: BP 161/56
[2018-11-25] MEDS: LACTOBACILLUS RHAMNOSUS GG 1 CAPSULE. PO SCH ×2 (08:02→20:54)
[2018-11-25] MEDS: ASPIRIN 325 MG TABLET PO SCH (08:02)
[2018-11-25] MEDS: FERROUS SULFATE 325 MG TABLET. PO SCH (08:02)
[2018-11-25] MEDS: CARVEDILOL 12.5 MG TABLET. PO SCH ×2 (08:02→20:55)
[2018-11-25] MEDS: hydrALAZINE 25 MG TABLET PO SCH ×3 (08:03→20:55)
[2018-11-25] MEDS: MIDODRINE 5 MG TABLET PO SCH ×3 (08:05→17:18)
[2018-11-25] MEDS: PANTOPRAZOLE 40 MG TABLET.DR. PO SCH (08:05)
[2018-11-25] MEDS: PREGABALIN 75 MG CAPSULE PO SCH ×2 (08:06→20:54)
--- NOTE | 2018-11-25 08:11 | PDOC ---
PROGRESS NOTES Subjective Subjective feels ok,had surgical debridement of heal ulcer yesterday Objective Objective Vital Signs Date Time Temp Pulse Resp B/P (MAP) Pulse Ox O2 Delivery O2 Flow Rate FiO2 11/25/18 06:31 Room Air 11/25/18 03:00 97.8 78 18 169/83 (111) 98 97.8 11/24/18 11:45 6 Intake and Output 11/25/18 07:00 Intake Total 1160 ml Output Total 305 ml Balance 855 ml Intake Oral 1160 ml Output Urine Total 300 ml Estimated Blood Loss 5 ml # Voids 5 Physical Exam Abdomen: Normal bowel sounds, Soft, No tenderness Heart: Regular rate, Normal S1, Normal S2 Extremities: No edema, Other (no edema but weak pulses bilaterally.) General: Alert, Oriented X3, Cooperative HEENT: Atraumatic, EOMI Lungs: Clear to auscultation, Normal air movement MUSCULOSKELETAL: Other (he has approximately a 4 x 6 cm wound at his posterior calcaneal region his left side. There is black eschar covering it. No appreciable surrounding fluctuance or erythema.) Neuro: Normal speech, Strength at 5/5 X4 ext, Sensation intact, Other ( decreased sensation bilateral feet, otherwise normal) Psych/Mental Status: Mental status NL, Mood NL Skin: Other (Left heel wound with VAC in place. No evidence of cellulitis.) Assessment Assessment FINAL IMPRESSION: 1. Left heel ulcer, over Achillis tendon and calcaneus , not improving even with the outpatient treatment. Possible osteomyelitis of the calcaneus.CT scan and bone scan suggestive of osteo. 2. Peripheral vascular disease with diabetes. 3. Insulin-dependent diabetes. 4. Coronary artery disease, previous angioplasty, stent. 5. Chronic systolic heart failure. 6. Pacemaker for sick sinus syndrome. 7. Hypertension. 8. Hyperlipidemia. 9. 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 CRF stage 3, cr 1.6-1.8 PLAN: POD#1 lt heal ulcer. d/v iv fluids surgical debridement today. arteriogram today monitor kidney function.1.8 today. IV antibiotics. At this time was admitted to hospital. Wound culture, IV antibiotics. ID was consulted. The patient is scheduled to see Vascular as well as Orthopedics, scheduled to have a surgical debridement of the heel ulcer and possible arteriogram to look at the circulation. In the meantime, the patient was placed in a PICC line for long-term IV antibiotics. Comment Review of Relevant I have reviewed the following items luís (where applicable) has been applied. Labs Laboratory Tests Test 11/24/18 09:15 11/24/18 10:08 11/24/18 11:51 11/24/18 16:46 Glucose (Fingerstick) 416 mg/dL (70-99) 296 mg/dL (70-99) 185 mg/dL (70-99) 223 mg/dL (70-99) Test 11/24/18 21:03 11/25/18 05:15 Glucose (Fingerstick) 243 mg/dL (70-99) White Blood Count 8.6 x10^3/uL (4.0-11.0) Red Blood Count 3.01 x10^6/uL (4.30-5.70) Hemoglobin 8.3 g/dL (13.0-17.5) Hematocrit 25.3 % (39.0-53.0) Mean Corpuscular Volume 84 fL (79-100) Mean Corpuscular Hemoglobin 28 pg (25-35) Mean Corpuscular Hemoglobin Concent 33 g/dL (31-37) Red Cell Distribution Width 16.8 % (11.5-14.5) Platelet Count 220 x10^3/uL (140-400) Neutrophils (%) (Auto) 78 % (31-73) Lymphocytes (%) (Auto) 14 % (24-48) Monocytes (%) (Auto) 7 % (0-9) Eosinophils (%) (Auto) 1 % (0-3) Basophils (%) (Auto) 0 % (0-3) Neutrophils # (Auto) 6.8 x10^3uL (1.8-7.7) Lymphocytes # (Auto) 1.2 x10^3/uL (1.0-4.8) Monocytes # (Auto) 0.6 x10^3/uL (0.0-1.1) Eosinophils # (Auto) 0.0 x10^3/uL (0.0-0.7) Basophils # (Auto) 0.0 x10^3/uL (0.0-0.2) Sodium Level 136 mmol/L (136-145) Potassium Level 4.3 mmol/L (3.5-5.1) Chloride Level 102 mmol/L (98-107) Carbon Dioxide Level 26 mmol/L (21-32) Anion Gap 8 (6-14) Blood Urea Nitrogen 21 mg/dL (8-26) Creatinine 1.8 mg/dL (0.7-1.3) Estimated GFR (Cockcroft-Gault) 38.3 Glucose Level 304 mg/dL (70-99) Calcium Level 8.4 mg/dL (8.5-10.1) Medications Current Medications Bupivacaine HCl (Sensorcaine Mpf 0.5%) 30 ml STK-MED ONCE .ROUTE ; Start at 09:32; Stop 11/24/18 at 10:32; Status DC Dexamethasone Sodium Phosphate (Decadron) 20 mg STK-MED ONCE .ROUTE ; Start at 10:25; Stop 11/24/18 at 10:26; Status DC Fentanyl Citrate (Fentanyl 2ml Vial) 50 mcg 1X ONCE IV Last administered on at 11:50; Start 11/24/18 at 11:32; Stop 11/24/18 at 12:58; Status DC Fentanyl Citrate (Fentanyl 2ml Vial) 100 mcg STK-MED ONCE .ROUTE ; Start at 10:25; Stop 11/24/18 at 10:26; Status DC Fentanyl Citrate (Fentanyl 2ml Vial) 100 mcg STK-MED ONCE .ROUTE ; Start at 12:48; Stop 11/24/18 at 12:49; Status DC Heparin Sodium/ Sodium Chloride 1,500 ml @ As Directed STK-MED ONCE .ROUTE ; Start 11/24/18 at 12:37; Stop 11/24/18 at 12:38; Status DC Hydralazine HCl (Apresoline Inj) 10 mg 1X ONCE IVP Last administered on at 12:17; Start 11/24/18 at 12:15; Stop 11/24/18 at 12:16; Status DC Hydralazine HCl (Apresoline Inj) 20 mg STK-MED ONCE .ROUTE ; Start 11/24/18 at 12:13; Stop 11/24/18 at 12:14; Status DC Insulin Glargine (Lantus) 7 units 1X ONCE SQ Last administered on 11/24/18at 09 :37; Start 11/24/18 at 09:30; Stop 11/24/18 at 09:31; Status DC Insulin Human Lispro (HumaLOG) 5 units 1X ONCE SQ Last administered on at 09:38; Start 11/24/18 at 09:30; Stop 11/24/18 at 09:31; Status DC Iodixanol (Visipaque 320) 100 ml STK-MED ONCE .ROUTE ; Start 11/24/18 at 12:37; Stop 11/24/18 at 12:38; Status DC Lidocaine HCl (Lidocaine 1% 20ml Vial) 20 ml STK-MED ONCE .ROUTE ; Start at 12:37; Stop 11/24/18 at 12:38; Status DC Lidocaine HCl (Lidocaine Pf 2% Vial) 5 ml STK-MED ONCE .ROUTE ; Start 11/24/18 at 10:25; Stop 11/24/18 at 10:26; Status DC Lidocaine HCl (Xylocaine 1% Pf 30ml Vial) 30 ml STK-MED ONCE .ROUTE ; Start at 09:32; Stop 11/24/18 at 10:32; Status DC Ondansetron HCl (Zofran) 4 mg STK-MED ONCE .ROUTE ; Start 11/24/18 at 10:25; Stop 11/24/18 at 10:26; Status DC Phenylephrine HCl (PHENYLEPHRINE in 0.9% NACL PF) 1 mg STK-MED ONCE IV ; Start 11/24/18 at 11:05; Stop 11/24/18 at 11:06; Status DC Propofol 20 ml @ As Directed STK-MED ONCE IV ; Start 11/24/18 at 10:25; Stop at 10:26; Status DC Vancomycin HCl (Vancomycin Trough Level) 1 each 1X ONCE MC ; Start 11/24/18 at 23:00; Stop 11/24/18 at 23:01; Status Cancel Vitals/I & O Vital Sign - Last 24 Hours 11/24/18 11/24/18 11/24/18 11/24/18 08:15 10:18 11:33 11:45 Temp 97.4 98.2 97.4 98.2 Pulse 79 67 Resp 15 B/P (MAP) 201/79 201/79 Pulse Ox 96 96 O2 Delivery Room Air Room Air Room Air Mask O2 Flow Rate 6 11/24/18 11/24/18 11/24/18 11/24/18 11:48 11:50 12:03 12:17 Temp 98.2 98.2 98.2 98.2 Pulse 69 72 70 Resp 17 18 18 B/P (MAP) 159/71 179/79 184/81 Pulse Ox 94 97 96 O2 Delivery Room Air Room Air Room Air 11/24/18 11/24/18 11/24/18 11/24/18 12:18 12:33 12:48 15:00 Temp 98.2 97.6 97.6 98.1 98.2 97.6 97.6 98.1 Pulse 70 74 75 71 Resp 18 18 18 18 B/P (MAP) 191/87 155/70 129/65 128/58 (81) Pulse Ox 96 97 97 97 O2 Delivery Room Air Room Air Room Air Room Air 11/24/18 11/24/18 11/24/18 11/24/18 15:31 15:31 16:38 17:02 Pulse 75 75 B/P (MAP) 129/65 129/65 Pulse Ox 97 97 O2 Delivery Room Air 11/24/18 11/24/18 11/24/18 11/24/18 19:00 20:00 20:30 20:30 Temp 98.0 98.0 Pulse 82 82 82 Resp 20 B/P (MAP) 135/70 (91) 135/70 135/70 Pulse Ox 98 O2 Delivery Room Air Room Air 11/24/18 11/24/18 11/24/18 11/24/18 20:30 21:30 22:14 23:00 Temp 98.2 98.2 Pulse 76 Resp 18 B/P (MAP) 137/66 (89) Pulse Ox 97 O2 Delivery Room Air Room Air Room Air Room Air 11/25/18 11/25/18 11/25/18 03:00 05:31 06:31 Temp 97.8 97.8 Pulse 78 Resp 18 B/P (MAP) 169/83 (111) Pulse Ox 98 O2 Delivery Room Air Room Air Room Air Intake and Output 11/24/18 11/24/18 11/25/18 15:00 23:00 07:00 Intake Total 360 ml 200 ml 600 ml Output Total 5 ml 300 ml Balance 355 ml 200 ml 300 ml KODURI,VINAYA K MD Nov 25, 2018 08:11
[2018-11-25] MEDS: INSULIN LISPRO 300 UNITS/3 ML INSULN.PEN. SQ SCH ×3 (08:13→17:00)
--- NOTE | 2018-11-25 08:28 | PDOC ---
ORTHO PROGRESS NOTES Subjective Patient is comfortable. No complaints. Vitals Vital Signs Date Time Temp Pulse Resp B/P (MAP) Pulse Ox O2 Delivery O2 Flow Rate FiO2 11/25/18 08:05 72 161/56 11/25/18 06:31 Room Air 11/25/18 03:00 97.8 18 98 97.8 11/24/18 11:45 6 Labs Laboratory Tests Test 11/23/18 10:33 11/23/18 12:44 11/23/18 13:11 11/23/18 17:00 Glucose (Fingerstick) 97 mg/dL (70-99) 43 mg/dL (70-99) 99 mg/dL (70-99) 250 mg/dL (70-99) Test 11/23/18 20:45 11/24/18 05:35 11/24/18 07:38 11/24/18 09:15 Glucose (Fingerstick) 262 mg/dL (70-99) 364 mg/dL (70-99) 416 mg/dL (70-99) White Blood Count 7.8 x10^3/uL (4.0-11.0) Red Blood Count 3.07 x10^6/uL (4.30-5.70) Hemoglobin 8.3 g/dL (13.0-17.5) Hematocrit 26.0 % (39.0-53.0) Mean Corpuscular Volume 85 fL (79-100) Mean Corpuscular Hemoglobin 27 pg (25-35) Mean Corpuscular Hemoglobin Concent 32 g/dL (31-37) Red Cell Distribution Width 16.9 % (11.5-14.5) Platelet Count 231 x10^3/uL (140-400) Neutrophils (%) (Auto) 70 % (31-73) Lymphocytes (%) (Auto) 16 % (24-48) Monocytes (%) (Auto) 8 % (0-9) Eosinophils (%) (Auto) 6 % (0-3) Basophils (%) (Auto) 1 % (0-3) Neutrophils # (Auto) 5.4 x10^3uL (1.8-7.7) Lymphocytes # (Auto) 1.3 x10^3/uL (1.0-4.8) Monocytes # (Auto) 0.6 x10^3/uL (0.0-1.1) Eosinophils # (Auto) 0.4 x10^3/uL (0.0-0.7) Basophils # (Auto) 0.1 x10^3/uL (0.0-0.2) Sodium Level 138 mmol/L (136-145) Potassium Level 4.9 mmol/L (3.5-5.1) Chloride Level 103 mmol/L (98-107) Carbon Dioxide Level 25 mmol/L (21-32) Anion Gap 10 (6-14) Blood Urea Nitrogen 29 mg/dL (8-26) Creatinine 1.8 mg/dL (0.7-1.3) Estimated GFR (Cockcroft-Gault) 38.3 Glucose Level 400 mg/dL (70-99) Calcium Level 8.3 mg/dL (8.5-10.1) Test 11/24/18 10:08 11/24/18 11:51 11/24/18 16:46 11/24/18 21:03 Glucose (Fingerstick) 296 mg/dL (70-99) 185 mg/dL (70-99) 223 mg/dL (70-99) 243 mg/dL (70-99) Test 11/25/18 05:15 White Blood Count 8.6 x10^3/uL (4.0-11.0) Red Blood Count 3.01 x10^6/uL (4.30-5.70) Hemoglobin 8.3 g/dL (13.0-17.5) Hematocrit 25.3 % (39.0-53.0) Mean Corpuscular Volume 84 fL (79-100) Mean Corpuscular Hemoglobin 28 pg (25-35) Mean Corpuscular Hemoglobin Concent 33 g/dL (31-37) Red Cell Distribution Width 16.8 % (11.5-14.5) Platelet Count 220 x10^3/uL (140-400) Neutrophils (%) (Auto) 78 % (31-73) Lymphocytes (%) (Auto) 14 % (24-48) Monocytes (%) (Auto) 7 % (0-9) Eosinophils (%) (Auto) 1 % (0-3) Basophils (%) (Auto) 0 % (0-3) Neutrophils # (Auto) 6.8 x10^3uL (1.8-7.7) Lymphocytes # (Auto) 1.2 x10^3/uL (1.0-4.8) Monocytes # (Auto) 0.6 x10^3/uL (0.0-1.1) Eosinophils # (Auto) 0.0 x10^3/uL (0.0-0.7) Basophils # (Auto) 0.0 x10^3/uL (0.0-0.2) Sodium Level 136 mmol/L (136-145) Potassium Level 4.3 mmol/L (3.5-5.1) Chloride Level 102 mmol/L (98-107) Carbon Dioxide Level 26 mmol/L (21-32) Anion Gap 8 (6-14) Blood Urea Nitrogen 21 mg/dL (8-26) Creatinine 1.8 mg/dL (0.7-1.3) Estimated GFR (Cockcroft-Gault) 38.3 Glucose Level 304 mg/dL (70-99) Calcium Level 8.4 mg/dL (8.5-10.1) Laboratory Tests Test 11/24/18 09:15 11/24/18 10:08 11/24/18 11:51 11/24/18 16:46 Glucose (Fingerstick) 416 mg/dL (70-99) 296 mg/dL (70-99) 185 mg/dL (70-99) 223 mg/dL (70-99) Test 11/24/18 21:03 11/25/18 05:15 Glucose (Fingerstick) 243 mg/dL (70-99) White Blood Count 8.6 x10^3/uL (4.0-11.0) Red Blood Count 3.01 x10^6/uL (4.30-5.70) Hemoglobin 8.3 g/dL (13.0-17.5) Hematocrit 25.3 % (39.0-53.0) Mean Corpuscular Volume 84 fL (79-100) Mean Corpuscular Hemoglobin 28 pg (25-35) Mean Corpuscular Hemoglobin Concent 33 g/dL (31-37) Red Cell Distribution Width 16.8 % (11.5-14.5) Platelet Count 220 x10^3/uL (140-400) Neutrophils (%) (Auto) 78 % (31-73) Lymphocytes (%) (Auto) 14 % (24-48) Monocytes (%) (Auto) 7 % (0-9) Eosinophils (%) (Auto) 1 % (0-3) Basophils (%) (Auto) 0 % (0-3) Neutrophils # (Auto) 6.8 x10^3uL (1.8-7.7) Lymphocytes # (Auto) 1.2 x10^3/uL (1.0-4.8) Monocytes # (Auto) 0.6 x10^3/uL (0.0-1.1) Eosinophils # (Auto) 0.0 x10^3/uL (0.0-0.7) Basophils # (Auto) 0.0 x10^3/uL (0.0-0.2) Sodium Level 136 mmol/L (136-145) Potassium Level 4.3 mmol/L (3.5-5.1) Chloride Level 102 mmol/L (98-107) Carbon Dioxide Level 26 mmol/L (21-32) Anion Gap 8 (6-14) Blood Urea Nitrogen 21 mg/dL (8-26) Creatinine 1.8 mg/dL (0.7-1.3) Estimated GFR (Cockcroft-Gault) 38.3 Glucose Level 304 mg/dL (70-99) Calcium Level 8.4 mg/dL (8.5-10.1) Notes He is awake and alert and lying in bed. Wound VAC is in place with a good seal. Heel is offloaded. Assessment and Plan Wound VAC care per the wound care team. Antibiotics per infectious disease. We will await the results of vascular studies. IVY SARMIENTO II, MD Nov 25, 2018 08:28
--- NOTE | 2018-11-25 10:10 | PDOC ---
Infectious Disease Note Subjective Subjective pt is feeling good, had I and D yesterday ROS ROS no n/v/d/ Vital Sign Vital Signs Vital Signs Date Time Temp Pulse Resp B/P (MAP) Pulse Ox O2 Delivery O2 Flow Rate FiO2 11/25/18 08:05 72 161/56 11/25/18 08:00 Room Air 11/25/18 07:00 98.0 18 97 2.0 98.0 Physical Exam PHYSICAL EXAM GENERAL: Alert, oriented gentleman, not in any distress. VITAL SIGNS: Stable, afebrile. HEENT: NAD. NECK: Supple, no JVP, no lymphadenopathy. LUNGS: Clear. HEART: S1, S2 regular. ABDOMEN: Benign. EXTREMITIES: Thin legs with no muscle mass. Dorsalis pedis is palpable. He does have a calcaneal wound vac now NEUROLOGIC: The patient is alert, awake, no focal neurologic deficit. Labs Lab Laboratory Tests Test 11/24/18 10:08 11/24/18 11:51 11/24/18 16:46 11/24/18 21:03 Glucose (Fingerstick) 296 mg/dL (70-99) 185 mg/dL (70-99) 223 mg/dL (70-99) 243 mg/dL (70-99) Test 11/25/18 05:15 White Blood Count 8.6 x10^3/uL (4.0-11.0) Red Blood Count 3.01 x10^6/uL (4.30-5.70) Hemoglobin 8.3 g/dL (13.0-17.5) Hematocrit 25.3 % (39.0-53.0) Mean Corpuscular Volume 84 fL (79-100) Mean Corpuscular Hemoglobin 28 pg (25-35) Mean Corpuscular Hemoglobin Concent 33 g/dL (31-37) Red Cell Distribution Width 16.8 % (11.5-14.5) Platelet Count 220 x10^3/uL (140-400) Neutrophils (%) (Auto) 78 % (31-73) Lymphocytes (%) (Auto) 14 % (24-48) Monocytes (%) (Auto) 7 % (0-9) Eosinophils (%) (Auto) 1 % (0-3) Basophils (%) (Auto) 0 % (0-3) Neutrophils # (Auto) 6.8 x10^3uL (1.8-7.7) Lymphocytes # (Auto) 1.2 x10^3/uL (1.0-4.8) Monocytes # (Auto) 0.6 x10^3/uL (0.0-1.1) Eosinophils # (Auto) 0.0 x10^3/uL (0.0-0.7) Basophils # (Auto) 0.0 x10^3/uL (0.0-0.2) Sodium Level 136 mmol/L (136-145) Potassium Level 4.3 mmol/L (3.5-5.1) Chloride Level 102 mmol/L (98-107) Carbon Dioxide Level 26 mmol/L (21-32) Anion Gap 8 (6-14) Blood Urea Nitrogen 21 mg/dL (8-26) Creatinine 1.8 mg/dL (0.7-1.3) Estimated GFR (Cockcroft-Gault) 38.3 Glucose Level 304 mg/dL (70-99) Calcium Level 8.4 mg/dL (8.5-10.1) Objective Assessment Left calcaneal wound,, CT + for osteo DM HTN CAD Pacemaker Renal insufficiency Plan Plan of Care zyvox cont zosyn supportive care await culture results would treat as osteo with iv , 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
[2018-11-25 11:00] VITALS: BP 111/54
[2018-11-25 15:00] VITALS: BP 98/42
[2018-11-25] MEDS: ONDANSETRON PF 4 MG/2 ML VIAL. IV PRN (15:15)
[2018-11-25 19:00] VITALS: BP 118/44
[2018-11-25] MEDS: TAMSULOSIN 0.4 MG CAP.ER.24H. PO SCH (20:54)
[2018-11-25] MEDS: ATORVASTATIN CALCIUM 20 MG TABLET PO SCH (20:54)
[2018-11-25] MEDS: INSULIN GLARGINE 300 UNITS/3 ML INSULN.PEN. SQ SCH (21:00)
[2018-11-25 23:00] VITALS: BP 159/54
[2018-11-26 00:09] LABS: HEMOGLOBIN A1C 10.7 % (4.8-5.6)
[2018-11-26] MEDS: HYDROcodone/APAP 5/325MG 1 TAB TABLET PO PRN ×4 (01:53→20:52)
[2018-11-26 02:58] VITALS: BP 152/64
[2018-11-26 04:28] LABS: BASO # 0.1 x10^3/uL (0.0-0.2); BASO % 1 % (0-3); EOS # 0.3 x10^3/uL (0.0-0.7); EOS % 5 % (0-3); HEMOGLOBIN 8.1 g/dL (13.0-17.5); LYMPH # 1.8 x10^3/uL (1.0-4.8); LYMPH % 24 % (24-48); MEAN CORPUSCULAR HEMOGLOBIN 27 pg (25-35); MEAN CORPUSCULAR HGB CONC 32 g/dL (31-37); MEAN CORPUSCULAR VOLUME 85 fL (79-100); MONO # 0.6 x10^3/uL (0.0-1.1); MONO % 8 % (0-9); NEUT # 4.7 x10^3uL (1.8-7.7); NEUT % 62 % (31-73); PLATELET COUNT 220 x10^3/uL (140-400); RED BLOOD COUNT 2.95 x10^6/uL (4.30-5.70); RED CELL DISTRIBUTION WIDTH 16.9 % (11.5-14.5); WHITE BLOOD COUNT 7.5 x10^3/uL (4.0-11.0)
[2018-11-26 04:42] LABS: CALCIUM 8.3 mg/dL (8.5-10.1); CREATININE 2.3 mg/dL (0.7-1.3); GFR 28.9; POTASSIUM 3.9 mmol/L (3.5-5.1)
[2018-11-26] MEDS: PIPERACILLIN/TAZOBACTAM 3.375 GM in IV NORMAL SALINE 50ML 50 ML IV SCH ×3 (05:48→20:52)
[2018-11-26] MEDS ORDERED: ALTEPLASE 1MG SYRINGE. INT CAT ONE (06:30)
[2018-11-26] MEDS: MIDODRINE 5 MG TABLET PO SCH ×3 (06:48→17:01)
[2018-11-26 07:00] VITALS: BP 172/68
[2018-11-26] MEDS: CARVEDILOL 12.5 MG TABLET. PO SCH ×2 (08:27→20:51)
[2018-11-26] MEDS: FERROUS SULFATE 325 MG TABLET. PO SCH (08:27)
[2018-11-26] MEDS: ASPIRIN 325 MG TABLET PO SCH (08:27)
[2018-11-26] MEDS: hydrALAZINE 25 MG TABLET PO SCH ×3 (08:27→20:52)
[2018-11-26] MEDS: PREGABALIN 75 MG CAPSULE PO SCH ×2 (08:28→20:51)
[2018-11-26] MEDS: LACTOBACILLUS RHAMNOSUS GG 1 CAPSULE. PO SCH ×2 (08:28→20:51)
[2018-11-26] MEDS: PANTOPRAZOLE 40 MG TABLET.DR. PO SCH (08:29)
[2018-11-26] MEDS: INSULIN LISPRO 300 UNITS/3 ML INSULN.PEN. SQ SCH ×3 (08:38→17:00)
[2018-11-26 11:00] VITALS: BP 143/62
--- NOTE | 2018-11-26 11:01 | PDOC ---
Infectious Disease Note Subjective Subjective Comfortable, feeling alright Pain controlled NO F/C/S/N/V/D/SOA Vital Sign Vital Signs Vital Signs Date Time Temp Pulse Resp B/P (MAP) Pulse Ox O2 Delivery O2 Flow Rate FiO2 11/26/18 10:41 96 Room Air 2.0 11/26/18 08:27 69 175/63 11/26/18 07:00 97.6 17 97.6 Physical Exam PHYSICAL EXAM GENERAL: Propped up in bed, alert, joking HEENT: Oral cavity clear NECK: Supple LUNGS: Clear. HEART: S1, S2 pacemaker ABDOMEN: Soft and nontender EXTREMITIES: Thin legs with no muscle mass. Dorsalis pedis is palpable. Left calcaneal wound vac in place SKIN: No rash NEUROLOGIC: Alert and oriented E-PIC clean Labs Lab Laboratory Tests Test 11/25/18 13:41 11/25/18 16:40 11/25/18 20:43 11/26/18 04:15 Glucose (Fingerstick) 131 mg/dL (70-99) 92 mg/dL (70-99) 187 mg/dL (70-99) White Blood Count 7.5 x10^3/uL (4.0-11.0) Red Blood Count 2.95 x10^6/uL (4.30-5.70) Hemoglobin 8.1 g/dL (13.0-17.5) Hematocrit 25.0 % (39.0-53.0) Mean Corpuscular Volume 85 fL (79-100) Mean Corpuscular Hemoglobin 27 pg (25-35) Mean Corpuscular Hemoglobin Concent 32 g/dL (31-37) Red Cell Distribution Width 16.9 % (11.5-14.5) Platelet Count 220 x10^3/uL (140-400) Neutrophils (%) (Auto) 62 % (31-73) Lymphocytes (%) (Auto) 24 % (24-48) Monocytes (%) (Auto) 8 % (0-9) Eosinophils (%) (Auto) 5 % (0-3) Basophils (%) (Auto) 1 % (0-3) Neutrophils # (Auto) 4.7 x10^3uL (1.8-7.7) Lymphocytes # (Auto) 1.8 x10^3/uL (1.0-4.8) Monocytes # (Auto) 0.6 x10^3/uL (0.0-1.1) Eosinophils # (Auto) 0.3 x10^3/uL (0.0-0.7) Basophils # (Auto) 0.1 x10^3/uL (0.0-0.2) Sodium Level 136 mmol/L (136-145) Potassium Level 3.9 mmol/L (3.5-5.1) Chloride Level 103 mmol/L (98-107) Carbon Dioxide Level 27 mmol/L (21-32) Anion Gap 6 (6-14) Blood Urea Nitrogen 25 mg/dL (8-26) Creatinine 2.3 mg/dL (0.7-1.3) Estimated GFR (Cockcroft-Gault) 28.9 Glucose Level 221 mg/dL (70-99) Calcium Level 8.3 mg/dL (8.5-10.1) Test 11/26/18 07:09 Glucose (Fingerstick) 172 mg/dL (70-99) CT 1. Prominent soft tissue ulceration at the dorsal aspect of the calcaneus with subtle erosive change and associated focal relative increased osteopenia, highly suspicious for acute osteomyelitis. 2. Solid fusion at the ankle joint arthrodesis. 3. Within the constraints of diffuse osteopenia no evidence for acute fracture. 4. Dense atherosclerotic calcifications are seen throughout the visualized lower leg and ankle. Micro GRAM STAIN RES 3 Final Rare gram positive cocci in pairs Objective Assessment Chronic left calcaneal wound,, CT c/w acute osteo. s/p I and D of skin and subcutaneous tissue, excisional on 11/25. AFB neg,, +GPC in pairs DM HTN CAD Pacemaker KAYLEE on CKD Ertapenem allergy/intolerance w/ confusion and hallucinations Plan Plan of Care Zyvox and Zosyn for now. Further abx modifications pending cultures results Will need long-term IV antibiotics for osteo BMP in am D/w Dr. Slater Patient seen, examined, I agree with above. Assessment and plan was formulated with [employer]. LILLI DUARTE APRN Nov 26, 2018 11:01 JUDSON CHAPA MD Nov 26, 2018 15:12
--- NOTE | 2018-11-26 11:18 | PDOC ---
PROGRESS NOTES Subjective Subjective feeling better today Objective Objective Vital Signs Date Time Temp Pulse Resp B/P (MAP) Pulse Ox O2 Delivery O2 Flow Rate FiO2 11/26/18 10:41 96 Room Air 2.0 11/26/18 08:27 69 175/63 11/26/18 07:00 97.6 17 97.6 Intake and Output 11/26/18 07:00 Intake Total 350 ml Output Total 500 ml Balance -150 ml IV Total 350 ml Output Urine Total 500 ml # Voids 2 # Bowel Movements 1 Physical Exam Abdomen: Normal bowel sounds, Soft, No tenderness Heart: Regular rate, Normal S1, Normal S2 Extremities: No edema, Other (no edema but weak pulses bilaterally.) General: Alert, Oriented X3, Cooperative HEENT: Atraumatic, EOMI Lungs: Clear to auscultation, Normal air movement MUSCULOSKELETAL: Other (he has approximately a 4 x 6 cm wound at his posterior calcaneal region his left side. There is black eschar covering it. No appreciable surrounding fluctuance or erythema.) Neuro: Normal speech, Strength at 5/5 X4 ext, Sensation intact, Other ( decreased sensation bilateral feet, otherwise normal) Psych/Mental Status: Mental status NL, Mood NL Skin: Other (Left heel wound with VAC in place. No evidence of cellulitis.) COMMENT wound vac left foot Assessment Assessment FINAL IMPRESSION: 1. Left heel ulcer, over Achillis tendon and calcaneus , not improving even with the outpatient treatment. Possible osteomyelitis of the calcaneus.CT scan and bone scan suggestive of osteo. 2. Peripheral vascular disease with diabetes. 3. Insulin-dependent diabetes. 4. Coronary artery disease, previous angioplasty, stent. 5. Chronic systolic heart failure. 6. Pacemaker for sick sinus syndrome. 7. Hypertension. 8. Hyperlipidemia. 9. 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 CRF stage 3, cr 1.6-1.8 PLAN: POD#2 lt heal ulcer,surgical debridement left heal ulcer cr 2.3 went up renal consult. pt/ot/ iv antibiotic zyvox+zosyn . Comment Review of Relevant I have reviewed the following items luís (where applicable) has been applied. Labs Laboratory Tests Test 11/25/18 13:41 11/25/18 16:40 11/25/18 20:43 11/26/18 04:15 Glucose (Fingerstick) 131 mg/dL (70-99) 92 mg/dL (70-99) 187 mg/dL (70-99) White Blood Count 7.5 x10^3/uL (4.0-11.0) Red Blood Count 2.95 x10^6/uL (4.30-5.70) Hemoglobin 8.1 g/dL (13.0-17.5) Hematocrit 25.0 % (39.0-53.0) Mean Corpuscular Volume 85 fL (79-100) Mean Corpuscular Hemoglobin 27 pg (25-35) Mean Corpuscular Hemoglobin Concent 32 g/dL (31-37) Red Cell Distribution Width 16.9 % (11.5-14.5) Platelet Count 220 x10^3/uL (140-400) Neutrophils (%) (Auto) 62 % (31-73) Lymphocytes (%) (Auto) 24 % (24-48) Monocytes (%) (Auto) 8 % (0-9) Eosinophils (%) (Auto) 5 % (0-3) Basophils (%) (Auto) 1 % (0-3) Neutrophils # (Auto) 4.7 x10^3uL (1.8-7.7) Lymphocytes # (Auto) 1.8 x10^3/uL (1.0-4.8) Monocytes # (Auto) 0.6 x10^3/uL (0.0-1.1) Eosinophils # (Auto) 0.3 x10^3/uL (0.0-0.7) Basophils # (Auto) 0.1 x10^3/uL (0.0-0.2) Sodium Level 136 mmol/L (136-145) Potassium Level 3.9 mmol/L (3.5-5.1) Chloride Level 103 mmol/L (98-107) Carbon Dioxide Level 27 mmol/L (21-32) Anion Gap 6 (6-14) Blood Urea Nitrogen 25 mg/dL (8-26) Creatinine 2.3 mg/dL (0.7-1.3) Estimated GFR (Cockcroft-Gault) 28.9 Glucose Level 221 mg/dL (70-99) Calcium Level 8.3 mg/dL (8.5-10.1) Test 11/26/18 07:09 Glucose (Fingerstick) 172 mg/dL (70-99) Microbiology 11/24/18 AFB Specimen Processing Tissue - Final, Resulted 11/24/18 Acid Fast Bacilli Culture, Resulted Pending 11/24/18 Gram Stain - Final, Resulted 11/24/18 Fungal Culture, Resulted Pending 11/24/18 Fungal Culture Result 1, Resulted Pending Medications Current Medications Alteplase, Recombinant (Cathflo For Central Catheter Clearance) 1 mg 1X ONCE INT CAT Last administered on 11/26/18at 06:30; Start 11/26/18 at 06:30; Stop at 06:31; Status DC Vitals/I & O Vital Sign - Last 24 Hours 11/25/18 11/25/18 11/25/18 11/25/18 12:15 12:15 14:00 15:00 Temp 97.9 97.9 Pulse 69 66 Resp 18 B/P (MAP) 111/54 98/42 98/42 (60) Pulse Ox 97 O2 Delivery Room Air Room Air 11/25/18 11/25/18 11/25/18 11/25/18 19:00 19:30 19:53 20:55 Temp 97.4 97.4 Pulse 66 66 Resp 18 B/P (MAP) 118/44 (68) 118/44 Pulse Ox 96 O2 Delivery Room Air Room Air Room Air 11/25/18 11/25/18 11/26/18 11/26/18 20:55 23:00 01:53 02:58 Temp 97.5 98.3 97.5 98.3 Pulse 66 66 67 Resp 18 18 B/P (MAP) 118/44 159/54 (89) 152/64 (93) Pulse Ox 93 98 O2 Delivery Room Air Room Air Room Air 11/26/18 11/26/18 11/26/18 11/26/18 06:48 07:00 08:27 08:27 Temp 97.6 97.6 Pulse 68 67 69 69 Resp 17 B/P (MAP) 172/68 172/68 (102) 175/63 175/63 Pulse Ox 96 O2 Delivery Room Air 11/26/18 11/26/18 08:29 10:41 Pulse Ox 96 O2 Delivery Room Air Room Air O2 Flow Rate 2.0 Intake and Output 11/25/18 11/25/18 11/26/18 15:00 23:00 07:00 Intake Total 350 ml Output Total 500 ml Balance -150 ml ELDER LAURENT MD Nov 26, 2018 11:18
[2018-11-26 15:05] VITALS: BP 91/33
[2018-11-26] MEDS ORDERED: DEXTROSE 50% 25 GM / 50ML DISP.SYRIN. IV ONE ×2 (16:44→17:15)
[2018-11-26 19:25] VITALS: BP 124/35
[2018-11-26] MEDS: ATORVASTATIN CALCIUM 20 MG TABLET PO SCH (20:51)
[2018-11-26] MEDS: TAMSULOSIN 0.4 MG CAP.ER.24H. PO SCH (20:51)
[2018-11-26] MEDS: INSULIN GLARGINE 300 UNITS/3 ML INSULN.PEN. SQ SCH (21:16)
[2018-11-26 23:09] VITALS: BP 143/57
[2018-11-27] MEDS: HYDROcodone/APAP 5/325MG 1 TAB TABLET PO PRN ×4 (03:43→20:59)
[2018-11-27 03:56] VITALS: BP 182/66
[2018-11-27] MEDS: PIPERACILLIN/TAZOBACTAM 3.375 GM in IV NORMAL SALINE 50ML 50 ML IV SCH ×3 (05:54→21:42)
[2018-11-27] MEDS: MIDODRINE 5 MG TABLET PO SCH ×3 (05:54→18:00)
[2018-11-27 07:00] VITALS: BP 142/61
[2018-11-27] MEDS: FERROUS SULFATE 325 MG TABLET. PO SCH (09:35)
[2018-11-27] MEDS: PANTOPRAZOLE 40 MG TABLET.DR. PO SCH (09:35)
[2018-11-27] MEDS: ASPIRIN 325 MG TABLET PO SCH (09:35)
[2018-11-27] MEDS: LACTOBACILLUS RHAMNOSUS GG 1 CAPSULE. PO SCH ×2 (09:36→21:39)
[2018-11-27] MEDS: CARVEDILOL 12.5 MG TABLET. PO SCH ×2 (09:36→21:00)
[2018-11-27] MEDS: PREGABALIN 75 MG CAPSULE PO SCH ×2 (09:36→21:39)
[2018-11-27] MEDS: hydrALAZINE 25 MG TABLET PO SCH ×3 (09:37→21:00)
[2018-11-27] MEDS: INSULIN LISPRO 300 UNITS/3 ML INSULN.PEN. SQ SCH ×3 (09:42→17:14)
--- NOTE | 2018-11-27 09:58 | PDOC ---
Infectious Disease Note Subjective Subjective Comfortable Pain controlled N0 F/C/S/N/V/D/SOA ROS ROS per HPI Vital Sign Vital Signs Vital Signs Date Time Temp Pulse Resp B/P (MAP) Pulse Ox O2 Delivery O2 Flow Rate FiO2 11/27/18 09:37 73 142/61 11/27/18 09:35 18 Room Air 11/27/18 07:00 97.7 97 97.7 11/27/18 04:43 2.0 Physical Exam PHYSICAL EXAM GENERAL: Propped up in bed, alert, watching TV, smiling HEENT: Oral cavity clear NECK: Supple LUNGS: Clear. HEART: S1, S2 pacemaker ABDOMEN: Soft and nontender EXTREMITIES: No gross edema or cyanosis. Left calcaneal wound vac in place SKIN: No rash NEUROLOGIC: Alert and oriented x3. RUE-PICC clean Labs Lab Laboratory Tests Test 11/26/18 11:40 11/26/18 16:42 11/26/18 16:58 11/26/18 21:13 Glucose (Fingerstick) 128 mg/dL (70-99) 39 mg/dL (70-99) 107 mg/dL (70-99) 244 mg/dL (70-99) Test 11/27/18 07:46 Glucose (Fingerstick) 146 mg/dL (70-99) Micro AEROBIC RES 1 Preliminary Pseudomonas aeruginosa AEROBIC RES 2 Preliminary Streptococcus species Objective Assessment Chronic left calcaneal wound,, CT c/w acute osteo. s/p I and D of skin and subcutaneous tissue, excisional on 11/25. AFB neg,, PSAE, Strep spp so far DM HTN CAD Pacemaker KAYLEE on CKD Ertapenem allergy/intolerance w/ confusion and hallucinations Plan Plan of Care Zyvox and Zosyn for now. Further abx modifications pending cultures results Will need long-term IV antibiotics for osteo Awaiting renal eval Hold discharge to SNF till cleared by Dr. Chapa, ID D/w nursing Patient seen, examined, I agree with above. Assessment and plan was formulated with ASSOCIATE [employer]ER. LILLI DUARTE APRN Nov 27, 2018 09:58 JUDSON CHAPA MD Nov 27, 2018 15:43
--- NOTE | 2018-11-27 10:26 | PDOC2 ---
CONSULT Date of Consult Date of Consult DATE: 11/27/18 TIME: 10:13 Reason for Consult Reason for Consult: Acute on chronic renal insufficiency Referring Physician Referring Physician: Dr. Slater Identification/Chief Complaint Chief Complaint foot wound Source Source: Chart review, Patient History of Present Illness Reason for Visit: Mr. Toney is a 63-year-old gentleman with long-standing diabetes and diabetic nephropathy. He also has other vagaries of diabetes including retinopathy. His diabetes is poorly controlled as witnessed by his A1c of 10.7. His known to have difficult to heal left heel foot 1. He is now status post Irrigation and debridement, skin and subcutaneous tissue, excision & Application of wound VAC to wound 6 x 7 cm. In the postoperative phase is creatinines From 1.8-2.3 Yesterday and We Were Asked to See Him for the Same. Urine Output As Documented Appears to Be Increasing. He Did Undergo CT Scan of His Lower Extremities on 11/23/18 Although This Was Done without IV Contrast. This Does Show Significant Atherosclerotic Vascular Changes. He Has Had a Drop in His Hemoglobin from 10.6-8.1 Also Postoperatively. We Were Asked to See Him for Renal Insufficiency Past Medical History Cardiovascular: CAD, HTN, Other (pacemaker) CENTRAL NERVOUS SYSTEM: Periperal neuropathy Renal/: Chronic renal insuff, Other (renal insufficiency) Endocrine: Diabetes Past Surgical History Past Surgical History: Appendectomy, Total hip replacement, Other (left ankle fusion, knee fracture) Family History Family History Patient is not aware of known kidney disease in his family Social History No ALCOHOL: none Lives: with Family Current Medications Current Medications Current Medications Piperacillin Sod/ Tazobactam Sod 3.375 gm/Sodium Chloride 50 ml @ 100 mls/hr Q8HRS IV Last administered on 11/27/18at 05:54; Start 11/22/18 at 22:00 Vancomycin HCl (Vanco Per Pharmacy) 1 each PRN DAILY PRN MC SEE COMMENTS Last administered on 11/22/18at 21:09; Start 11/22/18 at 18:15; Stop 11/23/18 at 10:27 ; Status DC Vancomycin HCl 1.75 gm/Sodium Chloride 500 ml @ 250 mls/hr 1X ONCE IV ; Start 11/22/18 at 20:00; Stop 11/22/18 at 21:06; Status DC Vancomycin HCl 1.25 gm/Sodium Chloride 250 ml @ 167 mls/hr Q24H IV ; Start at 20:00; Stop 11/22/18 at 21:05; Status DC Vancomycin HCl (Vancomycin Trough Level) 1 each 1X ONCE MC ; Start 11/24/18 at 23:00; Stop 11/24/18 at 23:01; Status Cancel Aspirin (Tera Aspirin) 325 mg DAILY PO Last administered on 11/27/18 09:35; Start 11/23/18 at 09:00 Carvedilol (Coreg) 12.5 mg BID PO Last administered on 11/27/18 09:36; Start 11/22/18 at 21:00 Ferrous Sulfate (Feosol) 325 mg DAILYWBKFT PO Last administered on 11/27/18 09 :35; Start 11/23/18 at 08:00 Pregabalin (Lyrica) 75 mg BID PO Last administered on 11/27/18 09:36; Start at 21:00 Tamsulosin HCl (Flomax) 0.4 mg QHS PO Last administered on 11/26/18 20:51; Start 11/22/18 at 21:00 Insulin Human Lispro (HumaLOG) 10 units TIDWMEALS SQ Last administered on 09:42; Start 11/23/18 at 08:00 Insulin Glargine (Lantus) 15 units QHS SQ Last administered on 11/26/18 21:16 ; Start 11/22/18 at 21:00 Pantoprazole Sodium (Protonix) 40 mg DAILYAC PO Last administered on 11/27/18 09:35; Start 11/23/18 at 07:30 Midodrine (Proamatine) 5 mg [id number] PO Last administered on 11/27/18 05:54; Start 11/23/18 at 07:00 Vancomycin HCl 1.25 gm/Sodium Chloride 250 ml @ 167 mls/hr Q24H IV ; Start at 23:00; Stop 11/23/18 at 23:00; Status DC Vancomycin HCl 1.75 gm/Sodium Chloride 500 ml @ 250 mls/hr 1X ONCE IV Last administered on 11/22/18at 23:00; Start 11/22/18 at 23:00; Stop 11/23/18 at 00:59 ; Status DC Atorvastatin Calcium (Lipitor) 20 mg HS PO Last administered on 11/26/18 20:51 ; Start 11/22/18 at 22:00 Acetaminophen/ Hydrocodone Bitart (Lortab 5/325) 1 tab PRN Q6HRS PRN PO MODERATE PAIN; Start 11/22/18 at 21:45; Status Cancel Hydralazine HCl (Apresoline) 25 mg TID PO Last administered on 11/27/18 09:37 ; Start 11/22/18 at 22:00 Insulin Human Lispro (HumaLOG) 10 units 1X ONCE SQ Last administered on 21:53; Start 11/22/18 at 22:00; Stop 11/22/18 at 22:01; Status DC Tramadol HCl (Ultram) 50 mg PRN BID PRN PO MODERATE PAIN Last administered on 20:30; Start 11/23/18 at 01:15 Sodium Chloride 1,000 ml @ 75 mls/hr [id number] IV Last administered on at 20:33; Start 11/23/18 at 10:30; Stop 11/25/18 at 08:11; Status DC Linezolid/Dextrose 300 ml @ 300 mls/hr Q12HR IV Last administered on 09:37; Start 11/23/18 at 21:00 Ondansetron HCl (Zofran) 4 mg PRN Q6HRS PRN IV NAUSEA/VOMITING; Start 11/24/18 at 07:00; Stop 11/25/18 at 06:59; Status DC Ringer's Solution 1,000 ml @ 30 mls/hr Q24H IV Last administered on 11/24/18at 10:15; Start 11/24/18 at 07:00; Stop 11/24/18 at 18:59; Status DC Lidocaine HCl (Xylocaine-Mpf 1% 2ml Vial) 2 ml PRN 1X PRN ID PRIOR TO IV START ; Start 11/24/18 at 07:00; Stop 11/25/18 at 06:59; Status DC Prochlorperazine Edisylate (Compazine) 5 mg PACU PRN PRN IV NAUSEA, MRX1; Start 11/24/18 at 07:00; Stop 11/25/18 at 06:59; Status DC Acetaminophen/ Hydrocodone Bitart (Lortab 5/325) 1 tab PRN Q6HRS PRN PO SEVERE PAIN Last administered on 11/27/18at 09:35; Start 11/23/18 at 13:30 Zolpidem Tartrate (Ambien) 5 mg PRN QHS PRN PO INSOMNIA Last administered on at 22:14; Start 11/23/18 at 13:30 Ringer's Solution 1,000 ml @ 30 mls/hr Q24H IV ; Start 11/24/18 at 07:00; Stop 11/24/18 at 19:01; Status DC Prochlorperazine Edisylate (Compazine) 5 mg PACU PRN PRN IV NAUSEA, MRX1; Start 11/24/18 at 07:00; Stop 11/24/18 at 19:01; Status DC Lactobacillus Rhamnosus (Culturelle) 1 cap BID PO Last administered on at 09:36; Start 11/23/18 at 21:00 Ondansetron HCl (Zofran) 8 mg PRN Q6HRS PRN IV NAUSEA/VOMITING Last administered on 11/25/18at 15:15; Start 11/23/18 at 23:30 Insulin Glargine (Lantus) 7 units 1X ONCE SQ Last administered on 11/24/18at 09 :37; Start 11/24/18 at 09:30; Stop 11/24/18 at 09:31; Status DC Insulin Human Lispro (HumaLOG) 5 units 1X ONCE SQ Last administered on at 09:38; Start 11/24/18 at 09:30; Stop 11/24/18 at 09:31; Status DC Fentanyl Citrate (Fentanyl 2ml Vial) 100 mcg STK-MED ONCE .ROUTE ; Start at 10:25; Stop 11/24/18 at 10:26; Status DC Propofol 20 ml @ As Directed STK-MED ONCE IV ; Start 11/24/18 at 10:25; Stop at 10:26; Status DC Dexamethasone Sodium Phosphate (Decadron) 20 mg STK-MED ONCE .ROUTE ; Start at 10:25; Stop 11/24/18 at 10:26; Status DC Lidocaine HCl (Lidocaine Pf 2% Vial) 5 ml STK-MED ONCE .ROUTE ; Start 11/24/18 at 10:25; Stop 11/24/18 at 10:26; Status DC Ondansetron HCl (Zofran) 4 mg STK-MED ONCE .ROUTE ; Start 11/24/18 at 10:25; Stop 11/24/18 at 10:26; Status DC Lidocaine HCl (Xylocaine 1% Pf 30ml Vial) 30 ml STK-MED ONCE .ROUTE ; Start at 09:32; Stop 11/24/18 at 10:32; Status DC Bupivacaine HCl (Sensorcaine Mpf 0.5%) 30 ml STK-MED ONCE .ROUTE ; Start at 09:32; Stop 11/24/18 at 10:32; Status DC Phenylephrine HCl (PHENYLEPHRINE in 0.9% NACL PF) 1 mg STK-MED ONCE IV ; Start 11/24/18 at 11:05; Stop 11/24/18 at 11:06; Status DC Hydralazine HCl (Apresoline Inj) 10 mg 1X ONCE IVP Last administered on at 12:17; Start 11/24/18 at 12:15; Stop 11/24/18 at 12:16; Status DC Hydralazine HCl (Apresoline Inj) 20 mg STK-MED ONCE .ROUTE ; Start 11/24/18 at 12:13; Stop 11/24/18 at 12:14; Status DC Iodixanol (Visipaque 320) 100 ml STK-MED ONCE .ROUTE ; Start 11/24/18 at 12:37; Stop 11/24/18 at 12:38; Status DC Lidocaine HCl (Lidocaine 1% 20ml Vial) 20 ml STK-MED ONCE .ROUTE ; Start at 12:37; Stop 11/24/18 at 12:38; Status DC Heparin Sodium/ Sodium Chloride 1,500 ml @ As Directed STK-MED ONCE .ROUTE ; Start 11/24/18 at 12:37; Stop 11/24/18 at 12:38; Status DC Fentanyl Citrate (Fentanyl 2ml Vial) 100 mcg STK-MED ONCE .ROUTE ; Start at 12:48; Stop 11/24/18 at 12:49; Status DC Fentanyl Citrate (Fentanyl 2ml Vial) 50 mcg 1X ONCE IV Last administered on at 11:50; Start 11/24/18 at 11:32; Stop 11/24/18 at 12:58; Status DC Alteplase, Recombinant (Cathflo For Central Catheter Clearance) 1 mg 1X ONCE INT CAT Last administered on 11/26/18at 06:30; Start 11/26/18 at 06:30; Stop at 06:31; Status DC Dextrose (Dextrose 50%-Water Syringe) 25 gm STK-MED ONCE IV ; Start 11/26/18 at 16:44; Stop 11/26/18 at 16:45; Status DC Dextrose (Dextrose 50%-Water Syringe) 25 gm 1X ONCE IV Last administered on at 16:45; Start 11/26/18 at 17:15; Stop 11/26/18 at 17:16; Status DC Active Scripts Active Cipro (Ciprofloxacin Hcl) 500 Mg Tablet 500 Mg PO BID 7 Days Hydrocodone-Apap 5-325 (Hydrocodone Bit/Acetaminophen) 1 Tab Tablet 1 Tab PO PRN Q6HRS PRN 7 Days Flomax (Tamsulosin Hcl) 0.4 Mg Cap.er.24h 0.4 Mg PO QHS 30 Days Aspirin Ec (Aspirin) 325 Mg Tablet.dr 1 Tab PO DAILY Levemir Flextouch (Insulin Detemir) 100 Unit/1 Ml Insuln.pen 15 Units SQ QHS Reported Tramadol Hcl 50 Mg Tablet 50 Mg PO PRN BID PRN Atorvastatin Calcium 20 Mg Tablet 20 Mg PO HS Levemir Flextouch (Insulin Detemir) 100 Unit/1 Ml Insuln.pen 15 Unit SQ QHS Novolog Flexpen (Insulin Aspart) 100 Unit/1 Ml Insuln.pen 10 Unit SQ TIDAC Protonix (Pantoprazole Sodium) 20 Mg Tablet.dr 40 Mg PO DAILY Lyrica (Pregabalin) 75 Mg Capsule 1 Cap PO BID Aspirin 325 Mg Tablet 1 Tab PO DAILY Carvedilol 12.5 Mg Tablet 12.5 Mg PO BID Ferrous Sulfate 325 Mg Tablet 1 Tab PO DAILYWBKFT Flomax (Tamsulosin Hcl) 0.4 Mg Cap.er.24h 1 Cap PO QHS Midodrine Hcl 5 Mg Tablet 5 Mg PO [id number] Midodrine Hcl 5 Mg Tablet 5 Mg PO [id number] Ferrous Sulfate 325 Mg Tablet 325 Mg PO DAILYWBKFT Protonix (Pantoprazole Sodium) 40 Mg Tablet.dr 1 Tab PO DAILY Novolog Flexpen (Insulin Aspart) 100 Unit/1 Ml Insuln.pen 10 Unit SQ TIDAC Lyrica (Pregabalin) 75 Mg Capsule 75 Mg PO BID Carvedilol (Carvedilol) 12.5 Mg Tablet 1 Tab PO BID Allergies Allergies: Coded Allergies: hydromorphone (Verified Allergy, Severe, Anaphylaxis, 11/23/18) Apnea and asystole, CODE BLUE Tolerates hydrocodone ertapenem (Verified Adverse Reaction, Severe, 11/23/18) Insomnia, confusion oxycodone (Verified Adverse Reaction, Mild, Nausea and Vomiting, 11/22/18) ROS Review of System 14 point review of systems reviewed with the patient is negative other than the positives mentioned in history of present illness Physical Exam Physical Exam General Appearance: Awake Alert Oriented x 3 In no Distress Eyes: VIsion decreased Conjunctiva Normal EN: No EN Drainage Mucous Memb. moist Neck: no JVD min JVP Supple no Thyromegaly CVS: S1 S2 soft Murmur No Gallop No Rub no Edema Resp: no Rales no Rhonchi no Acc. Muscle use GI: BAS +ve NO Bruit Non Tender Non Distended : no CVA tenderness; no Suprapubic Tenderness SKIN: no Rashes Breast Exam deferred Mu.Sk: Adequate ROM no Muscle Atrophy Heme: Unable to palpate Obvious LAD no Splenomegaly NEURO: Good Strength and Tone Cranial Nerves II - XII grossly intact Psych: not Depressed no Active hallucination Vital Signs Vital Signs Date Time Temp Pulse Resp B/P (MAP) Pulse Ox O2 Delivery O2 Flow Rate FiO2 11/27/18 09:37 73 142/61 11/27/18 09:35 18 Room Air 11/27/18 07:00 97.7 97 97.7 11/27/18 04:43 2.0 Assessment & Plan Acute kidney injury: Cannot rule out element of prerenal azotemia given previous oliguria. Urine output appears to be improving and will reevaluate numbers tomorrow. We'll check bladder scan to rule out urinary retention. Glomerulonephritis associated with chronic infection cannot be ruled out C KD stage III: Current FLuid and E-lyte status does not necessitate emergent need for Dialysis. Creatinine appears to be 1.8. Anemia in the setting of CK D: Check iron profile. Patient may need Epogen started if iron is adequate. Transfuse as needed. HTN: Current BP meds reviewed. See orders for changes. Diabetic foot ulcer: Now status post debridement. Discussed Plan of Care and prognosis etc. at length with patient Labs Labs Laboratory Tests Test 11/25/18 10:44 11/25/18 13:41 11/25/18 16:40 11/25/18 20:43 Glucose (Fingerstick) 197 mg/dL (70-99) 131 mg/dL (70-99) 92 mg/dL (70-99) 187 mg/dL (70-99) Test 11/26/18 04:15 11/26/18 07:09 11/26/18 11:40 11/26/18 16:42 White Blood Count 7.5 x10^3/uL (4.0-11.0) Red Blood Count 2.95 x10^6/uL (4.30-5.70) Hemoglobin 8.1 g/dL (13.0-17.5) Hematocrit 25.0 % (39.0-53.0) Mean Corpuscular Volume 85 fL (79-100) Mean Corpuscular Hemoglobin 27 pg (25-35) Mean Corpuscular Hemoglobin Concent 32 g/dL (31-37) Red Cell Distribution Width 16.9 % (11.5-14.5) Platelet Count 220 x10^3/uL (140-400) Neutrophils (%) (Auto) 62 % (31-73) Lymphocytes (%) (Auto) 24 % (24-48) Monocytes (%) (Auto) 8 % (0-9) Eosinophils (%) (Auto) 5 % (0-3) Basophils (%) (Auto) 1 % (0-3) Neutrophils # (Auto) 4.7 x10^3uL (1.8-7.7) Lymphocytes # (Auto) 1.8 x10^3/uL (1.0-4.8) Monocytes # (Auto) 0.6 x10^3/uL (0.0-1.1) Eosinophils # (Auto) 0.3 x10^3/uL (0.0-0.7) Basophils # (Auto) 0.1 x10^3/uL (0.0-0.2) Sodium Level 136 mmol/L (136-145) Potassium Level 3.9 mmol/L (3.5-5.1) Chloride Level 103 mmol/L (98-107) Carbon Dioxide Level 27 mmol/L (21-32) Anion Gap 6 (6-14) Blood Urea Nitrogen 25 mg/dL (8-26) Creatinine 2.3 mg/dL (0.7-1.3) Estimated GFR (Cockcroft-Gault) 28.9 Glucose Level 221 mg/dL (70-99) Calcium Level 8.3 mg/dL (8.5-10.1) Glucose (Fingerstick) 172 mg/dL (70-99) 128 mg/dL (70-99) 39 mg/dL (70-99) Test 11/26/18 16:58 11/26/18 21:13 11/27/18 07:46 Glucose (Fingerstick) 107 mg/dL (70-99) 244 mg/dL (70-99) 146 mg/dL (70-99) Laboratory Tests Test 11/26/18 11:40 11/26/18 16:42 11/26/18 16:58 11/26/18 21:13 Glucose (Fingerstick) 128 mg/dL (70-99) 39 mg/dL (70-99) 107 mg/dL (70-99) 244 mg/dL (70-99) Test 11/27/18 07:46 Glucose (Fingerstick) 146 mg/dL (70-99) Review All relevant outside records, renal labs, imaging studies, telemetry/EKG's were reviewed. LEV CHAPA MD Nov 27, 2018 10:26
[2018-11-27] MEDS ORDERED: MAGNESIUM SULFATE 2GM 50 ML IV PRN (10:30)
[2018-11-27 11:00] VITALS: BP 146/68
--- NOTE | 2018-11-27 12:42 | RAD ---
Examination: RENAL COMPLETE BILATERAL History: Acute renal failure, chronic kidney disease Comparison/Correlation: None Findings: Renal ultrasound exam was performed. Right kidney measures 9.5 cm x 5 cm by 5.4 cm. Left kidney measures 10 cm x 5.9 cm x 5.6 cm. No hydronephrosis or nephrolithiasis. Renal contours are unremarkable. Normal renal echotexture bilaterally seen. Normal cortical thickness of the kidneys noted. Urinary bladder is distended with echogenic debris. Impression: No hydronephrosis. Debris within the distended urinary bladder. Electronically signed by: Arun High MD (11/27/2018 12:40 PM) [facility]
--- NOTE | 2018-11-27 12:52 | PDOC ---
PROGRESS NOTES Subjective Subjective FEELS OK Objective Objective Vital Signs Date Time Temp Pulse Resp B/P (MAP) Pulse Ox O2 Delivery O2 Flow Rate FiO2 11/27/18 10:35 18 97 Room Air 11/27/18 09:37 73 142/61 11/27/18 07:00 97.7 97.7 11/27/18 04:43 2.0 Intake and Output 11/27/18 07:00 Intake Total 1330 ml Output Total 2650 ml Balance -1320 ml Intake Oral 980 ml IV Total 350 ml Output Urine Total 2650 ml # Voids 3 # Bowel Movements 3 Physical Exam Abdomen: Normal bowel sounds, Soft, No tenderness Heart: Regular rate, Normal S1, Normal S2 Extremities: No edema, Other (no edema but weak pulses bilaterally.) General: Alert, Oriented X3, Cooperative HEENT: Atraumatic, EOMI Lungs: Clear to auscultation, Normal air movement MUSCULOSKELETAL: Other (he has approximately a 4 x 6 cm wound at his posterior calcaneal region his left side. There is black eschar covering it. No appreciable surrounding fluctuance or erythema.) Neuro: Normal speech, Strength at 5/5 X4 ext, Sensation intact, Other ( decreased sensation bilateral feet, otherwise normal) Psych/Mental Status: Mental status NL, Mood NL Skin: Other (Left heel wound with VAC in place. No evidence of cellulitis.) COMMENT wound vac left foot Assessment Assessment FINAL IMPRESSION:Ac renal failure on cri 1. Left heel ulcer, over Achillis tendon and calcaneus , not improving even with the outpatient treatment. Possible osteomyelitis of the calcaneus.CT scan and bone scan suggestive of osteo. 2. Peripheral vascular disease with diabetes. 3. Insulin-dependent diabetes. 4. Coronary artery disease, previous angioplasty, stent. 5. Chronic systolic heart failure. 6. Pacemaker for sick sinus syndrome. 7. Hypertension. 8. Hyperlipidemia. 9. 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 CRF stage 3, cr 1.6-1.8 PLAN:cr 2.3 went up POD#3 lt heal ulcer,surgical debridement left heal ulcer labs pending from today renal consult appreciated. pt/ot/?snu tomorrow iv antibiotic zyvox+zosyn . Comment Review of Relevant I have reviewed the following items luís (where applicable) has been applied. Labs Laboratory Tests Test 11/26/18 16:42 11/26/18 16:58 11/26/18 21:13 11/27/18 07:46 Glucose (Fingerstick) 39 mg/dL (70-99) 107 mg/dL (70-99) 244 mg/dL (70-99) 146 mg/dL (70-99) Test 11/27/18 11:06 Glucose (Fingerstick) 120 mg/dL (70-99) Microbiology 11/24/18 AFB Specimen Processing Tissue - Final, Resulted 11/24/18 Acid Fast Bacilli Culture, Resulted Pending 11/24/18 Gram Stain - Final, Resulted 11/24/18 Fungal Culture, Resulted Pending 11/24/18 Fungal Culture Result 1, Resulted Pending Medications Current Medications Dextrose (Dextrose 50%-Water Syringe) 25 gm 1X ONCE IV Last administered on at 16:45; Start 11/26/18 at 17:15; Stop 11/26/18 at 17:16; Status DC Dextrose (Dextrose 50%-Water Syringe) 25 gm STK-MED ONCE IV ; Start 11/26/18 at 16:44; Stop 11/26/18 at 16:45; Status DC Magnesium Sulfate 50 ml @ 25 mls/hr PRN DAILY PRN IV for Mag < 1.7 on am labs; Start 11/27/18 at 10:30 Vitals/I & O Vital Sign - Last 24 Hours 11/26/18 11/26/18 11/26/18 11/26/18 14:00 14:34 15:05 17:01 Temp 98.7 98.7 Pulse 62 63 Resp 16 B/P (MAP) 91/33 91/33 (52) 95/42 Pulse Ox 96 O2 Delivery Room Air Room Air 11/26/18 11/26/18 11/26/18 11/26/18 19:25 20:00 20:51 20:52 Temp 97.6 97.6 Pulse 68 68 68 Resp 17 B/P (MAP) 124/35 (64) 124/35 124/35 Pulse Ox 97 O2 Delivery Room Air Room Air 11/26/18 11/26/18 11/27/18 11/27/18 20:52 23:09 03:43 03:56 Temp 97.5 97.7 97.5 97.7 Pulse 78 77 Resp 19 18 B/P (MAP) 143/57 (85) 182/66 (104) Pulse Ox 97 96 96 96 O2 Delivery Room Air Room Air Room Air Room Air O2 Flow Rate 2.0 11/27/18 11/27/18 11/27/18 11/27/18 04:43 05:54 07:00 09:35 Temp 97.7 97.7 Pulse 72 73 Resp 18 18 B/P (MAP) 132/58 142/61 (88) Pulse Ox 97 O2 Delivery Room Air Room Air O2 Flow Rate 2.0 11/27/18 11/27/18 11/27/18 09:36 09:37 10:35 Pulse 73 73 Resp 18 B/P (MAP) 142/61 142/61 Pulse Ox 97 O2 Delivery Room Air Intake and Output 11/26/18 11/26/18 11/27/18 15:00 23:00 07:00 Intake Total 660 ml 320 ml 350 ml Output Total 850 ml 1800 ml Balance -190 ml 320 ml -1450 ml ELDER LAURENT MD Nov 27, 2018 12:52
[2018-11-27 15:00] VITALS: BP 146/68
[2018-11-27 19:00] VITALS: BP 110/43
[2018-11-27 19:37] LABS: CALCIUM 8.6 mg/dL (8.5-10.1); CREATININE 2.3 mg/dL (0.7-1.3); GFR 28.9; POTASSIUM 4.1 mmol/L (3.5-5.1)
[2018-11-27] MEDS: TAMSULOSIN 0.4 MG CAP.ER.24H. PO SCH (21:37)
[2018-11-27] MEDS: ATORVASTATIN CALCIUM 20 MG TABLET PO SCH (21:39)
[2018-11-27] MEDS: INSULIN GLARGINE 300 UNITS/3 ML INSULN.PEN. SQ SCH (21:43)
[2018-11-27 22:53] VITALS: BP 172/67
[2018-11-28 03:00] VITALS: BP 160/63
[2018-11-28] MEDS: HYDROcodone/APAP 5/325MG 1 TAB TABLET PO PRN ×3 (03:18→15:58)
[2018-11-28] MEDS: MIDODRINE 5 MG TABLET PO SCH ×3 (05:51→18:00)
[2018-11-28] MEDS: PIPERACILLIN/TAZOBACTAM 3.375 GM in IV NORMAL SALINE 50ML 50 ML IV SCH (06:10)
[2018-11-28 06:49] LABS: BILIRUBIN,URINE NEGATIVE (NEG); CLARITY,URINE CLOUDY; COLOR,URINE YELLOW; NITRITE,URINE NEGATIVE (NEG); PH,URINE 5.5; PROTEIN,URINE NEGATIVE (NEG-TRACE); UROBILINOGEN,URINE 0.2 mg/dL (0.2 mg/dL)
[2018-11-28 06:56] LABS: ALBUMIN 2.6 g/dL (3.4-5.0); CALCIUM 8.3 mg/dL (8.5-10.1); CREATININE 1.8 mg/dL (0.7-1.3); GFR 38.3; PHOSPHORUS 3.3 mg/dL (2.6-4.7)
[2018-11-28 07:00] VITALS: BP 148/71
[2018-11-28 07:28] LABS: BACTERIA,URINE MODERATE /HPF (0-FEW); RBC,URINE 20-40 /HPF (0-2); WBC,URINE TNTC /HPF (0-4)
[2018-11-28 07:29] LABS: YEAST,URINE PRESENT /HPF
[2018-11-28] MEDS: LACTOBACILLUS RHAMNOSUS GG 1 CAPSULE. PO SCH ×2 (08:48→21:51)
[2018-11-28] MEDS: CARVEDILOL 12.5 MG TABLET. PO SCH ×2 (08:49→17:33)
[2018-11-28] MEDS: FERROUS SULFATE 325 MG TABLET. PO SCH (08:49)
[2018-11-28] MEDS: PREGABALIN 75 MG CAPSULE PO SCH ×2 (08:49→21:49)
[2018-11-28] MEDS: hydrALAZINE 25 MG TABLET PO SCH ×3 (08:50→21:51)
[2018-11-28] MEDS: ASPIRIN 325 MG TABLET PO SCH (08:50)
[2018-11-28] MEDS: PANTOPRAZOLE 40 MG TABLET.DR. PO SCH (08:50)
[2018-11-28] MEDS: INSULIN LISPRO 300 UNITS/3 ML INSULN.PEN. SQ SCH ×3 (08:56→17:00)
--- NOTE | 2018-11-28 10:06 | PDOC ---
PROGRESS NOTES Subjective Subjective pt feels better Objective Objective Vital Signs Date Time Temp Pulse Resp B/P (MAP) Pulse Ox O2 Delivery O2 Flow Rate FiO2 11/28/18 09:10 18 Room Air 11/28/18 08:50 78 148/71 11/28/18 07:00 97.9 98 97.9 11/28/18 04:18 2.0 Intake and Output 11/28/18 06:59 Intake Total 2200 ml Output Total 750 ml Balance 1450 ml Intake Oral 1850 ml IV Total 350 ml Output Urine Total 750 ml # Voids 2 # Bowel Movements 3 Physical Exam Abdomen: Normal bowel sounds, Soft, No tenderness Heart: Regular rate, Normal S1, Normal S2 Extremities: No edema, Other (no edema but weak pulses bilaterally.) General: Alert, Oriented X3, Cooperative HEENT: Atraumatic, EOMI Lungs: Clear to auscultation, Normal air movement MUSCULOSKELETAL: Other (he has approximately a 4 x 6 cm wound at his posterior calcaneal region his left side. There is black eschar covering it. No appreciable surrounding fluctuance or erythema.) Neuro: Normal speech, Strength at 5/5 X4 ext, Sensation intact, Other ( decreased sensation bilateral feet, otherwise normal) Psych/Mental Status: Mental status NL, Mood NL Skin: Other (Left heel wound with VAC in place. No evidence of cellulitis.) COMMENT wound vac left foot Assessment Assessment FINAL IMPRESSION:Ac renal failure on cri 1.8 1. Left heel ulcer, over Achillis tendon and calcaneus , not improving even with the outpatient treatment. Possible osteomyelitis of the calcaneus.CT scan and bone scan suggestive of osteo. 2. Peripheral vascular disease with diabetes. 3. Insulin-dependent diabetes. 4. Coronary artery disease, previous angioplasty, stent. 5. Chronic systolic heart failure. 6. Pacemaker for sick sinus syndrome. 7. Hypertension. 8. Hyperlipidemia. 9. 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 CRF stage 3, cr 1.6-1.8 PLAN:wound c/s AEROBIC RES 1 Preliminary Comment Pseudomonas aeruginosa 4+ AEROBIC RES 2 Preliminary Enterococcus faecium 2+ ANTIMICROBIAL SUSCEPTIBILITY Preliminary Comment S = Susceptible; I = Intermediate; R = Resistant P = Positive; N = Negative MICS are expressed in micrograms per mL Antibiotic RSLT#1 RSLT#2 RSLT#3 RSLT#4 Amikacin S =4 Cefepime S =4 Ceftazidime S =8 Ciprofloxacin R>=4 Gentamicin S =4 Imipenem S =2 Levofloxacin S =2 Meropenem S =0.5 Piperacillin S =64 Ticarcillin R>=128 Tobramycin S<=1 cr 1.8 went down POD#3 lt heal ulcer,surgical debridement left heal ulcer renal consult appreciated. pt/ot/?snu screen iv antibiotic zyvox+zosyn arteriogram wednesday . Comment Review of Relevant I have reviewed the following items luís (where applicable) has been applied. Labs Laboratory Tests Test 11/27/18 11:06 11/27/18 14:45 11/27/18 16:26 11/27/18 19:14 Glucose (Fingerstick) 120 mg/dL (70-99) 98 mg/dL (70-99) 153 mg/dL (70-99) 151 mg/dL (70-99) Sodium Level 144 mmol/L (136-145) Potassium Level 4.1 mmol/L (3.5-5.1) Chloride Level 106 mmol/L (98-107) Carbon Dioxide Level 27 mmol/L (21-32) Anion Gap 11 (6-14) Blood Urea Nitrogen 24 mg/dL (8-26) Creatinine 2.3 mg/dL (0.7-1.3) Estimated GFR (Cockcroft-Gault) 28.9 Glucose Level 164 mg/dL (70-99) Calcium Level 8.6 mg/dL (8.5-10.1) Creatine Kinase 50 U/L (39-308) Test 11/28/18 06:00 11/28/18 06:20 11/28/18 07:52 Hemoglobin 8.3 g/dL (13.0-17.5) Sodium Level 141 mmol/L (136-145) Potassium Level 4.0 mmol/L (3.5-5.1) Chloride Level 105 mmol/L (98-107) Carbon Dioxide Level 29 mmol/L (21-32) Anion Gap 7 (6-14) Blood Urea Nitrogen 20 mg/dL (8-26) Creatinine 1.8 mg/dL (0.7-1.3) Estimated GFR (Cockcroft-Gault) 38.3 Glucose Level 186 mg/dL (70-99) Calcium Level 8.3 mg/dL (8.5-10.1) Phosphorus Level 3.3 mg/dL (2.6-4.7) Magnesium Level 2.0 mg/dL (1.8-2.4) Albumin 2.6 g/dL (3.4-5.0) Urine Collection Type Unknown Urine Color Yellow Urine Clarity Cloudy Urine pH 5.5 Urine Specific [place] 1.020 Urine Protein Negative mg/dL (NEG-TRACE) Urine Glucose (UA) >=1000 mg/dL (NEG) Urine Ketones (Stick) Negative mg/dL (NEG) Urine Blood Moderate (NEG) Urine Nitrite Negative (NEG) Urine Bilirubin Negative (NEG) Urine Urobilinogen Dipstick 0.2 mg/dL (0.2 mg/dL) Urine Leukocyte Esterase Large (NEG) Urine RBC 20-40 /HPF (0-2) Urine WBC Tntc /HPF (0-4) Urine Bacteria Moderate /HPF (0-FEW) Urine Yeast Present /HPF Glucose (Fingerstick) 171 mg/dL (70-99) Microbiology 11/24/18 AFB Specimen Processing Tissue - Final, Resulted 11/24/18 Acid Fast Bacilli Culture, Resulted Pending 11/24/18 Gram Stain - Final, Resulted 11/24/18 Fungal Culture, Resulted Pending 11/24/18 Fungal Culture Result 1, Resulted Pending Medications Current Medications Magnesium Sulfate 50 ml @ 25 mls/hr PRN DAILY PRN IV for Mag < 1.7 on am labs; Start 11/27/18 at 10:30 Vitals/I & O Vital Sign - Last 24 Hours 11/27/18 11/27/18 11/27/18 11/27/18 11:00 13:00 15:00 15:08 Temp 98.1 97.8 98.1 97.8 Pulse 78 78 77 78 Resp 18 18 B/P (MAP) 146/68 (94) 146/68 146/68 (94) 146/68 Pulse Ox 98 97 O2 Delivery Room Air Room Air 11/27/18 11/27/18 11/27/18 11/27/18 15:09 16:09 18:00 19:00 Temp 97.4 97.4 Pulse 78 78 Resp 18 18 18 B/P (MAP) 146/68 110/43 (65) Pulse Ox 98 94 O2 Delivery Room Air Room Air O2 Flow Rate 2.0 11/27/18 11/27/18 11/27/18 11/27/18 20:00 20:59 21:00 21:00 Pulse 78 78 Resp 18 B/P (MAP) 110/43 110/43 Pulse Ox 94 O2 Delivery Room Air Room Air 11/27/18 11/28/18 11/28/18 11/28/18 22:53 03:00 03:18 04:18 Temp 97.7 97.7 97.7 97.7 Pulse 78 78 Resp 18 18 B/P (MAP) 172/67 (102) 160/63 (95) Pulse Ox 98 96 96 96 O2 Delivery Room Air Room Air Room Air Room Air O2 Flow Rate 2.0 2.0 2.0 2.0 11/28/18 11/28/18 11/28/18 11/28/18 05:51 07:00 08:49 08:50 Temp 97.9 97.9 Pulse 78 78 78 78 Resp 16 B/P (MAP) 160/63 148/71 (96) 148/71 148/71 Pulse Ox 98 O2 Delivery Room Air 11/28/18 09:10 Resp 18 O2 Delivery Room Air Intake and Output 11/27/18 11/27/18 11/28/18 14:59 22:59 06:59 Intake Total 850 ml 1000 ml 350 ml Output Total 750 ml Balance 850 ml 1000 ml -400 ml ELDER LAURENT MD Nov 28, 2018 10:06
--- NOTE | 2018-11-28 10:31 | PDOC ---
Infectious Disease Note Subjective: Subjective pt has nausea and vomiting this am Pain controlled N0 F/C/S/D/SOA ROS: ROS Negative except for above. Vital Signs: Vital Signs Vital Signs Date Time Temp Pulse Resp B/P (MAP) Pulse Ox O2 Delivery O2 Flow Rate FiO2 11/28/18 10:12 18 98 Room Air 11/28/18 08:50 78 148/71 11/28/18 07:00 97.9 97.9 11/28/18 04:18 2.0 Physical Exam: PHYSICAL EXAM GENERAL: sitting in chair,comfortable, HEENT: anciteric Oral cavity clear NECK: Supple LUNGS: Clear. HEART: S1, S2 pacemaker ABDOMEN: Soft and nontender EXTREMITIES: No gross edema or cyanosis. Left calcaneal wound vac in place SKIN: No rash NEUROLOGIC: Alert and oriented x3. RUE-PICC clean Medications: Inpatient Meds: Current Medications Medications (Trade) Dose Ordered Sig/Perlita Start Time Stop Time Status Last Admin Dose Admin Acetaminophen/ Hydrocodone Bitart (Lortab 5/325) 1 tab PRN Q6HRS PRN 11/23/18 13:30 11/28/18 09:10 1 TAB Alteplase, Recombinant (Cathflo For Central Catheter Clearance) 1 mg 1X ONCE 11/26/18 06:30 11/26/18 06:31 DC 11/26/18 06:30 1 MG Aspirin (Tera Aspirin) 325 mg DAILY 11/23/18 09:00 11/28/18 08:50 325 MG Atorvastatin Calcium (Lipitor) 20 mg HS 11/22/18 22:00 11/27/18 21:39 20 MG Bupivacaine HCl (Sensorcaine Mpf 0.5%) 30 ml STK-MED ONCE 11/24/18 09:32 11/24/18 10:32 DC Carvedilol (Coreg) 12.5 mg BID 11/22/18 21:00 11/28/18 08:49 12.5 MG Dexamethasone Sodium Phosphate (Decadron) 20 mg STK-MED ONCE 11/24/18 10:25 11/24/18 10:26 DC Dextrose (Dextrose 50%-Water Syringe) 25 gm 1X ONCE 11/26/18 17:15 11/26/18 17:16 DC 11/26/18 16:45 25 GM Fentanyl Citrate (Fentanyl 2ml Vial) 50 mcg 1X ONCE 11/24/18 11:32 11/24/18 12:58 DC 11/24/18 11:50 50 MCG Ferrous Sulfate (Feosol) 325 mg [id number] 11/23/18 08:00 11/28/18 08:49 325 MG Heparin Sodium/ Sodium Chloride 1,500 ml @ As Directed STK-MED ONCE 11/24/18 12:37 11/24/18 12:38 DC Hydralazine HCl (Apresoline Inj) 20 mg STK-MED ONCE 11/24/18 12:13 11/24/18 12:14 DC Hydralazine HCl (Apresoline) 25 mg TID 11/22/18 22:00 11/28/18 08:50 25 MG Insulin Glargine (Lantus) 7 units 1X ONCE 11/24/18 09:30 11/24/18 09:31 DC 11/24/18 09:37 7 UNITS Insulin Human Lispro (HumaLOG) 5 units 1X ONCE 11/24/18 09:30 11/24/18 09:31 DC 11/24/18 09:38 5 UNITS Iodixanol (Visipaque 320) 100 ml STK-MED ONCE 11/24/18 12:37 11/24/18 12:38 DC Lactobacillus Rhamnosus (Culturelle) 1 cap BID 11/23/18 21:00 11/28/18 08:48 1 CAP Lidocaine HCl (Lidocaine 1% 20ml Vial) 20 ml STK-MED ONCE 11/24/18 12:37 11/24/18 12:38 DC Lidocaine HCl (Lidocaine Pf 2% Vial) 5 ml STK-MED ONCE 11/24/18 10:25 11/24/18 10:26 DC Lidocaine HCl (Xylocaine 1% Pf 30ml Vial) 30 ml STK-MED ONCE 11/24/18 09:32 11/24/18 10:32 DC Lidocaine HCl (Xylocaine-Mpf 1% 2ml Vial) 2 ml PRN 1X PRN 11/24/18 07:00 11/25/18 06:59 DC Linezolid/Dextrose 300 ml @ 300 mls/hr Q12HR 11/23/18 21:00 11/28/18 08:51 300 MLS/HR Magnesium Sulfate 50 ml @ 25 mls/hr PRN DAILY PRN 11/27/18 10:30 Midodrine (Proamatine) 5 mg [id number] 11/23/18 07:00 11/27/18 05:54 5 MG Ondansetron HCl (Zofran) 4 mg STK-MED ONCE 11/24/18 10:25 11/24/18 10:26 DC Pantoprazole Sodium (Protonix) 40 mg DAILYAC 11/23/18 07:30 11/28/18 08:50 40 MG Phenylephrine HCl (PHENYLEPHRINE in 0.9% NACL PF) 1 mg STK-MED ONCE 11/24/18 11:05 11/24/18 11:06 DC Piperacillin Sod/ Tazobactam Sod 3.375 gm/Sodium Chloride 50 ml @ 100 mls/hr Q8HRS 11/22/18 22:00 11/28/18 06:10 100 MLS/HR Pregabalin (Lyrica) 75 mg BID 11/22/18 21:00 11/28/18 08:49 75 MG Prochlorperazine Edisylate (Compazine) 5 mg PACU PRN PRN 11/24/18 07:00 11/24/18 19:01 DC Propofol 20 ml @ As Directed STK-MED ONCE 11/24/18 10:25 11/24/18 10:26 DC Ringer's Solution 1,000 ml @ 30 mls/hr Q24H 11/24/18 07:00 11/24/18 19:01 DC Sodium Chloride 1,000 ml @ 75 mls/hr [id number] 11/23/18 10:30 11/25/18 08:11 DC 11/24/18 20:33 75 MLS/HR Tamsulosin HCl (Flomax) 0.4 mg QHS 11/22/18 21:00 11/27/18 21:37 0.4 MG Tramadol HCl (Ultram) 50 mg PRN BID PRN 11/23/18 01:15 11/24/18 20:30 50 MG Vancomycin HCl (Vanco Per Pharmacy) 1 each PRN DAILY PRN 11/22/18 18:15 11/23/18 10:27 DC 11/22/18 21:09 1 EACH Vancomycin HCl (Vancomycin Trough Level) 1 each 1X ONCE 11/24/18 23:00 11/24/18 23:01 Cancel Vancomycin HCl 1.25 gm/Sodium Chloride 250 ml @ 167 mls/hr Q24H 11/23/18 23:00 11/23/18 23:00 DC Vancomycin HCl 1.75 gm/Sodium Chloride 500 ml @ 250 mls/hr 1X ONCE 11/22/18 23:00 11/23/18 00:59 DC 11/22/18 23:00 250 MLS/HR Zolpidem Tartrate (Ambien) 5 mg PRN QHS PRN 11/23/18 13:30 11/23/18 22:14 5 MG Labs: Lab Laboratory Tests Test 11/27/18 11:06 11/27/18 14:45 11/27/18 16:26 11/27/18 19:14 Glucose (Fingerstick) 120 mg/dL (70-99) 98 mg/dL (70-99) 153 mg/dL (70-99) 151 mg/dL (70-99) Sodium Level 144 mmol/L (136-145) Potassium Level 4.1 mmol/L (3.5-5.1) Chloride Level 106 mmol/L (98-107) Carbon Dioxide Level 27 mmol/L (21-32) Anion Gap 11 (6-14) Blood Urea Nitrogen 24 mg/dL (8-26) Creatinine 2.3 mg/dL (0.7-1.3) Estimated GFR (Cockcroft-Gault) 28.9 Glucose Level 164 mg/dL (70-99) Calcium Level 8.6 mg/dL (8.5-10.1) Creatine Kinase 50 U/L (39-308) Test 11/28/18 06:00 11/28/18 06:20 11/28/18 07:52 Hemoglobin 8.3 g/dL (13.0-17.5) Sodium Level 141 mmol/L (136-145) Potassium Level 4.0 mmol/L (3.5-5.1) Chloride Level 105 mmol/L (98-107) Carbon Dioxide Level 29 mmol/L (21-32) Anion Gap 7 (6-14) Blood Urea Nitrogen 20 mg/dL (8-26) Creatinine 1.8 mg/dL (0.7-1.3) Estimated GFR (Cockcroft-Gault) 38.3 Glucose Level 186 mg/dL (70-99) Calcium Level 8.3 mg/dL (8.5-10.1) Phosphorus Level 3.3 mg/dL (2.6-4.7) Magnesium Level 2.0 mg/dL (1.8-2.4) Albumin 2.6 g/dL (3.4-5.0) Urine Collection Type Unknown Urine Color Yellow Urine Clarity Cloudy Urine pH 5.5 Urine Specific [place] 1.020 Urine Protein Negative mg/dL (NEG-TRACE) Urine Glucose (UA) >=1000 mg/dL (NEG) Urine Ketones (Stick) Negative mg/dL (NEG) Urine Blood Moderate (NEG) Urine Nitrite Negative (NEG) Urine Bilirubin Negative (NEG) Urine Urobilinogen Dipstick 0.2 mg/dL (0.2 mg/dL) Urine Leukocyte Esterase Large (NEG) Urine RBC 20-40 /HPF (0-2) Urine WBC Tntc /HPF (0-4) Urine Bacteria Moderate /HPF (0-FEW) Urine Yeast Present /HPF Glucose (Fingerstick) 171 mg/dL (70-99) Micro RUN DATE: 11/27/18 PAGE 1 RUN TIME: 1708 [facility] [address] [place] [address] Brady Smith M.D., Tobacco Shaker PATIENT: FREDRICK RUBIO ACCT: [id number] LOC: [address] [place] [address] U : [id number] AGE/SX: 63/M ROOM: 504 REG : 11/22/[address]: ELDER LAURENT MD : 1955 BED: 1 DIS : STATUS: ADM IN TLOC: SPEC #: [id number] ANDRADE: 11/24/18-1109 STATUS: RES REQ #: [id number] RECD: 11/24/18-[address] [facility] [address]: ELDER LAURENT MD SOURCE: FOOT ENTR: 11/24/18-[address] [facility] [address]: IVY SARMIENTO II, MD [facility]: YAA BERTRAND MD, SAMIR R MD ORDERED: ANAER/AEROB/GS Procedure Result ANAEROBIC-AEROBIC CULTURE PENDING ANAEROBIC RES 1 PENDING AEROBIC CULT Preliminary Preliminary report AEROBIC RES 1 Preliminary Comment Pseudomonas aeruginosa 4+ AEROBIC RES 2 Preliminary Enterococcus faecium 2+ ANTIMICROBIAL SUSCEPTIBILITY Preliminary Comment S = Susceptible; I = Intermediate; R = Resistant P = Positive; N = Negative MICS are expressed in micrograms per mL Antibiotic RSLT#1 RSLT#2 RSLT#3 RSLT#4 Amikacin S =4 Cefepime S =4 Ceftazidime S =8 Ciprofloxacin R>=4 Gentamicin S =4 Imipenem S =2 Levofloxacin S =2 Meropenem S =0.5 Piperacillin S =64 Ticarcillin R>=128 Tobramycin S<=1 CONTINUED ON NEXT PAGE RUN DATE: 11/27/18 PAGE 2 RUN TIME: 8368 [facility] [address] [place] [address] Brady Smith M.D., Tobacco Shaker SPEC: [id number] PATIENT: FERDRICK RUBIO [id number] ( Continued) Procedure Result GRAM STAIN Final Final report GRAM STAIN RES 1 Final Comment No white blood cells seen. GRAM STAIN RES 2 Final Gram positive cocci Rare seen GRAM STAIN RES 3 Final Comment Rare gram positive cocci in pairs Performed at: - [facility], [place], [place] [id number] Global Supply Chain Director: MEENA Mcneal MD, Phone: [phone] RUN DATE: 11/25/18 PAGE 1 RUN TIME: 1712 [facility] [address] [place] [address] Brady Smith M.D., Tobacco Shaker PATIENT: FREDRICK RUBIO ACCT: [id number] LOC: [address] [place] [address] U : [id number] AGE/SX: 63/M ROOM: [facility] REG : 11/22/[address]: ELDER LAURENT MD : 1955 BED: 1 DIS : STATUS: ADM IN TLOC: SPEC #: [id number] ANDRADE: 11/24/18 STATUS: RES REQ #: [id number] RECD: 11/24/[address]: ELDER LAURENT MD SOURCE: FOOT ENTR: 11/24/18-[address] [facility] [address]: IVY SARMIENTO II, MD SPDESC: YAA BERTRAND MD, SAMIR R MD ORDERED: AFANAND PARMAR,OTHER Procedure Result AFB SPECIMEN PROCESSING Final Tissue Grinding AFB CULTURE FINAL PENDING AFB CULTURE GRAM STAIN Final Negative Performed at: DA - [facility] [address], [place], [place] [id number] Global Supply Chain Director: MEENA Mcneal MD, Phone: [phone] FUNGAL CULTURE,OTHER PENDING ANAND CULT RES 1 PENDING Objective: Assessment: Chronic left calcaneal wound,, CT c/w acute osteo. s/p I and D of skin and subcutaneous tissue, excisional on 11/25. AFB neg,, PSAE, ZOSYN R ,E FAECIUM BONNY PENDING DM HTN CAD Pacemaker KAYLEE on CKD Ertapenem allergy/intolerance w/ confusion and hallucinations Plan: Plan of Care START MERREM ,WILL NEED DAPTOMYCIN IF E FAECIUM IS VRE Further abx modifications pending cultures results Will need long-term IV antibiotics for osteo for atleast 6 weeks d/w Case management Hold discharge to SNF pending BONNY of E Faecium D/w nursing JUDSON CHAPA MD Nov 28, 2018 10:31
[2018-11-28] MEDS: ONDANSETRON PF 4 MG/2 ML VIAL. IV PRN (10:51)
[2018-11-28 11:00] VITALS: BP 126/62
[2018-11-28] MEDS ORDERED: DAPTOmycin (GENERIC) IVPB 440 MG in IV NORMAL SALINE 50ML 50 ML IV SCH (12:00)
[2018-11-28 12:15] LABS: UR PROTEIN RD 29.4 mg/dL (Not Estab.)
[2018-11-28] MEDS: MEROPENEM 500 MG in IV NORMAL SALINE 50ML 50 ML IV SCH ×3 (13:04→18:26)
--- NOTE | 2018-11-28 13:18 | PDOC ---
Renal-Progress Notes Subjective Notes Notes NO NEW COMPLAINTS History of Present Illness Hx of present illness STABLE Vitals Vitals Vital Signs Date Time Temp Pulse Resp B/P (MAP) Pulse Ox O2 Delivery O2 Flow Rate FiO2 11/28/18 11:00 97.7 82 18 126/62 (83) 98 Room Air 97.7 11/28/18 04:18 2.0 Weight Weight [ ] I.O. Intake and Output Intake and Output 11/28/18 06:59 Intake Total 2200 ml Output Total 750 ml Balance 1450 ml Intake Oral 1850 ml IV Total 350 ml Output Urine Total 750 ml # Voids 2 # Bowel Movements 3 Labs Labs Laboratory Tests Test 11/27/18 14:45 11/27/18 16:26 11/27/18 19:14 11/28/18 06:00 Glucose (Fingerstick) 98 mg/dL (70-99) 153 mg/dL (70-99) 151 mg/dL (70-99) Sodium Level 144 mmol/L (136-145) 141 mmol/L (136-145) Potassium Level 4.1 mmol/L (3.5-5.1) 4.0 mmol/L (3.5-5.1) Chloride Level 106 mmol/L (98-107) 105 mmol/L (98-107) Carbon Dioxide Level 27 mmol/L (21-32) 29 mmol/L (21-32) Anion Gap 11 (6-14) 7 (6-14) Blood Urea Nitrogen 24 mg/dL (8-26) 20 mg/dL (8-26) Creatinine 2.3 mg/dL (0.7-1.3) 1.8 mg/dL (0.7-1.3) Estimated GFR (Cockcroft-Gault) 28.9 38.3 Glucose Level 164 mg/dL (70-99) 186 mg/dL (70-99) Calcium Level 8.6 mg/dL (8.5-10.1) 8.3 mg/dL (8.5-10.1) Creatine Kinase 50 U/L (39-308) Hemoglobin 8.3 g/dL (13.0-17.5) Phosphorus Level 3.3 mg/dL (2.6-4.7) Magnesium Level 2.0 mg/dL (1.8-2.4) Albumin 2.6 g/dL (3.4-5.0) Test 11/28/18 06:20 11/28/18 07:52 11/28/18 11:52 Urine Collection Type Unknown Urine Color Yellow Urine Clarity Cloudy Urine pH 5.5 Urine Specific [place] 1.020 Urine Protein 29.4 mg/dL (Not Estab.) Urine Glucose (UA) >=1000 mg/dL (NEG) Urine Ketones (Stick) Negative mg/dL (NEG) Urine Blood Moderate (NEG) Urine Nitrite Negative (NEG) Urine Bilirubin Negative (NEG) Urine Urobilinogen Dipstick 0.2 mg/dL (0.2 mg/dL) Urine Leukocyte Esterase Large (NEG) Urine RBC 20-40 /HPF (0-2) Urine WBC Tntc /HPF (0-4) Urine Bacteria Moderate /HPF (0-FEW) Urine Yeast Present /HPF Urine Random Sodium 99 mmol/L (Not Estab.) Urine Creatinine 47.6 mg/dL (Not Estab.) Urine Protein/Creatinine Ratio 618 mg/g creat (0-200) Glucose (Fingerstick) 171 mg/dL (70-99) 203 mg/dL (70-99) Micro Micro Microbiology 11/24/18 AFB Specimen Processing Tissue - Final, Resulted 11/24/18 Acid Fast Bacilli Culture, Resulted Pending 11/24/18 Gram Stain - Final, Resulted 11/24/18 Fungal Culture, Resulted Pending 11/24/18 Fungal Culture Result 1, Resulted Pending Review of Systems Constitutional: yes: alert, oriented Ears/Nose/Throat: Yes: no symptom reported Eyes: Yes: no symptom reported Pulmonary: Yes no symptom reported Cardiovascular: Yes no symptom reported Gastrointestional: Yes: no symptom reported Genitourinary: Yes: no symptom reported Musculoskeletal: Yes: no symptom reported Skin: Yes no symptom reported Psychiatric/Neurological: Yes: no symptom reported Endocrine: Yes: no symptom reported Physical Exam General Appearance: no apparent distress Skin: warm Respiratory: decreased breath sounds Heart: S1S2 Abdomen: soft, bowel sounds present Genitourinary: bladder flat Extremities: pulses present Neurology: alert Assessment Assessment IMP LEFT HEEL WOUND DM II HTN KAYLEE-RESOLVED WITH CR DOWN TO 1.8 CKD STAGE 3 WITH CR OF ABOUT 1.8 AT BASELINE PLAN CONT ANTIBIOTICS AVOID PICC LINES IF POSSIBLE ENC PO LOW DOSE GEETHA-I OR ARB IN THE NEAR FUTURE WILL FOLLOW ZUNILDA FARR MD 25, 2019 13:18
[2018-11-28 15:00] VITALS: BP 180/86
[2018-11-28 19:00] VITALS: BP 174/60
[2018-11-28] MEDS: TAMSULOSIN 0.4 MG CAP.ER.24H. PO SCH (21:49)
[2018-11-28] MEDS: ATORVASTATIN CALCIUM 20 MG TABLET PO SCH (21:49)
[2018-11-28] MEDS: HYDROcodone/APAP 7.5/325MG 1 TAB TABLET PO PRN (21:49)
[2018-11-28] MEDS: INSULIN GLARGINE 300 UNITS/3 ML INSULN.PEN. SQ SCH (21:56)
[2018-11-28 23:00] VITALS: BP 175/70
[2018-11-29] MEDS: MEROPENEM 500 MG in IV NORMAL SALINE 50ML 50 ML IV SCH ×4 (00:37→21:51)
[2018-11-29 03:00] VITALS: BP 159/64
[2018-11-29] MEDS: HYDROcodone/APAP 7.5/325MG 1 TAB TABLET PO PRN ×3 (04:46→18:41)
[2018-11-29 05:38] LABS: ALBUMIN 2.7 g/dL (3.4-5.0); CALCIUM 8.3 mg/dL (8.5-10.1); GFR 33.9; MAGNESIUM 1.9 mg/dL (1.8-2.4); PHOSPHORUS 3.3 mg/dL (2.6-4.7); POTASSIUM 4.5 mmol/L (3.5-5.1)
[2018-11-29 07:00] VITALS: BP 183/72
[2018-11-29] MEDS: MIDODRINE 5 MG TABLET PO SCH ×3 (07:00→17:20)
[2018-11-29] MEDS: FERROUS SULFATE 325 MG TABLET. PO SCH (08:59)
[2018-11-29] MEDS: PANTOPRAZOLE 40 MG TABLET.DR. PO SCH (08:59)
[2018-11-29] MEDS: CARVEDILOL 12.5 MG TABLET. PO SCH ×2 (09:01→17:18)
[2018-11-29] MEDS: PREGABALIN 75 MG CAPSULE PO SCH ×2 (09:04→21:50)
[2018-11-29] MEDS: LACTOBACILLUS RHAMNOSUS GG 1 CAPSULE. PO SCH ×2 (09:04→21:50)
[2018-11-29] MEDS: hydrALAZINE 25 MG TABLET PO SCH ×3 (09:05→21:51)
[2018-11-29] MEDS: ASPIRIN 325 MG TABLET PO SCH (09:08)
[2018-11-29] MEDS: INSULIN LISPRO 300 UNITS/3 ML INSULN.PEN. SQ SCH ×4 (09:16→17:00)
--- NOTE | 2018-11-29 09:58 | PDOC ---
PROGRESS NOTES Subjective Subjective pt feeling better Objective Objective Vital Signs Date Time Temp Pulse Resp B/P (MAP) Pulse Ox O2 Delivery O2 Flow Rate FiO2 11/29/18 09:05 91 183/72 11/29/18 07:00 97.9 18 99 Room Air 97.9 11/29/18 05:46 2.0 Intake and Output 11/29/18 07:00 Intake Total 1730 ml Output Total 1970 ml Balance -240 ml Intake Oral 1330 ml IV Total 400 ml Output Urine Total 1550 ml Stool Total 300 ml Emesis 120 ml # Bowel Movements 3 Physical Exam Abdomen: Normal bowel sounds, Soft, No tenderness Heart: Regular rate, Normal S1, Normal S2 Extremities: No edema, Other (no edema but weak pulses bilaterally.) General: Alert, Oriented X3, Cooperative HEENT: Atraumatic, EOMI Lungs: Clear to auscultation, Normal air movement MUSCULOSKELETAL: Other (he has approximately a 4 x 6 cm wound at his posterior calcaneal region his left side. There is black eschar covering it. No appreciable surrounding fluctuance or erythema.) Neuro: Normal speech, Strength at 5/5 X4 ext, Sensation intact, Other ( decreased sensation bilateral feet, otherwise normal) Psych/Mental Status: Mental status NL, Mood NL Skin: Other (Left heel wound with VAC in place. No evidence of cellulitis.) COMMENT wound vac left foot Assessment Assessment FINAL IMPRESSION:Ac renal failure on cri 2.0 1. Left heel ulcer, over Achillis tendon and calcaneus , not improving even with the outpatient treatment. Possible osteomyelitis of the calcaneus.CT scan and bone scan suggestive of osteo. 2. Peripheral vascular disease with diabetes. 3. Insulin-dependent diabetes. 4. Coronary artery disease, previous angioplasty, stent. 5. Chronic systolic heart failure. 6. Pacemaker for sick sinus syndrome. 7. Hypertension. 8. Hyperlipidemia. 9. 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 CRF stage 3, cr 1.6-1.8 PLAN:wound c/s AEROBIC RES 1 Preliminary Comment Pseudomonas aeruginosa 4+ AEROBIC RES 2 Preliminary Enterococcus faecium 2+ ANTIMICROBIAL SUSCEPTIBILITY Preliminary Comment S = Susceptible; I = Intermediate; R = Resistant P = Positive; N = Negative MICS are expressed in micrograms per mL Antibiotic RSLT#1 RSLT#2 RSLT#3 RSLT#4 Amikacin S =4 Cefepime S =4 Ceftazidime S =8 Ciprofloxacin R>=4 Gentamicin S =4 Imipenem S =2 Levofloxacin S =2 Meropenem S =0.5 Piperacillin S =64 Ticarcillin R>=128 Tobramycin S<=1 cr 2.0 went up POD#4 lt heal ulcer,surgical debridement left heal ulcer Iv hydration today renal consult appreciated. pt/ot/?snu screen iv antibiotic Dapto+meropenum arteriogram Wednesday . Comment Review of Relevant I have reviewed the following items luís (where applicable) has been applied. Labs Laboratory Tests Test 11/28/18 11:52 11/28/18 12:00 11/28/18 16:54 11/28/18 21:22 Glucose (Fingerstick) 203 mg/dL (70-99) 101 mg/dL (70-99) 158 mg/dL (70-99) Clostridium difficile Toxin B Gene Negative (Negative) Test 11/29/18 04:50 11/29/18 07:29 Sodium Level 140 mmol/L (136-145) Potassium Level 4.5 mmol/L (3.5-5.1) Chloride Level 104 mmol/L (98-107) Carbon Dioxide Level 27 mmol/L (21-32) Anion Gap 9 (6-14) Blood Urea Nitrogen 17 mg/dL (8-26) Creatinine 2.0 mg/dL (0.7-1.3) Estimated GFR (Cockcroft-Gault) 33.9 Glucose Level 329 mg/dL (70-99) Calcium Level 8.3 mg/dL (8.5-10.1) Phosphorus Level 3.3 mg/dL (2.6-4.7) Magnesium Level 1.9 mg/dL (1.8-2.4) Albumin 2.7 g/dL (3.4-5.0) Glucose (Fingerstick) 376 mg/dL (70-99) Microbiology 11/24/18 AFB Specimen Processing Tissue - Final, Resulted 11/24/18 Acid Fast Bacilli Culture, Resulted Pending 11/24/18 Gram Stain - Final, Resulted 11/24/18 Fungal Culture, Resulted Pending 11/24/18 Fungal Culture Result 1, Resulted Pending Medications Current Medications Acetaminophen/ Hydrocodone Bitart (Lortab 7.5/325) 1 tab PRN Q6HRS PRN PO SEVERE PAIN Last administered on 11/29/18at 04:46; Start 11/28/18 at 16:45 Carvedilol (Coreg) 12.5 mg BIDWMEALS PO Last administered on 11/29/18at 09:01; Start 11/28/18 at 17:00 Daptomycin 440 mg/ Sodium Chloride 50 ml @ 100 mls/hr Q24H IV Last administered on 11/28/18at 13:03; Start 11/28/18 at 12:00 Meropenem 500 mg/ Sodium Chloride 50 ml @ 100 mls/hr Q6HRS IV Last administered on 11/29/18at 06:11; Start 11/28/18 at 12:00 Vitals/I & O Vital Sign - Last 24 Hours 11/28/18 11/28/18 11/28/18 11/28/18 11:00 13:00 13:23 15:00 Temp 97.7 97.7 97.7 97.7 Pulse 82 78 78 80 Resp 18 18 B/P (MAP) 126/62 (83) 177/78 177/78 180/86 (117) Pulse Ox 98 98 O2 Delivery Room Air Room Air 11/28/18 11/28/18 11/28/18 11/28/18 15:58 16:58 17:33 18:00 Pulse 80 80 Resp 18 18 B/P (MAP) 180/86 180/86 Pulse Ox 98 98 O2 Delivery Room Air Room Air 11/28/18 11/28/18 11/28/18 11/28/18 19:00 20:10 21:49 21:51 Temp 97.8 97.8 Pulse 84 84 Resp 18 B/P (MAP) 174/60 (98) 174/60 Pulse Ox 97 97 O2 Delivery Room Air Room Air Room Air O2 Flow Rate 2.0 2.0 11/28/18 11/29/18 11/29/18 11/29/18 23:00 03:00 04:46 05:46 Temp 98.0 98.4 98.0 98.4 Pulse 86 82 Resp 18 18 B/P (MAP) 175/70 (105) 159/64 (95) Pulse Ox 96 96 96 96 O2 Delivery Room Air Room Air Room Air Room Air O2 Flow Rate 2.0 2.0 11/29/18 11/29/18 11/29/18 11/29/18 07:00 07:00 09:01 09:05 Temp 97.9 97.9 Pulse 91 91 91 91 Resp 18 B/P (MAP) 183/72 183/72 (109) 183/72 183/72 Pulse Ox 99 O2 Delivery Room Air Intake and Output 11/28/18 11/28/18 11/29/18 15:00 23:00 07:00 Intake Total 830 ml 500 ml 400 ml Output Total 420 ml 1550 ml Balance 410 ml 500 ml -1150 ml ELDER LAURENT MD Nov 29, 2018 09:58
[2018-11-29] MEDS ORDERED: ENOXAPARIN 30 MG/0.3 ML SYRINGE. SQ ONE (10:30)
[2018-11-29 11:00] VITALS: BP 149/63
--- NOTE | 2018-11-29 11:08 | PDOC ---
Infectious Disease Note Subjective: Subjective Nausea and vomiting resolved Pain controlled N0 F/C/S/D/SOA ROS: ROS Negative except for above. Vital Signs: Vital Signs Vital Signs Date Time Temp Pulse Resp B/P (MAP) Pulse Ox O2 Delivery O2 Flow Rate FiO2 11/29/18 10:51 99 Room Air 2.0 11/29/18 09:05 91 183/72 11/29/18 07:00 97.9 18 97.9 Physical Exam: PHYSICAL EXAM GENERAL: sitting in chair,comfortable, HEENT: anciteric Oral cavity clear NECK: Supple LUNGS: Clear. HEART: S1, S2 pacemaker ABDOMEN: Soft and nontender EXTREMITIES: No gross edema or cyanosis. Left calcaneal wound vac in place SKIN: No rash NEUROLOGIC: Alert and oriented x3. RUE-PICC clean Medications: Inpatient Meds: Current Medications Medications (Trade) Dose Ordered Sig/Perlita Start Time Stop Time Status Last Admin Dose Admin Acetaminophen/ Hydrocodone Bitart (Lortab 5/325) 1 tab PRN Q6HRS PRN 11/23/18 13:30 11/28/18 15:58 1 TAB Acetaminophen/ Hydrocodone Bitart (Lortab 7.5/325) 1 tab PRN Q6HRS PRN 11/28/18 16:45 11/29/18 10:51 1 TAB Alteplase, Recombinant (Cathflo For Central Catheter Clearance) 1 mg 1X ONCE 11/26/18 06:30 11/26/18 06:31 DC 11/26/18 06:30 1 MG Aspirin (Tera Aspirin) 325 mg DAILY 11/23/18 09:00 11/29/18 09:08 325 MG Atorvastatin Calcium (Lipitor) 20 mg HS 11/22/18 22:00 11/28/18 21:49 20 MG Bupivacaine HCl (Sensorcaine Mpf 0.5%) 30 ml STK-MED ONCE 11/24/18 09:32 11/24/18 10:32 DC Carvedilol (Coreg) 12.5 mg BIDWMEALS 11/28/18 17:00 11/29/18 09:01 12.5 MG Daptomycin 440 mg/ Sodium Chloride 50 ml @ 100 mls/hr Q24H 11/28/18 12:00 11/28/18 13:03 100 MLS/HR Dexamethasone Sodium Phosphate (Decadron) 20 mg STK-MED ONCE 11/24/18 10:25 11/24/18 10:26 DC Dextrose (Dextrose 50%-Water Syringe) 25 gm 1X ONCE 11/26/18 17:15 11/26/18 17:16 DC 11/26/18 16:45 25 GM Enoxaparin Sodium (Lovenox 30mg Syringe) 30 mg 1X ONCE 11/29/18 10:30 11/29/18 10:31 DC 11/29/18 10:51 30 MG Fentanyl Citrate (Fentanyl 2ml Vial) 50 mcg 1X ONCE 11/24/18 11:32 11/24/18 12:58 DC 11/24/18 11:50 50 MCG Ferrous Sulfate (Feosol) 325 mg [id number] 11/23/18 08:00 11/29/18 08:59 325 MG Heparin Sodium/ Sodium Chloride 1,500 ml @ As Directed STK-MED ONCE 11/24/18 12:37 11/24/18 12:38 DC Hydralazine HCl (Apresoline Inj) 20 mg STK-MED ONCE 11/24/18 12:13 11/24/18 12:14 DC Hydralazine HCl (Apresoline) 25 mg TID 11/22/18 22:00 11/29/18 09:05 25 MG Insulin Glargine (Lantus) 7 units 1X ONCE 11/24/18 09:30 11/24/18 09:31 DC 11/24/18 09:37 7 UNITS Insulin Human Lispro (HumaLOG) 5 units 1X ONCE 11/24/18 09:30 11/24/18 09:31 DC 11/24/18 09:38 5 UNITS Iodixanol (Visipaque 320) 100 ml STK-MED ONCE 11/24/18 12:37 11/24/18 12:38 DC Lactobacillus Rhamnosus (Culturelle) 1 cap BID 11/23/18 21:00 11/29/18 09:04 1 CAP Lidocaine HCl (Lidocaine 1% 20ml Vial) 20 ml STK-MED ONCE 11/24/18 12:37 11/24/18 12:38 DC Lidocaine HCl (Lidocaine Pf 2% Vial) 5 ml STK-MED ONCE 11/24/18 10:25 11/24/18 10:26 DC Lidocaine HCl (Xylocaine 1% Pf 30ml Vial) 30 ml STK-MED ONCE 11/24/18 09:32 11/24/18 10:32 DC Lidocaine HCl (Xylocaine-Mpf 1% 2ml Vial) 2 ml PRN 1X PRN 11/24/18 07:00 11/25/18 06:59 DC Linezolid/Dextrose 300 ml @ 300 mls/hr Q12HR 11/23/18 21:00 11/28/18 11:09 DC 11/28/18 08:51 300 MLS/HR Magnesium Sulfate 50 ml @ 25 mls/hr PRN DAILY PRN 11/27/18 10:30 Meropenem 500 mg/ Sodium Chloride 50 ml @ 100 mls/hr Q6HRS 11/28/18 12:00 11/29/18 06:11 100 MLS/HR Midodrine (Proamatine) 5 mg [id number] 11/23/18 07:00 11/27/18 05:54 5 MG Ondansetron HCl (Zofran) 4 mg STK-MED ONCE 11/24/18 10:25 11/24/18 10:26 DC Pantoprazole Sodium (Protonix) 40 mg DAILYAC 11/23/18 07:30 11/29/18 08:59 40 MG Phenylephrine HCl (PHENYLEPHRINE in 0.9% NACL PF) 1 mg STK-MED ONCE 11/24/18 11:05 11/24/18 11:06 DC Piperacillin Sod/ Tazobactam Sod 3.375 gm/Sodium Chloride 50 ml @ 100 mls/hr Q8HRS 11/22/18 22:00 11/28/18 11:09 DC 11/28/18 06:10 100 MLS/HR Pregabalin (Lyrica) 75 mg BID 11/22/18 21:00 11/29/18 09:04 75 MG Prochlorperazine Edisylate (Compazine) 5 mg PACU PRN PRN 11/24/18 07:00 11/24/18 19:01 DC Propofol 20 ml @ As Directed STK-MED ONCE 11/24/18 10:25 11/24/18 10:26 DC Ringer's Solution 1,000 ml @ 30 mls/hr Q24H 11/24/18 07:00 11/24/18 19:01 DC Sodium Chloride 1,000 ml @ 75 mls/hr [id number] 11/29/18 16:00 Tamsulosin HCl (Flomax) 0.4 mg QHS 11/22/18 21:00 11/28/18 21:49 0.4 MG Tramadol HCl (Ultram) 50 mg PRN BID PRN 11/23/18 01:15 11/24/18 20:30 50 MG Vancomycin HCl (Vanco Per Pharmacy) 1 each PRN DAILY PRN 11/22/18 18:15 11/23/18 10:27 DC 11/22/18 21:09 1 EACH Vancomycin HCl (Vancomycin Trough Level) 1 each 1X ONCE 11/24/18 23:00 11/24/18 23:01 Cancel Vancomycin HCl 1.25 gm/Sodium Chloride 250 ml @ 167 mls/hr Q24H 11/23/18 23:00 11/23/18 23:00 DC Vancomycin HCl 1.75 gm/Sodium Chloride 500 ml @ 250 mls/hr 1X ONCE 11/22/18 23:00 11/23/18 00:59 DC 11/22/18 23:00 250 MLS/HR Zolpidem Tartrate (Ambien) 5 mg PRN QHS PRN 11/23/18 13:30 11/23/18 22:14 5 MG Labs: Lab Laboratory Tests Test 11/28/18 11:52 11/28/18 12:00 11/28/18 16:54 11/28/18 21:22 Glucose (Fingerstick) 203 mg/dL (70-99) 101 mg/dL (70-99) 158 mg/dL (70-99) Clostridium difficile Toxin B Gene Negative (Negative) Test 11/29/18 04:50 11/29/18 07:29 11/29/18 11:02 Sodium Level 140 mmol/L (136-145) Potassium Level 4.5 mmol/L (3.5-5.1) Chloride Level 104 mmol/L (98-107) Carbon Dioxide Level 27 mmol/L (21-32) Anion Gap 9 (6-14) Blood Urea Nitrogen 17 mg/dL (8-26) Creatinine 2.0 mg/dL (0.7-1.3) Estimated GFR (Cockcroft-Gault) 33.9 Glucose Level 329 mg/dL (70-99) Calcium Level 8.3 mg/dL (8.5-10.1) Phosphorus Level 3.3 mg/dL (2.6-4.7) Magnesium Level 1.9 mg/dL (1.8-2.4) Albumin 2.7 g/dL (3.4-5.0) Glucose (Fingerstick) 376 mg/dL (70-99) 426 mg/dL (70-99) Micro RUN DATE: 11/29/18 PAGE 1 RUN TIME: 1027 [facility] [address] [place] [address] Brady Smith M.D., Java Security Engineer PATIENT: FREDRICK RUBIO ACCT: [id number] LOC: [address] [place] [address] U : [id number] AGE/SX: 63/M ROOM: [facility] REG : 11/22/[address]: ELDER LAURENT MD : 1955 BED: 1 DIS : STATUS: ADM IN TLOC: SPEC #: [id number] ANDRADE: 11/24/18-1110 STATUS: COMP REQ #: [id number] RECD: 11/24/18-[address]: ELDER LAURENT MD SOURCE: FOOT ENTR: 11/24/18-[address]: IVY SARMIENTO II, MD SPDESC: YAA BERTRAND MD, SAMIR R MD ORDERED: ANAER/AEROB/GS Procedure Result ANAEROBIC-AEROBIC CULTURE Final Final report ANAEROBIC RES 1 Final Comment No anaerobic growth in 72 hours. AEROBIC CULT Final Final report AEROBIC RES 1 Final Comment Pseudomonas aeruginosa 4+ AEROBIC RES 2 Final Enterococcus faecalis 2+ THIS IS AN UPDATED REPORT. AEROBIC RES 3 Final Staphylococcus aureus 1+ Based on susceptibility to oxacillin this isolate would be susceptible to: *Penicillinase-stable penicillins, such as: Cloxacillin, Dicloxacillin, Nafcillin *Beta-lactam combination agents, such as: Amoxicillin-clavulanic acid, Ampicillin-sulbactam, Piperacillin-tazobactam *Oral cephems, such as: Cefaclor, Cefdinir, Cefpodoxime, Cefprozil, Cefuroxime, Cephalexin, Loracarbef *Parenteral cephems, such as: CONTINUED ON NEXT PAGE RUN DATE: 11/29/18 PAGE 2 RUN TIME: 1027 [facility] [address] [place] [address] Brady Smith M.D., Java Security Engineer SPEC: [id number] PATIENT: FREDRICK RUBIO [id number] ( Continued) Procedure Result AEROBIC RES 3 Final (continued) Cefazolin, Cefepime, Cefotaxime, Cefotetan, Ceftaroline, Ceftizoxime, Ceftriaxone, Cefuroxime *Carbapenems, such as: Doripenem, Ertapenem, Imipenem, Meropenem ANTIMICROBIAL SUSCEPTIBILITY Final Comment S = Susceptible; I = Intermediate; R = Resistant P = Positive; N = Negative MICS are expressed in micrograms per mL Antibiotic RSLT#1 RSLT#2 RSLT#3 RSLT#4 Amikacin S =4 Cefepime S =4 Ceftazidime S =8 Ciprofloxacin R>=4 S<=0.5 Clindamycin R =R Erythromycin R>=8 Gentamicin S =4 S<=0.5 Imipenem S =2 Levofloxacin S =2 S<=0.12 Linezolid S =2 Meropenem S =0.5 Moxifloxacin S<=0.25 Oxacillin S =1 Penicillin S =4 R>=0.5 Piperacillin S =64 Quinupristin/Dalfopristin S<=0.25 Rifampin S<=0.5 Tetracycline S<=1 Ticarcillin R>=128 Tobramycin S<=1 Trimethoprim/Sulfa S<=10 Vancomycin S =2 S<=0.5 GRAM STAIN Final Final report GRAM STAIN RES 1 Final Comment No white blood cells seen. CONTINUED ON NEXT PAGE RUN DATE: 11/29/18 PAGE 3 RUN TIME: 1027 [facility] [address] [place] [address] Brady Smith M.D., Java Security Engineer SPEC: [id number] PATIENT: FREDRICK RUBIO [id number] ( Continued) Procedure Result GRAM STAIN RES 2 Final Gram positive cocci Rare seen GRAM STAIN RES 3 Final Comment Rare gram positive cocci in pairs Performed at: DA - [facility] [address] [facility] [address], [place], [place] [id number] Activity Aid: MEENA Mcneal MD, Phone: [phone] Objective: Assessment: Chronic left calcaneal wound,, CT c/w acute osteo. s/p I and D of skin and subcutaneous tissue, excisional on 11/25. AFB neg,, cults PSAE, ZOSYN R , E FAECIUM was reported now changed to E fecalis AMP S MSSA DM HTN CAD Pacemaker KAYLEE on CKD Ertapenem allergy/intolerance w/ confusion and hallucinations Nausea and vomiting diarrhea c diff neg 11/28 Plan: Plan of Care Merrem for atleast 6 weeks script given weekly labs on abx cbc/bun/creat/esr fax to [phone] f/u id clinic in 2 weeks [phone] D/w nursing JUDSON CHAPA MD Nov 29, 2018 11:08
--- NOTE | 2018-11-29 12:46 | PDOC ---
Renal-Progress Notes Subjective Notes Notes NONE History of Present Illness Hx of present illness STABLE Vitals Vitals Vital Signs Date Time Temp Pulse Resp B/P (MAP) Pulse Ox O2 Delivery O2 Flow Rate FiO2 11/29/18 11:51 98 Room Air 2.0 11/29/18 11:00 97.8 86 18 149/63 (91) 97.8 Weight Weight [ ] I.O. Intake and Output Intake and Output 11/29/18 06:59 Intake Total 1730 ml Output Total 1970 ml Balance -240 ml Intake Oral 1330 ml IV Total 400 ml Output Urine Total 1550 ml Stool Total 300 ml Emesis 120 ml # Bowel Movements 3 Labs Labs Laboratory Tests Test 11/28/18 16:54 11/28/18 21:22 11/29/18 04:50 11/29/18 07:29 Glucose (Fingerstick) 101 mg/dL (70-99) 158 mg/dL (70-99) 376 mg/dL (70-99) Sodium Level 140 mmol/L (136-145) Potassium Level 4.5 mmol/L (3.5-5.1) Chloride Level 104 mmol/L (98-107) Carbon Dioxide Level 27 mmol/L (21-32) Anion Gap 9 (6-14) Blood Urea Nitrogen 17 mg/dL (8-26) Creatinine 2.0 mg/dL (0.7-1.3) Estimated GFR (Cockcroft-Gault) 33.9 Glucose Level 329 mg/dL (70-99) Calcium Level 8.3 mg/dL (8.5-10.1) Phosphorus Level 3.3 mg/dL (2.6-4.7) Magnesium Level 1.9 mg/dL (1.8-2.4) Albumin 2.7 g/dL (3.4-5.0) Test 11/29/18 11:02 Glucose (Fingerstick) 426 mg/dL (70-99) Micro Micro Microbiology 11/24/18 AFB Specimen Processing Tissue - Final, Resulted 11/24/18 Acid Fast Bacilli Culture, Resulted Pending 11/24/18 Gram Stain - Final, Resulted 11/24/18 Fungal Culture, Resulted Pending 11/24/18 Fungal Culture Result 1, Resulted Pending Review of Systems Constitutional: yes: alert, oriented Ears/Nose/Throat: Yes: no symptom reported Eyes: Yes: no symptom reported Pulmonary: Yes no symptom reported Cardiovascular: Yes no symptom reported Gastrointestional: Yes: no symptom reported Genitourinary: Yes: no symptom reported Musculoskeletal: Yes: no symptom reported Skin: Yes no symptom reported Psychiatric/Neurological: Yes: no symptom reported Endocrine: Yes: no symptom reported Physical Exam General Appearance: no apparent distress Skin: warm Respiratory: decreased breath sounds Heart: S1S2 Abdomen: soft, bowel sounds present Genitourinary: bladder flat Extremities: pulses present Neurology: alert Assessment Assessment IMP LEFT HEEL WOUND DM II HTN KAYLEE-RESOLVED CKD STAGE 3 WITH CR OF ABOUT 1.8-2.0 AT BASELINE PLAN CONT ANTIBIOTICS AVOID PICC LINES IF POSSIBLE ENC PO LOW DOSE GEETHA-I OR ARB IN THE NEAR FUTURE ANGIOGRAM TOMORROW HYDRATION WILL FOLLOW D/W ATTENDING ZUNILDA FARR MD Nov 29, 2018 12:46
[2018-11-29] MEDS ORDERED: INSULIN LISPRO 300 UNITS/3 ML INSULN.PEN. SQ ONE (13:30)
[2018-11-29 15:00] VITALS: BP 151/66
--- NOTE | 2018-11-29 15:26 | PDOC ---
PROGRESS NOTES Subjective Subjective Patient without complaints of foot pain, is concerned with wound vac functioning properl. Angiogram planned for tomorrow Objective Objective Vital Signs Date Time Temp Pulse Resp B/P (MAP) Pulse Ox O2 Delivery O2 Flow Rate FiO2 11/29/18 12:56 86 149/63 11/29/18 11:51 98 Room Air 2.0 11/29/18 11:00 97.8 18 97.8 Intake and Output 11/29/18 07:00 Intake Total 1730 ml Output Total 1970 ml Balance -240 ml Intake Oral 1330 ml IV Total 400 ml Output Urine Total 1550 ml Stool Total 300 ml Emesis 120 ml # Bowel Movements 3 Physical Exam Heart: Regular rate General: Alert, Oriented X3, Cooperative Skin: Other (vac in place and functioning left heel, heel in off-loading boot) Assessment Assessment 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 Cr. 2.0 today Angiogram with possible interventions planned for tomorrow, hydration ordered, monitor Cr. Comment Review of Relevant I have reviewed the following items luís (where applicable) has been applied. Labs Laboratory Tests Test 11/27/18 16:26 11/27/18 19:14 11/28/18 06:00 11/28/18 06:20 Glucose (Fingerstick) 153 mg/dL (70-99) 151 mg/dL (70-99) Sodium Level 144 mmol/L (136-145) 141 mmol/L (136-145) Potassium Level 4.1 mmol/L (3.5-5.1) 4.0 mmol/L (3.5-5.1) Chloride Level 106 mmol/L (98-107) 105 mmol/L (98-107) Carbon Dioxide Level 27 mmol/L (21-32) 29 mmol/L (21-32) Anion Gap 11 (6-14) 7 (6-14) Blood Urea Nitrogen 24 mg/dL (8-26) 20 mg/dL (8-26) Creatinine 2.3 mg/dL (0.7-1.3) 1.8 mg/dL (0.7-1.3) Estimated GFR (Cockcroft-Gault) 28.9 38.3 Glucose Level 164 mg/dL (70-99) 186 mg/dL (70-99) Calcium Level 8.6 mg/dL (8.5-10.1) 8.3 mg/dL (8.5-10.1) Creatine Kinase 50 U/L (39-308) Hemoglobin 8.3 g/dL (13.0-17.5) Phosphorus Level 3.3 mg/dL (2.6-4.7) Magnesium Level 2.0 mg/dL (1.8-2.4) Albumin 2.6 g/dL (3.4-5.0) Urine Collection Type Unknown Urine Color Yellow Urine Clarity Cloudy Urine pH 5.5 Urine Specific [place] 1.020 Urine Protein 29.4 mg/dL (Not Estab.) Urine Glucose (UA) >=1000 mg/dL (NEG) Urine Ketones (Stick) Negative mg/dL (NEG) Urine Blood Moderate (NEG) Urine Nitrite Negative (NEG) Urine Bilirubin Negative (NEG) Urine Urobilinogen Dipstick 0.2 mg/dL (0.2 mg/dL) Urine Leukocyte Esterase Large (NEG) Urine RBC 20-40 /HPF (0-2) Urine WBC Tntc /HPF (0-4) Urine Bacteria Moderate /HPF (0-FEW) Urine Yeast Present /HPF Urine Random Sodium 99 mmol/L (Not Estab.) Urine Creatinine 47.6 mg/dL (Not Estab.) Urine Protein/Creatinine Ratio 618 mg/g creat (0-200) Test 11/28/18 07:52 11/28/18 11:52 11/28/18 12:00 11/28/18 16:54 Glucose (Fingerstick) 171 mg/dL (70-99) 203 mg/dL (70-99) 101 mg/dL (70-99) Clostridium difficile Toxin B Gene Negative (Negative) Test 11/28/18 21:22 11/29/18 04:50 11/29/18 07:29 11/29/18 11:02 Glucose (Fingerstick) 158 mg/dL (70-99) 376 mg/dL (70-99) 426 mg/dL (70-99) Sodium Level 140 mmol/L (136-145) Potassium Level 4.5 mmol/L (3.5-5.1) Chloride Level 104 mmol/L (98-107) Carbon Dioxide Level 27 mmol/L (21-32) Anion Gap 9 (6-14) Blood Urea Nitrogen 17 mg/dL (8-26) Creatinine 2.0 mg/dL (0.7-1.3) Estimated GFR (Cockcroft-Gault) 33.9 Glucose Level 329 mg/dL (70-99) Calcium Level 8.3 mg/dL (8.5-10.1) Phosphorus Level 3.3 mg/dL (2.6-4.7) Magnesium Level 1.9 mg/dL (1.8-2.4) Albumin 2.7 g/dL (3.4-5.0) Laboratory Tests Test 11/28/18 16:54 11/28/18 21:22 11/29/18 04:50 11/29/18 07:29 Glucose (Fingerstick) 101 mg/dL (70-99) 158 mg/dL (70-99) 376 mg/dL (70-99) Sodium Level 140 mmol/L (136-145) Potassium Level 4.5 mmol/L (3.5-5.1) Chloride Level 104 mmol/L (98-107) Carbon Dioxide Level 27 mmol/L (21-32) Anion Gap 9 (6-14) Blood Urea Nitrogen 17 mg/dL (8-26) Creatinine 2.0 mg/dL (0.7-1.3) Estimated GFR (Cockcroft-Gault) 33.9 Glucose Level 329 mg/dL (70-99) Calcium Level 8.3 mg/dL (8.5-10.1) Phosphorus Level 3.3 mg/dL (2.6-4.7) Magnesium Level 1.9 mg/dL (1.8-2.4) Albumin 2.7 g/dL (3.4-5.0) Test 11/29/18 11:02 Glucose (Fingerstick) 426 mg/dL (70-99) Microbiology 11/24/18 AFB Specimen Processing Tissue - Final, Resulted 11/24/18 Acid Fast Bacilli Culture, Resulted Pending 11/24/18 Gram Stain - Final, Resulted 11/24/18 Fungal Culture, Resulted Pending 11/24/18 Fungal Culture Result 1, Resulted Pending Medications Current Medications Piperacillin Sod/ Tazobactam Sod 3.375 gm/Sodium Chloride 50 ml @ 100 mls/hr Q8HRS IV Last administered on 11/28/18at 06:10; Start 11/22/18 at 22:00; Stop at 11:09; Status DC Vancomycin HCl (Vanco Per Pharmacy) 1 each PRN DAILY PRN MC SEE COMMENTS Last administered on 11/22/18at 21:09; Start 11/22/18 at 18:15; Stop 11/23/18 at 10:27 ; Status DC Vancomycin HCl 1.75 gm/Sodium Chloride 500 ml @ 250 mls/hr 1X ONCE IV ; Start 11/22/18 at 20:00; Stop 11/22/18 at 21:06; Status DC Vancomycin HCl 1.25 gm/Sodium Chloride 250 ml @ 167 mls/hr Q24H IV ; Start at 20:00; Stop 11/22/18 at 21:05; Status DC Vancomycin HCl (Vancomycin Trough Level) 1 each 1X ONCE MC ; Start 11/24/18 at 23:00; Stop 11/24/18 at 23:01; Status Cancel Aspirin (Tera Aspirin) 325 mg DAILY PO Last administered on 11/29/18 09:08; Start 11/23/18 at 09:00 Carvedilol (Coreg) 12.5 mg BID PO Last administered on 11/28/18 08:49; Start 11/22/18 at 21:00; Stop 11/28/18 at 13:50; Status DC Ferrous Sulfate (Feosol) 325 mg DAILYWBKFT PO Last administered on 11/29/18 08 :59; Start 11/23/18 at 08:00 Pregabalin (Lyrica) 75 mg BID PO Last administered on 11/29/18 09:04; Start at 21:00 Tamsulosin HCl (Flomax) 0.4 mg QHS PO Last administered on 11/28/18 21:49; Start 11/22/18 at 21:00 Insulin Human Lispro (HumaLOG) 10 units TIDWMEALS SQ Last administered on 12:41; Start 11/23/18 at 08:00 Insulin Glargine (Lantus) 15 units QHS SQ Last administered on 11/28/18 21:56 ; Start 11/22/18 at 21:00 Pantoprazole Sodium (Protonix) 40 mg DAILYAC PO Last administered on 11/29/18 08:59; Start 11/23/18 at 07:30 Midodrine (Proamatine) 5 mg [id number] PO Last administered on 11/27/18 05:54; Start 11/23/18 at 07:00 Vancomycin HCl 1.25 gm/Sodium Chloride 250 ml @ 167 mls/hr Q24H IV ; Start at 23:00; Stop 11/23/18 at 23:00; Status DC Vancomycin HCl 1.75 gm/Sodium Chloride 500 ml @ 250 mls/hr 1X ONCE IV Last administered on 11/22/18at 23:00; Start 11/22/18 at 23:00; Stop 11/23/18 at 00:59 ; Status DC Atorvastatin Calcium (Lipitor) 20 mg HS PO Last administered on 11/28/18at 21:49 ; Start 11/22/18 at 22:00 Acetaminophen/ Hydrocodone Bitart (Lortab 5/325) 1 tab PRN Q6HRS PRN PO MODERATE PAIN; Start 11/22/18 at 21:45; Status Cancel Hydralazine HCl (Apresoline) 25 mg TID PO Last administered on 11/29/18 12:56 ; Start 11/22/18 at 22:00 Insulin Human Lispro (HumaLOG) 10 units 1X ONCE SQ Last administered on 21:53; Start 11/22/18 at 22:00; Stop 11/22/18 at 22:01; Status DC Tramadol HCl (Ultram) 50 mg PRN BID PRN PO MILD PAIN Last administered on 20:30; Start 11/23/18 at 01:15 Sodium Chloride 1,000 ml @ 75 mls/hr [id number] IV Last administered on at 20:33; Start 11/23/18 at 10:30; Stop 11/25/18 at 08:11; Status DC Linezolid/Dextrose 300 ml @ 300 mls/hr Q12HR IV Last administered on at 08:51; Start 11/23/18 at 21:00; Stop 11/28/18 at 11:09; Status DC Ondansetron HCl (Zofran) 4 mg PRN Q6HRS PRN IV NAUSEA/VOMITING; Start 11/24/18 at 07:00; Stop 11/25/18 at 06:59; Status DC Ringer's Solution 1,000 ml @ 30 mls/hr Q24H IV Last administered on 11/24/18 10:15; Start 11/24/18 at 07:00; Stop 11/24/18 at 18:59; Status DC Lidocaine HCl (Xylocaine-Mpf 1% 2ml Vial) 2 ml PRN 1X PRN ID PRIOR TO IV START ; Start 11/24/18 at 07:00; Stop 11/25/18 at 06:59; Status DC Prochlorperazine Edisylate (Compazine) 5 mg PACU PRN PRN IV NAUSEA, MRX1; Start 11/24/18 at 07:00; Stop 11/25/18 at 06:59; Status DC Acetaminophen/ Hydrocodone Bitart (Lortab 5/325) 1 tab PRN Q6HRS PRN PO MODERATE PAIN Last administered on 11/28/18 15:58; Start 11/23/18 at 13:30 Zolpidem Tartrate (Ambien) 5 mg PRN QHS PRN PO INSOMNIA Last administered on at 22:14; Start 11/23/18 at 13:30 Ringer's Solution 1,000 ml @ 30 mls/hr Q24H IV ; Start 11/24/18 at 07:00; Stop 11/24/18 at 19:01; Status DC Prochlorperazine Edisylate (Compazine) 5 mg PACU PRN PRN IV NAUSEA, MRX1; Start 11/24/18 at 07:00; Stop 11/24/18 at 19:01; Status DC Lactobacillus Rhamnosus (Culturelle) 1 cap BID PO Last administered on at 09:04; Start 11/23/18 at 21:00 Ondansetron HCl (Zofran) 8 mg PRN Q6HRS PRN IV NAUSEA/VOMITING Last administered on 11/28/18at 10:51; Start 11/23/18 at 23:30 Insulin Glargine (Lantus) 7 units 1X ONCE SQ Last administered on 11/24/18at 09 :37; Start 11/24/18 at 09:30; Stop 11/24/18 at 09:31; Status DC Insulin Human Lispro (HumaLOG) 5 units 1X ONCE SQ Last administered on at 09:38; Start 11/24/18 at 09:30; Stop 11/24/18 at 09:31; Status DC Fentanyl Citrate (Fentanyl 2ml Vial) 100 mcg STK-MED ONCE .ROUTE ; Start at 10:25; Stop 11/24/18 at 10:26; Status DC Propofol 20 ml @ As Directed STK-MED ONCE IV ; Start 11/24/18 at 10:25; Stop at 10:26; Status DC Dexamethasone Sodium Phosphate (Decadron) 20 mg STK-MED ONCE .ROUTE ; Start at 10:25; Stop 11/24/18 at 10:26; Status DC Lidocaine HCl (Lidocaine Pf 2% Vial) 5 ml STK-MED ONCE .ROUTE ; Start 11/24/18 at 10:25; Stop 11/24/18 at 10:26; Status DC Ondansetron HCl (Zofran) 4 mg STK-MED ONCE .ROUTE ; Start 11/24/18 at 10:25; Stop 11/24/18 at 10:26; Status DC Lidocaine HCl (Xylocaine 1% Pf 30ml Vial) 30 ml STK-MED ONCE .ROUTE ; Start at 09:32; Stop 11/24/18 at 10:32; Status DC Bupivacaine HCl (Sensorcaine Mpf 0.5%) 30 ml STK-MED ONCE .ROUTE ; Start at 09:32; Stop 11/24/18 at 10:32; Status DC Phenylephrine HCl (PHENYLEPHRINE in 0.9% NACL PF) 1 mg STK-MED ONCE IV ; Start 11/24/18 at 11:05; Stop 11/24/18 at 11:06; Status DC Hydralazine HCl (Apresoline Inj) 10 mg 1X ONCE IVP Last administered on at 12:17; Start 11/24/18 at 12:15; Stop 11/24/18 at 12:16; Status DC Hydralazine HCl (Apresoline Inj) 20 mg STK-MED ONCE .ROUTE ; Start 11/24/18 at 12:13; Stop 11/24/18 at 12:14; Status DC Iodixanol (Visipaque 320) 100 ml STK-MED ONCE .ROUTE ; Start 11/24/18 at 12:37; Stop 11/24/18 at 12:38; Status DC Lidocaine HCl (Lidocaine 1% 20ml Vial) 20 ml STK-MED ONCE .ROUTE ; Start at 12:37; Stop 11/24/18 at 12:38; Status DC Heparin Sodium/ Sodium Chloride 1,500 ml @ As Directed STK-MED ONCE .ROUTE ; Start 11/24/18 at 12:37; Stop 11/24/18 at 12:38; Status DC Fentanyl Citrate (Fentanyl 2ml Vial) 100 mcg STK-MED ONCE .ROUTE ; Start at 12:48; Stop 11/24/18 at 12:49; Status DC Fentanyl Citrate (Fentanyl 2ml Vial) 50 mcg 1X ONCE IV Last administered on at 11:50; Start 11/24/18 at 11:32; Stop 11/24/18 at 12:58; Status DC Alteplase, Recombinant (Cathflo For Central Catheter Clearance) 1 mg 1X ONCE INT CAT Last administered on 11/26/18at 06:30; Start 11/26/18 at 06:30; Stop at 06:31; Status DC Dextrose (Dextrose 50%-Water Syringe) 25 gm STK-MED ONCE IV ; Start 11/26/18 at 16:44; Stop 11/26/18 at 16:45; Status DC Dextrose (Dextrose 50%-Water Syringe) 25 gm 1X ONCE IV Last administered on at 16:45; Start 11/26/18 at 17:15; Stop 11/26/18 at 17:16; Status DC Magnesium Sulfate 50 ml @ 25 mls/hr PRN DAILY PRN IV for Mag < 1.7 on am labs; Start 11/27/18 at 10:30 Daptomycin 440 mg/ Sodium Chloride 50 ml @ 100 mls/hr Q24H IV Last administered on 11/28/18at 13:03; Start 11/28/18 at 12:00; Stop 11/29/18 at 12:17 ; Status DC Meropenem 500 mg/ Sodium Chloride 50 ml @ 100 mls/hr Q6HRS IV Last administered on 11/29/18at 06:11; Start 11/28/18 at 12:00; Stop 11/29/18 at 12:16 ; Status DC Carvedilol (Coreg) 12.5 mg BIDWMEALS PO Last administered on 11/29/18at 09:01; Start 11/28/18 at 17:00 Acetaminophen/ Hydrocodone Bitart (Lortab 7.5/325) 1 tab PRN Q6HRS PRN PO SEVERE PAIN Last administered on 11/29/18at 10:51; Start 11/28/18 at 16:45 Enoxaparin Sodium (Lovenox 30mg Syringe) 30 mg 1X ONCE SQ Last administered on 11/29/18at 10:51; Start 11/29/18 at 10:30; Stop 11/29/18 at 10:31; Status DC Sodium Chloride 1,000 ml @ 75 mls/hr [id number] IV ; Start 11/29/18 at 16:00 Meropenem 500 mg/ Sodium Chloride 50 ml @ 100 mls/hr Q8HRS IV Last administered on 11/29/18at 13:02; Start 11/29/18 at 14:00 Insulin Human Lispro (HumaLOG) 6 units 1X ONCE SQ Last administered on at 13:10; Start 11/29/18 at 13:30; Stop 11/29/18 at 13:31; Status DC Insulin Human Lispro (HumaLOG) 0-7 UNITS TIDWMEALS SQ ; Start 11/29/18 at 17:00 Dextrose (Dextrose 50%-Water Syringe) 12.5 gm PRN Q15MIN PRN IV SEE COMMENTS; Start 11/29/18 at 12:30 Active Scripts Active Cipro (Ciprofloxacin Hcl) 500 Mg Tablet 500 Mg PO BID 7 Days Hydrocodone-Apap 5-325 (Hydrocodone Bit/Acetaminophen) 1 Tab Tablet 1 Tab PO PRN Q6HRS PRN 7 Days Flomax (Tamsulosin Hcl) 0.4 Mg Cap.er.24h 0.4 Mg PO QHS 30 Days Aspirin Ec (Aspirin) 325 Mg Tablet. 1 Tab PO DAILY Levemir Flextouch (Insulin Detemir) 100 Unit/1 Ml Insuln.pen 15 Units SQ QHS Reported Tramadol Hcl 50 Mg Tablet 50 Mg PO PRN BID PRN Atorvastatin Calcium 20 Mg Tablet 20 Mg PO HS Levemir Flextouch (Insulin Detemir) 100 Unit/1 Ml Insuln.pen 15 Unit SQ QHS Novolog Flexpen (Insulin Aspart) 100 Unit/1 Ml Insuln.pen 10 Unit SQ TIDAC Protonix (Pantoprazole Sodium) 20 Mg Tablet.dr 40 Mg PO DAILY Lyrica (Pregabalin) 75 Mg Capsule 1 Cap PO BID Aspirin 325 Mg Tablet 1 Tab PO DAILY Carvedilol 12.5 Mg Tablet 12.5 Mg PO BID Ferrous Sulfate 325 Mg Tablet 1 Tab PO DAILYWBKFT Flomax (Tamsulosin Hcl) 0.4 Mg Cap.er.24h 1 Cap PO QHS Midodrine Hcl 5 Mg Tablet 5 Mg PO [id number] Midodrine Hcl 5 Mg Tablet 5 Mg PO [id number] Ferrous Sulfate 325 Mg Tablet 325 Mg PO DAILYWBKFT Protonix (Pantoprazole Sodium) 40 Mg Tablet.dr 1 Tab PO DAILY Novolog Flexpen (Insulin Aspart) 100 Unit/1 Ml Insuln.pen 10 Unit SQ TIDAC Lyrica (Pregabalin) 75 Mg Capsule 75 Mg PO BID Carvedilol (Carvedilol) 12.5 Mg Tablet 1 Tab PO BID Vitals/I & O Vital Sign - Last 24 Hours 11/28/18 11/28/18 11/28/18 11/28/18 15:58 16:58 17:33 18:00 Pulse 80 80 Resp 18 18 B/P (MAP) 180/86 180/86 Pulse Ox 98 98 O2 Delivery Room Air Room Air 11/28/18 11/28/18 11/28/18 11/28/18 19:00 20:10 21:49 21:51 Temp 97.8 97.8 Pulse 84 84 Resp 18 B/P (MAP) 174/60 (98) 174/60 Pulse Ox 97 97 O2 Delivery Room Air Room Air Room Air O2 Flow Rate 2.0 2.0 11/28/18 11/29/18 11/29/18 11/29/18 23:00 03:00 04:46 07:00 Temp 98.0 98.4 98.0 98.4 Pulse 86 82 91 Resp 18 18 B/P (MAP) 175/70 (105) 159/64 (95) 183/72 Pulse Ox 96 96 96 O2 Delivery Room Air Room Air Room Air O2 Flow Rate 2.0 11/29/18 11/29/18 11/29/18 11/29/18 07:00 09:01 09:05 10:51 Temp 97.9 97.9 Pulse 91 91 91 Resp 18 B/P (MAP) 183/72 (109) 183/72 183/72 Pulse Ox 99 99 O2 Delivery Room Air Room Air O2 Flow Rate 2.0 11/29/18 11/29/18 11/29/18 11/29/18 11:00 11:51 12:55 12:56 Temp 97.8 97.8 Pulse 86 86 86 Resp 18 B/P (MAP) 149/63 (91) 149/63 149/63 Pulse Ox 98 98 O2 Delivery Room Air Room Air O2 Flow Rate 2.0 Intake and Output 11/28/18 11/28/18 11/29/18 15:00 23:00 07:00 Intake Total 830 ml 500 ml 400 ml Output Total 420 ml 1550 ml Balance 410 ml 500 ml -1150 ml ENRICO BARKLEY APRN Nov 29, 2018 15:26
[2018-11-29] MEDS: IV NORMAL SALINE 1000ML BAG 1,000 ML IV SCH (16:00)
[2018-11-29 19:00] VITALS: BP 135/46
[2018-11-29] MEDS: TAMSULOSIN 0.4 MG CAP.ER.24H. PO SCH (21:50)
[2018-11-29] MEDS: ATORVASTATIN CALCIUM 20 MG TABLET PO SCH (21:51)
[2018-11-29] MEDS: INSULIN GLARGINE 300 UNITS/3 ML INSULN.PEN. SQ SCH (21:56)
[2018-11-29 22:44] VITALS: BP 115/48
[2018-11-30] VITALS (12 sets, daily range): BP systolic 102–188; BP diastolic 39–90
[2018-11-30] MEDS: IV NORMAL SALINE 1000ML BAG 1,000 ML IV SCH ×2 (04:10→18:40)
[2018-11-30] MEDS: HYDROcodone/APAP 7.5/325MG 1 TAB TABLET PO PRN ×3 (04:13→18:40)
[2018-11-30] MEDS: MEROPENEM 500 MG in IV NORMAL SALINE 50ML 50 ML IV SCH ×3 (04:17→21:22)
[2018-11-30 06:40] LABS: ALBUMIN 2.7 g/dL (3.4-5.0); CALCIUM 8.5 mg/dL (8.5-10.1); CREATININE 2.2 mg/dL (0.7-1.3); GFR 30.4; MAGNESIUM 2.2 mg/dL (1.8-2.4); PHOSPHORUS 3.5 mg/dL (2.6-4.7); POTASSIUM 4.4 mmol/L (3.5-5.1)
[2018-11-30 06:41] LABS: BASO # 0.1 x10^3/uL (0.0-0.2); BASO % 1 % (0-3); EOS # 0.3 x10^3/uL (0.0-0.7); EOS % 5 % (0-3); HEMATOCRIT 23.5 % (39.0-53.0); HEMOGLOBIN 7.6 g/dL (13.0-17.5); LYMPH # 1.3 x10^3/uL (1.0-4.8); LYMPH % 21 % (24-48); MEAN CORPUSCULAR HEMOGLOBIN 27 pg (25-35); MEAN CORPUSCULAR HGB CONC 32 g/dL (31-37); MEAN CORPUSCULAR VOLUME 85 fL (79-100); MONO # 0.4 x10^3/uL (0.0-1.1); MONO % 6 % (0-9); NEUT # 4.2 x10^3uL (1.8-7.7); NEUT % 68 % (31-73); PLATELET COUNT 203 x10^3/uL (140-400); RED BLOOD COUNT 2.77 x10^6/uL (4.30-5.70); RED CELL DISTRIBUTION WIDTH 16.9 % (11.5-14.5); WHITE BLOOD COUNT 6.2 x10^3/uL (4.0-11.0)
[2018-11-30] MEDS: MIDODRINE 5 MG TABLET PO SCH ×3 (07:00→18:00)
[2018-11-30] MEDS: INSULIN LISPRO 300 UNITS/3 ML INSULN.PEN. SQ SCH ×6 (08:00→17:59)
--- NOTE | 2018-11-30 09:05 | PDOC ---
Infectious Disease Note Subjective: Subjective Nausea and vomiting resolved still has loose bm Pain controlled N0 F/C/S/D/SOA ROS: ROS Negative except for above. Vital Signs: Vital Signs Vital Signs Date Time Temp Pulse Resp B/P (MAP) Pulse Ox O2 Delivery O2 Flow Rate FiO2 11/30/18 07:15 97.9 80 20 166/39 (81) 97 Room Air 2.0 97.9 Physical Exam: PHYSICAL EXAM GENERAL: sitting in chair,comfortable, HEENT: anciteric Oral cavity clear NECK: Supple LUNGS: Clear. HEART: S1, S2 pacemaker ABDOMEN: Soft and nontender EXTREMITIES: No gross edema or cyanosis. Left calcaneal wound vac in place SKIN: No rash NEUROLOGIC: Alert and oriented x3. RUE-PICC clean Medications: Inpatient Meds: Current Medications Medications (Trade) Dose Ordered Sig/Perlita Start Time Stop Time Status Last Admin Dose Admin Acetaminophen/ Hydrocodone Bitart (Lortab 5/325) 1 tab PRN Q6HRS PRN 11/23/18 13:30 11/28/18 15:58 1 TAB Acetaminophen/ Hydrocodone Bitart (Lortab 7.5/325) 1 tab PRN Q6HRS PRN 11/28/18 16:45 11/30/18 04:13 1 TAB Alteplase, Recombinant (Cathflo For Central Catheter Clearance) 1 mg 1X ONCE 11/26/18 06:30 11/26/18 06:31 DC 11/26/18 06:30 1 MG Aspirin (Tera Aspirin) 325 mg DAILY 11/23/18 09:00 11/29/18 09:08 325 MG Atorvastatin Calcium (Lipitor) 20 mg HS 11/22/18 22:00 11/29/18 21:51 20 MG Bupivacaine HCl (Sensorcaine Mpf 0.5%) 30 ml STK-MED ONCE 11/24/18 09:32 11/24/18 10:32 DC Carvedilol (Coreg) 12.5 mg BIDWMEALS 11/28/18 17:00 11/29/18 17:18 12.5 MG Daptomycin 440 mg/ Sodium Chloride 50 ml @ 100 mls/hr Q24H 11/28/18 12:00 11/29/18 12:17 DC 11/28/18 13:03 100 MLS/HR Dexamethasone Sodium Phosphate (Decadron) 20 mg STK-MED ONCE 11/24/18 10:25 11/24/18 10:26 DC Dextrose (Dextrose 50%-Water Syringe) 12.5 gm PRN Q15MIN PRN 11/29/18 12:30 Enoxaparin Sodium (Lovenox 30mg Syringe) 30 mg 1X ONCE 11/29/18 10:30 11/29/18 10:31 DC 11/29/18 10:51 30 MG Fentanyl Citrate (Fentanyl 2ml Vial) 50 mcg 1X ONCE 11/24/18 11:32 11/24/18 12:58 DC 11/24/18 11:50 50 MCG Ferrous Sulfate (Feosol) 325 mg [id number] 11/23/18 08:00 11/29/18 08:59 325 MG Heparin Sodium/ Sodium Chloride 1,500 ml @ As Directed STK-MED ONCE 11/24/18 12:37 11/24/18 12:38 DC Hydralazine HCl (Apresoline Inj) 20 mg STK-MED ONCE 11/24/18 12:13 11/24/18 12:14 DC Hydralazine HCl (Apresoline) 25 mg TID 11/22/18 22:00 11/29/18 21:51 25 MG Insulin Glargine (Lantus) 7 units 1X ONCE 11/24/18 09:30 11/24/18 09:31 DC 11/24/18 09:37 7 UNITS Insulin Human Lispro (HumaLOG) 0-7 UNITS TIDWMEALS 11/29/18 17:00 Iodixanol (Visipaque 320) 100 ml STK-MED ONCE 11/24/18 12:37 11/24/18 12:38 DC Lactobacillus Rhamnosus (Culturelle) 1 cap BID 11/23/18 21:00 11/29/18 21:50 1 CAP Lidocaine HCl (Lidocaine 1% 20ml Vial) 20 ml STK-MED ONCE 11/24/18 12:37 11/24/18 12:38 DC Lidocaine HCl (Lidocaine Pf 2% Vial) 5 ml STK-MED ONCE 11/24/18 10:25 11/24/18 10:26 DC Lidocaine HCl (Xylocaine 1% Pf 30ml Vial) 30 ml STK-MED ONCE 11/24/18 09:32 11/24/18 10:32 DC Lidocaine HCl (Xylocaine-Mpf 1% 2ml Vial) 2 ml PRN 1X PRN 11/24/18 07:00 11/25/18 06:59 DC Linezolid/Dextrose 300 ml @ 300 mls/hr Q12HR 11/23/18 21:00 11/28/18 11:09 DC 11/28/18 08:51 300 MLS/HR Magnesium Sulfate 50 ml @ 25 mls/hr PRN DAILY PRN 11/27/18 10:30 Meropenem 500 mg/ Sodium Chloride 50 ml @ 100 mls/hr Q8HRS 11/29/18 14:00 11/30/18 04:17 100 MLS/HR Midodrine (Proamatine) 5 mg [id number] 11/23/18 07:00 11/27/18 05:54 5 MG Ondansetron HCl (Zofran) 4 mg STK-MED ONCE 11/24/18 10:25 11/24/18 10:26 DC Pantoprazole Sodium (Protonix) 40 mg DAILYAC 11/23/18 07:30 11/29/18 08:59 40 MG Phenylephrine HCl (PHENYLEPHRINE in 0.9% NACL PF) 1 mg STK-MED ONCE 11/24/18 11:05 11/24/18 11:06 DC Piperacillin Sod/ Tazobactam Sod 3.375 gm/Sodium Chloride 50 ml @ 100 mls/hr Q8HRS 11/22/18 22:00 11/28/18 11:09 DC 11/28/18 06:10 100 MLS/HR Pregabalin (Lyrica) 75 mg BID 11/22/18 21:00 11/29/18 21:50 75 MG Prochlorperazine Edisylate (Compazine) 5 mg PACU PRN PRN 11/24/18 07:00 11/24/18 19:01 DC Propofol 20 ml @ As Directed STK-MED ONCE 11/24/18 10:25 11/24/18 10:26 DC Ringer's Solution 1,000 ml @ 30 mls/hr Q24H 11/24/18 07:00 11/24/18 19:01 DC Sodium Chloride 1,000 ml @ 75 mls/hr [id number] 11/29/18 16:00 11/30/18 04:10 75 MLS/HR Tamsulosin HCl (Flomax) 0.4 mg QHS 11/22/18 21:00 11/29/18 21:50 0.4 MG Tramadol HCl (Ultram) 50 mg PRN BID PRN 11/23/18 01:15 11/24/18 20:30 50 MG Vancomycin HCl (Vanco Per Pharmacy) 1 each PRN DAILY PRN 11/22/18 18:15 11/23/18 10:27 DC 11/22/18 21:09 1 EACH Vancomycin HCl (Vancomycin Trough Level) 1 each 1X ONCE 11/24/18 23:00 11/24/18 23:01 Cancel Vancomycin HCl 1.25 gm/Sodium Chloride 250 ml @ 167 mls/hr Q24H 11/23/18 23:00 11/23/18 23:00 DC Vancomycin HCl 1.75 gm/Sodium Chloride 500 ml @ 250 mls/hr 1X ONCE 11/22/18 23:00 11/23/18 00:59 DC 11/22/18 23:00 250 MLS/HR Zolpidem Tartrate (Ambien) 5 mg PRN QHS PRN 11/23/18 13:30 11/23/18 22:14 5 MG Labs: Lab Laboratory Tests Test 11/29/18 11:02 11/29/18 16:57 11/29/18 19:46 11/30/18 06:10 Glucose (Fingerstick) 426 mg/dL (70-99) 89 mg/dL (70-99) 206 mg/dL (70-99) White Blood Count 6.2 x10^3/uL (4.0-11.0) Red Blood Count 2.77 x10^6/uL (4.30-5.70) Hemoglobin 7.6 g/dL (13.0-17.5) Hematocrit 23.5 % (39.0-53.0) Mean Corpuscular Volume 85 fL (79-100) Mean Corpuscular Hemoglobin 27 pg (25-35) Mean Corpuscular Hemoglobin Concent 32 g/dL (31-37) Red Cell Distribution Width 16.9 % (11.5-14.5) Platelet Count 203 x10^3/uL (140-400) Neutrophils (%) (Auto) 68 % (31-73) Lymphocytes (%) (Auto) 21 % (24-48) Monocytes (%) (Auto) 6 % (0-9) Eosinophils (%) (Auto) 5 % (0-3) Basophils (%) (Auto) 1 % (0-3) Neutrophils # (Auto) 4.2 x10^3uL (1.8-7.7) Lymphocytes # (Auto) 1.3 x10^3/uL (1.0-4.8) Monocytes # (Auto) 0.4 x10^3/uL (0.0-1.1) Eosinophils # (Auto) 0.3 x10^3/uL (0.0-0.7) Basophils # (Auto) 0.1 x10^3/uL (0.0-0.2) Sodium Level 140 mmol/L (136-145) Potassium Level 4.4 mmol/L (3.5-5.1) Chloride Level 104 mmol/L (98-107) Carbon Dioxide Level 30 mmol/L (21-32) Anion Gap 6 (6-14) Blood Urea Nitrogen 33 mg/dL (8-26) Creatinine 2.2 mg/dL (0.7-1.3) Estimated GFR (Cockcroft-Gault) 30.4 Glucose Level 208 mg/dL (70-99) Calcium Level 8.5 mg/dL (8.5-10.1) Phosphorus Level 3.5 mg/dL (2.6-4.7) Magnesium Level 2.2 mg/dL (1.8-2.4) Albumin 2.7 g/dL (3.4-5.0) Test 11/30/18 07:27 Glucose (Fingerstick) 170 mg/dL (70-99) Micro RUN DATE: 11/29/18 PAGE 1 RUN TIME: 1027 [facility] [address] [place] [address] Brady Smith M.D., [employer]ight[employer] PATIENT: FREDRICK RUBIO ACCT: [id number] LOC: [address] [place] [address] U : [id number] AGE/SX: 63/M ROOM: 504 REG : 11/22/[address]: ELDER LAURENT MD : 1955 BED: 1 DIS : STATUS: ADM IN TLOC: SPEC #: [id number] ANDRADE: 11/24/18 STATUS: COMP REQ #: [id number] RECD: 11/24/[address]: ELDER LAURENT MD SOURCE: FOOT ENTR: 11/24/[address] [facility] [address]: IVY SARMIENTO II, MD [facility] YAA BERTRAND MD, SAMIR R MD ORDERED: ANAER/AEROB/GS Procedure Result ANAEROBIC-AEROBIC CULTURE Final Final report ANAEROBIC RES 1 Final Comment No anaerobic growth in 72 hours. AEROBIC CULT Final Final report AEROBIC RES 1 Final Comment Pseudomonas aeruginosa 4+ AEROBIC RES 2 Final Enterococcus faecalis 2+ THIS IS AN UPDATED REPORT. AEROBIC RES 3 Final Staphylococcus aureus 1+ Based on susceptibility to oxacillin this isolate would be susceptible to: *Penicillinase-stable penicillins, such as: Cloxacillin, Dicloxacillin, Nafcillin *Beta-lactam combination agents, such as: Amoxicillin-clavulanic acid, Ampicillin-sulbactam, Piperacillin-tazobactam *Oral cephems, such as: Cefaclor, Cefdinir, Cefpodoxime, Cefprozil, Cefuroxime, Cephalexin, Loracarbef *Parenteral cephems, such as: CONTINUED ON NEXT PAGE RUN DATE: 11/29/18 PAGE 2 RUN TIME: 1027 [facility] [address] [place] [address] Brady Smith M.D., [employer]ener SPEC: [id number] PATIENT: FREDRICK RUBIO [id number] ( Continued) Procedure Result AEROBIC RES 3 Final (continued) Cefazolin, Cefepime, Cefotaxime, Cefotetan, Ceftaroline, Ceftizoxime, Ceftriaxone, Cefuroxime *Carbapenems, such as: Doripenem, Ertapenem, Imipenem, Meropenem ANTIMICROBIAL SUSCEPTIBILITY Final Comment S = Susceptible; I = Intermediate; R = Resistant P = Positive; N = Negative MICS are expressed in micrograms per mL Antibiotic RSLT#1 RSLT#2 RSLT#3 RSLT#4 Amikacin S =4 Cefepime S =4 Ceftazidime S =8 Ciprofloxacin R>=4 S<=0.5 Clindamycin R =R Erythromycin R>=8 Gentamicin S =4 S<=0.5 Imipenem S =2 Levofloxacin S =2 S<=0.12 Linezolid S =2 Meropenem S =0.5 Moxifloxacin S<=0.25 Oxacillin S =1 Penicillin S =4 R>=0.5 Piperacillin S =64 Quinupristin/Dalfopristin S<=0.25 Rifampin S<=0.5 Tetracycline S<=1 Ticarcillin R>=128 Tobramycin S<=1 Trimethoprim/Sulfa S<=10 Vancomycin S =2 S<=0.5 GRAM STAIN Final Final report GRAM STAIN RES 1 Final Comment No white blood cells seen. CONTINUED ON NEXT PAGE RUN DATE: 11/29/18 PAGE 3 RUN TIME: 1027 [facility] [address] [place] [address] Brady Smith M.D., [employer] Stra[employer]ener SPEC: [id number] PATIENT: FREDRICK RUBIO [id number] ( Continued) Procedure Result GRAM STAIN RES 2 Final Gram positive cocci Rare seen GRAM STAIN RES 3 Final Comment Rare gram positive cocci in pairs Performed at: [facility] - [facility] [address], [place], [place] [id number] Pediatric Critical Care Nurse: MEENA Mcneal MD, Phone: [phone] Objective: Assessment: Chronic left calcaneal wound,, CT c/w acute osteo. s/p I and D of skin and subcutaneous tissue, excisional on 11/25. AFB neg,, cults PSAE, ZOSYN R , E FAECIUM was reported now changed to E fecalis AMP S MSSA DM HTN CAD Pacemaker KAYLEE on CKD ,creat now increasing, Ertapenem allergy/intolerance w/ confusion and hallucinations Nausea and vomiting resolved diarrhea c diff neg 11/28 PAD awaiting arteriogram today Plan: Plan of Care Merrem ,will need renal adjustment, creat around 2.2 still... cont supportive care f/u arteriogram wound care f/u labs and c/s D/W JUDSON REYES MD Nov 30, 2018 09:04
--- NOTE | 2018-11-30 09:56 | PDOC ---
PROGRESS NOTES Subjective Subjective feels ok ,going for arteriogram today Objective Objective Vital Signs Date Time Temp Pulse Resp B/P (MAP) Pulse Ox O2 Delivery O2 Flow Rate FiO2 11/30/18 07:15 97.9 80 20 166/39 (81) 97 Room Air 2.0 97.9 Intake and Output 11/30/18 07:00 Intake Total 360 ml Balance 360 ml Intake Oral 360 ml IV Total 0 ml # Voids 1 # Bowel Movements 2 Physical Exam Abdomen: Normal bowel sounds, Soft, No tenderness Heart: Regular rate Extremities: No edema, Other (no edema but weak pulses bilaterally.) General: Alert, Oriented X3, Cooperative HEENT: Atraumatic, EOMI Lungs: Clear to auscultation, Normal air movement MUSCULOSKELETAL: Other (he has approximately a 4 x 6 cm wound at his posterior calcaneal region his left side. There is black eschar covering it. No appreciable surrounding fluctuance or erythema.) Neuro: Normal speech, Strength at 5/5 X4 ext, Sensation intact, Other ( decreased sensation bilateral feet, otherwise normal) Psych/Mental Status: Mental status NL, Mood NL Skin: Other (vac in place and functioning left heel, heel in off-loading boot) COMMENT wound vac left foot Assessment Assessment FINAL IMPRESSION:Ac renal failure on cri 2.2 1. Left heel ulcer, over Achillis tendon and calcaneus , not improving even with the outpatient treatment. Possible osteomyelitis of the calcaneus.CT scan and bone scan suggestive of osteo. 2. Peripheral vascular disease with diabetes. 3. Insulin-dependent diabetes. 4. Coronary artery disease, previous angioplasty, stent. 5. Chronic systolic heart failure. 6. Pacemaker for sick sinus syndrome. 7. Hypertension. 8. Hyperlipidemia. 9. 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 CRF stage 3, cr 1.6-1.8 PLAN: C Diff -neg urine c/s neg. cr 2.2 went up Arteriogram today. iv antibiotics Dapto+meropenum. wound c/s AEROBIC RES 1 Preliminary Comment Pseudomonas aeruginosa 4+ AEROBIC RES 2 Preliminary Enterococcus faecium 2+ ANTIMICROBIAL SUSCEPTIBILITY Preliminary Comment S = Susceptible; I = Intermediate; R = Resistant P = Positive; N = Negative MICS are expressed in micrograms per mL Antibiotic RSLT#1 RSLT#2 RSLT#3 RSLT#4 Amikacin S =4 Cefepime S =4 Ceftazidime S =8 Ciprofloxacin R>=4 Gentamicin S =4 Imipenem S =2 Levofloxacin S =2 Meropenem S =0.5 Piperacillin S =64 Ticarcillin R>=128 Tobramycin S<=1 POD#5 lt heal ulcer,surgical debridement left heal ulcer Iv hydration today renal consult appreciated. pt/ot/?snu screen iv antibiotic Dapto+meropenum arteriogram Wednesday . Comment Review of Relevant I have reviewed the following items luís (where applicable) has been applied. Labs Laboratory Tests Test 11/29/18 11:02 11/29/18 16:57 11/29/18 19:46 11/30/18 06:10 Glucose (Fingerstick) 426 mg/dL (70-99) 89 mg/dL (70-99) 206 mg/dL (70-99) White Blood Count 6.2 x10^3/uL (4.0-11.0) Red Blood Count 2.77 x10^6/uL (4.30-5.70) Hemoglobin 7.6 g/dL (13.0-17.5) Hematocrit 23.5 % (39.0-53.0) Mean Corpuscular Volume 85 fL (79-100) Mean Corpuscular Hemoglobin 27 pg (25-35) Mean Corpuscular Hemoglobin Concent 32 g/dL (31-37) Red Cell Distribution Width 16.9 % (11.5-14.5) Platelet Count 203 x10^3/uL (140-400) Neutrophils (%) (Auto) 68 % (31-73) Lymphocytes (%) (Auto) 21 % (24-48) Monocytes (%) (Auto) 6 % (0-9) Eosinophils (%) (Auto) 5 % (0-3) Basophils (%) (Auto) 1 % (0-3) Neutrophils # (Auto) 4.2 x10^3uL (1.8-7.7) Lymphocytes # (Auto) 1.3 x10^3/uL (1.0-4.8) Monocytes # (Auto) 0.4 x10^3/uL (0.0-1.1) Eosinophils # (Auto) 0.3 x10^3/uL (0.0-0.7) Basophils # (Auto) 0.1 x10^3/uL (0.0-0.2) Sodium Level 140 mmol/L (136-145) Potassium Level 4.4 mmol/L (3.5-5.1) Chloride Level 104 mmol/L (98-107) Carbon Dioxide Level 30 mmol/L (21-32) Anion Gap 6 (6-14) Blood Urea Nitrogen 33 mg/dL (8-26) Creatinine 2.2 mg/dL (0.7-1.3) Estimated GFR (Cockcroft-Gault) 30.4 Glucose Level 208 mg/dL (70-99) Calcium Level 8.5 mg/dL (8.5-10.1) Phosphorus Level 3.5 mg/dL (2.6-4.7) Magnesium Level 2.2 mg/dL (1.8-2.4) Albumin 2.7 g/dL (3.4-5.0) Test 11/30/18 07:27 Glucose (Fingerstick) 170 mg/dL (70-99) Microbiology 11/28/18 Urine Culture - Final, Complete 11/28/18 Urine Culture Result 1 (BONNY) - Final, Complete 11/24/18 AFB Specimen Processing Tissue - Final, Resulted 11/24/18 Acid Fast Bacilli Culture, Resulted Pending 11/24/18 Gram Stain - Final, Resulted 11/24/18 Fungal Culture, Resulted Pending 11/24/18 Fungal Culture Result 1, Resulted Pending Medications Current Medications Dextrose (Dextrose 50%-Water Syringe) 12.5 gm PRN Q15MIN PRN IV SEE COMMENTS; Start 11/29/18 at 12:30 Enoxaparin Sodium (Lovenox 30mg Syringe) 30 mg 1X ONCE SQ Last administered on 11/29/18at 10:51; Start 11/29/18 at 10:30; Stop 11/29/18 at 10:31; Status DC Insulin Human Lispro (HumaLOG) 0-7 UNITS TIDWMEALS SQ ; Start 11/29/18 at 17:00 Insulin Human Lispro (HumaLOG) 6 units 1X ONCE SQ Last administered on at 13:10; Start 11/29/18 at 13:30; Stop 11/29/18 at 13:31; Status DC Meropenem 500 mg/ Sodium Chloride 50 ml @ 100 mls/hr Q8HRS IV Last administered on 11/30/18at 04:17; Start 11/29/18 at 14:00 Sodium Chloride 1,000 ml @ 75 mls/hr [id number] IV Last administered on at 04:10; Start 11/29/18 at 16:00 Vitals/I & O Vital Sign - Last 24 Hours 11/29/18 11/29/18 11/29/18 11/29/18 10:51 11:00 12:55 12:56 Temp 97.8 97.8 Pulse 86 86 86 Resp 18 B/P (MAP) 149/63 (91) 149/63 149/63 Pulse Ox 99 98 O2 Delivery Room Air Room Air O2 Flow Rate 2.0 11/29/18 11/29/18 11/29/18 11/29/18 15:00 17:18 17:20 18:41 Temp 97.9 97.9 Pulse 85 85 85 Resp 18 B/P (MAP) 151/66 (94) 151/66 151/66 Pulse Ox 98 98 O2 Delivery Room Air Room Air O2 Flow Rate 2.0 11/29/18 11/29/18 11/29/18 11/29/18 19:00 19:41 20:00 21:51 Temp 97.7 97.7 Pulse 78 78 Resp 18 B/P (MAP) 135/46 (75) 135/46 Pulse Ox 98 O2 Delivery Room Air Room Air O2 Flow Rate 2.0 2.0 11/29/18 11/30/18 11/30/18 11/30/18 22:44 03:00 04:13 05:13 Temp 97.7 97.9 97.7 97.9 Pulse 82 81 Resp 18 18 18 18 B/P (MAP) 115/48 (70) 159/73 (101) Pulse Ox 98 96 96 96 O2 Delivery Room Air Room Air Room Air Room Air O2 Flow Rate 2.0 2.0 11/30/18 11/30/18 07:00 07:15 Temp 97.9 97.9 Pulse 80 80 Resp 20 B/P (MAP) 166/39 166/39 (81) Pulse Ox 97 O2 Delivery Room Air O2 Flow Rate 2.0 Intake and Output 11/29/18 11/29/18 11/30/18 15:00 23:00 07:00 Intake Total 180 ml 180 ml 0 ml Balance 180 ml 180 ml 0 ml ELDER LAURENT MD Nov 30, 2018 09:56
[2018-11-30] MEDS ORDERED: LIDOCAINE 1% Multi-Dose 20 ML VIAL. ONE (10:08)
[2018-11-30] MEDS ORDERED: HEPARIN for ARTERIAL LINE 1,500 ML ONE (10:08)
[2018-11-30] MEDS ORDERED: IODIXANOL 320 MG/ML 100 ML VIAL. ONE (10:08)
[2018-11-30] MEDS ORDERED: fentaNYL PF VIAL 100 MCG/2 ML VIAL ONE (10:58)
[2018-11-30] MEDS ORDERED: MIDAZOLAM HCL/PF 2 MG/2 ML VIAL. ONE (10:58)
[2018-11-30 11:02] LABS: PROTHROMBIN TIME PATIENT 12.8 SEC (11.7-14.0)
[2018-11-30] MEDS ORDERED: fentaNYL PF VIAL 100 MCG/2 ML VIAL IV ONE (11:45)
[2018-11-30] MEDS ORDERED: MIDAZOLAM HCL/PF 2 MG/2 ML VIAL. IV ONE (11:45)
[2018-11-30] MEDS ORDERED: LIDOCAINE 1% Multi-Dose 20 ML VIAL. INJ ONE (11:45)
[2018-11-30] MEDS ORDERED: IODIXANOL 320 MG/ML 100 ML VIAL. IART ONE (11:45)
--- NOTE | 2018-11-30 12:08 | PDOC4 ---
OPERATIVE NOTE Date: Date: Nov 30, 2018 Pre-Op Diagnosis: Atherosclerosis of [place] arteries of left lower extremity with ulceration of left heel Abnormal tibial duplex left lower extremity Post-Op Diagnosis: Same as above Procedure Performed: #1 ultrasound-guided access right common femoral artery #2 3rd order selective catheter placement below the diaphragm (access right common femoral artery catheter tip left popliteal artery) #3 left leg runoff interpretation and supervision #4 conscious sedation under RN and surgeon supervision 15 minutes Versed 1 mg fentanyl 50 g Surgeon: Tyler Bravo M.D. Anesthesia Type: Conscious sedation under surgeon and RN supervision 15 minutes total Versed 1 mg Fentanyl 50 g Blood Loss: Minimal Specimans Obtained: None Findings: #1 catheter and wire easily crossed the aortic bifurcation left common and external iliac artery and left SFA #2 left popliteal artery widely patent #3 left lower extremity 2 vessel tibial runoff to the foot. The CRISTHIAN/ DP gives in -line flow to the foot. The posterior tibial gives in-line flow to the ankle. The peroneal small. There is some small disease within the foot but nothing that appears to be amenable to intervention #4 should have adequate flow for wound healing Complications: None Operative Note: The patient was escorted to the Gelatin Plant Supervisor and placed supine on the table. After placement of appropriate monitoring devices and preparation of the groins in usual sterile fashion appropriate timeout was performed. Sedation was then induced under physician and RN supervision using intravenous fentanyl and Versed. Attention was directed to the right common femoral artery which was fluoroscopically marked or the femoral head and examined with ultrasound. The vessels found to be widely patent with good flow and an image of the vessels taken and saved for the medical record. Under real-time ultrasound guidance local anesthetic was injected in the right groin and the right common femoral artery was accessed under ultrasound guidance in retrograde fashion. Ken puncture needle was used to pass a micropuncture wire into the iliac artery and exchange the needle for a Ken puncture sheath which backbled easily. This was used to introduce a Atkinson wire into the abdominal aorta under fluoroscopic guidance and exchanged the sheath for a 5 Armenian sheath which is aspirin flush the difficulty. This was used to introduce an Omni Flush catheter which was easily able to hook the aortic bifurcation and I easily passed a Atkinson wire into the left common femoral artery without any resistance. The catheter advanced easily over this and then the Atkinson wire was easily passed in the SFA. The Omni Flush was exchanged over the Atkinson for a long angled glide catheter and this and the wire easily traversed entire SFA under fluoroscopic guidance. The catheter was advanced left popliteal artery and angiograms using dilute contrast of the popliteal and tibial vessels to the foot were obtained. It appears that there was adequate flow for wound healing and no immediate intervention was necessary. Given the ease of the catheter passing and the fact duplex suggested normal flow through the popliteal artery and tibial disease only I elected not to obtain and grams the SFA or iliacs given the patient's elevated creatinine. The catheter was removed over a wire. The right 5 Armenian access was removed over a wire and a 6 Armenian Angio-Seal was deployed at the right common femoral artery access site with excellent hemostasis. Next a site was examined found to have good distal pulses no bleeding and no hematoma. Total contrast used 12 mL, a 500 mL bolus of normal saline was given at the end of the case for the small amount of contrast given the chronic kidney disease. There competitions, patient tolerated the procedure well throughout. TYLER BRAVO MD Nov 30, 2018 12:08
[2018-11-30] MEDS: FERROUS SULFATE 325 MG TABLET. PO SCH (12:22)
[2018-11-30] MEDS: CARVEDILOL 12.5 MG TABLET. PO SCH ×2 (12:23→16:43)
[2018-11-30] MEDS: hydrALAZINE 25 MG TABLET PO SCH ×3 (12:23→20:21)
[2018-11-30] MEDS: LACTOBACILLUS RHAMNOSUS GG 1 CAPSULE. PO SCH ×2 (12:24→20:21)
[2018-11-30] MEDS: ASPIRIN 325 MG TABLET PO SCH (12:24)
[2018-11-30] MEDS: PREGABALIN 75 MG CAPSULE PO SCH ×2 (12:24→20:20)
[2018-11-30] MEDS: PANTOPRAZOLE 40 MG TABLET.DR. PO SCH (12:24)
--- NOTE | 2018-11-30 14:42 | PDOC ---
Renal-Progress Notes Subjective Notes Notes NONE History of Present Illness Hx of present illness STABLE Vitals Vitals Vital Signs Date Time Temp Pulse Resp B/P (MAP) Pulse Ox O2 Delivery O2 Flow Rate FiO2 11/30/18 12:39 20 96 Room Air 11/30/18 12:24 80 181/75 11/30/18 12:00 2.0 11/30/18 07:15 97.9 97.9 Weight Weight [ ] I.O. Intake and Output Intake and Output 11/30/18 07:00 Intake Total 360 ml Balance 360 ml Intake Oral 360 ml IV Total 0 ml # Voids 1 # Bowel Movements 2 Labs Labs Laboratory Tests Test 11/29/18 16:57 11/29/18 19:46 11/30/18 06:10 11/30/18 07:27 Glucose (Fingerstick) 89 mg/dL (70-99) 206 mg/dL (70-99) 170 mg/dL (70-99) White Blood Count 6.2 x10^3/uL (4.0-11.0) Red Blood Count 2.77 x10^6/uL (4.30-5.70) Hemoglobin 7.6 g/dL (13.0-17.5) Hematocrit 23.5 % (39.0-53.0) Mean Corpuscular Volume 85 fL (79-100) Mean Corpuscular Hemoglobin 27 pg (25-35) Mean Corpuscular Hemoglobin Concent 32 g/dL (31-37) Red Cell Distribution Width 16.9 % (11.5-14.5) Platelet Count 203 x10^3/uL (140-400) Neutrophils (%) (Auto) 68 % (31-73) Lymphocytes (%) (Auto) 21 % (24-48) Monocytes (%) (Auto) 6 % (0-9) Eosinophils (%) (Auto) 5 % (0-3) Basophils (%) (Auto) 1 % (0-3) Neutrophils # (Auto) 4.2 x10^3uL (1.8-7.7) Lymphocytes # (Auto) 1.3 x10^3/uL (1.0-4.8) Monocytes # (Auto) 0.4 x10^3/uL (0.0-1.1) Eosinophils # (Auto) 0.3 x10^3/uL (0.0-0.7) Basophils # (Auto) 0.1 x10^3/uL (0.0-0.2) Sodium Level 140 mmol/L (136-145) Potassium Level 4.4 mmol/L (3.5-5.1) Chloride Level 104 mmol/L (98-107) Carbon Dioxide Level 30 mmol/L (21-32) Anion Gap 6 (6-14) Blood Urea Nitrogen 33 mg/dL (8-26) Creatinine 2.2 mg/dL (0.7-1.3) Estimated GFR (Cockcroft-Gault) 30.4 Glucose Level 208 mg/dL (70-99) Calcium Level 8.5 mg/dL (8.5-10.1) Phosphorus Level 3.5 mg/dL (2.6-4.7) Magnesium Level 2.2 mg/dL (1.8-2.4) Albumin 2.7 g/dL (3.4-5.0) Test 11/30/18 10:45 11/30/18 12:33 Prothrombin Time 12.8 SEC (11.7-14.0) Prothromb Time International Ratio 1.0 (0.8-1.1) Glucose (Fingerstick) 150 mg/dL (70-99) Micro Micro Microbiology 11/28/18 Urine Culture - Final, Complete 11/28/18 Urine Culture Result 1 (BONNY) - Final, Complete 11/24/18 AFB Specimen Processing Tissue - Final, Resulted 11/24/18 Acid Fast Bacilli Culture, Resulted Pending 11/24/18 Gram Stain - Final, Resulted 11/24/18 Fungal Culture, Resulted Pending 11/24/18 Fungal Culture Result 1, Resulted Pending Review of Systems Constitutional: yes: alert, oriented Ears/Nose/Throat: Yes: no symptom reported Eyes: Yes: no symptom reported Pulmonary: Yes no symptom reported Cardiovascular: Yes no symptom reported Gastrointestional: Yes: no symptom reported Genitourinary: Yes: no symptom reported Musculoskeletal: Yes: no symptom reported Skin: Yes no symptom reported Psychiatric/Neurological: Yes: no symptom reported Endocrine: Yes: no symptom reported Physical Exam General Appearance: no apparent distress Skin: warm Respiratory: decreased breath sounds Heart: S1S2 Abdomen: soft, bowel sounds present Genitourinary: bladder flat Extremities: pulses present Neurology: alert Assessment Assessment IMP LEFT HEEL WOUND DM II HTN KAYLEE-RESOLVED CKD STAGE 3 WITH CR OF ABOUT 1.8-2.0 AT BASELINE PLAN CONT ANTIBIOTICS AVOID PICC LINES IF POSSIBLE ENC PO LOW DOSE GEETHA-I OR ARB IN THE NEAR FUTURE ANGIOGRAM TODAY HYDRATION WILL FOLLOW D/W ATTENDING ZUNILDA FARR MD Nov 30, 2018 14:42
[2018-11-30] MEDS: ATORVASTATIN CALCIUM 20 MG TABLET PO SCH (20:20)
[2018-11-30] MEDS: TAMSULOSIN 0.4 MG CAP.ER.24H. PO SCH (20:21)
[2018-11-30] MEDS: INSULIN GLARGINE 300 UNITS/3 ML INSULN.PEN. SQ SCH (21:26)
[2018-12-01] VITALS (8 sets, daily range): BP systolic 112–157; BP diastolic 36–78
[2018-12-01] MEDS: HYDROcodone/APAP 7.5/325MG 1 TAB TABLET PO PRN ×3 (01:17→13:41)
[2018-12-01] MEDS: MIDODRINE 5 MG TABLET PO SCH ×2 (04:42→13:12)
[2018-12-01] MEDS: MEROPENEM 500 MG in IV NORMAL SALINE 50ML 50 ML IV SCH ×2 (04:42→12:15)
[2018-12-01] MEDS: DEXTROSE 50% 25 GM / 50ML DISP.SYRIN. IV PRN ×2 (04:47→14:55)
[2018-12-01 05:27] LABS: BASO # 0.1 x10^3/uL (0.0-0.2); BASO % 1 % (0-3); EOS # 0.3 x10^3/uL (0.0-0.7); EOS % 7 % (0-3); HEMATOCRIT 21.5 % (39.0-53.0); LYMPH # 1.4 x10^3/uL (1.0-4.8); LYMPH % 27 % (24-48); MEAN CORPUSCULAR HEMOGLOBIN 28 pg (25-35); MEAN CORPUSCULAR HGB CONC 33 g/dL (31-37); MEAN CORPUSCULAR VOLUME 85 fL (79-100); MONO # 0.4 x10^3/uL (0.0-1.1); MONO % 9 % (0-9); NEUT # 2.8 x10^3uL (1.8-7.7); NEUT % 56 % (31-73); PLATELET COUNT 159 x10^3/uL (140-400); RED BLOOD COUNT 2.53 x10^6/uL (4.30-5.70); RED CELL DISTRIBUTION WIDTH 17.2 % (11.5-14.5)
[2018-12-01 05:29] LABS: ALBUMIN 2.7 g/dL (3.4-5.0); CALCIUM 8.1 mg/dL (8.5-10.1); CREATININE 1.9 mg/dL (0.7-1.3); MAGNESIUM 2.1 mg/dL (1.8-2.4); PHOSPHORUS 3.4 mg/dL (2.6-4.7); POTASSIUM 3.9 mmol/L (3.5-5.1)
[2018-12-01] MEDS: FERROUS SULFATE 325 MG TABLET. PO SCH (07:40)
[2018-12-01] MEDS: CARVEDILOL 12.5 MG TABLET. PO SCH (07:43)
[2018-12-01] MEDS: PANTOPRAZOLE 40 MG TABLET.DR. PO SCH (07:44)
[2018-12-01] MEDS: INSULIN LISPRO 300 UNITS/3 ML INSULN.PEN. SQ SCH ×5 (07:45→11:59)
[2018-12-01] MEDS: IV NORMAL SALINE 1000ML BAG 1,000 ML IV SCH (08:24)
[2018-12-01] MEDS: hydrALAZINE 25 MG TABLET PO SCH ×3 (08:26→14:00)
[2018-12-01] MEDS: ASPIRIN 325 MG TABLET PO SCH (08:26)
[2018-12-01] MEDS: LACTOBACILLUS RHAMNOSUS GG 1 CAPSULE. PO SCH (08:27)
[2018-12-01] MEDS: PREGABALIN 75 MG CAPSULE PO SCH (08:30)
--- NOTE | 2018-12-01 09:49 | PDOC ---
PROGRESS NOTES Subjective Subjective feels better Objective Objective Vital Signs Date Time Temp Pulse Resp B/P (MAP) Pulse Ox O2 Delivery O2 Flow Rate FiO2 12/01/18 08:30 16 97 Room Air 2.0 12/01/18 08:26 70 123/54 12/01/18 07:00 97.9 97.9 Intake and Output 12/01/18 07:00 Intake Total 785 ml Output Total 1000 ml Balance -215 ml Intake Oral 685 ml IV Total 100 ml Output Urine Total 1000 ml # Voids 1 # Bowel Movements 3 Physical Exam Abdomen: Normal bowel sounds, Soft, No tenderness Heart: Regular rate Extremities: No edema, Other (no edema but weak pulses bilaterally.) General: Alert, Oriented X3, Cooperative HEENT: Atraumatic, EOMI Lungs: Clear to auscultation, Normal air movement MUSCULOSKELETAL: Other (he has approximately a 4 x 6 cm wound at his posterior calcaneal region his left side. There is black eschar covering it. No appreciable surrounding fluctuance or erythema.) Neuro: Normal speech, Strength at 5/5 X4 ext, Sensation intact, Other ( decreased sensation bilateral feet, otherwise normal) Psych/Mental Status: Mental status NL, Mood NL Skin: Other (vac in place and functioning left heel, heel in off-loading boot) COMMENT wound vac left foot Assessment Assessment FINAL IMPRESSION:Ac renal failure on cri 1.0 1. Left heel ulcer, over Achillis tendon and calcaneus , not improving even with the outpatient treatment. Possible osteomyelitis of the calcaneus.CT scan and bone scan suggestive of osteo. 2. Peripheral vascular disease with diabetes. 3. Insulin-dependent diabetes. 4. Coronary artery disease, previous angioplasty, stent. 5. Chronic systolic heart failure. 6. Pacemaker for sick sinus syndrome. 7. Hypertension. 8. Hyperlipidemia. 9. 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 CRF stage 3, cr 1.6-1.8 PLAN:arteriogram ,no major blockages C Diff -neg urine c/s neg. cr 1.9 went down hb 7.0 transfuse 1 unit. iv antibiotics meropenem.for 5 more weeks wound c/s AEROBIC RES 1 Preliminary Comment Pseudomonas aeruginosa 4+ AEROBIC RES 2 Preliminary Enterococcus faecium 2+ ANTIMICROBIAL SUSCEPTIBILITY Preliminary Comment S = Susceptible; I = Intermediate; R = Resistant P = Positive; N = Negative MICS are expressed in micrograms per mL Antibiotic RSLT#1 RSLT#2 RSLT#3 RSLT#4 Amikacin S =4 Cefepime S =4 Ceftazidime S =8 Ciprofloxacin R>=4 Gentamicin S =4 Imipenem S =2 Levofloxacin S =2 Meropenem S =0.5 Piperacillin S =64 Ticarcillin R>=128 Tobramycin S<=1 snu transfer today. . Comment Review of Relevant I have reviewed the following items luís (where applicable) has been applied. Labs Laboratory Tests Test 11/30/18 10:45 11/30/18 12:33 11/30/18 16:54 11/30/18 20:34 Prothrombin Time 12.8 SEC (11.7-14.0) Prothromb Time International Ratio 1.0 (0.8-1.1) Glucose (Fingerstick) 150 mg/dL (70-99) 331 mg/dL (70-99) 188 mg/dL (70-99) Test 12/01/18 04:45 12/01/18 05:12 12/01/18 07:26 White Blood Count 5.0 x10^3/uL (4.0-11.0) Red Blood Count 2.53 x10^6/uL (4.30-5.70) Hemoglobin 7.0 g/dL (13.0-17.5) Hematocrit 21.5 % (39.0-53.0) Mean Corpuscular Volume 85 fL (79-100) Mean Corpuscular Hemoglobin 28 pg (25-35) Mean Corpuscular Hemoglobin Concent 33 g/dL (31-37) Red Cell Distribution Width 17.2 % (11.5-14.5) Platelet Count 159 x10^3/uL (140-400) Neutrophils (%) (Auto) 56 % (31-73) Lymphocytes (%) (Auto) 27 % (24-48) Monocytes (%) (Auto) 9 % (0-9) Eosinophils (%) (Auto) 7 % (0-3) Basophils (%) (Auto) 1 % (0-3) Neutrophils # (Auto) 2.8 x10^3uL (1.8-7.7) Lymphocytes # (Auto) 1.4 x10^3/uL (1.0-4.8) Monocytes # (Auto) 0.4 x10^3/uL (0.0-1.1) Eosinophils # (Auto) 0.3 x10^3/uL (0.0-0.7) Basophils # (Auto) 0.1 x10^3/uL (0.0-0.2) Sodium Level 143 mmol/L (136-145) Potassium Level 3.9 mmol/L (3.5-5.1) Chloride Level 108 mmol/L (98-107) Carbon Dioxide Level 27 mmol/L (21-32) Anion Gap 8 (6-14) Blood Urea Nitrogen 34 mg/dL (8-26) Creatinine 1.9 mg/dL (0.7-1.3) Estimated GFR (Cockcroft-Gault) 36.0 Glucose Level 50 mg/dL (70-99) Glucose (Fingerstick) 54 mg/dL (70-99) 93 mg/dL (70-99) 128 mg/dL (70-99) Calcium Level 8.1 mg/dL (8.5-10.1) Phosphorus Level 3.4 mg/dL (2.6-4.7) Magnesium Level 2.1 mg/dL (1.8-2.4) Albumin 2.7 g/dL (3.4-5.0) Microbiology 11/28/18 Urine Culture - Final, Complete 11/28/18 Urine Culture Result 1 (BONNY) - Final, Complete 11/24/18 AFB Specimen Processing Tissue - Final, Resulted 11/24/18 Acid Fast Bacilli Culture, Resulted Pending 11/24/18 Gram Stain - Final, Resulted 11/24/18 Fungal Culture, Resulted Pending 11/24/18 Fungal Culture Result 1, Resulted Pending Medications Current Medications Fentanyl Citrate (Fentanyl 2ml Vial) 50 mcg 1X ONCE IV Last administered on at 11:49; Start 11/30/18 at 11:45; Stop 11/30/18 at 11:46; Status DC Fentanyl Citrate (Fentanyl 2ml Vial) 100 mcg STK-MED ONCE .ROUTE ; Start at 10:58; Stop 11/30/18 at 10:59; Status DC Heparin Sodium/ Sodium Chloride 1,500 ml @ As Directed STK-MED ONCE .ROUTE ; Start 11/30/18 at 10:08; Stop 11/30/18 at 10:09; Status DC Heparin Sodium/ Sodium Chloride (HEPARIN for ARTERIAL LINE FLUSH) 1,000 unit 1X ONCE IART Last administered on 11/30/18at 11:48; Start 11/30/18 at 11:45; Stop 11/30/18 at 11:46; Status DC Heparin Sodium/ Sodium Chloride (HEPARIN for ARTERIAL LINE FLUSH) 1,000 unit 1X ONCE IART Last administered on 11/30/18at 11:48; Start 11/30/18 at 11:45; Stop 11/30/18 at 11:46; Status DC Iodixanol (Visipaque 320) 12 ml 1X ONCE IART Last administered on 11/30/18at 11 :48; Start 11/30/18 at 11:45; Stop 11/30/18 at 11:46; Status DC Iodixanol (Visipaque 320) 100 ml STK-MED ONCE .ROUTE ; Start 11/30/18 at 10:08; Stop 11/30/18 at 10:09; Status DC Lidocaine HCl (Lidocaine 1% 20ml Vial) 5 ml 1X ONCE INJ Last administered on at 11:49; Start 11/30/18 at 11:45; Stop 11/30/18 at 11:46; Status DC Lidocaine HCl (Lidocaine 1% 20ml Vial) 20 ml STK-MED ONCE .ROUTE ; Start at 10:08; Stop 11/30/18 at 10:09; Status DC Midazolam HCl (Versed) 1 mg 1X ONCE IV Last administered on 11/30/18at 11:49; Start 11/30/18 at 11:45; Stop 11/30/18 at 11:46; Status DC Midazolam HCl (Versed) 2 mg STK-MED ONCE .ROUTE ; Start 11/30/18 at 10:58; Stop 11/30/18 at 10:59; Status DC Vitals/I & O Vital Sign - Last 24 Hours 11/30/18 11/30/18 11/30/18 11/30/18 11:49 12:00 12:23 12:23 Pulse 69 80 80 Resp 10 10 B/P (MAP) 181/75 181/75 Pulse Ox 99 99 O2 Delivery Nasal Cannula Room Air O2 Flow Rate 2.0 2.0 3/11/30/18 11/30/18 11/30/18 12:24 12:39 13:15 13:30 Temp 98.0 98.0 Pulse 80 77 80 Resp 20 16 B/P (MAP) 181/75 120/45 (70) 114/51 (72) Pulse Ox 96 96 O2 Delivery Room Air Room Air 11/30/18 11/30/18 11/30/18 11/30/18 13:45 14:00 14:30 15:00 Temp 97.3 98.1 97.3 98.1 Pulse 81 69 71 63 Resp 20 18 B/P (MAP) 102/53 (69) 111/52 (71) 107/48 (67) 103/51 (68) Pulse Ox 97 97 O2 Delivery Room Air Room Air 11/30/18 11/30/18 11/30/18 11/30/18 16:00 16:43 18:00 18:40 Temp 97.3 97.3 Pulse 58 58 80 Resp 20 20 B/P (MAP) 110/54 (72) 110/54 142/54 Pulse Ox 97 O2 Delivery Room Air Room Air 11/30/18 11/30/18 11/30/18 11/30/18 19:00 19:29 20:21 22:55 Temp 98.4 98.7 98.4 98.7 Pulse 77 77 71 Resp 18 18 B/P (MAP) 140/50 (80) 140/50 138/55 (82) Pulse Ox 95 94 O2 Delivery Room Air Room Air Room Air O2 Flow Rate 2.0 12/01/18 12/01/18 12/01/18 12/01/18 01:17 03:00 04:42 07:00 Temp 98.0 97.9 98.0 97.9 Pulse 68 68 Resp 16 18 B/P (MAP) 132/57 (82) 132/57 123/54 (77) Pulse Ox 94 97 96 O2 Delivery Room Air Room Air Room Air O2 Flow Rate 2.0 2.0 12/01/18 12/01/18 12/01/18 12/01/18 07:39 07:43 08:26 08:30 Pulse 70 70 Resp 18 16 B/P (MAP) 123/54 123/54 Pulse Ox 97 97 O2 Delivery Room Air Room Air O2 Flow Rate 2.0 2.0 Intake and Output 11/30/18 11/30/18 12/01/18 15:00 23:00 07:00 Intake Total 280 ml 455 ml 50 ml Output Total 800 ml 200 ml Balance -520 ml 455 ml -150 ml ELDER LAURENT MD Dec 01, 2018 09:49
[2018-12-01] MEDS ORDERED: MERO500V15 IV (09:59)
[2018-12-01] MEDS ORDERED: HYDR-2761 PO (09:59)
--- NOTE | 2018-12-01 10:02 | SNU/HH DC ---
DISCHARGE ORDERS DISCHARGE INFORMATION: DISCHARGE DATE: Dec 01, 2018 CONDITION ON DISCHARGE: Stable CODE STATUS: Code Status: Full LONGTERM: SNF STAY <30 DAYS: Yes HOSPICE: HOSPICE: No HOSPICE EVAL & TREAT: No POST DISCHARGE ORDERS: ACTIVITY ORDERS: Activity as tolerated DIET AFTER DISCHARGE: ADA WOUND/INCISION CARE: Change dressing OTHER ORDERS: f/u wound care ctr CHECKS AFTER DISCHARGE: CHECKS AFTER DISCHARGE: Check blood press - daily, Check blood sugar, ac/hs FOLLOW-UP: PHYSICIAN FOLLOW-UP: wound care ctr f/u ADDITIONAL FOLLOW-UP: ID f/u yazmin sanchez in 3 weeks LAB ORDERS FOR FOLLOW-UP: cbc,cmp weekly for 6 weeks TREATMENT/EQUIPMENT ORDERS: INFUSION EQUIPMENT NEEDED: PICC Line Physical Therapy For: Evalulation/Treatment Occupational Therapy For: Evaluation/Treatment DISCHARGE MEDICATIONS: Home Meds Active Scripts Meropenem (MEROPENEM) 500 Mg Vial, 500 MG IV Q8HRS for infection for 35 Days, # 105 EACH Prov:ELDER LAURENT MD 12/01/18 Hydrocodone Bit/Acetaminophen (HYDROCODONE-APAP 5-325 ) 1 Tab Tablet, 1 TAB PO PRN Q6HRS PRN for MODERATE-SEVERE PAIN for 7 Days, #30 TAB Prov:ELDER LAURENT MD 12/01/18 Tamsulosin Hcl (FLOMAX) 0.4 Mg Cap.er.24h, 0.4 MG PO QHS for bph for 30 Days, # 30 CAP.SR Prov:ELDER LAURENT MD 08/18/18 Aspirin (ASPIRIN EC) 325 Mg Tablet.dr, 1 TAB PO DAILY, #30 TAB 5 Refills Prov:ELDER LAURENT MD 09/21/17 Insulin Detemir (Levemir Flextouch) 100 Unit/1 Ml Insuln.pen, 15 UNITS SQ QHS, # 10 Prov:ELDER LAURENT MD 07/09/16 Reported Medications Atorvastatin Calcium (ATORVASTATIN CALCIUM) 20 Mg Tablet, 20 MG PO HS for FOR CHOLESTEROL, #30 TAB 0 Refills 11/22/18 Insulin Detemir (Levemir Flextouch) 100 Unit/1 Ml Insuln.pen, 15 UNIT SQ QHS for high blood sugar, SYR 11/22/18 Insulin Aspart (NOVOLOG FLEXPEN) 100 Unit/1 Ml Insuln.pen, 10 UNIT SQ TIDAC for high blood sugar, SYR 11/22/18 Pantoprazole Sodium (PROTONIX) 20 Mg Tablet.dr, 40 MG PO DAILY for reflux, TAB 11/22/18 Pregabalin (LYRICA) 75 Mg Capsule, 1 CAP PO BID for neuropathy, #60 CAP 1 Refill 11/22/18 Aspirin (ASPIRIN) 325 Mg Tablet, 1 TAB PO DAILY for heart, #30 TAB 5 Refills 11/22/18 Carvedilol (Carvedilol) 12.5 Mg Tablet, 12.5 MG PO BID for bp, TAB 11/22/18 Ferrous Sulfate (FERROUS SULFATE) 325 Mg Tablet, 1 TAB PO DAILYWBKFT for supplement, #30 TAB 3 Refills 11/22/18 Tamsulosin Hcl (FLOMAX) 0.4 Mg Cap.er.24h, 1 CAP PO QHS for prostate, #30 CAP 11 Refills 11/22/18 Midodrine Hcl (MIDODRINE HCL) 5 Mg Tablet, 5 MG PO [id number], TAB 12/23/17 Pantoprazole Sodium (PROTONIX) 40 Mg Tablet.dr, 1 TAB PO DAILY, #30 TAB 5 Refills 09/16/17 Pregabalin (LYRICA) 75 Mg Capsule, 75 MG PO BID, CAP 07/10/14 Carvedilol (CARVEDILOL ) 12.5 Mg Tablet, 1 TAB PO BID, #180 TAB 1 Refill 07/10/14 Discontinued Reported Medications Tramadol Hcl (TRAMADOL HCL) 50 Mg Tablet, 50 MG PO PRN BID PRN for PAIN, TAB 11/23/18 Midodrine Hcl (MIDODRINE HCL) 5 Mg Tablet, 5 MG PO [id number] for low bp, TAB 11/22/18 Ferrous Sulfate (FERROUS SULFATE) 325 Mg Tablet, 325 MG PO DAILYWBKFT, TAB 09/21/17 Insulin Aspart (NOVOLOG FLEXPEN) 100 Unit/1 Ml Insuln.pen, 10 UNIT SQ TIDAC, SYR 08/30/16 Discontinued Scripts Ciprofloxacin Hcl (CIPRO) 500 Mg Tablet, 500 MG PO BID for antibiotic for 7 Days , #14 TAB 0 Refills Prov:ELDER LAURENT MD 09/07/18 ELDER LAURENT MD Dec 01, 2018 10:02
--- NOTE | 2018-12-01 10:22 | PDOC ---
Infectious Disease Note Subjective: Subjective Patient without complaints still has loose bm Pain controlled N0 F/C/S/D/SOA/vomiting/nausea ROS: ROS Negative except for above. Vital Signs: Vital Signs Vital Signs Date Time Temp Pulse Resp B/P (MAP) Pulse Ox O2 Delivery O2 Flow Rate FiO2 12/01/18 08:30 16 97 Room Air 2.0 12/01/18 08:26 70 123/54 12/01/18 07:00 97.9 97.9 Physical Exam: PHYSICAL EXAM GENERAL: sitting in chair,comfortable, HEENT: anciteric Oral cavity clear NECK: Supple LUNGS: Clear. HEART: S1, S2 pacemaker ABDOMEN: Soft and nontender EXTREMITIES: No gross edema or cyanosis. Left calcaneal wound vac in place SKIN: No rash NEUROLOGIC: Alert and oriented x3. RUE-PICC clean Medications: Inpatient Meds: Current Medications Medications (Trade) Dose Ordered Sig/Perlita Start Time Stop Time Status Last Admin Dose Admin Acetaminophen/ Hydrocodone Bitart (Lortab 5/325) 1 tab PRN Q6HRS PRN 11/23/18 13:30 11/28/18 15:58 1 TAB Acetaminophen/ Hydrocodone Bitart (Lortab 7.5/325) 1 tab PRN Q6HRS PRN 11/28/18 16:45 12/01/18 07:39 1 TAB Alteplase, Recombinant (Cathflo For Central Catheter Clearance) 1 mg 1X ONCE 11/26/18 06:30 11/26/18 06:31 DC 11/26/18 06:30 1 MG Aspirin (Tera Aspirin) 325 mg DAILY 11/23/18 09:00 12/01/18 08:26 325 MG Atorvastatin Calcium (Lipitor) 20 mg HS 11/22/18 22:00 11/30/18 20:20 20 MG Bupivacaine HCl (Sensorcaine Mpf 0.5%) 30 ml STK-MED ONCE 11/24/18 09:32 11/24/18 10:32 DC Carvedilol (Coreg) 12.5 mg BIDWMEALS 11/28/18 17:00 12/01/18 07:43 12.5 MG Daptomycin 440 mg/ Sodium Chloride 50 ml @ 100 mls/hr Q24H 11/28/18 12:00 11/29/18 12:17 DC 11/28/18 13:03 100 MLS/HR Dexamethasone Sodium Phosphate (Decadron) 20 mg STK-MED ONCE 11/24/18 10:25 11/24/18 10:26 DC Dextrose (Dextrose 50%-Water Syringe) 12.5 gm PRN Q15MIN PRN 11/29/18 12:30 12/01/18 04:47 12.5 GM Enoxaparin Sodium (Lovenox 30mg Syringe) 30 mg 1X ONCE 11/29/18 10:30 11/29/18 10:31 DC 11/29/18 10:51 30 MG Fentanyl Citrate (Fentanyl 2ml Vial) 50 mcg 1X ONCE 11/30/18 11:45 11/30/18 11:46 DC 11/30/18 11:49 50 MCG Ferrous Sulfate (Feosol) 325 mg DAILYWBKFT 11/23/18 08:00 12/01/18 07:40 325 MG Heparin Sodium/ Sodium Chloride (HEPARIN for ARTERIAL LINE FLUSH) 1,000 unit 1X ONCE 11/30/18 11:45 11/30/18 11:46 DC 11/30/18 11:48 1,000 UNIT Hydralazine HCl (Apresoline Inj) 20 mg STK-MED ONCE 11/24/18 12:13 11/24/18 12:14 DC Hydralazine HCl (Apresoline) 25 mg TID 11/22/18 22:00 12/01/18 08:26 25 MG Insulin Glargine (Lantus) 7 units 1X ONCE 11/24/18 09:30 11/24/18 09:31 DC 11/24/18 09:37 7 UNITS Insulin Human Lispro (HumaLOG) 0-7 UNITS TIDWMEALS 11/29/18 17:00 11/30/18 17:57 7 UNITS Iodixanol (Visipaque 320) 12 ml 1X ONCE 11/30/18 11:45 11/30/18 11:46 DC 11/30/18 11:48 12 ML Lactobacillus Rhamnosus (Culturelle) 1 cap BID 11/23/18 21:00 12/01/18 08:27 1 CAP Lidocaine HCl (Lidocaine 1% 20ml Vial) 5 ml 1X ONCE 11/30/18 11:45 11/30/18 11:46 DC 11/30/18 11:49 5 ML Lidocaine HCl (Lidocaine Pf 2% Vial) 5 ml STK-MED ONCE 11/24/18 10:25 11/24/18 10:26 DC Lidocaine HCl (Xylocaine 1% Pf 30ml Vial) 30 ml STK-MED ONCE 11/24/18 09:32 11/24/18 10:32 DC Lidocaine HCl (Xylocaine-Mpf 1% 2ml Vial) 2 ml PRN 1X PRN 11/24/18 07:00 11/25/18 06:59 DC Linezolid/Dextrose 300 ml @ 300 mls/hr Q12HR 11/23/18 21:00 11/28/18 11:09 DC 11/28/18 08:51 300 MLS/HR Magnesium Sulfate 50 ml @ 25 mls/hr PRN DAILY PRN 11/27/18 10:30 Meropenem 500 mg/ Sodium Chloride 50 ml @ 100 mls/hr Q8HRS 11/29/18 14:00 12/01/18 04:42 100 MLS/HR Midazolam HCl (Versed) 1 mg 1X ONCE 11/30/18 11:45 11/30/18 11:46 DC 11/30/18 11:49 1 MG Midodrine (Proamatine) 5 mg [id number] 11/23/18 07:00 11/27/18 05:54 5 MG Ondansetron HCl (Zofran) 4 mg STK-MED ONCE 11/24/18 10:25 11/24/18 10:26 DC Pantoprazole Sodium (Protonix) 40 mg DAILYAC 11/23/18 07:30 12/01/18 07:44 40 MG Phenylephrine HCl (PHENYLEPHRINE in 0.9% NACL PF) 1 mg STK-MED ONCE 11/24/18 11:05 11/24/18 11:06 DC Piperacillin Sod/ Tazobactam Sod 3.375 gm/Sodium Chloride 50 ml @ 100 mls/hr Q8HRS 11/22/18 22:00 11/28/18 11:09 DC 11/28/18 06:10 100 MLS/HR Pregabalin (Lyrica) 75 mg BID 11/22/18 21:00 12/01/18 08:30 75 MG Prochlorperazine Edisylate (Compazine) 5 mg PACU PRN PRN 11/24/18 07:00 11/24/18 19:01 DC Propofol 20 ml @ As Directed STK-MED ONCE 11/24/18 10:25 11/24/18 10:26 DC Ringer's Solution 1,000 ml @ 30 mls/hr Q24H 11/24/18 07:00 11/24/18 19:01 DC Sodium Chloride 1,000 ml @ 75 mls/hr [id number] 11/29/18 16:00 12/01/18 08:24 75 MLS/HR Tamsulosin HCl (Flomax) 0.4 mg QHS 11/22/18 21:00 11/30/18 20:21 0.4 MG Tramadol HCl (Ultram) 50 mg PRN BID PRN 11/23/18 01:15 11/24/18 20:30 50 MG Vancomycin HCl (Vanco Per Pharmacy) 1 each PRN DAILY PRN 11/22/18 18:15 11/23/18 10:27 DC 11/22/18 21:09 1 EACH Vancomycin HCl (Vancomycin Trough Level) 1 each 1X ONCE 11/24/18 23:00 11/24/18 23:01 Cancel Vancomycin HCl 1.25 gm/Sodium Chloride 250 ml @ 167 mls/hr Q24H 11/23/18 23:00 11/23/18 23:00 DC Vancomycin HCl 1.75 gm/Sodium Chloride 500 ml @ 250 mls/hr 1X ONCE 11/22/18 23:00 11/23/18 00:59 DC 11/22/18 23:00 250 MLS/HR Zolpidem Tartrate (Ambien) 5 mg PRN QHS PRN 11/23/18 13:30 11/23/18 22:14 5 MG Labs: Lab Laboratory Tests Test 11/30/18 10:45 11/30/18 12:33 11/30/18 16:54 11/30/18 20:34 Prothrombin Time 12.8 SEC (11.7-14.0) Prothromb Time International Ratio 1.0 (0.8-1.1) Glucose (Fingerstick) 150 mg/dL (70-99) 331 mg/dL (70-99) 188 mg/dL (70-99) Test 12/01/18 04:45 12/01/18 05:12 12/01/18 07:26 White Blood Count 5.0 x10^3/uL (4.0-11.0) Red Blood Count 2.53 x10^6/uL (4.30-5.70) Hemoglobin 7.0 g/dL (13.0-17.5) Hematocrit 21.5 % (39.0-53.0) Mean Corpuscular Volume 85 fL (79-100) Mean Corpuscular Hemoglobin 28 pg (25-35) Mean Corpuscular Hemoglobin Concent 33 g/dL (31-37) Red Cell Distribution Width 17.2 % (11.5-14.5) Platelet Count 159 x10^3/uL (140-400) Neutrophils (%) (Auto) 56 % (31-73) Lymphocytes (%) (Auto) 27 % (24-48) Monocytes (%) (Auto) 9 % (0-9) Eosinophils (%) (Auto) 7 % (0-3) Basophils (%) (Auto) 1 % (0-3) Neutrophils # (Auto) 2.8 x10^3uL (1.8-7.7) Lymphocytes # (Auto) 1.4 x10^3/uL (1.0-4.8) Monocytes # (Auto) 0.4 x10^3/uL (0.0-1.1) Eosinophils # (Auto) 0.3 x10^3/uL (0.0-0.7) Basophils # (Auto) 0.1 x10^3/uL (0.0-0.2) Sodium Level 143 mmol/L (136-145) Potassium Level 3.9 mmol/L (3.5-5.1) Chloride Level 108 mmol/L (98-107) Carbon Dioxide Level 27 mmol/L (21-32) Anion Gap 8 (6-14) Blood Urea Nitrogen 34 mg/dL (8-26) Creatinine 1.9 mg/dL (0.7-1.3) Estimated GFR (Cockcroft-Gault) 36.0 Glucose Level 50 mg/dL (70-99) Glucose (Fingerstick) 54 mg/dL (70-99) 93 mg/dL (70-99) 128 mg/dL (70-99) Calcium Level 8.1 mg/dL (8.5-10.1) Phosphorus Level 3.4 mg/dL (2.6-4.7) Magnesium Level 2.1 mg/dL (1.8-2.4) Albumin 2.7 g/dL (3.4-5.0) Micro RUN DATE: 11/29/18 PAGE 1 RUN TIME: 1023 [facility] [address] [place] [address] Brady Smith M.D., Salon Sales Consultant PATIENT: FREDRICK RUBIO ACCT: [id number] LOC: [address] [place] [address] U : [id number] AGE/SX: 63/M ROOM: [facility] REG : 11/22/[address]: ELDER LAURENT MD : 1955 BED: 1 DIS : STATUS: ADM IN TLOC: SPEC #: [id number] ANDRADE: 11/24/18 STATUS: COMP REQ #: [id number] RECD: 11/24/18-[address]: ELDER LAURENT MD SOURCE: FOOT ENTR: 11/24/18-[address]: IVY SARMIENTO II, MD [facility]: YAA BERTRAND MD, SAMIR R MD ORDERED: ADRIANNA/MAIN/ALTHEA Procedure Result ANAEROBIC-AEROBIC CULTURE Final Final report ANAEROBIC RES 1 Final Comment No anaerobic growth in 72 hours. AEROBIC CULT Final Final report AEROBIC RES 1 Final Comment Pseudomonas aeruginosa 4+ AEROBIC RES 2 Final Enterococcus faecalis 2+ THIS IS AN UPDATED REPORT. AEROBIC RES 3 Final Staphylococcus aureus 1+ Based on susceptibility to oxacillin this isolate would be susceptible to: *Penicillinase-stable penicillins, such as: Cloxacillin, Dicloxacillin, Nafcillin *Beta-lactam combination agents, such as: Amoxicillin-clavulanic acid, Ampicillin-sulbactam, Piperacillin-tazobactam *Oral cephems, such as: Cefaclor, Cefdinir, Cefpodoxime, Cefprozil, Cefuroxime, Cephalexin, Loracarbef *Parenteral cephems, such as: CONTINUED ON NEXT PAGE RUN DATE: 11/29/18 PAGE 2 RUN TIME: 1027 [facility] [address] [place] [address] Brady Smith M.D., Salon Sales Consultant SPEC: [id number] PATIENT: FREDRICK RUBIO [id number] ( Continued) Procedure Result AEROBIC RES 3 Final (continued) Cefazolin, Cefepime, Cefotaxime, Cefotetan, Ceftaroline, Ceftizoxime, Ceftriaxone, Cefuroxime *Carbapenems, such as: Doripenem, Ertapenem, Imipenem, Meropenem ANTIMICROBIAL SUSCEPTIBILITY Final Comment S = Susceptible; I = Intermediate; R = Resistant P = Positive; N = Negative MICS are expressed in micrograms per mL Antibiotic RSLT#1 RSLT#2 RSLT#3 RSLT#4 Amikacin S =4 Cefepime S =4 Ceftazidime S =8 Ciprofloxacin R>=4 S<=0.5 Clindamycin R =R Erythromycin R>=8 Gentamicin S =4 S<=0.5 Imipenem S =2 Levofloxacin S =2 S<=0.12 Linezolid S =2 Meropenem S =0.5 Moxifloxacin S<=0.25 Oxacillin S =1 Penicillin S =4 R>=0.5 Piperacillin S =64 Quinupristin/Dalfopristin S<=0.25 Rifampin S<=0.5 Tetracycline S<=1 Ticarcillin R>=128 Tobramycin S<=1 Trimethoprim/Sulfa S<=10 Vancomycin S =2 S<=0.5 GRAM STAIN Final Final report GRAM STAIN RES 1 Final Comment No white blood cells seen. CONTINUED ON NEXT PAGE RUN DATE: 11/29/18 PAGE 3 RUN TIME: 1027 [facility] [address] [place] [address] Brady Smith M.D., Salon Sales Consultant SPEC: [id number] PATIENT: FREDRICK RUBIO [id number] ( Continued) Procedure Result GRAM STAIN RES 2 Final Gram positive cocci Rare seen GRAM STAIN RES 3 Final Comment Rare gram positive cocci in pairs Performed at: - [facility] [address], [place], [place] [id number] Software Licensing Executive: MEENA Mcneal MD, Phone: [phone] Objective: Assessment: Chronic left calcaneal wound,, CT c/w acute osteo. s/p I and D of skin and subcutaneous tissue, excisional on 11/25. AFB neg,, cults PSAE, ZOSYN R , E FAECIUM was reported now changed to E fecalis AMP S MSSA DM HTN CAD Pacemaker KAYLEE on CKD ,creat now increasing, Ertapenem allergy/intolerance w/ confusion and hallucinations Nausea and vomiting resolved diarrhea c diff neg 11/28 PAD awaiting arteriogram today Plan: Plan of Care Merrem , will need renal adjustment, Total duration at least 6 weeks from surgery script on chart Weekly labs Wednesday CBC/BUN/CREAT/ESR fax results to [phone] Continue wound/ VAC care cont supportive care Pt is being discharged to [facility] placed today Follow up in ID clinic in 2 weeks [id number] D/W RN Discussed with JUDSON Diamond MD Dec 01, 2018 10:22
--- NOTE | 2018-12-01 12:09 | PDOC ---
Renal-Progress Notes Subjective Notes Notes NONE History of Present Illness Hx of present illness STABLE Vitals Vitals Vital Signs Date Time Temp Pulse Resp B/P (MAP) Pulse Ox O2 Delivery O2 Flow Rate FiO2 12/01/18 11:00 97.6 71 17 123/41 (68) 98 Room Air 97.6 12/01/18 08:30 2.0 Weight Weight [ ] I.O. Intake and Output Intake and Output 12/01/18 07:00 Intake Total 785 ml Output Total 1000 ml Balance -215 ml Intake Oral 685 ml IV Total 100 ml Output Urine Total 1000 ml # Voids 1 # Bowel Movements 3 Labs Labs Laboratory Tests Test 11/30/18 12:33 11/30/18 16:54 11/30/18 20:34 12/01/18 04:45 Glucose (Fingerstick) 150 mg/dL (70-99) 331 mg/dL (70-99) 188 mg/dL (70-99) 54 mg/dL (70-99) White Blood Count 5.0 x10^3/uL (4.0-11.0) Red Blood Count 2.53 x10^6/uL (4.30-5.70) Hemoglobin 7.0 g/dL (13.0-17.5) Hematocrit 21.5 % (39.0-53.0) Mean Corpuscular Volume 85 fL (79-100) Mean Corpuscular Hemoglobin 28 pg (25-35) Mean Corpuscular Hemoglobin Concent 33 g/dL (31-37) Red Cell Distribution Width 17.2 % (11.5-14.5) Platelet Count 159 x10^3/uL (140-400) Neutrophils (%) (Auto) 56 % (31-73) Lymphocytes (%) (Auto) 27 % (24-48) Monocytes (%) (Auto) 9 % (0-9) Eosinophils (%) (Auto) 7 % (0-3) Basophils (%) (Auto) 1 % (0-3) Neutrophils # (Auto) 2.8 x10^3uL (1.8-7.7) Lymphocytes # (Auto) 1.4 x10^3/uL (1.0-4.8) Monocytes # (Auto) 0.4 x10^3/uL (0.0-1.1) Eosinophils # (Auto) 0.3 x10^3/uL (0.0-0.7) Basophils # (Auto) 0.1 x10^3/uL (0.0-0.2) Sodium Level 143 mmol/L (136-145) Potassium Level 3.9 mmol/L (3.5-5.1) Chloride Level 108 mmol/L (98-107) Carbon Dioxide Level 27 mmol/L (21-32) Anion Gap 8 (6-14) Blood Urea Nitrogen 34 mg/dL (8-26) Creatinine 1.9 mg/dL (0.7-1.3) Estimated GFR (Cockcroft-Gault) 36.0 Glucose Level 50 mg/dL (70-99) Calcium Level 8.1 mg/dL (8.5-10.1) Phosphorus Level 3.4 mg/dL (2.6-4.7) Magnesium Level 2.1 mg/dL (1.8-2.4) Albumin 2.7 g/dL (3.4-5.0) Test 12/01/18 05:12 12/01/18 07:26 12/01/18 10:44 12/01/18 11:55 Glucose (Fingerstick) 93 mg/dL (70-99) 128 mg/dL (70-99) 123 mg/dL (70-99) 107 mg/dL (70-99) Micro Micro Microbiology 11/28/18 Urine Culture - Final, Complete 11/28/18 Urine Culture Result 1 (BONNY) - Final, Complete 11/24/18 AFB Specimen Processing Tissue - Final, Resulted 11/24/18 Acid Fast Bacilli Culture, Resulted Pending 11/24/18 Gram Stain - Final, Resulted 11/24/18 Fungal Culture, Resulted Pending 11/24/18 Fungal Culture Result 1, Resulted Pending Review of Systems Constitutional: yes: alert, oriented Ears/Nose/Throat: Yes: no symptom reported Eyes: Yes: no symptom reported Pulmonary: Yes no symptom reported Cardiovascular: Yes no symptom reported Gastrointestional: Yes: no symptom reported Genitourinary: Yes: no symptom reported Musculoskeletal: Yes: no symptom reported Skin: Yes no symptom reported Psychiatric/Neurological: Yes: no symptom reported Endocrine: Yes: no symptom reported Physical Exam General Appearance: no apparent distress Skin: warm Respiratory: decreased breath sounds Heart: S1S2 Abdomen: soft, bowel sounds present Genitourinary: bladder flat Extremities: pulses present Neurology: alert Assessment Assessment IMP LEFT HEEL WOUND DM II HTN KAYLEE-RESOLVED - CR STABLE WITH NO CAN CKD STAGE 3 WITH CR OF ABOUT 1.8-2.0 AT BASELINE PLAN WILL FOLLOW NEEDED RENAL FXN STABLE ZUNILDA FARR MD Dec 01, 2018 12:09
--- NOTE | 2018-12-01 14:41 | SNU/HH DC ---
DISCHARGE ORDERS DISCHARGE INFORMATION: DISCHARGE DATE: Dec 01, 2018 CONDITION ON DISCHARGE: Stable CODE STATUS: Code Status: Full POST DISCHARGE ORDERS: ACTIVITY ORDERS: Activity as tolerated DIET AFTER DISCHARGE: ADA WOUND/INCISION CARE: Change dressing OTHER ORDERS: f/u wound care ctr CHECKS AFTER DISCHARGE: CHECKS AFTER DISCHARGE: Check blood press - daily, Check blood sugar, ac/hs FOLLOW-UP: PHYSICIAN FOLLOW-UP: wound care ctr f/u ADDITIONAL FOLLOW-UP: ID f/u yazmin sanchez in 3 weeks LAB ORDERS FOR FOLLOW-UP: cbc,cmp weekly for 6 weeks TREATMENT/EQUIPMENT ORDERS: INFUSION EQUIPMENT NEEDED: PICC Line Physical Therapy For: Evalulation/Treatment Occupational Therapy For: Evaluation/Treatment DISCHARGE MEDICATIONS: Home Meds Active Scripts Meropenem (MEROPENEM) 500 Mg Vial, 500 MG IV Q8HRS for infection for 35 Days, # 105 EACH Prov:ELDER LAURENT MD 12/01/18 Hydrocodone Bit/Acetaminophen (HYDROCODONE-APAP 5-325 ) 1 Tab Tablet, 1 TAB PO PRN Q6HRS PRN for MODERATE-SEVERE PAIN for 7 Days, #30 TAB Prov:ELDER LAURENT MD 12/01/18 Tamsulosin Hcl (FLOMAX) 0.4 Mg Cap.er.24h, 0.4 MG PO QHS for bph for 30 Days, # 30 CAP.SR Prov:ELDER LAURENT MD 08/18/18 Aspirin (ASPIRIN EC) 325 Mg Tablet.dr, 1 TAB PO DAILY, #30 TAB 5 Refills Prov:ELDER LAURENT MD 09/21/17 Insulin Detemir (Levemir Flextouch) 100 Unit/1 Ml Insuln.pen, 15 UNITS SQ QHS, # 10 Prov:ELDER LAURENT MD 07/09/16 Reported Medications Atorvastatin Calcium (ATORVASTATIN CALCIUM) 20 Mg Tablet, 20 MG PO HS for FOR CHOLESTEROL, #30 TAB 0 Refills 11/22/18 Insulin Detemir (Levemir Flextouch) 100 Unit/1 Ml Insuln.pen, 15 UNIT SQ QHS for high blood sugar, SYR 11/22/18 Insulin Aspart (NOVOLOG FLEXPEN) 100 Unit/1 Ml Insuln.pen, 10 UNIT SQ TIDAC for high blood sugar, SYR 11/22/18 Pantoprazole Sodium (PROTONIX) 20 Mg Tablet.dr, 40 MG PO DAILY for reflux, TAB 11/22/18 Pregabalin (LYRICA) 75 Mg Capsule, 1 CAP PO BID for neuropathy, #60 CAP 1 Refill 11/22/18 Aspirin (ASPIRIN) 325 Mg Tablet, 1 TAB PO DAILY for heart, #30 TAB 5 Refills 11/22/18 Carvedilol (Carvedilol) 12.5 Mg Tablet, 12.5 MG PO BID for bp, TAB 11/22/18 Tamsulosin Hcl (FLOMAX) 0.4 Mg Cap.er.24h, 1 CAP PO QHS for prostate, #30 CAP 11 Refills 11/22/18 Midodrine Hcl (MIDODRINE HCL) 5 Mg Tablet, 5 MG PO [id number], TAB 12/23/17 Pantoprazole Sodium (PROTONIX) 40 Mg Tablet.dr, 1 TAB PO DAILY, #30 TAB 5 Refills 09/16/17 Pregabalin (LYRICA) 75 Mg Capsule, 75 MG PO BID, CAP 07/10/14 Carvedilol (CARVEDILOL ) 12.5 Mg Tablet, 1 TAB PO BID, #180 TAB 1 Refill 07/10/14 Discontinued Reported Medications Tramadol Hcl (TRAMADOL HCL) 50 Mg Tablet, 50 MG PO PRN BID PRN for PAIN, TAB 11/23/18 Ferrous Sulfate (FERROUS SULFATE) 325 Mg Tablet, 1 TAB PO [id number] for supplement, #30 TAB 3 Refills 11/22/18 Midodrine Hcl (MIDODRINE HCL) 5 Mg Tablet, 5 MG PO [id number] for low bp, TAB 11/22/18 Ferrous Sulfate (FERROUS SULFATE) 325 Mg Tablet, 325 MG PO [id number], TAB 09/21/17 Insulin Aspart (NOVOLOG FLEXPEN) 100 Unit/1 Ml Insuln.pen, 10 UNIT SQ TIDAC, SYR 08/30/16 Discontinued Scripts Ciprofloxacin Hcl (CIPRO) 500 Mg Tablet, 500 MG PO BID for antibiotic for 7 Days , #14 TAB 0 Refills Prov:ELDER LAURENT MD 09/07/18 ELDER LAURENT MD Dec 01, 2018 14:41
--- NOTE | 2018-12-02 10:09 | PDOC ---
Provider Note Provider Note Discharge summary dictated. #[id number] ELDER LAURENT MD Dec 02, 2018 10:08
--- NOTE | 2018-12-02 19:58 | DS ---
DATE OF DISCHARGE: 12/01/2018 REASON FOR ADMISSION TO THE HOSPITAL: Chronic left heel ulcer with possible osteomyelitis. CONSULTATIONS: Dr. Rush Gavin, Infectious Disease; Orthopedic, Dr. Barnett; Renal, Dr. Ru Gavin and Vascular, Marina Sibley, GABY. PROCEDURES DONE: 1. Surgical debridement of the ankle ulcer. 2. Arteriogram of the lower extremities. 3. PICC line placement. 4. Ultrasound of the kidneys. OTHER PROCEDURES DONE: Transfusion of 1 unit of packed red blood cells. HOSPITAL COURSE: The patient is a 63-year-old male with history of diabetes, coronary artery disease, previous cardiac stents, congestive heart failure and he also has peripheral vascular disease. He had previous toe amputations on the right foot. He has developed ulcer in the left heel, which was not improving, [facility]. Had an outpatient CT and a bone scan suggestive of osteomyelitis. The patient was admitted to the hospital, was started on broad spectrum antibiotics, Zyvox and Zosyn. The patient was seen by Orthopedics, was taken to surgery, had a surgical debridement, which shows Pseudomonas aeruginosa and Enterococcus faecalis. The patient was later on changed to daptomycin and meropenem. Daptomycin was discontinued. The patient was continued on meropenem. The patient had a PICC line placed for long term IV antibiotics. The patient needed 6 weeks of antibiotics. The patient was also found to have decreased circulation in the leg. The patient was scheduled for arteriogram, but his kidney function got worse to 2.5, seen by Renal. With hydration, it was coming down to less than 2. The patient had arteriogram, which shows patent large renal arteries, small vessel disease around the ankle, could not do any intervention. It was felt that the patient has adequate blood flow to heal the wound. The patient was placed on wound VAC, had a PICC line placed and it was felt that he needs to go to a long-term facility to finish 5 more weeks of IV antibiotics. The patient had a PICC line in place. FINAL IMPRESSION: 1. Left heel osteomyelitis. Wound shows Pseudomonas as well as Enterococcus faecalis as well as Staphylococcus aureus. 2. Chronic osteomyelitis. 3. Peripheral vascular disease. Does not need any surgical intervention, has adequate blood flow. 4. Insulin-dependent diabetes. 5. Acute on chronic kidney disease, has stage 3 chronic kidney disease. 6. Coronary artery disease, previous cardiac stent. 7. History of chronic systolic heart failure. 8. Chronic anemia of chronic disease. The patient had 1 unit of packed red blood cells. 9. Diabetic neuropathy. PLAN: The patient had a PICC line placed, needed meropenem for 5 more weeks. Discharged to [facility]. Follow with the [facility] weekly and weekly labs to monitor kidney function. ELDER LAURENT MD DR: BENNIE/andre JOB#: [id number] / [id number]
== END 2018-12-01 17:45 | DRG 264 ==
LOC: 5 SOUTH 14:03 → MERGE 14:03 → 5 SOUTH 14:17 → 5 NORTH 11-25 16:02
PROVIDERS: ADMIT Internal Medicine; ATTEND Internal Medicine
PROC: 02HV33Z Insertion of Infusion Device into Superior Vena Cava, Percutaneous Approach (ICD-10-PCS; 2018-11-22)
PROC: 30233N1 Transfusion of Nonautologous Red Blood Cells into Peripheral Vein, Percutaneous Approach (ICD-10-PCS; 2018-11-24)
PROC: 0JBR0ZZ Excision of Left Foot Subcutaneous Tissue and Fascia, Open Approach (ICD-10-PCS; principal; 2018-11-24 11:00)
PROC: B41G1ZZ Fluoroscopy of Left Lower Extremity Arteries using Low Osmolar Contrast (ICD-10-PCS; 2018-11-30)
PROC: B41F1ZZ Fluoroscopy of Right Lower Extremity Arteries using Low Osmolar Contrast (ICD-10-PCS; 2018-11-30)
PROC: 04HY32Z Insertion of Monitoring Device into Lower Artery, Percutaneous Approach (ICD-10-PCS; 2018-11-30)
DX: E11.52 Type 2 diabetes mellitus with diabetic peripheral angiopathy with gangrene (principal); L97.429 Non-pressure chronic ulcer of left heel and midfoot with unspecified severity; I13.0 Hypertensive heart and chronic kidney disease with heart failure and stage 1 through stage 4 chronic kidney disease, or unspecified chronic kidney disease; I50.22 Chronic systolic (congestive) heart failure; N17.9 Acute kidney failure, unspecified; M86.60 Other chronic osteomyelitis, unspecified site; I96 Gangrene, not elsewhere classified; I25.10 Atherosclerotic heart disease of native coronary artery without angina pectoris; N18.3 Chronic kidney disease, stage 3 (moderate); E11.40 Type 2 diabetes mellitus with diabetic neuropathy, unspecified; E78.5 Hyperlipidemia, unspecified; Z96.649 Presence of unspecified artificial hip joint; E11.21 Type 2 diabetes mellitus with diabetic nephropathy; E11.319 Type 2 diabetes mellitus with unspecified diabetic retinopathy without macular edema; E11.22 Type 2 diabetes mellitus with diabetic chronic kidney disease; E11.621 Type 2 diabetes mellitus with foot ulcer; B96.5 Pseudomonas (aeruginosa) (mallei) (pseudomallei) as the cause of diseases classified elsewhere; B95.2 Enterococcus as the cause of diseases classified elsewhere; E11.69 Type 2 diabetes mellitus with other specified complication; K21.9 Gastro-esophageal reflux disease without esophagitis; D63.8 Anemia in other chronic diseases classified elsewhere; Z95.5 Presence of coronary angioplasty implant and graft; Z89.422 Acquired absence of other left toe(s); Z89.421 Acquired absence of other right toe(s); Z98.1 Arthrodesis status; Z95.0 Presence of cardiac pacemaker; Z86.73 Personal history of transient ischemic attack (TIA), and cerebral infarction without residual deficits; Z87.891 Personal history of nicotine dependence; Z79.4 Long term (current) use of insulin; Z83.3 Family history of diabetes mellitus
CPT/HCPCS: 36247; 36415; 36569; 71045; 73700; 75710; 76770; 76937; 80048; 80053; 80069; 81001; 82040; 82550; 82570; 82947; 82962; 83036; 83735; 84156; 84300; 85018; 85025; 85610; 85651; 86850; 86900; 86901; 86920; 87071; 87075; 87086; 87102; 87116; 87176; 87186; 87493; 99152; 99153; C1760; C1769; C1892; G0269; J0360; J0878; J1100; J1644; J1650; J1815; J2001; J2020; J2185; J2250; J2370; J2405; J2543; J2704; J3010; J3370; J3490; J7030; J7040; J7042; J7120; P9016; Q9967; 97110; 97116; 97530; 97535; A4461; C1771

== ENCOUNTER → 2018-11-22 | Outpatient (CLI) | payer OTHER ==
[2018-09-08 08:06] VITALS: BP 165/52
== END | disposition home or self-care (01) ==
LOC: MERGE 12:39 → PMGWOUND 12:39 → UNMERGE 12:39
PROVIDERS: ATTEND Emergency Medicine Undersea and Hyperbaric Medicine
DX: E11.621 Type 2 diabetes mellitus with foot ulcer (principal); L97.424 Non-pressure chronic ulcer of left heel and midfoot with necrosis of bone; E11.43 Type 2 diabetes mellitus with diabetic autonomic (poly)neuropathy; K31.84 Gastroparesis; E11.65 Type 2 diabetes mellitus with hyperglycemia; E11.40 Type 2 diabetes mellitus with diabetic neuropathy, unspecified; E11.69 Type 2 diabetes mellitus with other specified complication; M86.9 Osteomyelitis, unspecified; E11.51 Type 2 diabetes mellitus with diabetic peripheral angiopathy without gangrene; I13.10 Hypertensive heart and chronic kidney disease without heart failure, with stage 1 through stage 4 chronic kidney disease, or unspecified chronic kidney disease; E11.22 Type 2 diabetes mellitus with diabetic chronic kidney disease; N18.9 Chronic kidney disease, unspecified; I11.0 Hypertensive heart disease with heart failure; I50.9 Heart failure, unspecified; L84 Corns and callosities; I25.2 Old myocardial infarction; E78.5 Hyperlipidemia, unspecified; M19.90 Unspecified osteoarthritis, unspecified site; K21.9 Gastro-esophageal reflux disease without esophagitis; I25.10 Atherosclerotic heart disease of native coronary artery without angina pectoris; Z79.4 Long term (current) use of insulin; Z95.5 Presence of coronary angioplasty implant and graft; Z90.49 Acquired absence of other specified parts of digestive tract
CPT/HCPCS: 99214; G0463

== ENCOUNTER 2018-12-12 04:29 | Inpatient (IN) | payer OTHER ==
[2018-12-12] VITALS (18 sets, daily range): BP systolic 124–192; BP diastolic 58–91
[~2018-12-12] VITALS: Ht 167.6 cm; Wt 91.3 kg
[~2018-12-12 04:29] MED LIST changes: +ASPI325T8 PO; +ATOR20TA58 PO; +CARV12.53 PO; +MERO500V15 IV; +PANT20TA2 PO; +TRAM50TA PO
[2018-12-12 04:51] LABS: BASO # 0.1 x10^3/uL (0.0-0.2); BASO % 1 % (0-3); EOS # 0.6 x10^3/uL (0.0-0.7); EOS % 7 % (0-3); HEMATOCRIT 23.6 % (39.0-53.0); HEMOGLOBIN 7.7 g/dL (13.0-17.5); LYMPH # 1.2 x10^3/uL (1.0-4.8); LYMPH % 15 % (24-48); MEAN CORPUSCULAR HEMOGLOBIN 28 pg (25-35); MEAN CORPUSCULAR HGB CONC 33 g/dL (31-37); MEAN CORPUSCULAR VOLUME 85 fL (79-100); MONO # 0.9 x10^3/uL (0.0-1.1); MONO % 11 % (0-9); NEUT # 5.1 x10^3uL (1.8-7.7); NEUT % 66 % (31-73); PLATELET COUNT 255 x10^3/uL (140-400); RED BLOOD COUNT 2.79 x10^6/uL (4.30-5.70); RED CELL DISTRIBUTION WIDTH 16.9 % (11.5-14.5); WHITE BLOOD COUNT 7.8 x10^3/uL (4.0-11.0)
[2018-12-12 04:58] LABS: PROTHROMBIN TIME PATIENT 14.1 SEC (11.7-14.0)
[2018-12-12 05:00] LABS: CALCIUM 8.8 mg/dL (8.5-10.1); CREATININE 1.6 mg/dL (0.7-1.3); GFR 43.9; POTASSIUM 4.1 mmol/L (3.5-5.1)
[2018-12-12 05:06] LABS: ALBUMIN 2.7 g/dL (3.4-5.0); ALBUMIN/GLOBULIN RATIO 0.7 (1.0-1.7); MAGNESIUM 2.4 mg/dL (1.8-2.4); TOTAL BILIRUBIN 0.6 mg/dL (0.2-1.0); TOTAL PROTEIN 6.7 g/dL (6.4-8.2)
[2018-12-12 05:14] LABS: CREATINE KINASE 66 U/L (39-308)
[2018-12-12] MEDS ORDERED: fentaNYL PF VIAL 100 MCG/2 ML VIAL IV PRN (05:15)
[2018-12-12] MEDS ORDERED: DEXTROSE 50% 25 GM / 50ML DISP.SYRIN. IV PRN ×2 (05:15→10:00)
[2018-12-12] MEDS: ONDANSETRON PF 4 MG/2 ML VIAL. IV PRN ×2 (05:27→23:51)
--- NOTE | 2018-12-12 05:42 | PHYS DOC ---
Past Medical History Past Medical History: Diabetes-Type II, High Cholesterol, Renal Disease, Other Additional Past Medical Histor: pressure ulcer left heel Past Surgical History: Appendectomy, Pacemaker, Other Additional Past Surgical Histo: BILATERAL KNEES, Alcohol Use: None Drug Use: None Adult General Chief Complaint Chief Complaint: CHEST PAIN HPI HPI Patient is a 63 year old male who presents with chest pain. Patient states that he developed chest pressure sensation around nine o'clock last night. Patient describes the pain as constant and currently rates it to be 8/10. Patient reports shortness of breath that is worse with movement. Patient reports receiving a nebulizer treatment this morning which helped temporarily. Patient denies any radiation of his chest pain. Denies palpitations and diaphoresis. Patient states he was recently seen and evaluated for his heart and everything "came back fine.". Patient has a history of an angioplasty with stents placed. Review of Systems Review of Systems Constitutional: Denies fever or chills Eyes: Denies change in visual acuity or eye pain HENT: Denies nasal congestion or sore throat Respiratory: Denies cough. Reports shortness of breath. Cardiovascular: Reports chest pain. Denies palpitations GI: Denies abdominal pain, nausea, vomiting, or diarrhea : Denies dysuria or hematuria Musculoskeletal: Denies back pain or joint pain Integument: Denies rash or skin lesions Neurologic: Denies headache, focal weakness or sensory changes Complete systems were reviewed and found to be within normal limits, except as documented in this note. Allergies Allergies Allergies Coded Allergies Type Severity Reaction Last Updated Verified hydromorphone Allergy Severe apnea and asystole, code blue 09/02/16 Yes ertapenem Adverse Reaction Intermediate insomnia 09/16/17 Yes oxycodone Adverse Reaction Intermediate Nausea and Vomiting 09/16/17 Yes Physical Exam Physical Exam Constitutional: No acute distress, non-toxic appearance. HENT: Normocephalic, atraumatic, oropharynx moist, nose normal. Eyes: PERRL,conjunctiva normal. Neck: Normal range of motion, no tenderness, supple, no stridor. Cardiovascular: Heart rate regular rhythm, no murmur. Pacemaker scar noted. Lungs & Thorax: Bilateral breath sounds clear to auscultation Abdomen: Soft, no tenderness. Skin: Warm, dry. Back: No tenderness, no CVA tenderness. Extremities: ROM intact. Trace edema of bilateral lower extremities. Left lower extremity placed in wound VAC. Neurologic: Alert and oriented X 3, normal motor function, normal sensory function, no focal deficits noted. Psychologic: Affect normal. Speech normal. Current Patient Data Vital Signs Vital Signs Date Time Temp Pulse Resp B/P (MAP) Pulse Ox O2 Delivery O2 Flow Rate FiO2 12/12/18 05:00 80 16 132/72 (92) 94 12/12/18 04:41 97.8 Room Air 97.8 Lab Values Laboratory Tests Test 12/12/18 04:41 White Blood Count 7.8 x10^3/uL (4.0-11.0) Red Blood Count 2.79 x10^6/uL (4.30-5.70) L Hemoglobin 7.7 g/dL (13.0-17.5) L Hematocrit 23.6 % (39.0-53.0) L Mean Corpuscular Volume 85 fL (79-100) Mean Corpuscular Hemoglobin 28 pg (25-35) Mean Corpuscular Hemoglobin Concent 33 g/dL (31-37) Red Cell Distribution Width 16.9 % (11.5-14.5) H Platelet Count 255 x10^3/uL (140-400) Neutrophils (%) (Auto) 66 % (31-73) Lymphocytes (%) (Auto) 15 % (24-48) L Monocytes (%) (Auto) 11 % (0-9) H Eosinophils (%) (Auto) 7 % (0-3) H Basophils (%) (Auto) 1 % (0-3) Neutrophils # (Auto) 5.1 x10^3uL (1.8-7.7) Lymphocytes # (Auto) 1.2 x10^3/uL (1.0-4.8) Monocytes # (Auto) 0.9 x10^3/uL (0.0-1.1) Eosinophils # (Auto) 0.6 x10^3/uL (0.0-0.7) Basophils # (Auto) 0.1 x10^3/uL (0.0-0.2) Prothrombin Time 14.1 SEC (11.7-14.0) H Prothrombin Time INR 1.1 (0.8-1.1) D-Dimer (Sera) 1.14 ug/mlFEU (0.00-0.50) H Sodium Level 141 mmol/L (136-145) Potassium Level 4.1 mmol/L (3.5-5.1) Chloride Level 105 mmol/L (98-107) Carbon Dioxide Level 27 mmol/L (21-32) Anion Gap 9 (6-14) Blood Urea Nitrogen 34 mg/dL (8-26) H Creatinine 1.6 mg/dL (0.7-1.3) H Estimated GFR (Cockcroft-Gault) 43.9 BUN/Creatinine Ratio 21 (6-20) H Glucose Level 129 mg/dL (70-99) H Calcium Level 8.8 mg/dL (8.5-10.1) Magnesium Level 2.4 mg/dL (1.8-2.4) Total Bilirubin 0.6 mg/dL (0.2-1.0) Aspartate Amino Transferase (AST) 42 U/L (15-37) H Alanine Aminotransferase (ALT) 124 U/L (16-63) H Alkaline Phosphatase 217 U/L (46-116) H Creatine Kinase 66 U/L (39-308) Creatine Kinase MB (Mass) 0.9 ng/mL (0.0-3.6) Creatine Kinase MB Relative Index % (0-4) Troponin I Quantitative < 0.017 ng/mL (0.000-0.055) EF-Qcx-G-Type Natriuretic Peptide 5768 pg/mL (0-124) H Total Protein 6.7 g/dL (6.4-8.2) Albumin 2.7 g/dL (3.4-5.0) L Albumin/Globulin Ratio 0.7 (1.0-1.7) L Triglycerides Level 52 mg/dL (0-150) Cholesterol Level 119 mg/dL (0-200) LDL Cholesterol, Calculated 29 mg/dL (0-100) VLDL Cholesterol, Calculated 10 mg/dL (0-40) Non-HDL Cholesterol Calculated 39 mg/dL (0-129) HDL Cholesterol 80 mg/dL (40-60) H Cholesterol/HDL Ratio 1.5 Lipase 118 U/L (73-393) Laboratory Tests 12/12/18 04:41 Laboratory Tests 12/12/18 04:41 EKG EKG ECG at 04:45 reveals Normal sinus rhythm at 78bpm with occasional PVCs. No ST elevation[] Radiology/Procedures Radiology/Procedures PROCEDURE: CHEST AP ONLY CHEST AP ONLY Clinical indications: CHEST PAIN. COMPARISON: September 01, 2018. Findings: Bilateral perihilar pulmonary edema is seen. Small left-sided pleural effusion is seen. No pneumothorax is seen. Heart size and mediastinum are stable. IMPRESSION: Mild CHF. Electronically signed by: Michele Vicente MD (12/12/2018 8:09 AM) [facility] Course & Med Decision Making Course & Med Decision Making Patient is a 63 year old male who presents to the ED for chest pain. Pertinent Labs and Imaging studies reviewed. (See chart for details) Initial troponin negative. D-dimer positive. CXR notes some fibrosis vs. mild vascular congestion. BNP 5000. ASA provided by EMS en route. VQ scan pending. Patient reports recent work up at by director telehealth. [employer] review was performed without finding of this report. Patient requiring admission for further evaluation and treatment. Discussed with Dr. Slater (PCP) who is in agreement with admission. Discussed findings and plan with patient and family, who acknowledge understanding and agreement. Dragon Disclaimer Dragon Disclaimer This electronic medical record was generated, in whole or in part, using a voice recognition dictation system. Departure Departure Impression: Primary Impression: Chest pain Additional Impression: Elevated d-dimer Disposition: ADMITTED INPATIENT Admitting Physician: Garrick Slater Condition: STABLE Referrals: GARRICK SLATER MD (PCP) Problem Qualifiers Primary Impression: Chest pain Chest pain type: unspecified Qualified Codes: R07.9 - Chest pain, unspecified JJVIJAY Ackerman Dec 12, 2018 05:42
[2018-12-12] MEDS ORDERED: MULT1TAB52 PO (07:18)
[2018-12-12] MEDS ORDERED: FURO20TA3 PO (07:18)
[2018-12-12] MEDS ORDERED: ISOS30TA4 PO (07:18)
[2018-12-12] MEDS ORDERED: OMEP20TA8 PO (07:18)
[2018-12-12] MEDS ORDERED: INSU100I32 SQ (07:18)
--- NOTE | 2018-12-12 07:34 | EKG ---
[facility] [address] [place] [address] Test Date: 2018-12-12 Test Time: 04:44:37 Pat Name: FREDRICK RUBIO Department: Room: [facility] Gender: M Lieutenant General: GOLDIE : 1955 Requested By: VIJAY GARDNER Order Number: [id number] Reading MD: Rogelio Carty MD Measurements Intervals Sparkman Rate: 78 P: ID: QRS: 164 QRSD: 94 T: 177 QT: 406 QTc: 467 Interpretive Statements SR LAD PVC'S DEBRA-SEPTAL INFARCT PROBABLE Electronically Signed On 12-12-2018 15:38:19 CDT by Rogelio Carty MD
[2018-12-12] MEDS: INSULIN LISPRO 300 UNITS/3 ML INSULN.PEN. SQ SCH ×7 (08:00→17:30)
--- NOTE | 2018-12-12 08:13 | RAD ---
CHEST AP ONLY Clinical indications: CHEST PAIN. COMPARISON: September 01, 2018. Findings: Bilateral perihilar pulmonary edema is seen. Small left-sided pleural effusion is seen. No pneumothorax is seen. Heart size and mediastinum are stable. IMPRESSION: Mild CHF. Electronically signed by: Michele Vicente MD (12/12/2018 8:09 AM) [facility]
[2018-12-12 08:31] LABS: CHOLESTEROL/HDL RATIO 1.5
--- NOTE | 2018-12-12 09:10 | PDOC ---
CARDIO Progress Notes Date and Time Date of Service 12/12/18 Subjective Subjective: No shortness of breath, No Palpitations Vitals Vitals Vital Signs Date Time Temp Pulse Resp B/P (MAP) Pulse Ox O2 Delivery O2 Flow Rate FiO2 12/12/18 07:51 80 20 174/59 (97) 93 Room Air 12/12/18 06:23 97.7 97.7 Weight Weight [ ] Laboratory Labs Laboratory Tests Test 12/12/18 04:41 White Blood Count 7.8 x10^3/uL (4.0-11.0) Red Blood Count 2.79 x10^6/uL (4.30-5.70) Hemoglobin 7.7 g/dL (13.0-17.5) Hematocrit 23.6 % (39.0-53.0) Mean Corpuscular Volume 85 fL (79-100) Mean Corpuscular Hemoglobin 28 pg (25-35) Mean Corpuscular Hemoglobin Concent 33 g/dL (31-37) Red Cell Distribution Width 16.9 % (11.5-14.5) Platelet Count 255 x10^3/uL (140-400) Neutrophils (%) (Auto) 66 % (31-73) Lymphocytes (%) (Auto) 15 % (24-48) Monocytes (%) (Auto) 11 % (0-9) Eosinophils (%) (Auto) 7 % (0-3) Basophils (%) (Auto) 1 % (0-3) Neutrophils # (Auto) 5.1 x10^3uL (1.8-7.7) Lymphocytes # (Auto) 1.2 x10^3/uL (1.0-4.8) Monocytes # (Auto) 0.9 x10^3/uL (0.0-1.1) Eosinophils # (Auto) 0.6 x10^3/uL (0.0-0.7) Basophils # (Auto) 0.1 x10^3/uL (0.0-0.2) Prothrombin Time 14.1 SEC (11.7-14.0) Prothromb Time International Ratio 1.1 (0.8-1.1) D-Dimer (Sera) 1.14 ug/mlFEU (0.00-0.50) Sodium Level 141 mmol/L (136-145) Potassium Level 4.1 mmol/L (3.5-5.1) Chloride Level 105 mmol/L (98-107) Carbon Dioxide Level 27 mmol/L (21-32) Anion Gap 9 (6-14) Blood Urea Nitrogen 34 mg/dL (8-26) Creatinine 1.6 mg/dL (0.7-1.3) Estimated GFR (Cockcroft-Gault) 43.9 BUN/Creatinine Ratio 21 (6-20) Glucose Level 129 mg/dL (70-99) Calcium Level 8.8 mg/dL (8.5-10.1) Magnesium Level 2.4 mg/dL (1.8-2.4) Total Bilirubin 0.6 mg/dL (0.2-1.0) Aspartate Amino Transf (AST/SGOT) 42 U/L (15-37) Alanine Aminotransferase (ALT/SGPT) 124 U/L (16-63) Alkaline Phosphatase 217 U/L (46-116) Creatine Kinase 66 U/L (39-308) Creatine Kinase MB (Mass) 0.9 ng/mL (0.0-3.6) Creatine Kinase MB Relative Index % (0-4) Troponin I Quantitative < 0.017 ng/mL (0.000-0.055) SM-Yzq-R-Type Natriuretic Peptide 5768 pg/mL (0-124) Total Protein 6.7 g/dL (6.4-8.2) Albumin 2.7 g/dL (3.4-5.0) Albumin/Globulin Ratio 0.7 (1.0-1.7) Triglycerides Level 52 mg/dL (0-150) Cholesterol Level 119 mg/dL (0-200) LDL Cholesterol, Calculated 29 mg/dL (0-100) VLDL Cholesterol, Calculated 10 mg/dL (0-40) Non-HDL Cholesterol Calculated 39 mg/dL (0-129) HDL Cholesterol 80 mg/dL (40-60) Cholesterol/HDL Ratio 1.5 Lipase 118 U/L (73-393) Physical Exam HEENT: Neck Supple W Full Motion Chest: Symmetric LUNGS: Other (crackles left base) Heart: S1S2, RRR Abdomen: Soft N/T Extremities: Other (1+ bilateral upper and LE edema. LLE ulcer. ) Neurology: alert, oriented, follow commands Assessment Assessment Continuum of Care Please seen office noted dated 12/09/18 in physical chart for further details Consult reason: Chest pain Referring Physician: Dr. Flower HPI: This is a 63 yo male, with a history of CAD s/p PCI/stent placement, pacemaker placement, hypertension, severe diabetic neuropathy, and chronic wounds, who presented secondary to chest pain. Was seen in our office last Wednesday for similar complaints. Was transferred from wound care clinic, where he was about to start hyperbaric oxygen therapy for left lower extremity wound, secondary to chest tightness. Has known small vessel disease. Patient reports felling better Wednesday and most of the day Wednesday. Last night late, was watching television and began starting having pain in his central chest. Describes as pressure/tightness. Radiated through to his back. Was associated with shortness of breath. No dizziness, diaphoresis, palpitations, or nausea/ vomiting. Had nurse check blood pressure; reports SBP was 120. Pain persisted so he came to the ED for further evaluation and treatment. ECHO <Conclusion> The left ventricle is normal size. The left ventricular systolic function is normal and the ejection fraction is within normal range. The Ejection Fraction is 60-65%. There is mild to moderate concentric left ventricular hypertrophy. There is no significant aortic valvular stenosis. Doppler and Color Flow revealed trace aortic regurgitation. Doppler and Color-flow revealed trace mitral regurgitation. Doppler and Color Flow revealed trace to mild tricuspid regurgitation. DATE: 09/17/17 1730 Assessment 1. Chest pain. concerns for UA 2. CAD s/p previous PCI/stenting 3. Acute on chronic diastolic heart failure 4. SSS s/p pacemaker implantation 5. Hypertension; elevated this am 6. KAYLEE on CKD 7. Anemia 8. Elevated LFTs 9. Diabetes, II Recommendations Echo to assess LV systolic function Mild diuresis. Monitor renal function Keep NPO Given h/o CAD and recurrent CP, will plan for LHC for definitive eval. R/b/a discussed and patient is agreeable. ALEX TAYLOR APRN Dec 12, 2018 09:10
[2018-12-12] MEDS ORDERED: LIDOCAINE 1% PF 2 ML VIAL. ONE (09:40)
[2018-12-12] MEDS ORDERED: PANTOPRAZOLE 40 MG TABLET.DR. PO ONE (09:45)
[2018-12-12] MEDS ORDERED: HYDROcodone/APAP 5/325MG 1 TAB TABLET PO PRN (09:45)
--- NOTE | 2018-12-12 09:54 | PDOC ---
Provider Note Provider Note Pt seen.H&P dictated. #[id number] ELDER LAURENT MD Dec 12, 2018 09:54
[2018-12-12] MEDS ORDERED: IODIXANOL 320 MG/ML 100 ML VIAL. ONE (10:01)
[2018-12-12] MEDS ORDERED: fentaNYL PF VIAL 100 MCG/2 ML VIAL ONE (10:20)
[2018-12-12] MEDS ORDERED: HEPARIN for IV BOLUS 10,000 UNIT/10 ML VIAL. ONE (10:20)
[2018-12-12] MEDS ORDERED: MIDAZOLAM HCL/PF 2 MG/2 ML VIAL. ONE (10:20)
[2018-12-12] MEDS ORDERED: VERAPAMIL 5 MG/2 ML VIAL. ONE ×2 (10:20→11:00)
[2018-12-12] MEDS ORDERED: NITROGLYCERIN 200 MCG/2 ML SYRINGE FOR CATH/VASC LAB. ONE (10:22)
[2018-12-12] MEDS ORDERED: LIDOCAINE 1% Multi-Dose 20 ML VIAL. ONE (10:29)
--- NOTE | 2018-12-12 10:50 | PDOC2 ---
GI CONSULT Reason For Consult: EGD, gastritis, anemia HPI: HPI: 63 y/o male admitted w/ chest pain. He reports mid chest "pressure" radiating through to back awoke him from sleep, associated w/ SOA and wheezing ("my throat sounded like a violin"). H/o CAD w/ stent to RCA on ASA. Had cardiac cath today - official report pending, RN says RCA totally occluded w/ plans to maximize medical therapy. 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 Denies dysphagia, n/v, abd pain, constipation, hematemesis, hematochezia, melena , change in appetite, or weight loss. Occasional diarrhea. Stools sometimes look dark - takes iron QD. Chronic anemia dating back to 2013 in [facility]. Iron deficient in 09/2017 w/ normal B12 and retic count. This time, Hgb 7.7 w/ MCV 85 and RDW 16.9. Also note AST 42. ALT 124, and Alk phos 217 - all have been intermittently mildly elevated in the past. Cr 1.6 w/ BUN 34. Bili, lipase, plt, and INR WNL. E[place] [address] Forrest showed GERD and gastritis. EGD in [address] Connolly for UGIB showed ulceration in mid esophagus w/ stigmata of recent bleeding. EGD in 2014 (also by Dr. Connolly) showed minimal reflux esophagitis. SBS unrevealing in 2014. Viral hepatitis serologies negative in 2016. Unremarkable liver on US in 08/2016. Mild GB wall thickening was noted then - follow-up HIDA showed patent cystic duct. No GES here - though gastroparesis suspected and has been on Reglan suspension in the past. He reports normal colonoscopy (says done here) ~5 years ago. PMH: PMH: CAD, HTN, MN, syncope, HLD, anemia, OA, CKD, IDDM (last A1c >10) pacemaker, appendectomy, cataract removal, toe amputation, RLE debridement, left ankle surgery, left heel I&D, left hip hemiarthroplasty FH: Family History: No pertinent hx Social History: ALCOHOL: none Drugs: None ROS: GEN: Denies fevers, chills, sweats HEENT: Denies blurred vision, sore throat CV: +CP RESP: +SOA GI: Per HPI : Denies hematuria, dysuria ENDO: Denies weight changes NEURO: Denies confusion, dizziness MSK: Denies weakness, joint pain/swelling SKIN: Denies jaundice, pruritus Vitals: Vitals: Vital Signs Date Time Temp Pulse Resp B/P (MAP) Pulse Ox O2 Delivery O2 Flow Rate FiO2 12/12/18 07:51 80 20 174/59 (97) 93 Room Air 12/12/18 06:23 97.7 97.7 Labs: Labs: Laboratory Tests Test 12/12/18 04:41 12/12/18 08:14 White Blood Count 7.8 x10^3/uL (4.0-11.0) Red Blood Count 2.79 x10^6/uL (4.30-5.70) Hemoglobin 7.7 g/dL (13.0-17.5) Hematocrit 23.6 % (39.0-53.0) Mean Corpuscular Volume 85 fL (79-100) Mean Corpuscular Hemoglobin 28 pg (25-35) Mean Corpuscular Hemoglobin Concent 33 g/dL (31-37) Red Cell Distribution Width 16.9 % (11.5-14.5) Platelet Count 255 x10^3/uL (140-400) Neutrophils (%) (Auto) 66 % (31-73) Lymphocytes (%) (Auto) 15 % (24-48) Monocytes (%) (Auto) 11 % (0-9) Eosinophils (%) (Auto) 7 % (0-3) Basophils (%) (Auto) 1 % (0-3) Neutrophils # (Auto) 5.1 x10^3uL (1.8-7.7) Lymphocytes # (Auto) 1.2 x10^3/uL (1.0-4.8) Monocytes # (Auto) 0.9 x10^3/uL (0.0-1.1) Eosinophils # (Auto) 0.6 x10^3/uL (0.0-0.7) Basophils # (Auto) 0.1 x10^3/uL (0.0-0.2) Prothrombin Time 14.1 SEC (11.7-14.0) Prothromb Time International Ratio 1.1 (0.8-1.1) D-Dimer (Sera) 1.14 ug/mlFEU (0.00-0.50) Sodium Level 141 mmol/L (136-145) Potassium Level 4.1 mmol/L (3.5-5.1) Chloride Level 105 mmol/L (98-107) Carbon Dioxide Level 27 mmol/L (21-32) Anion Gap 9 (6-14) Blood Urea Nitrogen 34 mg/dL (8-26) Creatinine 1.6 mg/dL (0.7-1.3) Estimated GFR (Cockcroft-Gault) 43.9 BUN/Creatinine Ratio 21 (6-20) Glucose Level 129 mg/dL (70-99) Calcium Level 8.8 mg/dL (8.5-10.1) Magnesium Level 2.4 mg/dL (1.8-2.4) Total Bilirubin 0.6 mg/dL (0.2-1.0) Aspartate Amino Transf (AST/SGOT) 42 U/L (15-37) Alanine Aminotransferase (ALT/SGPT) 124 U/L (16-63) Alkaline Phosphatase 217 U/L (46-116) Creatine Kinase 66 U/L (39-308) Creatine Kinase MB (Mass) 0.9 ng/mL (0.0-3.6) Creatine Kinase MB Relative Index % (0-4) Troponin I Quantitative < 0.017 ng/mL (0.000-0.055) < 0.017 ng/mL (0.000-0.055) GR-Lhj-F-Type Natriuretic Peptide 5768 pg/mL (0-124) Total Protein 6.7 g/dL (6.4-8.2) Albumin 2.7 g/dL (3.4-5.0) Albumin/Globulin Ratio 0.7 (1.0-1.7) Triglycerides Level 52 mg/dL (0-150) Cholesterol Level 119 mg/dL (0-200) LDL Cholesterol, Calculated 29 mg/dL (0-100) VLDL Cholesterol, Calculated 10 mg/dL (0-40) Non-HDL Cholesterol Calculated 39 mg/dL (0-129) HDL Cholesterol 80 mg/dL (40-60) Cholesterol/HDL Ratio 1.5 Lipase 118 U/L (73-393) Allergies: Coded Allergies: hydromorphone (Verified Allergy, Severe, apnea and asystole, code blue, 12 /28/16) ertapenem (Verified Adverse Reaction, Intermediate, insomnia, 09/16/17) oxycodone (Verified Adverse Reaction, Intermediate, Nausea and Vomiting, ) Medications: Current Medications Medications (Trade) Dose Ordered Sig/Perlita Route PRN Reason Start Time Stop Time Status Last Admin Dose Admin Ondansetron HCl (Zofran) 4 mg PRN Q8HRS PRN IV NAUSEA/VOMITING 12/12/18 05:15 12/13/18 05:14 12/12/18 05:27 Fentanyl Citrate (Fentanyl 2ml Vial) 50 mcg PRN Q2HR PRN IV PAIN 12/12/18 05:15 12/12/18 05:28 Imaging: Imaging: CXR 12/12/18 IMPRESSION: Mild CHF. PE: GEN: NAD - eating a sandwich, son present HEENT: Atraumatic, PERRL LUNGS: CTAB, NC HEART: RRR ABD: NABS, S/ND/NT EXTREMITY: No edema SKIN: No rashes, no jaundice NEURO/PSYCH: A & O 3 A/P: A/P: Chest pain, CHF, CAD - on ASA Chronic anemia - iron deficient in 08/2018, on PO iron QD GERD - on PPI QD, last EGD unremarkable in 2014 Elevated LFTs - past workup per HPI Suspected gastroparesis CRC screen - reportedly normal ~5 years ago CKD, DM, left heel osteomyelitis w/ recent I&D -- Agree w/ PPI. Continue iron - increase to BID. Will attempt to review records from past colonoscopy. Additional recs per Dr. Cheek. RONALD BONILLA Dec 12, 2018 10:50
[2018-12-12] MEDS ORDERED: fentaNYL PF VIAL 100 MCG/2 ML VIAL IV ONE (11:00)
[2018-12-12] MEDS ORDERED: LIDOCAINE 1% Multi-Dose 20 ML VIAL. INJ ONE (11:00)
[2018-12-12] MEDS ORDERED: LIDOCAINE 1% PF 2 ML VIAL. INJ ONE (11:00)
[2018-12-12] MEDS ORDERED: MIDAZOLAM HCL/PF 2 MG/2 ML VIAL. IV ONE (11:00)
[2018-12-12] MEDS ORDERED: IODIXANOL 320 MG/ML 100 ML VIAL. IART ONE (11:00)
--- NOTE | 2018-12-12 11:13 | HP ---
ADMIT DATE: 12/12/2018 LOCATION: [facility]. REASON FOR ADMISSION TO THE HOSPITAL: Chest pain, shortness of breath. The patient has a known history of coronary artery disease. HISTORY OF PRESENT ILLNESS: The patient is a 63-year-old male patient, is at [facility]. He has osteomyelitis of the left heel, surgical debridement, is getting IV antibiotics and a wound VAC there. For 2 weeks now, he was having some shortness of breath, chest pain last night 4:00, came to the ER. EKG negative for ischemia. Troponin is negative. Cardiology was consulted. PAST MEDICAL HISTORY: As mentioned, he was in the hospital 3-4 weeks ago. He had an osteomyelitis of the left calcaneus, had a surgical debridement, had a wound VAC at that time. He had an arteriogram to look at the circulation, has adequate blood flow to heel. Small vessel disease. The patient has history of coronary artery disease, previous cardiac catheterization, previous stents, has a pacemaker. 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 PERSONAL HISTORY: Long time smoker, quit many years ago. Denies alcohol or street drugs. FAMILY HISTORY: Positive for diabetes, heart disease. ALLERGIES: ERTAPENEM CAUSES CONFUSION. MEDICATIONS: The patient is on insulin 10 units three times daily, Lantus long acting 10-15 at bedtime, midodrine 5 mg 3 times daily, aspirin 325 daily, atorvastatin 20 mg daily, Coreg 12.5 twice a day, hydrocodone for pain, isosorbide 30 mg daily, meropenem 500 mg IV q.8. He has another 4 more weeks to go. Omeprazole 20 mg daily, Lyrica 75 mg daily, Flomax 0.4 daily. REVIEW OF SYMPTOMS: CARDIAC: Some chest pain going to the back last night 4:00, now pain free. No nausea, no vomiting, no diaphoresis. Rest of 14-system was reviewed and negative. PHYSICAL EXAMINATION: GENERAL: The patient is comfortable, not in any distress. VITAL SIGNS: Temperature 97, pulse 80, respirations 16, blood pressure 148/60, 94% on room air. HEENT: Head is atraumatic. Pupils equal. Oral cavity, few teeth present. NECK: Supple. Thyroid not enlarged. JVD not elevated. CHEST: Symmetrical. CARDIOVASCULAR: S1, S2. LUNGS: Few crackles at the base. ABDOMEN: Soft. EXTERNAL GENITALIA: No Joyner. RECTAL: Deferred. EXTREMITIES: The patient has swelling in both upper extremities, has a PICC line in the right upper extremity. The patient has a splint to the left foot, has a wound VAC in the left heel. Some 1+ swelling in both lower extremities. NEUROLOGIC: Moving all extremities. No focal deficits noted. LABORATORY DATA: Shows a white count of 8, hemoglobin 7.7, platelets 255. INR 1.1. Electrolytes show sodium 141, potassium 4.1, chloride 105, bicarbonate 27, BUN 34, creatinine 1.6, glucose 129. LFTs were, AST 42, ALT 124, alk phos 217. BNP 5000. Troponin negative. Two sets lipase was negative. Cholesterol is 119, LDL 29. Chest x-ray: Mild CHF, left pleural effusion. EKG negative for ischemia. FINAL IMPRESSION: 1. Chest pain, for cardiac evaluation. 2. Known history of coronary artery disease, previous stents. 3. Pacemaker for sick sinus syndrome, tachybradyarrhythmias. 4. Chronic systolic heart failure. 5. Anemia of chronic disease. 6. Diabetes, insulin-dependent. 7. Left heel osteomyelitis, getting IV antibiotics. 8. Chronic kidney disease stage 3. 9. Hypertension. 10. Hyperlipidemia. PLAN: At this time, was admit to hospital. Cardiology is consulted. Echocardiogram and possible cardiac catheterization. Also, Doppler of lower extremities to make sure no DVTs and also he will have a GI consult. If cardiac catheterization no problem, then, we may have to do EGD to see if gastritis causing problems. He is also anemic. ELDER LAURENT MD DR: BENNIE/andre JOB#: [id number] / [id number]
[2018-12-12] MEDS ORDERED: CONTRAST GIVEN. MC PRN (11:45)
--- NOTE | 2018-12-12 11:45 | NUR ---
Wound Care Wound care consult for DFU to left heel. Pt is current wound care/ HBO pt of [facility]. Removed vac/dressings, cleansed, pictured and measured all wounds. Vac replaced on left heel with collagen in base. BLE dressed with vaseline gauze, ABD and kerlix, recommend to change every 2 days. No other wounds noted on full skin inspection. Pt educated on PU prevention. Pt being taken to laboratory director after visit, left in bed. will return on Wednesday for next vac change.
--- NOTE | 2018-12-12 12:45 | NUR ---
SS following for discharge planning. SS received notification that pt was from [facility], ; fax [phone]. SS contacted [facility] to verify pt's previous placement. [facility] confirmed that pt was a skilled resident from there facility. Pt's RN notified.
[2018-12-12] MEDS: CARVEDILOL 12.5 MG TABLET. PO SCH ×2 (12:52→17:27)
[2018-12-12] MEDS: MULTIVITAMIN with MINERAL TABLET. PO SCH (12:53)
[2018-12-12] MEDS: ASPIRIN 325 MG TABLET PO SCH (12:54)
[2018-12-12] MEDS: PREGABALIN 75 MG CAPSULE PO SCH ×2 (12:54→21:05)
[2018-12-12] MEDS: ISOSORBIDE MONONITRATE ER 30 MG TAB.ER.24H PO SCH (12:54)
[2018-12-12] MEDS: MEROPENEM 500 MG in IV NORMAL SALINE 50ML 50 ML IV SCH ×2 (12:55→19:13)
[2018-12-12] MEDS ORDERED: FUROSEMIDE 20 MG/2 ML VIAL. IVP SCH (14:00)
[2018-12-12] MEDS ORDERED: MEROPENEM 500 MG IV SCH (14:00)
--- NOTE | 2018-12-12 14:23 | CARD ---
MR#: [id number] Date of Study: 12/12/2018 Ordering Physician: ALEX TAYLOR, Referring Physician: ELDER LAURENT, Tech: Trinity Forte APPROVED REPORT EXAM: Two-dimensional and M-mode echocardiogram with Doppler and color Doppler. Other Information Quality : AverageHR: 78bpm INDICATION Dyspnea CAD Chest Pain Surgery/Intervention Pacemaker: RISK FACTORS Hypertension Hyperlipidemia Diabetes 2D DIMENSIONS RVDd3.3 (2.9-3.5cm)Left Atrium(2D)4.1 (1.6-4.0cm) IVSd1.5 (0.7-1.1cm)Aortic Root(2D)2.9 (2.0-3.7cm) LVDd4.9 (3.9-5.9cm)LVOT Diameter2.0 (1.8-2.4cm) PWd1.6 (0.7-1.1cm)LVDs3.3 (2.5-4.0cm) FS (%) 31.4 %SV65.8 ml Aortic Valve AoV Peak Jose M.117.7cm/sAoV VTI35.3cm AO Peak GR.5.5mmHgLVOT VTI 19.80cm AO Mean GR.5mmHg Mitral Valve MV E Opwqzjmv949.3cm/sMV E Peak Gr.108mmHg MV DECEL [id number] A Kjoipxit44.5cm/s E/A Ratio1.3 TDI Lateral E' P. V7.72cm/sMedial E' P. V8.69cm/s E/Lateral E'15.6E/Medial E'13.8 Tricuspid Valve TR P. Lbokyjlv804vu/sRAP ISJJQVTL2fxUo TR Peak Gr.59mbYlIFZW16nyEa Pulmonary Vein S1 Ikmsgfty59.2cm/sS2 Ghrwnpvz57.57cm/s D2 Eybahuph32.6cm/sPVa krqfhoox81qdtn LEFT VENTRICLE The left ventricle is normal size. There is moderate concentric left ventricular hypertrophy. The lef t ventricular systolic function is normal and the ejection fraction is within normal range. The Eject ion Fraction is 55-60%. There is normal LV segmental wall motion. The left ventricular diastolic func tion and filling is normal for age. RIGHT VENTRICLE The right ventricle is borderline dilated. There is normal right ventricular wall thickness. The righ t ventricular systolic function is normal. There is a pacemaker lead in the right ventricle. ATRIA The left atrium size is normal. There is a pacemaker lead seen in the right atrium. The right atrium is borderline dilated. The interatrial septum is intact with no evidence for an atrial septal defect or patent foramen ovale as noted on 2-D or Doppler imaging. AORTIC VALVE The aortic valve is thickened but opens well. Doppler and Color Flow revealed trace aortic regurgitat ion. There is no significant aortic valvular stenosis. MITRAL VALVE The mitral valve is thickened but opens well. There is no evidence of mitral valve prolapse. There is no mitral valve stenosis. Doppler and Color-flow revealed mild mitral regurgitation. TRICUSPID VALVE The tricuspid valve is normal in structure and function. Doppler and Color Flow revealed trace tricus pid regurgitation. There is no tricuspid valve stenosis. PULMONIC VALVE The pulmonary valve is normal in structure and function. Doppler and Color Flow revealed trace pulmon ic valvular regurgitation. GREAT VESSELS The aortic root is normal in size. The IVC is normal in size and collapses >50% with inspiration. PERICARDIAL EFFUSION There is no evidence of significant pericardial effusion. Critical Notification Critical Value: No <Conclusion> The left ventricle is normal size. The left ventricular systolic function is normal and the ejection fraction is within normal range. The Ejection Fraction is 55-60%. There is moderate concentric left ventricular hypertrophy. There is no significant aortic valvular stenosis. Doppler and Color Flow revealed trace aortic regurgitation. Doppler and Color-flow revealed mild mitral regurgitation. Doppler and Color Flow revealed trace tricuspid regurgitation. Signed by : Shady Moncada MD Electronically Approved : 12/12/2018 14:22:53
[2018-12-12] MEDS: HYDROcodone/APAP 5/325MG 1 TAB TABLET PO PRN ×2 (14:33→21:02)
--- NOTE | 2018-12-12 15:30 | CARD ---
MR#: [id number] Date of Study: 12/12/2018 Ordering Physician: COSTA CARTY, Referring Physician: ELDER LAURENT Tech: RT Ganesh (R) APPROVED REPORT Technologist: Soo Jones RT (R) Nurse: Yodit Leiva R.N. Procedure(s) performed: Moderate sedation: 46 MINUTES Fluoro time: 2.0 MINUTES DOSE 36.2239 Gycm2 Visipaque 36 cc's HISTORY : The patient is a 63 year-old male with a history of . INDICATION The indication(s) include : unstable angina . [facility] Clinical Frailty Scale [facility] Clinical Frailty Scale: Severely Frail Heart Failure Heart Failure: Yes If Yes, Newly Diagnosed: No If Yes, HF Type: Diastolic If Yes, NYHA Class: Class III PROCEDURE NARRATIVE INDICATION: UNSTABLE ANGINA, ACUTE ON CHRONIC DECOMPENSATED DIASTOLIC HEART FAILURE, RECURRENT ANGINA ON TWO ANTI-ANGINALS INFORMED CONSENT: After explaining the risks and benefits of the procedure and alternatives, informed consent was obtained. The patient was brought electively to the cardiac catheterization lab. A timeout was performed confi rming the patient's name, date of , procedure, and site of procedure. All necessary personnel w ere wearing the appropriate protective equipment and radiation monitor devices. (See nursing notes for medications administered). ACCESS: The right wrist was sterilely prepped and draped in the usual fashion. The right wrist was infiltrat ed with 1 mL of 2% lidocaine for subcutaneous anesthesia. A 6 Amharic Terumo glide sheath was unable to be advanced past the proximal forearm due to severe spasm and likely significant calcification of the radial artery. Therefore, the sheath was removed, radial band applied with 10mL of air and the [facility] groin access site was prepped and draped in usual sterile fashion. Under 2% lidocaine local anesthesia, a 6Fr introducer was placed in the RCFA via the modified selding er technique. Limited angiography revealed adequate vessel anatomy for closure device. CORONARY ANGIOGRAPHY: Right and left coronary angiography was performed using a 6Fr JR4 and JL4 catheters. Left ventricul ar end diastolic pressure was obtained with a pigtail catheter and pullback was performed. All alonso ter exchanges and advancements were performed over a guidewire. CLOSURE: The right femoral sheath was removed and hemostasis was achived with a Mynx Chris device. COMPLICATIONS: The patient tolerated the procedure well and there were no immediate complications. FINDINGS: HEMODYNAMICS: LVEDP 22 mm Hg No gradient on LV to aortic pullback. AO: 160/80 LEFT VENTRICULOGRAM: Deferred due to renal dysfunction. CORONARY ANGIOGRAPHY: LM is a large caliber vessel with mild luminal irregularities. LAD is a moderate caliber vessel with mild diffuse irregularities of up to 30%. LCx is a moderate caliber non-dominant vessel with a mid 60% stenosis. OM1 is a small caliber vessel with mild diffuse disease. RCA is a large caliber dominant vessel with a 100% proximal occlusion. The distal vessel is seen to fill via robust left to right collaterals. There is an occluded mid stent. Conclusion 1. Acute on chronic decompensated diastolic heart failure with an LVEDP of 22 2. Severe two-vessel coronary artery disease 3. Occluded prior RCA stent with left to right collateralization Recommendations Aggressive Medical Therapy Signed by : Costa Carty, Electronically Approved : 12/12/2018 15:30:18
--- NOTE | 2018-12-12 16:11 | RAD ---
Bilateral lower extremity venous doppler ultrasound History: Bilateral leg swelling Comparison: None Findings: Multiple grayscale, color, and duplex spectral analysis sonographic images were acquired of the bilateral lower extremity veins to evaluate for the presence of DVT. There is normal phasicity. Normal compression, color-flow, and augmentation is demonstrated from the bilateral common femoral to the popliteal veins. There is normal color flow of the proximal greater saphenous and profunda femoris veins. Left calf veins could not be evaluated reportedly due to the presence of bandage material. Impression: 1. There is no evidence of deep venous thrombosis from the bilateral common femoral to the popliteal veins. Electronically signed by: Adrian Chaudhary MD (12/12/2018 4:08 PM) [place] [id number]
[2018-12-12] MEDS: FERROUS SULFATE 325 MG TABLET. PO SCH (21:05)
[2018-12-12] MEDS: TAMSULOSIN 0.4 MG CAP.ER.24H. PO SCH (21:05)
[2018-12-12] MEDS: ATORVASTATIN CALCIUM 20 MG TABLET PO SCH (21:05)
[2018-12-12] MEDS: INSULIN GLARGINE 300 UNITS/3 ML INSULN.PEN. SQ SCH (21:09)
[2018-12-13] VITALS (15 sets, daily range): BP systolic 100–157; BP diastolic 50–69
[2018-12-13] MEDS: MEROPENEM 500 MG in IV NORMAL SALINE 50ML 50 ML IV SCH ×3 (04:02→18:24)
[2018-12-13 05:18] LABS: BASO % 0 % (0-3); EOS # 0.4 x10^3/uL (0.0-0.7); EOS % 5 % (0-3); HEMATOCRIT 21.6 % (39.0-53.0); HEMOGLOBIN 7.1 g/dL (13.0-17.5); LYMPH # 0.8 x10^3/uL (1.0-4.8); LYMPH % 10 % (24-48); MEAN CORPUSCULAR HEMOGLOBIN 28 pg (25-35); MEAN CORPUSCULAR HGB CONC 33 g/dL (31-37); MEAN CORPUSCULAR VOLUME 85 fL (79-100); MONO # 0.7 x10^3/uL (0.0-1.1); MONO % 9 % (0-9); NEUT # 5.9 x10^3uL (1.8-7.7); NEUT % 76 % (31-73); PLATELET COUNT 244 x10^3/uL (140-400); RED BLOOD COUNT 2.54 x10^6/uL (4.30-5.70); WHITE BLOOD COUNT 7.8 x10^3/uL (4.0-11.0)
[2018-12-13 06:07] LABS: ALBUMIN 2.6 g/dL (3.4-5.0); ALBUMIN/GLOBULIN RATIO 0.7 (1.0-1.7); CREATININE 2.1 mg/dL (0.7-1.3); GFR 32.1; POTASSIUM 4.4 mmol/L (3.5-5.1); TOTAL BILIRUBIN 0.6 mg/dL (0.2-1.0); TOTAL PROTEIN 6.4 g/dL (6.4-8.2)
[2018-12-13] MEDS: INSULIN LISPRO 300 UNITS/3 ML INSULN.PEN. SQ SCH ×7 (08:00→17:08)
[2018-12-13] MEDS: FERROUS SULFATE 325 MG TABLET. PO SCH ×2 (08:02→21:42)
[2018-12-13] MEDS: ASPIRIN 325 MG TABLET PO SCH (08:03)
[2018-12-13] MEDS: MULTIVITAMIN with MINERAL TABLET. PO SCH (08:03)
[2018-12-13] MEDS: PANTOPRAZOLE 40 MG TABLET.DR. PO SCH (08:03)
[2018-12-13] MEDS: PREGABALIN 75 MG CAPSULE PO SCH ×2 (08:04→19:47)
[2018-12-13] MEDS: HYDROcodone/APAP 5/325MG 1 TAB TABLET PO PRN ×2 (08:06→19:47)
[2018-12-13] MEDS: ISOSORBIDE MONONITRATE ER 30 MG TAB.ER.24H PO SCH (08:07)
[2018-12-13] MEDS: CARVEDILOL 12.5 MG TABLET. PO SCH ×2 (08:08→17:05)
[2018-12-13] MEDS ORDERED: NON FORMULARY ITEM (Omeprazole 20 MG) PO SCH (09:00)
[2018-12-13] MEDS ORDERED: FUROSEMIDE 20 MG/2 ML VIAL. IVP SCH ×2 (09:00→14:00)
[2018-12-13] MEDS: LACTOBACILLUS RHAMNOSUS GG 1 CAPSULE. PO SCH ×2 (09:22→21:42)
[2018-12-13] MEDS ORDERED: ONDANSETRON PF 4 MG/2 ML VIAL. IV PRN (09:45)
--- NOTE | 2018-12-13 09:46 | PDOC ---
Subjective: Subjective: Denies pain. Tolerating PO. Hasn't stooled Objective: Vital Signs: Vital Signs Date Time Temp Pulse Resp B/P (MAP) Pulse Ox O2 Delivery O2 Flow Rate FiO2 12/13/18 09:23 15 97 Room Air 2.0 12/13/18 08:08 71 132/60 12/13/18 07:00 98.4 98.4 Labs: Laboratory Tests Test 12/12/18 10:00 12/12/18 10:55 12/12/18 17:14 12/12/18 20:55 Nasal Screen MRSA (PCR) Negative Troponin I Quantitative < 0.017 ng/mL Glucose (Fingerstick) 311 mg/dL 225 mg/dL Test 12/13/18 04:30 White Blood Count 7.8 x10^3/uL Red Blood Count 2.54 x10^6/uL Hemoglobin 7.1 g/dL Hematocrit 21.6 % Mean Corpuscular Volume 85 fL Mean Corpuscular Hemoglobin 28 pg Mean Corpuscular Hemoglobin Concent 33 g/dL Red Cell Distribution Width 17.0 % Platelet Count 244 x10^3/uL Neutrophils (%) (Auto) 76 % Lymphocytes (%) (Auto) 10 % Monocytes (%) (Auto) 9 % Eosinophils (%) (Auto) 5 % Basophils (%) (Auto) 0 % Neutrophils # (Auto) 5.9 x10^3uL Lymphocytes # (Auto) 0.8 x10^3/uL Monocytes # (Auto) 0.7 x10^3/uL Eosinophils # (Auto) 0.4 x10^3/uL Basophils # (Auto) 0.0 x10^3/uL Sodium Level 143 mmol/L Potassium Level 4.4 mmol/L Chloride Level 105 mmol/L Carbon Dioxide Level 27 mmol/L Anion Gap 11 Blood Urea Nitrogen 34 mg/dL Creatinine 2.1 mg/dL Estimated GFR (Cockcroft-Gault) 32.1 BUN/Creatinine Ratio 16 Glucose Level 132 mg/dL Calcium Level 8.0 mg/dL Total Bilirubin 0.6 mg/dL Aspartate Amino Transf (AST/SGOT) 28 U/L Alanine Aminotransferase (ALT/SGPT) 94 U/L Alkaline Phosphatase 173 U/L Total Protein 6.4 g/dL Albumin 2.6 g/dL Albumin/Globulin Ratio 0.7 PE: GEN: NAD - breakfast tray empty LUNGS: clear anteriorly HEART: RRR ABD: S/ND/NT EXTREM: boot LLE NEURO/PSYCH: A & O 3 A/P: Chest pain - h/o CAD and GERD [place] Elevated LFTs - better CKD, DM, left heel osteomyelitis -- Continue PPI and iron, plans for EGD tomorrow RONALD Pascual Dec 13, 2018 09:46
--- NOTE | 2018-12-13 09:50 | PDOC ---
PROGRESS NOTES Subjective Subjective feels ok, no cp Objective Objective Vital Signs Date Time Temp Pulse Resp B/P (MAP) Pulse Ox O2 Delivery O2 Flow Rate FiO2 12/13/18 09:23 15 97 Room Air 2.0 12/13/18 08:08 71 132/60 12/13/18 07:00 98.4 98.4 Intake and Output 12/13/18 07:00 Intake Total 1340 ml Output Total 2325 ml Balance -985 ml Intake Oral 1290 ml IV Total 50 ml Output Urine Total 2325 ml # Voids 1 Physical Exam Abdomen: Normal bowel sounds, Soft Heart: Regular rate, Normal S1 Extremities: No clubbing General: Alert, Oriented X3 HEENT: Atraumatic MUSCULOSKELETAL: No joint tenderness, No deformity, No swelling, Other Neuro: Normal speech Psych/Mental Status: Mental status NL COMMENT lt heal ulcer Diagnosis Problem List Problems Medical Problems: (1) Chest pain Status: Acute (2) Elevated d-dimer Status: Acute Assessment Assessment Problems Medical Problems: (1) Chest pain Status: Acute (2) Elevated d-dimer Status: Acute FINAL IMPRESSION: 1. Chest pain, for cardiac evaluation. 2. Known history of coronary artery disease, previous stents. 3. Pacemaker for sick sinus syndrome, tachyarrhythmias. 4. Chronic systolic heart failure. 5. Anemia of chronic disease. 6. Diabetes, insulin-dependent. 7. Left heel osteomyelitis, getting IV antibiotics. 8. Chronic kidney disease stage 3. 9. Hypertension. 10. Hyperlipidemia. PLAN: cardiac cath blocked stent RCA ,good collateral cr 2.1 went up hb 7.1 transfuse. EGD in am At this time, was admit to hospital. Cardiology is consulted. Echocardiogram and possible cardiac catheterization. Also, Doppler of lower extremities to make sure no DVTs and also he will have a GI consult. If cardiac catheterization no problem, then, we may have to do EGD to see if gastritis causing problems. He is also anemic. Plan Plan of Care Problems Medical Problems: (1) Chest pain Status: Acute (2) Elevated d-dimer Status: Acute Comment Review of Relevant I have reviewed the following items luís (where applicable) has been applied. Labs Laboratory Tests Test 12/12/18 10:00 12/12/18 10:55 12/12/18 17:14 12/12/18 20:55 Nasal Screen MRSA (PCR) Negative (Negative) Troponin I Quantitative < 0.017 ng/mL (0.000-0.055) Glucose (Fingerstick) 311 mg/dL (70-99) 225 mg/dL (70-99) Test 12/13/18 04:30 White Blood Count 7.8 x10^3/uL (4.0-11.0) Red Blood Count 2.54 x10^6/uL (4.30-5.70) Hemoglobin 7.1 g/dL (13.0-17.5) Hematocrit 21.6 % (39.0-53.0) Mean Corpuscular Volume 85 fL (79-100) Mean Corpuscular Hemoglobin 28 pg (25-35) Mean Corpuscular Hemoglobin Concent 33 g/dL (31-37) Red Cell Distribution Width 17.0 % (11.5-14.5) Platelet Count 244 x10^3/uL (140-400) Neutrophils (%) (Auto) 76 % (31-73) Lymphocytes (%) (Auto) 10 % (24-48) Monocytes (%) (Auto) 9 % (0-9) Eosinophils (%) (Auto) 5 % (0-3) Basophils (%) (Auto) 0 % (0-3) Neutrophils # (Auto) 5.9 x10^3uL (1.8-7.7) Lymphocytes # (Auto) 0.8 x10^3/uL (1.0-4.8) Monocytes # (Auto) 0.7 x10^3/uL (0.0-1.1) Eosinophils # (Auto) 0.4 x10^3/uL (0.0-0.7) Basophils # (Auto) 0.0 x10^3/uL (0.0-0.2) Sodium Level 143 mmol/L (136-145) Potassium Level 4.4 mmol/L (3.5-5.1) Chloride Level 105 mmol/L (98-107) Carbon Dioxide Level 27 mmol/L (21-32) Anion Gap 11 (6-14) Blood Urea Nitrogen 34 mg/dL (8-26) Creatinine 2.1 mg/dL (0.7-1.3) Estimated GFR (Cockcroft-Gault) 32.1 BUN/Creatinine Ratio 16 (6-20) Glucose Level 132 mg/dL (70-99) Calcium Level 8.0 mg/dL (8.5-10.1) Total Bilirubin 0.6 mg/dL (0.2-1.0) Aspartate Amino Transf (AST/SGOT) 28 U/L (15-37) Alanine Aminotransferase (ALT/SGPT) 94 U/L (16-63) Alkaline Phosphatase 173 U/L (46-116) Total Protein 6.4 g/dL (6.4-8.2) Albumin 2.6 g/dL (3.4-5.0) Albumin/Globulin Ratio 0.7 (1.0-1.7) Medications Current Medications Acetaminophen/ Hydrocodone Bitart (Lortab 5/325) 2 tab PRN Q6HRS PRN PO MODERATE-SEVERE PAIN Last administered on 12/13/18 08:06; Start 12/12/18 at 14:00 Aspirin (Tera Aspirin) 325 mg DAILY PO Last administered on 12/13/18 08:03; Start 12/12/18 at 10:00 Atorvastatin Calcium (Lipitor) 20 mg HS PO Last administered on 12/12/18 21:05 ; Start 12/12/18 at 21:00 Carvedilol (Coreg) 12.5 mg BIDWMEALS PO Last administered on 12/13/18 08:08; Start 12/12/18 at 10:00 Dextrose (Dextrose 50%-Water Syringe) 12.5 gm PRN Q15MIN PRN IV SEE COMMENTS; Start 12/12/18 at 10:00 Fentanyl Citrate (Fentanyl 2ml Vial) 75 mcg 1X ONCE IV Last administered on 12/12/18at 11:07; Start 12/12/18 at 11:00; Stop 12/12/18 at 12:00; Status DC Fentanyl Citrate (Fentanyl 2ml Vial) 100 mcg STK-MED ONCE .ROUTE ; Start at 10:20; Stop 12/12/18 at 10:21; Status DC Ferrous Sulfate (Feosol) 325 mg BID PO Last administered on 12/13/18at 08:02; Start 12/12/18 at 21:00 Furosemide (Lasix) 20 mg BID92 IVP Last administered on 12/12/18 13:06; Start 12/12/18 at 14:00; Stop 12/13/18 at 07:39; Status DC Furosemide (Lasix) 20 mg BID92 IVP ; Start 12/13/18 at 14:00 Furosemide (Lasix) 20 mg DAILY IVP ; Start 12/13/18 at 09:00; Stop 12/13/18 at 09: 00; Status DC Heparin Sodium (Porcine) (Heparin Sodium) 10,000 unit STK-MED ONCE .ROUTE ; Start 12/12/18 at 10:20; Stop 12/12/18 at 10:21; Status DC Heparin Sodium/ Sodium Chloride (HEPARIN for ARTERIAL LINE FLUSH) 1,000 unit 1X ONCE IART Last administered on 12/12/18at 11:06; Start 12/12/18 at 11:00; Stop 12/12/18 at 11:35; Status DC Heparin Sodium/ Sodium Chloride (HEPARIN for ARTERIAL LINE FLUSH) 1,000 unit 1X ONCE IART Last administered on 12/12/18at 11:06; Start 12/12/18 at 11:00; Stop 12/12/18 at 11:35; Status DC Info (CONTRAST GIVEN -- Rx MONITORING) 1 each PRN DAILY PRN MC SEE COMMENTS; Start 12/12/18 at 11:45; Stop 12/14/18 at 11:44 Insulin Glargine (Lantus) 10 units HS SQ Last administered on 12/12/18at 21:09; Start 12/12/18 at 21:00 Insulin Human Lispro (HumaLOG) 0-5 UNITS TIDWMEALS SQ ; Start 12/12/18 at 12:00; Stop 12/13/18 at 09:30; Status DC Insulin Human Lispro (HumaLOG) 10 units TIDWMEALS SQ Last administered on at 08:10; Start 12/12/18 at 12:00 Iodixanol (Visipaque 320) 100 ml 1X ONCE IART Last administered on 12/12/18at 11 :06; Start 12/12/18 at 11:00; Stop 12/12/18 at 11:36; Status DC Iodixanol (Visipaque 320) 100 ml STK-MED ONCE .ROUTE ; Start 12/12/18 at 10:01; Stop 12/12/18 at 10:02; Status DC Isosorbide Mononitrate (Imdur) 30 mg DAILY PO Last administered on 12/13/18at 08: 07; Start 12/12/18 at 10:00 Lactobacillus Rhamnosus (Culturelle) 1 cap BID PO Last administered on at 09:22; Start 12/13/18 at 09:00 Lidocaine HCl (Lidocaine 1% 20ml Vial) 10 ml 1X ONCE INJ Last administered on 12/12/18 11:06; Start 12/12/18 at 11:00; Stop 12/12/18 at 11:36; Status DC Lidocaine HCl (Lidocaine 1% 20ml Vial) 20 ml STK-MED ONCE .ROUTE ; Start at 10:29; Stop 12/12/18 at 10:30; Status DC Lidocaine HCl (Xylocaine-Mpf 1% 2ml Vial) 1 ml 1X ONCE INJ Last administered on 12/12/18at 11:06; Start 12/12/18 at 11:00; Stop 12/12/18 at 11:37; Status DC Meropenem 500 mg/ Sodium Chloride 50 ml @ 100 mls/hr Q8H IV Last administered on 12/13/18at 04:02; Start 12/12/18 at 11:00 Midazolam HCl (Versed) 2 mg 1X ONCE IV Last administered on 12/12/18at 11:07; Start 12/12/18 at 11:00; Stop 12/12/18 at 11:37; Status DC Midazolam HCl (Versed) 2 mg STK-MED ONCE .ROUTE ; Start 12/12/18 at 10:20; Stop 12/12/18 at 10:21; Status DC Multivitamins (Thera M Plus) 1 tab DAILY PO Last administered on 12/13/18at 08:03 ; Start 12/12/18 at 10:00 Nitroglycerin (Nitroglycerin) 200 mcg STK-MED ONCE .ROUTE ; Start 12/12/18 at 10: 22; Stop 12/12/18 at 10:23; Status DC Non-Formulary Medication (Meropenem ) 500 mg Q8HRS IV ; Start 12/12/18 at 14:00; Status UNV Non-Formulary Medication (Omeprazole ) 20 mg DAILY PO ; Start 12/13/18 at 09:00; Stop 12/13/18 at 09:00; Status DC Ondansetron HCl (Zofran) 4 mg PRN Q6HRS PRN IV NAUSEA/VOMITING; Start 12/13/18 at 09:45 Pantoprazole Sodium (Protonix) 40 mg DAILYAC PO Last administered on 12/13/18at 08:03; Start 12/13/18 at 07:30 Pregabalin (Lyrica) 75 mg BID PO Last administered on 12/13/18at 08:04; Start 12/12/18 at 10:00 Tamsulosin HCl (Flomax) 0.4 mg QHS PO Last administered on 12/12/18at 21:05; Start 12/12/18 at 21:00 Verapamil HCl (Verapamil) 5 mg STK-MED ONCE .ROUTE ; Start 12/12/18 at 10:20; Stop 12/12/18 at 10:21; Status DC Vitals/I & O Vital Sign - Last 24 Hours 12/12/18 12/12/18 12/12/18 12/12/18 11:07 11:17 11:26 11:26 Pulse 73 71 71 Resp 12 12 B/P (MAP) 154/66 (95) Pulse Ox 97 97 97 O2 Delivery Nasal Cannula Nasal Cannula Nasal Cannula O2 Flow Rate 4.0 4.0 4.0 12/12/18 12/12/18 12/12/18 12/12/18 11:30 11:41 11:41 12:11 Temp 98.8 98.8 Pulse 75 75 74 76 Resp 18 B/P (MAP) 144/67 (92) 144/67 (92) Pulse Ox 95 95 95 O2 Delivery Nasal Cannula Nasal Cannula Nasal Cannula O2 Flow Rate 2.0 2.0 2.0 12/12/18 12/12/18 12/12/18 12/12/18 12:11 12:26 12:26 12:41 Pulse 76 80 78 78 B/P (MAP) 168/72 (104) 192/84 (120) 190/66 (107) Pulse Ox 95 O2 Delivery Nasal Cannula O2 Flow Rate 2.0 12/12/18 12/12/18 12/12/18 12/12/18 12:52 12:54 12:56 13:11 Pulse 75 75 97 78 B/P (MAP) 144/67 190/66 173/73 (106) 167/73 (104) 12/12/18 12/12/18 12/12/18 12/12/18 13:20 13:26 13:56 14:26 Pulse 76 76 76 B/P (MAP) 156/70 (98) 166/76 (106) 150/67 (94) Pulse Ox 95 O2 Delivery Room Air O2 Flow Rate 2.0 12/12/18 12/12/18 12/12/18 12/12/18 14:33 15:31 17:27 18:38 Pulse 79 79 76 Resp 13 B/P (MAP) 157/91 (113) 157/91 157/70 (99) Pulse Ox 96 O2 Delivery Nasal Cannula Nasal Cannula O2 Flow Rate 2.0 12/12/18 12/12/18 12/12/18 12/12/18 19:35 20:00 21:02 23:00 Temp 98.2 98.5 98.2 98.5 Pulse 78 71 Resp 18 14 20 B/P (MAP) 135/61 (85) 124/58 (80) Pulse Ox 92 92 98 O2 Delivery Room Air Room Air Room Air Nasal Cannula O2 Flow Rate 2.0 2.0 12/13/18 12/13/18 12/13/18 12/13/18 03:35 07:00 08:00 08:06 Temp 98.0 98.4 98.0 98.4 Pulse 67 71 Resp 18 18 13 B/P (MAP) 110/56 (74) 132/60 (84) Pulse Ox 97 97 97 O2 Delivery Nasal Cannula Nasal Cannula Room Air Room Air O2 Flow Rate 2.0 2.0 2.0 2.0 12/13/18 12/13/18 12/13/18 08:07 08:08 09:23 Pulse 71 71 Resp 15 B/P (MAP) 132/60 132/60 Pulse Ox 97 O2 Delivery Room Air O2 Flow Rate 2.0 Intake and Output 12/12/18 12/12/18 12/13/18 15:00 23:00 07:00 Intake Total 50 ml 850 ml 440 ml Output Total 650 ml 1450 ml 225 ml Balance -600 ml -600 ml 215 ml ELDER LAURENT MD Dec 13, 2018 09:50
--- NOTE | 2018-12-13 10:59 | PDOC ---
Infectious Disease Note Subjective Subjective Pt is known to us, has calcaneal osteomyelitis , on iv antibiotics, returned sec to chest pain. ROS ROS no sob, abd pain, fever, does have n/v , no diarrhea PMH reviewed neg for smoking or etoh Vital Sign Vital Signs Vital Signs Date Time Temp Pulse Resp B/P (MAP) Pulse Ox O2 Delivery O2 Flow Rate FiO2 12/13/18 09:23 15 97 Room Air 2.0 12/13/18 08:08 71 132/60 12/13/18 07:00 98.4 98.4 Physical Exam PHYSICAL EXAM GENERAL: sitting in chair,comfortable, HEENT: anciteric Oral cavity clear NECK: Supple LUNGS: Clear. HEART: S1, S2 pacemaker ABDOMEN: Soft and nontender EXTREMITIES: No gross edema or cyanosis. Left calcaneal wound vac in place SKIN: No rash NEUROLOGIC: Alert and oriented x3. RUE-PICC clean Labs Lab Laboratory Tests Test 12/12/18 10:55 12/12/18 17:14 12/12/18 20:55 12/13/18 04:30 Troponin I Quantitative < 0.017 ng/mL (0.000-0.055) Glucose (Fingerstick) 311 mg/dL (70-99) 225 mg/dL (70-99) White Blood Count 7.8 x10^3/uL (4.0-11.0) Red Blood Count 2.54 x10^6/uL (4.30-5.70) Hemoglobin 7.1 g/dL (13.0-17.5) Hematocrit 21.6 % (39.0-53.0) Mean Corpuscular Volume 85 fL (79-100) Mean Corpuscular Hemoglobin 28 pg (25-35) Mean Corpuscular Hemoglobin Concent 33 g/dL (31-37) Red Cell Distribution Width 17.0 % (11.5-14.5) Platelet Count 244 x10^3/uL (140-400) Neutrophils (%) (Auto) 76 % (31-73) Lymphocytes (%) (Auto) 10 % (24-48) Monocytes (%) (Auto) 9 % (0-9) Eosinophils (%) (Auto) 5 % (0-3) Basophils (%) (Auto) 0 % (0-3) Neutrophils # (Auto) 5.9 x10^3uL (1.8-7.7) Lymphocytes # (Auto) 0.8 x10^3/uL (1.0-4.8) Monocytes # (Auto) 0.7 x10^3/uL (0.0-1.1) Eosinophils # (Auto) 0.4 x10^3/uL (0.0-0.7) Basophils # (Auto) 0.0 x10^3/uL (0.0-0.2) Sodium Level 143 mmol/L (136-145) Potassium Level 4.4 mmol/L (3.5-5.1) Chloride Level 105 mmol/L (98-107) Carbon Dioxide Level 27 mmol/L (21-32) Anion Gap 11 (6-14) Blood Urea Nitrogen 34 mg/dL (8-26) Creatinine 2.1 mg/dL (0.7-1.3) Estimated GFR (Cockcroft-Gault) 32.1 BUN/Creatinine Ratio 16 (6-20) Glucose Level 132 mg/dL (70-99) Calcium Level 8.0 mg/dL (8.5-10.1) Total Bilirubin 0.6 mg/dL (0.2-1.0) Aspartate Amino Transf (AST/SGOT) 28 U/L (15-37) Alanine Aminotransferase (ALT/SGPT) 94 U/L (16-63) Alkaline Phosphatase 173 U/L (46-116) Total Protein 6.4 g/dL (6.4-8.2) Albumin 2.6 g/dL (3.4-5.0) Albumin/Globulin Ratio 0.7 (1.0-1.7) Objective Assessment Chronic left calcaneal wound,, CT c/w acute osteo. s/p I and D of skin and subcutaneous tissue, excisional on 11/25. AFB neg,, cults PSAE, ZOSYN R , E FAECIUM was reported now changed to E fecalis AMP S MSSA DM HTN CAD Pacemaker KAYLEE on CKD ,creat now increasing, Ertapenem allergy/intolerance w/ confusion and hallucinations Nausea and vomiting resolved diarrhea c diff neg 11/28 PAD Plan Plan of Care Plan: [place] , Total duration at least 6 weeks from surgery Continue wound/ VAC care cont supportive care LUKE CHAPA MD Dec 13, 2018 10:59
--- NOTE | 2018-12-13 11:10 | PDOC ---
CARDIOLOGY PROGRESS NOTE SUBJECTIVE: No acute events overnight. Feels ok this morning. Had some nausea/emesis. OBJECTIVE: Vital SIgns: Vital Signs Date Time Temp Pulse Resp B/P (MAP) Pulse Ox O2 Delivery O2 Flow Rate FiO2 12/13/18 10:48 98.0 69 18 128/60 (82) 97 Nasal Cannula 2.0 98.0 I & O -1L Objective: A/O x 3. NAD RRR Decreased breath sounds at lung bases soft abd. right groin c/d/i, pulses stable in the [place] Wound vac in place. CURRENT MEDICATIONS: ASA 325mg daily Imdur 30mg daily Atorvastatin 20mg daily Coreg 12.5mg bid DIAGNOSTIC TESTING: Cr 2.1 Hgb 7.1 ASSESSMENT: 1. Stable ischemic CAD 2. HTN 3. Dyslipidemia 4. PAD 5. LLE wounds - neuropathic 6. SSS s/p pacer 7. Diabetic neuropathy 8. Acute on chronic diastolic HF - improved 9. KAYLEE PLAN: 1. Changed asa to 81mg daily 2. Continue coreg and imdur. If BP increases, can add hydralazine. 3. His elevated cr is likely due to n/v and anemia rather than contrast load ( only given 30 ml) but cannot rule out YANE, will await nephrology eval. Supportive care from CV standpoint. Will follow along peripherally. COSTA BLAKE MD Dec 13, 2018 11:10
--- NOTE | 2018-12-13 13:46 | NUR ---
SS following up with discharge planning. SS phoned and faxed referral to [facility], ; fax [phone], for [place] authorization for return to [facility] unit. SS will continue to follow for discharge planning.
--- NOTE | 2018-12-13 14:08 | PDOC2 ---
CONSULT Date of Consult Date of Consult DATE: 12/13/18 TIME: 13:46 Reason for Consult Reason for Consult: Renal failure Source Source: Chart review, Patient History of Present Illness Reason for Visit: The patient is a 63-year-old male patient, is at [facility]. He has osteomyelitis of the left heel, surgical debridement, is getting IV antibiotics and a wound VAC there. Hospitalized currently with c/ o shortness of breath 2 weeks and chest pain night prior to admission He has a baseline CKD with intermittent KAYLEE. He denies any CP/SOB currently states feeling better. No Urinary complaints. Denies N/V/D at this time He was in the hospital 3-4 weeks ago. He had an osteomyelitis of the left calcaneus, had a surgical debridement, had a wound VAC at that time. He had an arteriogram to look at the circulation, has adequate blood flow to heel. Small vessel disease. The patient has history of coronary artery disease, previous cardiac catheterization, previous stents, has a pacemaker. Seen by me on 11/02 in the office . His baseline Creatine 1.6-1.7 During Hospitalizations Cr fluctuates between 1.6 to 2.3 S/P Cardiac Cath on 12/12 Past Medical History Cardiovascular: CAD, HTN, MD, Syncope, Hyperlipidemia, Other Pulmonary: No pertinent hx CENTRAL NERVOUS SYSTEM: Other GI: GI bleed, Peptic Ulcer disease Heme/Onc: Anemia NOS Hepatobiliary: No pertinent hx Psych: No pertinent hx Musculoskeletal: Osteoarthritis Rheumatologic: No pertinent hx Infectious disease: No pertinent hx Renal/: Chronic renal insuff Endocrine: Diabetes Past Surgical History Past Surgical History: Pacemaker, Appendectomy, Cataract Removal, Total hip replacement, Other Family History Family History: Diabetes Social History ALCOHOL: none Drugs: None Lives: with Family Domestic Violence: Neg Current Problem List Problem List Problems Medical Problems: (1) Chest pain Status: Acute (2) Elevated d-dimer Status: Acute Current Medications Current Medications Current Medications Ondansetron HCl (Zofran) 4 mg PRN Q8HRS PRN IV NAUSEA/VOMITING Last administered on 12/12/18at 23:51; Start 12/12/18 at 05:15; Stop 12/13/18 at 05:14; Status DC Fentanyl Citrate (Fentanyl 2ml Vial) 50 mcg PRN Q2HR PRN IV PAIN Last administered on 12/12/18at 05:28; Start 12/12/18 at 05:15 Insulin Human Lispro (HumaLOG) 0-5 UNITS TIDWMEALS SQ Last administered on at 17:30; Start 12/12/18 at 08:00 Dextrose (Dextrose 50%-Water Syringe) 12.5 gm PRN Q15MIN PRN IV SEE COMMENTS; Start 12/12/18 at 05:15 Lidocaine HCl (Xylocaine-Mpf 1% 2ml Vial) 2 ml STK-MED ONCE .ROUTE ; Start at 09:40; Stop 12/12/18 at 09:41; Status DC Heparin Sodium/ Sodium Chloride 1,000 ml @ As Directed STK-MED ONCE .ROUTE ; Start 12/12/18 at 09:41; Stop 12/12/18 at 09:42; Status DC Aspirin (Tera Aspirin) 325 mg DAILY PO Last administered on 12/13/18at 08:03; Start 12/12/18 at 10:00; Stop 12/13/18 at 10:57; Status DC Atorvastatin Calcium (Lipitor) 20 mg HS PO Last administered on 12/12/18at 21:05 ; Start 12/12/18 at 21:00 Carvedilol (Coreg) 12.5 mg BIDWMEALS PO Last administered on 12/13/18at 08:08; Start 12/12/18 at 10:00 Acetaminophen/ Hydrocodone Bitart (Lortab 5/325) 1 tab PRN Q6HRS PRN PO MODERATE-SEVERE PAIN; Start 12/12/18 at 09:45; Stop 12/12/18 at 13:52; Status DC Insulin Glargine (Lantus) 10 units HS SQ Last administered on 12/12/18at 21:09; Start 12/12/18 at 21:00 Isosorbide Mononitrate (Imdur) 30 mg DAILY PO Last administered on 12/13/18 08: 07; Start 12/12/18 at 10:00 Pregabalin (Lyrica) 75 mg BID PO Last administered on 12/13/18at 08:04; Start 12/12/18 at 10:00 Tamsulosin HCl (Flomax) 0.4 mg QHS PO Last administered on 12/12/18at 21:05; Start 12/12/18 at 21:00 Insulin Human Lispro (HumaLOG) 10 units TIDWMEALS SQ Last administered on at 08:10; Start 12/12/18 at 12:00 Non-Formulary Medication (Meropenem ) 500 mg Q8HRS IV ; Start 12/12/18 at 14:00; Status UNV Multivitamins (Thera M Plus) 1 tab DAILY PO Last administered on 12/13/18at 08:03 ; Start 12/12/18 at 10:00 Non-Formulary Medication (Omeprazole ) 20 mg DAILY PO ; Start 12/13/18 at 09:00; Stop 12/13/18 at 09:00; Status DC Furosemide (Lasix) 20 mg BID92 IVP Last administered on 12/12/18at 13:06; Start 12/12/18 at 14:00; Stop 12/13/18 at 07:39; Status DC Furosemide (Lasix) 20 mg DAILY IVP ; Start 12/13/18 at 09:00; Stop 12/13/18 at 09: 00; Status DC Pantoprazole Sodium (Protonix) 40 mg DAILYAC PO Last administered on 12/13/18at 08:03; Start 12/13/18 at 07:30 Pantoprazole Sodium (Protonix) 40 mg 1X ONCE PO Last administered on 12/12/18at 12:53; Start 12/12/18 at 09:45; Stop 12/12/18 at 10:19; Status DC Insulin Human Lispro (HumaLOG) 0-5 UNITS TIDWMEALS SQ ; Start 12/12/18 at 12:00; Stop 12/13/18 at 09:30; Status DC Dextrose (Dextrose 50%-Water Syringe) 12.5 gm PRN Q15MIN PRN IV SEE COMMENTS; Start 12/12/18 at 10:00 Iodixanol (Visipaque 320) 100 ml STK-MED ONCE .ROUTE ; Start 12/12/18 at 10:01; Stop 12/12/18 at 10:02; Status DC Fentanyl Citrate (Fentanyl 2ml Vial) 100 mcg STK-MED ONCE .ROUTE ; Start at 10:20; Stop 12/12/18 at 10:21; Status DC Midazolam HCl (Versed) 2 mg STK-MED ONCE .ROUTE ; Start 12/12/18 at 10:20; Stop 12/12/18 at 10:21; Status DC Heparin Sodium (Porcine) (Heparin Sodium) 10,000 unit STK-MED ONCE .ROUTE ; Start 12/12/18 at 10:20; Stop 12/12/18 at 10:21; Status DC Verapamil HCl (Verapamil) 5 mg STK-MED ONCE .ROUTE ; Start 12/12/18 at 10:20; Stop 12/12/18 at 10:21; Status DC Nitroglycerin (Nitroglycerin) 200 mcg STK-MED ONCE .ROUTE ; Start 12/12/18 at 10: 22; Stop 12/12/18 at 10:23; Status DC Lidocaine HCl (Lidocaine 1% 20ml Vial) 20 ml STK-MED ONCE .ROUTE ; Start at 10:29; Stop 12/12/18 at 10:30; Status DC Meropenem 500 mg/ Sodium Chloride 50 ml @ 100 mls/hr Q8H IV Last administered on 12/13/18at 10:20; Start 12/12/18 at 11:00 Heparin Sodium/ Sodium Chloride (HEPARIN for ARTERIAL LINE FLUSH) 1,000 unit 1X ONCE IART Last administered on 12/12/18 11:06; Start 12/12/18 at 11:00; Stop 12/12/18 at 11:35; Status DC Heparin Sodium/ Sodium Chloride (HEPARIN for ARTERIAL LINE FLUSH) 1,000 unit 1X ONCE IART Last administered on 12/12/18 11:06; Start 12/12/18 at 11:00; Stop 12/12/18 at 11:35; Status DC Midazolam HCl (Versed) 2 mg 1X ONCE IV Last administered on 12/12/18 11:07; Start 12/12/18 at 11:00; Stop 12/12/18 at 11:37; Status DC Fentanyl Citrate (Fentanyl 2ml Vial) 75 mcg 1X ONCE IV Last administered on 11:07; Start 12/12/18 at 11:00; Stop 12/12/18 at 12:00; Status DC Iodixanol (Visipaque 320) 100 ml 1X ONCE IART Last administered on 12/12/18 11 :06; Start 12/12/18 at 11:00; Stop 12/12/18 at 11:36; Status DC Lidocaine HCl (Lidocaine 1% 20ml Vial) 10 ml 1X ONCE INJ Last administered on 12/12/18at 11:06; Start 12/12/18 at 11:00; Stop 12/12/18 at 11:36; Status DC Lidocaine HCl (Xylocaine-Mpf 1% 2ml Vial) 1 ml 1X ONCE INJ Last administered on 12/12/18at 11:06; Start 12/12/18 at 11:00; Stop 12/12/18 at 11:37; Status DC Info (CONTRAST GIVEN -- Rx MONITORING) 1 each PRN DAILY PRN MC SEE COMMENTS; Start 12/12/18 at 11:45; Stop 12/14/18 at 11:44 Ferrous Sulfate (Feosol) 325 mg BID PO Last administered on 12/13/18at 08:02; Start 12/12/18 at 21:00 Acetaminophen/ Hydrocodone Bitart (Lortab 5/325) 2 tab PRN Q6HRS PRN PO MODERATE-SEVERE PAIN Last administered on 12/13/18at 08:06; Start 12/12/18 at 14:00 Furosemide (Lasix) 20 mg BID92 IVP ; Start 12/13/18 at 14:00; Stop 12/13/18 at 14: 00; Status DC Lactobacillus Rhamnosus (Culturelle) 1 cap BID PO Last administered on at 09:22; Start 12/13/18 at 09:00 Ondansetron HCl (Zofran) 4 mg PRN Q6HRS PRN IV NAUSEA/VOMITING Last administered on 12/13/18at 11:32; Start 12/13/18 at 09:45 Aspirin (Ecotrin) 81 mg DAILYWBKFT PO ; Start 12/14/18 at 08:00 Verapamil HCl (Verapamil) 5 mg STK-MED ONCE .ROUTE ; Start 12/12/18 at 11:00; Stop 12/13/18 at 13:01; Status DC Active Scripts Active Meropenem 500 Mg Vial 500 Mg IV Q8HRS 35 Days Hydrocodone-Apap 5-325 (Hydrocodone Bit/Acetaminophen) 1 Tab Tablet 1 Tab PO PRN Q6HRS PRN 7 Days Flomax (Tamsulosin Hcl) 0.4 Mg Cap.er.24h 0.4 Mg PO QHS 30 Days Reported Omeprazole 20 Mg Tablet.dr 20 Mg PO DAILY Multivitamins (Multivitamin) 1 Each Tablet 1 Each PO DAILY Furosemide 20 Mg Tablet 20 Mg PO DAILY Isosorbide Mononitrate Er (Isosorbide Mononitrate) 30 Mg Tab.er.24h 30 Mg PO DAILY Basaglar Kwikpen U-100 (Insulin Glargine,Hum.rec.anlog) 100 Unit/1 Ml Insuln.pen 10 Unit SQ HS Atorvastatin Calcium 20 Mg Tablet 20 Mg PO HS Novolog Flexpen (Insulin Aspart) 100 Unit/1 Ml Insuln.pen 10 Unit SQ TIDAC Aspirin 325 Mg Tablet 325 Mg PO DAILY Carvedilol 12.5 Mg Tablet 12.5 Mg PO BID Midodrine Hcl 5 Mg Tablet 5 Mg PO [id number] Lyrica (Pregabalin) 75 Mg Capsule 75 Mg PO BID Allergies Allergies: Coded Allergies: hydromorphone (Verified Allergy, Severe, apnea and asystole, code blue, ) ertapenem (Verified Adverse Reaction, Intermediate, insomnia, 09/16/17) oxycodone (Verified Adverse Reaction, Intermediate, Nausea and Vomiting, ) ROS Review of System As per HPI Physical Exam Physical Exam GENERAL: NAD HEENT: OM moist NECK Supple CARDIOVASCULAR: S1, S2. LUNGS: CTA, Non labored ABDOMEN: Soft. : No Joyner. EXTREMITIES: NO LE edema NEURO- AXOX3 Vital Signs Vital Signs Date Time Temp Pulse Resp B/P (MAP) Pulse Ox O2 Delivery O2 Flow Rate FiO2 12/13/18 12:04 98.0 69 14 101/53 98.0 12/13/18 10:48 97 Nasal Cannula 2.0 Assessment & Plan KAYLEE on CKD stage 3- Non Oliguric Pre-renal sec to N/V , S/P Cardiac cath cannot r/o YANE though small amt of contrast used Multiple KAYLEE's in past E-Lytes and acid base stable, Monitor Cautious with IVF due to Dx of Heart failure CKD stage 3- Seen as OP by me in Oct baseline Cr 1.6-1.7 Acute on chronic decompensated diastolic heart failure with an LVEDP of 22 On cardiac cath Severe two-vessel coronary artery disease Occluded prior RCA stent with left to right collateralization Card recommends medical management Anemia - as per primary Chronic left calcaneal wound,, CT c/w acute osteo. s/p I and D of skin and subcutaneous tissue, DM HTN Labs Labs Laboratory Tests Test 12/12/18 04:41 12/12/18 08:14 12/12/18 08:23 12/12/18 10:00 White Blood Count 7.8 x10^3/uL (4.0-11.0) Red Blood Count 2.79 x10^6/uL (4.30-5.70) Hemoglobin 7.7 g/dL (13.0-17.5) Hematocrit 23.6 % (39.0-53.0) Mean Corpuscular Volume 85 fL (79-100) Mean Corpuscular Hemoglobin 28 pg (25-35) Mean Corpuscular Hemoglobin Concent 33 g/dL (31-37) Red Cell Distribution Width 16.9 % (11.5-14.5) Platelet Count 255 x10^3/uL (140-400) Neutrophils (%) (Auto) 66 % (31-73) Lymphocytes (%) (Auto) 15 % (24-48) Monocytes (%) (Auto) 11 % (0-9) Eosinophils (%) (Auto) 7 % (0-3) Basophils (%) (Auto) 1 % (0-3) Neutrophils # (Auto) 5.1 x10^3uL (1.8-7.7) Lymphocytes # (Auto) 1.2 x10^3/uL (1.0-4.8) Monocytes # (Auto) 0.9 x10^3/uL (0.0-1.1) Eosinophils # (Auto) 0.6 x10^3/uL (0.0-0.7) Basophils # (Auto) 0.1 x10^3/uL (0.0-0.2) Prothrombin Time 14.1 SEC (11.7-14.0) Prothromb Time International Ratio 1.1 (0.8-1.1) D-Dimer (Sera) 1.14 ug/mlFEU (0.00-0.50) Sodium Level 141 mmol/L (136-145) Potassium Level 4.1 mmol/L (3.5-5.1) Chloride Level 105 mmol/L (98-107) Carbon Dioxide Level 27 mmol/L (21-32) Anion Gap 9 (6-14) Blood Urea Nitrogen 34 mg/dL (8-26) Creatinine 1.6 mg/dL (0.7-1.3) Estimated GFR (Cockcroft-Gault) 43.9 BUN/Creatinine Ratio 21 (6-20) Glucose Level 129 mg/dL (70-99) Calcium Level 8.8 mg/dL (8.5-10.1) Magnesium Level 2.4 mg/dL (1.8-2.4) Total Bilirubin 0.6 mg/dL (0.2-1.0) Aspartate Amino Transf (AST/SGOT) 42 U/L (15-37) Alanine Aminotransferase (ALT/SGPT) 124 U/L (16-63) Alkaline Phosphatase 217 U/L (46-116) Creatine Kinase 66 U/L (39-308) Creatine Kinase MB (Mass) 0.9 ng/mL (0.0-3.6) Creatine Kinase MB Relative Index % (0-4) Troponin I Quantitative < 0.017 ng/mL (0.000-0.055) < 0.017 ng/mL (0.000-0.055) EC-Ikc-J-Type Natriuretic Peptide 5768 pg/mL (0-124) Total Protein 6.7 g/dL (6.4-8.2) Albumin 2.7 g/dL (3.4-5.0) Albumin/Globulin Ratio 0.7 (1.0-1.7) Triglycerides Level 52 mg/dL (0-150) Cholesterol Level 119 mg/dL (0-200) LDL Cholesterol, Calculated 29 mg/dL (0-100) VLDL Cholesterol, Calculated 10 mg/dL (0-40) Non-HDL Cholesterol Calculated 39 mg/dL (0-129) HDL Cholesterol 80 mg/dL (40-60) Cholesterol/HDL Ratio 1.5 Lipase 118 U/L (73-393) Glucose (Fingerstick) 83 mg/dL (70-99) Nasal Screen MRSA (PCR) Negative (Negative) Test 12/12/18 10:55 12/12/18 17:14 12/12/18 20:55 12/13/18 04:30 Troponin I Quantitative < 0.017 ng/mL (0.000-0.055) Glucose (Fingerstick) 311 mg/dL (70-99) 225 mg/dL (70-99) White Blood Count 7.8 x10^3/uL (4.0-11.0) Red Blood Count 2.54 x10^6/uL (4.30-5.70) Hemoglobin 7.1 g/dL (13.0-17.5) Hematocrit 21.6 % (39.0-53.0) Mean Corpuscular Volume 85 fL (79-100) Mean Corpuscular Hemoglobin 28 pg (25-35) Mean Corpuscular Hemoglobin Concent 33 g/dL (31-37) Red Cell Distribution Width 17.0 % (11.5-14.5) Platelet Count 244 x10^3/uL (140-400) Neutrophils (%) (Auto) 76 % (31-73) Lymphocytes (%) (Auto) 10 % (24-48) Monocytes (%) (Auto) 9 % (0-9) Eosinophils (%) (Auto) 5 % (0-3) Basophils (%) (Auto) 0 % (0-3) Neutrophils # (Auto) 5.9 x10^3uL (1.8-7.7) Lymphocytes # (Auto) 0.8 x10^3/uL (1.0-4.8) Monocytes # (Auto) 0.7 x10^3/uL (0.0-1.1) Eosinophils # (Auto) 0.4 x10^3/uL (0.0-0.7) Basophils # (Auto) 0.0 x10^3/uL (0.0-0.2) Sodium Level 143 mmol/L (136-145) Potassium Level 4.4 mmol/L (3.5-5.1) Chloride Level 105 mmol/L (98-107) Carbon Dioxide Level 27 mmol/L (21-32) Anion Gap 11 (6-14) Blood Urea Nitrogen 34 mg/dL (8-26) Creatinine 2.1 mg/dL (0.7-1.3) Estimated GFR (Cockcroft-Gault) 32.1 BUN/Creatinine Ratio 16 (6-20) Glucose Level 132 mg/dL (70-99) Calcium Level 8.0 mg/dL (8.5-10.1) Total Bilirubin 0.6 mg/dL (0.2-1.0) Aspartate Amino Transf (AST/SGOT) 28 U/L (15-37) Alanine Aminotransferase (ALT/SGPT) 94 U/L (16-63) Alkaline Phosphatase 173 U/L (46-116) Total Protein 6.4 g/dL (6.4-8.2) Albumin 2.6 g/dL (3.4-5.0) Albumin/Globulin Ratio 0.7 (1.0-1.7) Laboratory Tests Test 12/12/18 17:14 12/12/18 20:55 12/13/18 04:30 Glucose (Fingerstick) 311 mg/dL (70-99) 225 mg/dL (70-99) White Blood Count 7.8 x10^3/uL (4.0-11.0) Red Blood Count 2.54 x10^6/uL (4.30-5.70) Hemoglobin 7.1 g/dL (13.0-17.5) Hematocrit 21.6 % (39.0-53.0) Mean Corpuscular Volume 85 fL (79-100) Mean Corpuscular Hemoglobin 28 pg (25-35) Mean Corpuscular Hemoglobin Concent 33 g/dL (31-37) Red Cell Distribution Width 17.0 % (11.5-14.5) Platelet Count 244 x10^3/uL (140-400) Neutrophils (%) (Auto) 76 % (31-73) Lymphocytes (%) (Auto) 10 % (24-48) Monocytes (%) (Auto) 9 % (0-9) Eosinophils (%) (Auto) 5 % (0-3) Basophils (%) (Auto) 0 % (0-3) Neutrophils # (Auto) 5.9 x10^3uL (1.8-7.7) Lymphocytes # (Auto) 0.8 x10^3/uL (1.0-4.8) Monocytes # (Auto) 0.7 x10^3/uL (0.0-1.1) Eosinophils # (Auto) 0.4 x10^3/uL (0.0-0.7) Basophils # (Auto) 0.0 x10^3/uL (0.0-0.2) Sodium Level 143 mmol/L (136-145) Potassium Level 4.4 mmol/L (3.5-5.1) Chloride Level 105 mmol/L (98-107) Carbon Dioxide Level 27 mmol/L (21-32) Anion Gap 11 (6-14) Blood Urea Nitrogen 34 mg/dL (8-26) Creatinine 2.1 mg/dL (0.7-1.3) Estimated GFR (Cockcroft-Gault) 32.1 BUN/Creatinine Ratio 16 (6-20) Glucose Level 132 mg/dL (70-99) Calcium Level 8.0 mg/dL (8.5-10.1) Total Bilirubin 0.6 mg/dL (0.2-1.0) Aspartate Amino Transf (AST/SGOT) 28 U/L (15-37) Alanine Aminotransferase (ALT/SGPT) 94 U/L (16-63) Alkaline Phosphatase 173 U/L (46-116) Total Protein 6.4 g/dL (6.4-8.2) Albumin 2.6 g/dL (3.4-5.0) Albumin/Globulin Ratio 0.7 (1.0-1.7) Review All relevant outside records, renal labs, imaging studies, telemetry/EKG's were reviewed. TIANNA COLON MD Dec 13, 2018 14:08
--- NOTE | 2018-12-13 19:38 | NUR ---
Do Garcia called for bed repair to Acute [facility] bed as the mattress fails to inflate properly. Do Almaguer confirmation number [id number].
[2018-12-13] MEDS: ATORVASTATIN CALCIUM 20 MG TABLET PO SCH (19:47)
[2018-12-13] MEDS: TAMSULOSIN 0.4 MG CAP.ER.24H. PO SCH (21:42)
[2018-12-13] MEDS: INSULIN GLARGINE 300 UNITS/3 ML INSULN.PEN. SQ SCH (21:50)
[2018-12-14 03:05] VITALS: BP 107/61
[2018-12-14] MEDS: MEROPENEM 500 MG in IV NORMAL SALINE 50ML 50 ML IV SCH ×3 (03:33→18:38)
[2018-12-14] MEDS: HYDROcodone/APAP 5/325MG 1 TAB TABLET PO PRN ×3 (04:20→18:38)
[2018-12-14 04:23] LABS: BASO # 0.1 x10^3/uL (0.0-0.2); BASO % 1 % (0-3); EOS # 0.6 x10^3/uL (0.0-0.7); EOS % 10 % (0-3); HEMATOCRIT 23.3 % (39.0-53.0); HEMOGLOBIN 7.6 g/dL (13.0-17.5); LYMPH # 1.1 x10^3/uL (1.0-4.8); LYMPH % 16 % (24-48); MEAN CORPUSCULAR HEMOGLOBIN 28 pg (25-35); MEAN CORPUSCULAR HGB CONC 33 g/dL (31-37); MEAN CORPUSCULAR VOLUME 85 fL (79-100); MONO % 15 % (0-9); NEUT # 3.9 x10^3uL (1.8-7.7); NEUT % 59 % (31-73); PLATELET COUNT 252 x10^3/uL (140-400); RED BLOOD COUNT 2.75 x10^6/uL (4.30-5.70); RED CELL DISTRIBUTION WIDTH 16.2 % (11.5-14.5); WHITE BLOOD COUNT 6.6 x10^3/uL (4.0-11.0)
[2018-12-14 04:39] LABS: CALCIUM 7.9 mg/dL (8.5-10.1); CREATININE 2.4 mg/dL (0.7-1.3); GFR 27.5
[2018-12-14 07:00] VITALS: BP 130/63
[2018-12-14] MEDS: INSULIN LISPRO 300 UNITS/3 ML INSULN.PEN. SQ SCH ×6 (08:00→17:34)
[2018-12-14] MEDS ORDERED: IV RINGERS,LACTATED 1000ML 1,000 ML IV SCH (08:27)
[2018-12-14] MEDS ORDERED: MIDAZOLAM HCL/PF 2 MG/2 ML VIAL. IV PRN (08:30)
[2018-12-14] MEDS ORDERED: LIDOCAINE 1% PF 2 ML VIAL. ID PRN (08:30)
[2018-12-14] MEDS ORDERED: fentaNYL PF VIAL 100 MCG/2 ML VIAL IV PRN ×2 (08:30)
--- NOTE | 2018-12-14 08:56 | PDOC ---
Infectious Disease Note Subjective Subjective feeling good, EGD today ROS ROS no n/v/d/sob/fever Vital Sign Vital Signs Vital Signs Date Time Temp Pulse Resp B/P (MAP) Pulse Ox O2 Delivery O2 Flow Rate FiO2 12/14/18 07:00 98.4 63 16 130/63 (85) 99 Nasal Cannula 2.0 98.4 Physical Exam PHYSICAL EXAM GENERAL: sitting in chair,comfortable, HEENT: anciteric Oral cavity clear NECK: Supple LUNGS: Clear. HEART: S1, S2 pacemaker ABDOMEN: Soft and nontender EXTREMITIES: No gross edema or cyanosis. Left calcaneal wound vac in place SKIN: No rash NEUROLOGIC: Alert and oriented x3. RUE-PICC clean Labs Lab Laboratory Tests Test 12/13/18 11:21 12/13/18 16:51 12/13/18 20:46 12/14/18 04:00 Glucose (Fingerstick) 73 mg/dL (70-99) 287 mg/dL (70-99) 187 mg/dL (70-99) White Blood Count 6.6 x10^3/uL (4.0-11.0) Red Blood Count 2.75 x10^6/uL (4.30-5.70) Hemoglobin 7.6 g/dL (13.0-17.5) Hematocrit 23.3 % (39.0-53.0) Mean Corpuscular Volume 85 fL (79-100) Mean Corpuscular Hemoglobin 28 pg (25-35) Mean Corpuscular Hemoglobin Concent 33 g/dL (31-37) Red Cell Distribution Width 16.2 % (11.5-14.5) Platelet Count 252 x10^3/uL (140-400) Neutrophils (%) (Auto) 59 % (31-73) Lymphocytes (%) (Auto) 16 % (24-48) Monocytes (%) (Auto) 15 % (0-9) Eosinophils (%) (Auto) 10 % (0-3) Basophils (%) (Auto) 1 % (0-3) Neutrophils # (Auto) 3.9 x10^3uL (1.8-7.7) Lymphocytes # (Auto) 1.1 x10^3/uL (1.0-4.8) Monocytes # (Auto) 1.0 x10^3/uL (0.0-1.1) Eosinophils # (Auto) 0.6 x10^3/uL (0.0-0.7) Basophils # (Auto) 0.1 x10^3/uL (0.0-0.2) Sodium Level 141 mmol/L (136-145) Potassium Level 4.0 mmol/L (3.5-5.1) Chloride Level 104 mmol/L (98-107) Carbon Dioxide Level 29 mmol/L (21-32) Anion Gap 8 (6-14) Blood Urea Nitrogen 36 mg/dL (8-26) Creatinine 2.4 mg/dL (0.7-1.3) Estimated GFR (Cockcroft-Gault) 27.5 Glucose Level 73 mg/dL (70-99) Calcium Level 7.9 mg/dL (8.5-10.1) Objective Assessment Chronic left calcaneal wound,, CT c/w acute osteo. s/p I and D of skin and subcutaneous tissue, excisional on 11/25. AFB neg,, cults PSAE, ZOSYN R , E FAECIUM was reported now changed to E fecalis AMP S MSSA DM HTN CAD Pacemaker KAYLEE on CKD ,creat now increasing, Ertapenem allergy/intolerance w/ confusion and hallucinations Nausea and vomiting resolved diarrhea c diff neg 11/28 PAD Plan Plan of Care Merrem , Total duration at least 6 weeks from surgery Continue wound/ VAC care cont supportive care LUKE CHAPA MD Dec 14, 2018 08:56
--- NOTE | 2018-12-14 09:46 | PDOC ---
PROGRESS NOTES Subjective Subjective feels good ,egd today Objective Objective Vital Signs Date Time Temp Pulse Resp B/P (MAP) Pulse Ox O2 Delivery O2 Flow Rate FiO2 12/14/18 07:00 98.4 63 16 130/63 (85) 99 Nasal Cannula 2.0 98.4 Intake and Output 12/14/18 07:00 Intake Total 1195 ml Output Total 225 ml Balance 970 ml Intake Oral 795 ml IV Total 50 ml Blood Product IV Normal Saline Flush 350 ml Output Urine Total 225 ml # Voids 1 Physical Exam Abdomen: Normal bowel sounds, Soft Heart: Regular rate, Normal S1 Extremities: No clubbing General: Alert, Oriented X3 HEENT: Atraumatic MUSCULOSKELETAL: No joint tenderness, No deformity, No swelling, Other Neuro: Normal speech Psych/Mental Status: Mental status NL COMMENT lt heal ulcer Diagnosis Problem List Problems Medical Problems: (1) Chest pain Status: Acute (2) Elevated d-dimer Status: Acute Assessment Assessment Problems Medical Problems: (1) Chest pain Status: Acute (2) Elevated d-dimer Status: Acute FINAL IMPRESSION: 1. Chest pain, resolved . 2. Known history of coronary artery disease, previous stents. 3. Pacemaker for sick sinus syndrome, tachyarrhythmias. 4. Chronic systolic heart failure. 5. Anemia of chronic disease. 6. Diabetes, insulin-dependent. 7. Left heel osteomyelitis, getting IV antibiotics. 8. Chronic kidney disease stage 3. 9. Hypertension. 10. Hyperlipidemia. PLAN: iv antibiotics for osteo cardiac cath blocked stent RCA ,good collateral,medical management cr 2.4 went up hb 7.6 after 1 u prbc transfused. EGD today d/c to SNU tomorrow Plan Plan of Care Problems Medical Problems: (1) Chest pain Status: Acute (2) Elevated d-dimer Status: Acute Comment Review of Relevant I have reviewed the following items luís (where applicable) has been applied. Labs Laboratory Tests Test 12/13/18 11:21 12/13/18 16:51 12/13/18 20:46 12/14/18 04:00 Glucose (Fingerstick) 73 mg/dL (70-99) 287 mg/dL (70-99) 187 mg/dL (70-99) White Blood Count 6.6 x10^3/uL (4.0-11.0) Red Blood Count 2.75 x10^6/uL (4.30-5.70) Hemoglobin 7.6 g/dL (13.0-17.5) Hematocrit 23.3 % (39.0-53.0) Mean Corpuscular Volume 85 fL (79-100) Mean Corpuscular Hemoglobin 28 pg (25-35) Mean Corpuscular Hemoglobin Concent 33 g/dL (31-37) Red Cell Distribution Width 16.2 % (11.5-14.5) Platelet Count 252 x10^3/uL (140-400) Neutrophils (%) (Auto) 59 % (31-73) Lymphocytes (%) (Auto) 16 % (24-48) Monocytes (%) (Auto) 15 % (0-9) Eosinophils (%) (Auto) 10 % (0-3) Basophils (%) (Auto) 1 % (0-3) Neutrophils # (Auto) 3.9 x10^3uL (1.8-7.7) Lymphocytes # (Auto) 1.1 x10^3/uL (1.0-4.8) Monocytes # (Auto) 1.0 x10^3/uL (0.0-1.1) Eosinophils # (Auto) 0.6 x10^3/uL (0.0-0.7) Basophils # (Auto) 0.1 x10^3/uL (0.0-0.2) Sodium Level 141 mmol/L (136-145) Potassium Level 4.0 mmol/L (3.5-5.1) Chloride Level 104 mmol/L (98-107) Carbon Dioxide Level 29 mmol/L (21-32) Anion Gap 8 (6-14) Blood Urea Nitrogen 36 mg/dL (8-26) Creatinine 2.4 mg/dL (0.7-1.3) Estimated GFR (Cockcroft-Gault) 27.5 Glucose Level 73 mg/dL (70-99) Calcium Level 7.9 mg/dL (8.5-10.1) Medications Current Medications Aspirin (Ecotrin) 81 mg DAILYWBKFT PO ; Start 12/14/18 at 08:00 Diphenhydramine HCl (Benadryl) 25 mg PRN Q6HRS PRN PO ITCHING; Start 12/14/18 at 09:30 Fentanyl Citrate (Fentanyl 2ml Vial) 25 mcg PRN Q5MIN PRN IV X 2 DOSES FOR PAIN ; Start 12/14/18 at 08:30; Stop 12/15/18 at 08:29 Fentanyl Citrate (Fentanyl 2ml Vial) 50 mcg PRN Q5MIN PRN IV X 2 DOSES FOR PAIN ; Start 12/14/18 at 08:30; Stop 12/15/18 at 08:29 Furosemide (Lasix) 20 mg BID92 IVP ; Start 12/13/18 at 14:00; Stop 12/13/18 at 14: 00; Status DC Lidocaine HCl (Xylocaine-Mpf 1% 2ml Vial) 2 ml 1X PRN PRN ID IV START; Start at 08:30; Stop 12/15/18 at 08:29 Midazolam HCl (Versed) 2 mg PRN 1X PRN IV PRIOR TO PROCEDURE; Start 12/14/18 at 08:30; Stop 12/15/18 at 08:29 Ondansetron HCl (Zofran) 4 mg PRN Q6HRS PRN IV NAUSEA/VOMITING Last administered on 12/13/18at 11:32; Start 12/13/18 at 09:45 Ringer's Solution 1,000 ml @ 125 mls/hr Q8H IV ; Start 12/14/18 at 08:27; Stop 12/14/18 at 20:26 Vitals/I & O Vital Sign - Last 24 Hours 12/13/18 12/13/18 12/13/18 12/13/18 10:48 11:49 12:04 12:17 Temp 98.0 98.6 98.0 97.9 98.0 98.6 98.0 97.9 Pulse 69 68 69 65 Resp 18 14 14 16 B/P (MAP) 128/60 (82) 122/60 101/53 116/58 Pulse Ox 97 O2 Delivery Nasal Cannula O2 Flow Rate 2.0 12/13/18 12/13/18 12/13/18 12/13/18 12:32 12:47 13:02 13:02 Pulse 65 66 65 65 B/P (MAP) 103/54 100/55 118/58 118/58 12/13/18 12/13/18 12/13/18 12/13/18 13:32 14:02 14:02 14:47 Temp 98.1 98.1 Pulse 66 72 72 70 Resp 18 B/P (MAP) 124/57 157/69 157/69 104/50 12/13/18 12/13/18 12/13/18 12/13/18 14:47 14:54 17:05 19:15 Temp 98.1 98.0 97.8 98.1 98.0 97.8 Pulse 70 69 75 73 Resp 18 18 20 B/P (MAP) 104/50 157/69 (98) 139/67 128/61 (83) Pulse Ox 94 97 O2 Delivery Nasal Cannula Nasal Cannula O2 Flow Rate 2.0 2.0 12/13/18 12/13/18 12/13/18 12/14/18 19:47 20:00 22:45 03:05 Temp 98.2 97.8 98.2 97.8 Pulse 65 65 Resp 18 B/P (MAP) 123/57 (79) 107/61 (76) Pulse Ox 96 97 97 O2 Delivery Room Air Nasal Cannula Nasal Cannula Room Air O2 Flow Rate 2.0 2.0 2.0 12/14/18 12/14/18 12/14/18 04:20 05:20 07:00 Temp 98.4 98.4 Pulse 63 Resp 18 18 16 B/P (MAP) 130/63 (85) Pulse Ox 97 97 99 O2 Delivery Nasal Cannula Nasal Cannula Nasal Cannula O2 Flow Rate 2.0 2.0 2.0 Intake and Output 12/13/18 12/13/18 12/14/18 15:00 23:00 07:00 Intake Total 475 ml 120 ml 600 ml Output Total 100 ml 125 ml Balance 475 ml 20 ml 475 ml ELDER LAURENT MD Dec 14, 2018 09:46
[2018-12-14] MEDS ORDERED: PROPOFOL 20 ML IV ONE (10:34)
[2018-12-14] MEDS ORDERED: LIDOCAINE 2% PF 5 ML VIAL. ONE (10:34)
--- NOTE | 2018-12-14 10:41 | PDOC ---
SUBJECTIVE ROS No complaints, Going for EGD OBJECTIVE Vital Signs Vital Signs Date Time Temp Pulse Resp B/P (MAP) Pulse Ox O2 Delivery O2 Flow Rate FiO2 12/14/18 10:23 Nasal Cannula 2.0 12/14/18 10:21 97.7 68 20 97 97.7 12/14/18 07:00 130/63 (85) I & 0 Intake and Output 12/14/18 06:59 Intake Total 1195 ml Output Total 225 ml Balance 970 ml Intake Oral 795 ml IV Total 50 ml Blood Product IV Normal Saline Flush 350 ml Output Urine Total 225 ml # Voids 1 PHYSICAL EXAM Physical Exam GENERAL: NAD HEENT: OM moist NECK Supple CARDIOVASCULAR: S1, S2. LUNGS: CTA, Non labored ABDOMEN: Soft. : No Joyner. EXTREMITIES: Wrapped NEURO- AXOX3 DIAGNOSIS/ASSESSMENT Assessment & Plan KAYLEE on CKD stage 3- Non Oliguric Pre-renal sec to N/V , S/P Cardiac cath cannot r/o YANE though small amt of contrast used Multiple KAYLEE's in past Gently Hydration IVF E-Lytes and acid base stable, Monitor CKD stage 3- Seen as OP by me in Oct baseline Cr 1.6-1.7 Acute on chronic decompensated diastolic heart failure with an LVEDP of 22 On cardiac cath Severe two-vessel coronary artery disease Occluded prior RCA stent with left to right collateralization Card recommends medical management Anemia - s/p prbc x 1 yesterday EGD today Chronic left calcaneal wound,, CT c/w acute osteo. s/p I and D of skin and subcutaneous tissue, DM HTN Discussed with Pt and RN at bedside COMMENT/RELEVANT DATA Meds Current Medications Medications (Trade) Dose Ordered Sig/Perlita Start Time Stop Time Status Last Admin Dose Admin Acetaminophen/ Hydrocodone Bitart (Lortab 5/325) 2 tab PRN Q6HRS PRN 12/12/18 14:00 12/14/18 04:20 2 TAB Aspirin (Tera Aspirin) 325 mg DAILY 12/12/18 10:00 12/13/18 10:57 DC 12/13/18 08:03 325 MG Aspirin (Ecotrin) 81 mg [id number] 12/14/18 08:00 Atorvastatin Calcium (Lipitor) 20 mg HS 12/12/18 21:00 12/13/18 19:47 20 MG Carvedilol (Coreg) 12.5 mg BIDWMEALS 12/12/18 10:00 12/13/18 17:05 12.5 MG Dextrose (Dextrose 50%-Water Syringe) 12.5 gm PRN Q15MIN PRN 12/12/18 10:00 Diphenhydramine HCl (Benadryl) 25 mg PRN Q6HRS PRN 12/14/18 09:30 Fentanyl Citrate (Fentanyl 2ml Vial) 50 mcg PRN Q5MIN PRN 12/14/18 08:30 12/15/18 08:29 Ferrous Sulfate (Feosol) 325 mg BID 12/12/18 21:00 12/13/18 21:42 325 MG Furosemide (Lasix) 20 mg [id number] 12/13/18 14:00 12/13/18 14:00 DC Heparin Sodium (Porcine) (Heparin Sodium) 10,000 unit STK-MED ONCE 12/12/18 10:20 12/12/18 10:21 DC Heparin Sodium/ Sodium Chloride (HEPARIN for ARTERIAL LINE FLUSH) 1,000 unit 1X ONCE 12/12/18 11:00 12/12/18 11:35 DC 12/12/18 11:06 1,000 UNIT Info (CONTRAST GIVEN -- Rx MONITORING) 1 each PRN DAILY PRN 12/12/18 11:45 12/14/18 11:44 Insulin Glargine (Lantus) 10 units HS 12/12/18 21:00 12/13/18 21:50 10 UNITS Insulin Human Lispro (HumaLOG) 0-5 UNITS TIDWMEALS 12/12/18 12:00 12/13/18 09:30 DC Iodixanol (Visipaque 320) 100 ml 1X ONCE 12/12/18 11:00 12/12/18 11:36 DC 12/12/18 11:06 36 ML Isosorbide Mononitrate (Imdur) 30 mg DAILY 12/12/18 10:00 12/13/18 08:07 30 MG Lactobacillus Rhamnosus (Culturelle) 1 cap BID 12/13/18 09:00 12/13/18 21:42 1 CAP Lidocaine HCl (Lidocaine 1% 20ml Vial) 10 ml 1X ONCE 12/12/18 11:00 12/12/18 11:36 DC 12/12/18 11:06 10 ML Lidocaine HCl (Lidocaine Pf 2% Vial) 5 ml STK-MED ONCE 12/14/18 10:34 12/14/18 10:35 DC Lidocaine HCl (Xylocaine-Mpf 1% 2ml Vial) 2 ml 1X PRN PRN 12/14/18 08:30 12/15/18 08:29 Meropenem 500 mg/ Sodium Chloride 50 ml @ 100 mls/hr Q8H 12/12/18 11:00 12/14/18 03:33 100 MLS/HR Midazolam HCl (Versed) 2 mg PRN 1X PRN 12/14/18 08:30 12/15/18 08:29 Multivitamins (Thera M Plus) 1 tab DAILY 12/12/18 10:00 12/13/18 08:03 1 TAB Nitroglycerin (Nitroglycerin) 200 mcg STK-MED ONCE 12/12/18 10:22 12/12/18 10:23 DC Non-Formulary Medication (Meropenem ) 500 mg Q8HRS 12/12/18 14:00 UNV Non-Formulary Medication (Omeprazole ) 20 mg DAILY 12/13/18 09:00 12/13/18 09:00 DC Ondansetron HCl (Zofran) 4 mg PRN Q6HRS PRN 12/13/18 09:45 12/13/18 11:32 4 MG Pantoprazole Sodium (Protonix) 40 mg 1X ONCE 12/12/18 09:45 12/12/18 10:19 DC 12/12/18 12:53 40 MG Pregabalin (Lyrica) 75 mg BID 12/12/18 10:00 12/13/18 19:47 75 MG Propofol 40 ml @ As Directed STK-MED ONCE 12/14/18 10:34 12/14/18 10:35 DC Ringer's Solution 1,000 ml @ 125 mls/hr Q8H 12/14/18 08:27 12/14/18 20:26 Tamsulosin HCl (Flomax) 0.4 mg QHS 12/12/18 21:00 12/13/18 21:42 0.4 MG Verapamil HCl (Verapamil) 5 mg STK-MED ONCE 12/12/18 11:00 12/13/18 13:01 DC Lab Laboratory Tests Test 12/13/18 11:21 12/13/18 16:51 12/13/18 20:46 12/14/18 04:00 Glucose (Fingerstick) 73 mg/dL (70-99) 287 mg/dL (70-99) 187 mg/dL (70-99) White Blood Count 6.6 x10^3/uL (4.0-11.0) Red Blood Count 2.75 x10^6/uL (4.30-5.70) Hemoglobin 7.6 g/dL (13.0-17.5) Hematocrit 23.3 % (39.0-53.0) Mean Corpuscular Volume 85 fL (79-100) Mean Corpuscular Hemoglobin 28 pg (25-35) Mean Corpuscular Hemoglobin Concent 33 g/dL (31-37) Red Cell Distribution Width 16.2 % (11.5-14.5) Platelet Count 252 x10^3/uL (140-400) Neutrophils (%) (Auto) 59 % (31-73) Lymphocytes (%) (Auto) 16 % (24-48) Monocytes (%) (Auto) 15 % (0-9) Eosinophils (%) (Auto) 10 % (0-3) Basophils (%) (Auto) 1 % (0-3) Neutrophils # (Auto) 3.9 x10^3uL (1.8-7.7) Lymphocytes # (Auto) 1.1 x10^3/uL (1.0-4.8) Monocytes # (Auto) 1.0 x10^3/uL (0.0-1.1) Eosinophils # (Auto) 0.6 x10^3/uL (0.0-0.7) Basophils # (Auto) 0.1 x10^3/uL (0.0-0.2) Sodium Level 141 mmol/L (136-145) Potassium Level 4.0 mmol/L (3.5-5.1) Chloride Level 104 mmol/L (98-107) Carbon Dioxide Level 29 mmol/L (21-32) Anion Gap 8 (6-14) Blood Urea Nitrogen 36 mg/dL (8-26) Creatinine 2.4 mg/dL (0.7-1.3) Estimated GFR (Cockcroft-Gault) 27.5 Glucose Level 73 mg/dL (70-99) Calcium Level 7.9 mg/dL (8.5-10.1) Results All relevant outside records, renal labs, imaging studies, telemetry/EKG's were reviewed. TIANNA COLON MD Dec 14, 2018 10:41
--- NOTE | 2018-12-14 10:52 | PDOC4 ---
PROCEDURE Procedure EGD Indication: Chest pain, vomiting Meds: per anesthesia Findings: E--healed reflux, historically erosive at baseline. G--Some retained liquid and food (even after one day of clears and fasting since midnight). D--Normal to third portion. Mitra. well. IMP: GERD, healed, but may still contribute to symptoms. Probable gastroparesis. REC: PPI, chronically. Might consider prokinetic daily if emesis a frequent issue. Thanks. VIJAY STARR MD Dec 14, 2018 10:52
[2018-12-14 11:00] VITALS: BP 140/63
[2018-12-14] MEDS: IV NORMAL SALINE 1000ML BAG 1,000 ML IV SCH (11:30)
[2018-12-14] MEDS: ASPIRIN ENTERIC COATED 81 MG TABLET.DR. PO SCH (11:59)
[2018-12-14] MEDS: MULTIVITAMIN with MINERAL TABLET. PO SCH (11:59)
[2018-12-14] MEDS: ISOSORBIDE MONONITRATE ER 30 MG TAB.ER.24H PO SCH (11:59)
[2018-12-14] MEDS: FERROUS SULFATE 325 MG TABLET. PO SCH ×2 (11:59→21:26)
[2018-12-14] MEDS: diphenhydrAMINE HCL 25 MG CAPSULE PO PRN ×2 (12:00→21:26)
[2018-12-14] MEDS: PANTOPRAZOLE 40 MG TABLET.DR. PO SCH (12:00)
[2018-12-14] MEDS: LACTOBACILLUS RHAMNOSUS GG 1 CAPSULE. PO SCH ×2 (12:00→21:25)
[2018-12-14] MEDS: PREGABALIN 75 MG CAPSULE PO SCH ×2 (12:00→21:25)
[2018-12-14] MEDS: CARVEDILOL 12.5 MG TABLET. PO SCH ×2 (12:00→17:30)
[2018-12-14 14:39] VITALS: BP 106/53
--- NOTE | 2018-12-14 16:28 | NUR ---
Wound Care Wound care follow up for DFU to left heel. Pt is current wound care/ HBO pt of [facility]. Removed vac/dressings, cleansed and assessed. Skin prepped and ostomy ring to ed-wound. Vac replaced on left heel. BLE dressed with contact layer, ABD and kerlix, recommend to change every 2 days. No other wounds noted on full skin inspection. Pt educated on PU prevention. will return on Wednesday for next vac change.
[2018-12-14 19:21] VITALS: BP 104/34
[2018-12-14] MEDS: TAMSULOSIN 0.4 MG CAP.ER.24H. PO SCH (21:25)
[2018-12-14] MEDS: ATORVASTATIN CALCIUM 20 MG TABLET PO SCH (21:26)
[2018-12-14] MEDS: INSULIN GLARGINE 300 UNITS/3 ML INSULN.PEN. SQ SCH (22:03)
[2018-12-14 23:16] VITALS: BP 117/48
[2018-12-15] MEDS: MEROPENEM 500 MG in IV NORMAL SALINE 50ML 50 ML IV SCH (02:38)
[2018-12-15] MEDS: IV NORMAL SALINE 1000ML BAG 1,000 ML IV SCH (02:39)
--- NOTE | 2018-12-15 03:20 | NUR ---
PT STATES HE THINKS HIS BS IS LOW, CHECKED IT AND WAS 55. GAVE SNACK. WILL REASSESS AFTER HE IS FINISHED WITH HIS SNACK
[2018-12-15 03:21] VITALS: BP 124/51
[2018-12-15] MEDS: HYDROcodone/APAP 5/325MG 1 TAB TABLET PO PRN ×2 (05:39→16:18)
[2018-12-15] MEDS: diphenhydrAMINE HCL 25 MG CAPSULE PO PRN ×2 (05:39→16:20)
[2018-12-15 07:00] VITALS: BP 132/63
[2018-12-15] MEDS: INSULIN LISPRO 300 UNITS/3 ML INSULN.PEN. SQ SCH ×6 (08:00→17:00)
[2018-12-15] MEDS: FERROUS SULFATE 325 MG TABLET. PO SCH (08:30)
[2018-12-15] MEDS: PANTOPRAZOLE 40 MG TABLET.DR. PO SCH (08:30)
[2018-12-15] MEDS: MULTIVITAMIN with MINERAL TABLET. PO SCH (08:30)
[2018-12-15] MEDS: CARVEDILOL 12.5 MG TABLET. PO SCH ×2 (08:30→17:35)
[2018-12-15] MEDS: PREGABALIN 75 MG CAPSULE PO SCH (08:30)
[2018-12-15] MEDS: LACTOBACILLUS RHAMNOSUS GG 1 CAPSULE. PO SCH (08:31)
[2018-12-15] MEDS: ISOSORBIDE MONONITRATE ER 30 MG TAB.ER.24H PO SCH (08:31)
[2018-12-15 08:50] LABS: BASO % 0 % (0-3); EOS # 0.1 x10^3/uL (0.0-0.7); EOS % 1 % (0-3); HEMATOCRIT 25.4 % (39.0-53.0); HEMOGLOBIN 8.4 g/dL (13.0-17.5); LYMPH # 0.6 x10^3/uL (1.0-4.8); LYMPH % 7 % (24-48); MEAN CORPUSCULAR HEMOGLOBIN 28 pg (25-35); MEAN CORPUSCULAR HGB CONC 33 g/dL (31-37); MEAN CORPUSCULAR VOLUME 85 fL (79-100); MONO # 0.6 x10^3/uL (0.0-1.1); MONO % 8 % (0-9); NEUT # 7.2 x10^3uL (1.8-7.7); NEUT % 84 % (31-73); PLATELET COUNT 286 x10^3/uL (140-400); RED BLOOD COUNT 2.97 x10^6/uL (4.30-5.70); RED CELL DISTRIBUTION WIDTH 16.3 % (11.5-14.5); WHITE BLOOD COUNT 8.5 x10^3/uL (4.0-11.0)
[2018-12-15] MEDS: ASPIRIN ENTERIC COATED 81 MG TABLET.DR. PO SCH (08:53)
[2018-12-15 09:07] LABS: ALBUMIN 2.9 g/dL (3.4-5.0); ALBUMIN/GLOBULIN RATIO 0.9 (1.0-1.7); CALCIUM 8.3 mg/dL (8.5-10.1); CREATININE 2.7 mg/dL (0.7-1.3); POTASSIUM 4.8 mmol/L (3.5-5.1); TOTAL BILIRUBIN 0.8 mg/dL (0.2-1.0); TOTAL PROTEIN 6.1 g/dL (6.4-8.2)
--- NOTE | 2018-12-15 09:07 | PDOC ---
Infectious Disease Note Subjective Subjective feeling good, ROS ROS no n/v/d/sob Vital Sign Vital Signs Vital Signs Date Time Temp Pulse Resp B/P (MAP) Pulse Ox O2 Delivery O2 Flow Rate FiO2 12/15/18 08:31 73 132/63 12/15/18 07:00 98.2 18 96 Nasal Cannula 2.0 98.2 Physical Exam PHYSICAL EXAM GENERAL: sitting in chair,comfortable, HEENT: anciteric Oral cavity clear NECK: Supple LUNGS: Clear. HEART: S1, S2 pacemaker ABDOMEN: Soft and nontender EXTREMITIES: No gross edema or cyanosis. Left calcaneal wound vac in place SKIN: No rash NEUROLOGIC: Alert and oriented x3. E-PICC clean Labs Lab Laboratory Tests Test 12/15/18 08:40 White Blood Count 8.5 x10^3/uL (4.0-11.0) Red Blood Count 2.97 x10^6/uL (4.30-5.70) Hemoglobin 8.4 g/dL (13.0-17.5) Hematocrit 25.4 % (39.0-53.0) Mean Corpuscular Volume 85 fL (79-100) Mean Corpuscular Hemoglobin 28 pg (25-35) Mean Corpuscular Hemoglobin Concent 33 g/dL (31-37) Red Cell Distribution Width 16.3 % (11.5-14.5) Platelet Count 286 x10^3/uL (140-400) Neutrophils (%) (Auto) 84 % (31-73) Lymphocytes (%) (Auto) 7 % (24-48) Monocytes (%) (Auto) 8 % (0-9) Eosinophils (%) (Auto) 1 % (0-3) Basophils (%) (Auto) 0 % (0-3) Neutrophils # (Auto) 7.2 x10^3uL (1.8-7.7) Lymphocytes # (Auto) 0.6 x10^3/uL (1.0-4.8) Monocytes # (Auto) 0.6 x10^3/uL (0.0-1.1) Eosinophils # (Auto) 0.1 x10^3/uL (0.0-0.7) Basophils # (Auto) 0.0 x10^3/uL (0.0-0.2) Objective Assessment Chronic left calcaneal wound,, CT c/w acute osteo. s/p I and D of skin and subcutaneous tissue, excisional on 11/25. AFB neg,, cults PSAE, ZOSYN R , E FAECIUM was reported now changed to E fecalis AMP S MSSA DM HTN CAD Pacemaker KAYLEE on CKD ,creat now increasing, Ertapenem allergy/intolerance w/ confusion and hallucinations Nausea and vomiting resolved diarrhea c diff neg 11/28 PAD Plan Plan of Care Merrem , Total duration at least 6 weeks from surgery Continue wound/ VAC care cont supportive care d/w dr Bryon CHAPA,LUKE Ackerman MD Dec 15, 2018 09:07
--- NOTE | 2018-12-15 09:36 | PDOC ---
PROGRESS NOTES Subjective Subjective no pain Objective Objective Vital Signs Date Time Temp Pulse Resp B/P (MAP) Pulse Ox O2 Delivery O2 Flow Rate FiO2 12/15/18 08:31 73 132/63 12/15/18 07:00 98.2 18 96 Nasal Cannula 2.0 98.2 Intake and Output 12/15/18 06:59 Intake Total 1740 ml Output Total 350 ml Balance 1390 ml Intake Oral 1740 ml Output Urine Total 350 ml # Voids 2 Physical Exam Abdomen: Normal bowel sounds, Soft Heart: Regular rate, Normal S1 Extremities: No clubbing General: Alert, Oriented X3 HEENT: Atraumatic MUSCULOSKELETAL: No joint tenderness, No deformity, No swelling, Other Neuro: Normal speech Psych/Mental Status: Mental status NL COMMENT lt heal ulcer Diagnosis Problem List Problems Medical Problems: (1) Chest pain Status: Acute (2) Elevated d-dimer Status: Acute Assessment Assessment Problems Medical Problems: (1) Chest pain Status: Acute (2) Elevated d-dimer Status: Acute FINAL IMPRESSION: ATN 1. Chest pain, resolved . 2. Known history of coronary artery disease, previous stents. 3. Pacemaker for sick sinus syndrome, tachyarrhythmias. 4. Chronic systolic heart failure. 5. Anemia of chronic disease. 6. Diabetes, insulin-dependent. 7. Left heel osteomyelitis, getting IV antibiotics. 8. Chronic kidney disease stage 3. 9. Hypertension. 10. Hyperlipidemia. PLAN: hold discharge due to ATN cr 2.7 went up . iv hydration spoke with ID iv antibiotics for osteo for 3 more weeks cardiac cath blocked stent RCA ,good collateral,medical management hb 8.4 after 1 u prbc transfused. EGD gastroparesis d/c to SNU soon Plan Plan of Care Problems Medical Problems: (1) Chest pain Status: Acute (2) Elevated d-dimer Status: Acute Comment Review of Relevant I have reviewed the following items luís (where applicable) has been applied. Labs Laboratory Tests Test 12/15/18 08:40 White Blood Count 8.5 x10^3/uL (4.0-11.0) Red Blood Count 2.97 x10^6/uL (4.30-5.70) Hemoglobin 8.4 g/dL (13.0-17.5) Hematocrit 25.4 % (39.0-53.0) Mean Corpuscular Volume 85 fL (79-100) Mean Corpuscular Hemoglobin 28 pg (25-35) Mean Corpuscular Hemoglobin Concent 33 g/dL (31-37) Red Cell Distribution Width 16.3 % (11.5-14.5) Platelet Count 286 x10^3/uL (140-400) Neutrophils (%) (Auto) 84 % (31-73) Lymphocytes (%) (Auto) 7 % (24-48) Monocytes (%) (Auto) 8 % (0-9) Eosinophils (%) (Auto) 1 % (0-3) Basophils (%) (Auto) 0 % (0-3) Neutrophils # (Auto) 7.2 x10^3uL (1.8-7.7) Lymphocytes # (Auto) 0.6 x10^3/uL (1.0-4.8) Monocytes # (Auto) 0.6 x10^3/uL (0.0-1.1) Eosinophils # (Auto) 0.1 x10^3/uL (0.0-0.7) Basophils # (Auto) 0.0 x10^3/uL (0.0-0.2) Sodium Level 138 mmol/L (136-145) Potassium Level 4.8 mmol/L (3.5-5.1) Chloride Level 103 mmol/L (98-107) Carbon Dioxide Level 26 mmol/L (21-32) Anion Gap 9 (6-14) Blood Urea Nitrogen 41 mg/dL (8-26) Creatinine 2.7 mg/dL (0.7-1.3) Estimated GFR (Cockcroft-Gault) 24.0 BUN/Creatinine Ratio 15 (6-20) Glucose Level 126 mg/dL (70-99) Calcium Level 8.3 mg/dL (8.5-10.1) Total Bilirubin 0.8 mg/dL (0.2-1.0) Aspartate Amino Transf (AST/SGOT) 27 U/L (15-37) Alanine Aminotransferase (ALT/SGPT) 66 U/L (16-63) Alkaline Phosphatase 193 U/L (46-116) Total Protein 6.1 g/dL (6.4-8.2) Albumin 2.9 g/dL (3.4-5.0) Albumin/Globulin Ratio 0.9 (1.0-1.7) Medications Current Medications Lidocaine HCl (Lidocaine Pf 2% Vial) 5 ml STK-MED ONCE .ROUTE ; Start 12/14/18 at 10:34; Stop 12/14/18 at 10:35; Status DC Propofol 20 ml @ As Directed STK-MED ONCE IV ; Start 12/14/18 at 10:34; Stop 06/24 at 10:35; Status DC Sodium Chloride 1,000 ml @ 75 mls/hr [id number] IV Last administered on at 02:39; Start 12/14/18 at 11:30 Vitals/I & O Vital Sign - Last 24 Hours 12/14/18 12/14/18 12/14/18 12/14/18 10:21 10:23 10:51 11:00 Temp 97.7 97.1 98.6 97.7 97.1 98.6 Pulse 68 63 68 Resp 20 16 18 B/P (MAP) 140/65 140/63 (88) Pulse Ox 97 9 97 O2 Delivery Nasal Cannula Nasal Cannula Nasal Cannula O2 Flow Rate 2.0 8 2.0 12/14/18 12/14/18 12/14/18 12/14/18 11:03 11:23 11:59 12:00 Pulse 66 68 68 68 Resp 20 20 B/P (MAP) 137/66 166/81 166/81 166/81 Pulse Ox 96 94 O2 Delivery Nasal Cannula Nasal Cannula O2 Flow Rate 2 2 12/14/18 12/14/18 12/14/18 12/14/18 12:05 14:39 17:30 18:38 Temp 97.7 97.7 Pulse 64 72 Resp 20 16 20 B/P (MAP) 106/53 (70) 140/63 Pulse Ox 98 O2 Delivery Nasal Cannula Nasal Cannula Nasal Cannula O2 Flow Rate 2.0 2.0 3.0 12/14/18 12/14/18 12/14/18 12/15/18 19:21 20:00 23:16 03:21 Temp 98.1 98.3 98.1 98.1 98.3 98.1 Pulse 74 69 67 Resp 16 18 18 B/P (MAP) 104/34 (57) 117/48 (71) 124/51 (75) Pulse Ox 91 96 95 O2 Delivery Room Air Nasal Cannula Nasal Cannula Nasal Cannula O2 Flow Rate 2.0 2.0 2.0 12/15/18 12/15/18 12/15/18 07:00 08:30 08:31 Temp 98.2 98.2 Pulse 72 76 73 Resp 18 B/P (MAP) 132/63 (86) 132/63 132/63 Pulse Ox 96 O2 Delivery Nasal Cannula O2 Flow Rate 2.0 Intake and Output 12/14/18 12/14/18 12/15/18 14:59 22:59 06:59 Intake Total 240 ml 360 ml 1140 ml Output Total 350 ml 0 ml Balance 240 ml 10 ml 1140 ml ELDER LAURENT MD Dec 15, 2018 09:36
--- NOTE | 2018-12-15 09:54 | PDOC ---
SUBJECTIVE ROS No complaints, s/p EGD OBJECTIVE Vital Signs Vital Signs Date Time Temp Pulse Resp B/P (MAP) Pulse Ox O2 Delivery O2 Flow Rate FiO2 12/15/18 08:31 73 132/63 12/15/18 08:00 Nasal Cannula 2.0 12/15/18 07:00 98.2 18 96 98.2 I & 0 Intake and Output 12/15/18 06:59 Intake Total 1740 ml Output Total 350 ml Balance 1390 ml Intake Oral 1740 ml Output Urine Total 350 ml # Voids 2 PHYSICAL EXAM Physical Exam GENERAL: NAD HEENT: OM moist NECK Supple CARDIOVASCULAR: S1, S2. LUNGS: CTA, Non labored ABDOMEN: Soft. : No Joyner. EXTREMITIES: Wrapped NEURO- AXOX3 DIAGNOSIS/ASSESSMENT Assessment & Plan KAYLEE on CKD stage 3- Non Oliguric S/P Cardiac cath cannot r/o YANE Worsening Renal function ,currently no indication for HD today E-Lytes and acid base stable, Monitor Renal US 12/02 was unremarkable Bladder scan for PVR CKD stage 3- Seen as OP by me in Oct baseline Cr 1.6-1.7 Acute on chronic decompensated diastolic heart failure with an LVEDP of 22 On cardiac cath Severe two-vessel coronary artery disease Occluded prior RCA stent with left to right collateralization Card recommends medical management Anemia - s/p prbc x 1 yesterday EGD today Chronic left calcaneal wound,, CT c/w acute osteo. s/p I and D of skin and subcutaneous tissue, DM HTN Discussed with Pt and RN at bedside COMMENT/RELEVANT DATA Meds Current Medications Medications (Trade) Dose Ordered Sig/Perlita Start Time Stop Time Status Last Admin Dose Admin Acetaminophen/ Hydrocodone Bitart (Lortab 5/325) 2 tab PRN Q6HRS PRN 12/12/18 14:00 12/15/18 05:39 2 TAB Aspirin (Tera Aspirin) 325 mg DAILY 12/12/18 10:00 12/13/18 10:57 DC 12/13/18 08:03 325 MG Aspirin (Ecotrin) 81 mg [id number] 12/14/18 08:00 12/15/18 08:53 81 MG Atorvastatin Calcium (Lipitor) 20 mg HS 12/12/18 21:00 12/14/18 21:26 20 MG Carvedilol (Coreg) 12.5 mg BIDWMEALS 12/12/18 10:00 12/15/18 08:30 12.5 MG Dextrose (Dextrose 50%-Water Syringe) 12.5 gm PRN Q15MIN PRN 12/12/18 10:00 Diphenhydramine HCl (Benadryl) 25 mg PRN Q6HRS PRN 12/14/18 09:30 12/15/18 05:39 25 MG Enoxaparin Sodium (Lovenox 30mg Syringe) 30 mg Q24H 12/15/18 11:00 Fentanyl Citrate (Fentanyl 2ml Vial) 50 mcg PRN Q5MIN PRN 12/14/18 08:30 12/15/18 08:29 DC Ferrous Sulfate (Feosol) 325 mg BID 12/12/18 21:00 12/15/18 08:30 325 MG Furosemide (Lasix) 20 mg [id number] 12/13/18 14:00 12/13/18 14:00 DC Heparin Sodium (Porcine) (Heparin Sodium) 10,000 unit STK-MED ONCE 12/12/18 10:20 12/12/18 10:21 DC Heparin Sodium/ Sodium Chloride (HEPARIN for ARTERIAL LINE FLUSH) 1,000 unit 1X ONCE 12/12/18 11:00 12/12/18 11:35 DC 12/12/18 11:06 1,000 UNIT Info (CONTRAST GIVEN -- Rx MONITORING) 1 each PRN DAILY PRN 12/12/18 11:45 12/14/18 11:44 DC Insulin Glargine (Lantus) 10 units HS 12/12/18 21:00 12/14/18 22:03 10 UNITS Insulin Human Lispro (HumaLOG) 0-5 UNITS TIDWMEALS 12/12/18 12:00 12/13/18 09:30 DC Iodixanol (Visipaque 320) 100 ml 1X ONCE 12/12/18 11:00 12/12/18 11:36 DC 12/12/18 11:06 36 ML Isosorbide Mononitrate (Imdur) 30 mg DAILY 12/12/18 10:00 12/15/18 08:31 30 MG Lactobacillus Rhamnosus (Culturelle) 1 cap BID 12/13/18 09:00 12/15/18 08:31 1 CAP Lidocaine HCl (Lidocaine 1% 20ml Vial) 10 ml 1X ONCE 12/12/18 11:00 12/12/18 11:36 DC 12/12/18 11:06 10 ML Lidocaine HCl (Lidocaine Pf 2% Vial) 5 ml STK-MED ONCE 12/14/18 10:34 12/14/18 10:35 DC Lidocaine HCl (Xylocaine-Mpf 1% 2ml Vial) 2 ml 1X PRN PRN 12/14/18 08:30 12/15/18 08:29 DC Meropenem 500 mg/ Sodium Chloride 50 ml @ 100 mls/hr Q8H 12/12/18 11:00 12/15/18 02:38 100 MLS/HR Midazolam HCl (Versed) 2 mg PRN 1X PRN 12/14/18 08:30 12/15/18 08:29 DC Multivitamins (Thera M Plus) 1 tab DAILY 12/12/18 10:00 12/15/18 08:30 1 TAB Nitroglycerin (Nitroglycerin) 200 mcg STK-MED ONCE 12/12/18 10:22 12/12/18 10:23 DC Non-Formulary Medication (Meropenem ) 500 mg Q8HRS 12/12/18 14:00 UNV Non-Formulary Medication (Omeprazole ) 20 mg DAILY 12/13/18 09:00 12/13/18 09:00 DC Ondansetron HCl (Zofran) 4 mg PRN Q6HRS PRN 12/13/18 09:45 12/13/18 11:32 4 MG Pantoprazole Sodium (Protonix) 40 mg 1X ONCE 12/12/18 09:45 12/12/18 10:19 DC 12/12/18 12:53 40 MG Pregabalin (Lyrica) 75 mg BID 12/12/18 10:00 12/15/18 08:30 75 MG Propofol 20 ml @ As Directed STK-MED ONCE 12/14/18 10:34 12/14/18 10:35 DC Ringer's Solution 1,000 ml @ 125 mls/hr Q8H 12/14/18 08:27 12/14/18 14:57 DC Sodium Chloride 1,000 ml @ 75 mls/hr [id number] 12/14/18 11:30 12/15/18 02:39 75 MLS/HR Tamsulosin HCl (Flomax) 0.4 mg QHS 4/8/19 21:00 12/14/18 21:25 0.4 MG Verapamil HCl (Verapamil) 5 mg STK-MED ONCE 12/12/18 11:00 12/13/18 13:01 DC Lab Laboratory Tests Test 12/15/18 08:40 White Blood Count 8.5 x10^3/uL (4.0-11.0) Red Blood Count 2.97 x10^6/uL (4.30-5.70) Hemoglobin 8.4 g/dL (13.0-17.5) Hematocrit 25.4 % (39.0-53.0) Mean Corpuscular Volume 85 fL (79-100) Mean Corpuscular Hemoglobin 28 pg (25-35) Mean Corpuscular Hemoglobin Concent 33 g/dL (31-37) Red Cell Distribution Width 16.3 % (11.5-14.5) Platelet Count 286 x10^3/uL (140-400) Neutrophils (%) (Auto) 84 % (31-73) Lymphocytes (%) (Auto) 7 % (24-48) Monocytes (%) (Auto) 8 % (0-9) Eosinophils (%) (Auto) 1 % (0-3) Basophils (%) (Auto) 0 % (0-3) Neutrophils # (Auto) 7.2 x10^3uL (1.8-7.7) Lymphocytes # (Auto) 0.6 x10^3/uL (1.0-4.8) Monocytes # (Auto) 0.6 x10^3/uL (0.0-1.1) Eosinophils # (Auto) 0.1 x10^3/uL (0.0-0.7) Basophils # (Auto) 0.0 x10^3/uL (0.0-0.2) Sodium Level 138 mmol/L (136-145) Potassium Level 4.8 mmol/L (3.5-5.1) Chloride Level 103 mmol/L (98-107) Carbon Dioxide Level 26 mmol/L (21-32) Anion Gap 9 (6-14) Blood Urea Nitrogen 41 mg/dL (8-26) Creatinine 2.7 mg/dL (0.7-1.3) Estimated GFR (Cockcroft-Gault) 24.0 BUN/Creatinine Ratio 15 (6-20) Glucose Level 126 mg/dL (70-99) Calcium Level 8.3 mg/dL (8.5-10.1) Total Bilirubin 0.8 mg/dL (0.2-1.0) Aspartate Amino Transf (AST/SGOT) 27 U/L (15-37) Alanine Aminotransferase (ALT/SGPT) 66 U/L (16-63) Alkaline Phosphatase 193 U/L (46-116) Total Protein 6.1 g/dL (6.4-8.2) Albumin 2.9 g/dL (3.4-5.0) Albumin/Globulin Ratio 0.9 (1.0-1.7) Results All relevant outside records, renal labs, imaging studies, telemetry/EKG's were reviewed. TIANNA COLON MD Dec 15, 2018 09:54
--- NOTE | 2018-12-15 10:50 | PDOC ---
Subjective: Subjective: No complaints - denies recurrent vomiting - had omelette w/ jalapenos and salsa for breakfast. Objective: Objective: D/w RN - possible DC to [facility] tomorrow, held today w/ elevated Cr. Vital Signs: Vital Signs Date Time Temp Pulse Resp B/P (MAP) Pulse Ox O2 Delivery O2 Flow Rate FiO2 12/15/18 08:31 73 132/63 12/15/18 08:00 Nasal Cannula 2.0 12/15/18 07:00 98.2 18 96 98.2 Labs: Laboratory Tests Test 12/15/18 08:40 White Blood Count 8.5 x10^3/uL Red Blood Count 2.97 x10^6/uL Hemoglobin 8.4 g/dL Hematocrit 25.4 % Mean Corpuscular Volume 85 fL Mean Corpuscular Hemoglobin 28 pg Mean Corpuscular Hemoglobin Concent 33 g/dL Red Cell Distribution Width 16.3 % Platelet Count 286 x10^3/uL Neutrophils (%) (Auto) 84 % Lymphocytes (%) (Auto) 7 % Monocytes (%) (Auto) 8 % Eosinophils (%) (Auto) 1 % Basophils (%) (Auto) 0 % Neutrophils # (Auto) 7.2 x10^3uL Lymphocytes # (Auto) 0.6 x10^3/uL Monocytes # (Auto) 0.6 x10^3/uL Eosinophils # (Auto) 0.1 x10^3/uL Basophils # (Auto) 0.0 x10^3/uL Sodium Level 138 mmol/L Potassium Level 4.8 mmol/L Chloride Level 103 mmol/L Carbon Dioxide Level 26 mmol/L Anion Gap 9 Blood Urea Nitrogen 41 mg/dL Creatinine 2.7 mg/dL Estimated GFR (Cockcroft-Gault) 24.0 BUN/Creatinine Ratio 15 Glucose Level 126 mg/dL Calcium Level 8.3 mg/dL Total Bilirubin 0.8 mg/dL Aspartate Amino Transf (AST/SGOT) 27 U/L Alanine Aminotransferase (ALT/SGPT) 66 U/L Alkaline Phosphatase 193 U/L Total Protein 6.1 g/dL Albumin 2.9 g/dL Albumin/Globulin Ratio 0.9 Imaging: EGD 12/14/18 E--healed reflux, historically erosive at baseline. G--Some retained liquid and food (even after one day of clears and fasting since midnight). D--Normal to third portion. IMP: GERD, healed, but may still contribute to symptoms. Probable gastroparesis. PE: GEN: NAD LUNGS: NC HEART: RRR ABD: NABS, S/ND/NT NEURO/PSYCH: A & O 3 A/P: CAD, KAYLEE/CKD, DM, left heel osteo [place] - stable N/v - resolved GERD, gastroparesis -- Continue PPI and iron, consider Reglan if n/v recurs. RONALD BONILLA Dec 15, 2018 10:50
[2018-12-15 11:00] VITALS: BP 104/51
[2018-12-15] MEDS ORDERED: ENOXAPARIN 30 MG/0.3 ML SYRINGE. SQ SCH (11:00)
[2018-12-15] MEDS ORDERED: POLYETHYLENE GLYCOL 3350 17 GM PACKET. PO PRN (11:00)
--- NOTE | 2018-12-15 13:06 | NUR ---
SS following up with discharge planning. [place] authorization received for retirement unit. Per physician note discharge is on hold due to ATN creatine 2.7.
--- NOTE | 2018-12-15 14:25 | PDOC ---
CARDIOLOGY PROGRESS NOTE SUBJECTIVE: No acute events overnight. Continues to have elevated Cr. Abx continued for osteo. OBJECTIVE: Vital SIgns: Vital Signs Date Time Temp Pulse Resp B/P (MAP) Pulse Ox O2 Delivery O2 Flow Rate FiO2 12/15/18 11:00 98.3 69 18 104/51 (68) 95 Nasal Cannula 2.0 98.3 I & O Intake and Output 12/15/18 07:00 Intake Total 1740 ml Output Total 350 ml Balance 1390 ml Intake Oral 1740 ml Output Urine Total 350 ml # Voids 2 Objective: a/o x 3. NAD rrr, no m/r/g decreased basilar breath sounds no edema. CURRENT MEDICATIONS: asa, coreg, atorvastatin, imdur DIAGNOSTIC TESTING: hgb 8.4 Cr 2.7 ASSESSMENT: 1. CAD with occluded RCA 2. PAD 3. Osteomyelitis 4. KAYLEE on CKD 5. HTN PLAN: 1. Continue present cardiac meds. 2. No further CV recs. Supportive care. Pls call with questions. Will be available for any new issues. COSTA BLAKE MD Dec 15, 2018 14:25
[2018-12-15 15:00] VITALS: BP 118/56
[2018-12-15 17:35] VITALS: BP 118/56
[2018-12-15] MEDS ORDERED: AMIODARONE 900 MG in IV DEXTROSE 5% 500 ML IV PRN (19:00)
--- NOTE | 2018-12-15 20:08 | NUR ---
Patient was found unresponsive in the bathroom on the floor after witnessing rhythm changes on the monitor. Stared compressions and initiated Code blue
--- NOTE | 2018-12-15 22:28 | PDOC5 ---
CODE REPORT CODE REPORT CODE BLUE REPORT: This physician responded to CODE BLUE activation in the ICU. Patient had cardiac catherization two days ago. He was found to have some blockage but has collateral, was elected for medical management. He was kept in the hospital because he was anemic. He was given blood transfusion. Nurse found him on the floor in the toilet unresponsive. CODE BLUE was activated. Upon arrival to room , patient was on the floor, by the doorway of the restroom, his pant was still down, dark diarrhea on the floor and in the toilet. There was side on head injury and facial injury, right temporal and right facial contusion. Patient was unresponsive, no spontaneous breathing, no pulse. CPR was in progress. Patient was found to be in PEA then in VF. He was shocked into PEA multiples times. ACLS protocol was carried out. Patient was given amiodone iv bolus and drip. He was given doses of epinephrine and sodium bicarbonate. He was also given Magnesium sulfate. He was intubated by rapid sequence intubation with ET tube number 7.5, MAC 4, 24 AT LIP. After about 30 minutes resuscitation, he was still in PEA. He was pronounced at 1850 by this physician. His attending physician, Dr. Slater, was notified of his . BILL BRYANT DO Dec 15, 2018 22:28
[2018-12-16] MEDS ORDERED: POLYETHYLENE GLYCOL 3350 17 GM PACKET. PO SCH (09:00)
--- NOTE | 2018-12-20 15:57 | PDOC ---
Provider Note Provider Note summary dictated#[id number]. ELDER LAURENT MD Dec 20, 2018 15:57
--- NOTE | 2018-12-20 18:36 | DS ---
DATE OF DISCHARGE: 12/16/2018 SUMMARY REASON FOR ADMISSION TO THE HOSPITAL: Chest pain. The patient had known coronary artery disease. CONSULTATIONS: 1. Dr. Carty. 2. Dr. Nelson. 3. Dr. Cheek. PROCEDURES DONE: Cardiac catheterization, echocardiogram, EGD, transfused 1 unit of packed RBC. HOSPITAL COURSE: The patient was a 63-year-old male with history of diabetes, brittle, had a coronary artery disease, pacemaker. He also had a chronic kidney disease and he was found to have chest pain, was brought to the hospital. EKG negative for acute ischemia, but his troponin was 0.017. The patient was taken to cardiac cath and it showed severe 2-vessel coronary artery disease, had occluded right coronary stent, had a good left to right collateral and the patient was recommended medical treatment. The patient was anemic. He was given 1 unit of RBC, went up to 8. The patient was seen by GI and EGD showed gastroparesis and the patient had renal failure. His creatinine went up to 2.7 from 1.9, was given fluids. The patient at one time had a change in cardiac rhythm and when the nurse went to see him, he was on the floor coming out of the toilet into his bed, he fell and code blue was called. The patient got a cardioversion, CPR, epinephrine. ACLS protocol was followed but in spite of every effort, the patient did not survive the code blue. The patient was pronounced . FINAL DIAGNOSES: 1. Cardiac arrest, possible cardiac arrhythmias. 2. Possible Myocardial infarction. The patient had a blocked stent in the right coronary, had a good collateral. 3. Atherosclerosis. 4. Diabetes.IDDM 5. Chronic kidney disease.stage 3-4 6. Mild systolic heart failure. 7. General debility. 8. History of osteomyelitis of the heel, was getting IV antibiotics and the patient from medical problems. 9.H/o Orthostatic hypotension due to neuropathy ELDER LAURENT MD DR: BENNIE/andre JOB#: [id number] / [id number] MTDD
== END 2018-12-16 01:00 | disposition expired ==
LOC: ER 04:29 → 6 SOUTH 05:00 → 2 NORTH 11:21
PROVIDERS: ADMIT Internal Medicine; ATTEND Internal Medicine
PROC: 4A023N7 Measurement of Cardiac Sampling and Pressure, Left Heart, Percutaneous Approach (ICD-10-PCS; principal; 2018-12-12)
PROC: B2111ZZ Fluoroscopy of Multiple Coronary Arteries using Low Osmolar Contrast (ICD-10-PCS; 2018-12-12)
PROC: 30233N1 Transfusion of Nonautologous Red Blood Cells into Peripheral Vein, Percutaneous Approach (ICD-10-PCS; 2018-12-12)
PROC: 0DJ08ZZ Inspection of Upper Intestinal Tract, Via Natural or Artificial Opening Endoscopic (ICD-10-PCS; 2018-12-14)
PROC: 5A12012 Performance of Cardiac Output, Single, Manual (ICD-10-PCS; 2018-12-15)
PROC: 0BH17EZ Insertion of Endotracheal Airway into Trachea, Via Natural or Artificial Opening (ICD-10-PCS; 2018-12-15)
PROC: 5A2204Z Restoration of Cardiac Rhythm, Single (ICD-10-PCS; 2018-12-15)
DX: T82.855A Stenosis of coronary artery stent, initial encounter (principal); I50.43 Acute on chronic combined systolic (congestive) and diastolic (congestive) heart failure; I21.9 Acute myocardial infarction, unspecified; N17.0 Acute kidney failure with tubular necrosis; I13.0 Hypertensive heart and chronic kidney disease with heart failure and stage 1 through stage 4 chronic kidney disease, or unspecified chronic kidney disease; M86.8X8 Other osteomyelitis, other site; N18.4 Chronic kidney disease, stage 4 (severe); I25.110 Atherosclerotic heart disease of native coronary artery with unstable angina pectoris; I49.01 Ventricular fibrillation; E11.69 Type 2 diabetes mellitus with other specified complication; D63.8 Anemia in other chronic diseases classified elsewhere; E11.22 Type 2 diabetes mellitus with diabetic chronic kidney disease; E11.43 Type 2 diabetes mellitus with diabetic autonomic (poly)neuropathy; E11.51 Type 2 diabetes mellitus with diabetic peripheral angiopathy without gangrene; E78.00 Pure hypercholesterolemia, unspecified; E78.5 Hyperlipidemia, unspecified; M19.90 Unspecified osteoarthritis, unspecified site; K21.9 Gastro-esophageal reflux disease without esophagitis; K31.84 Gastroparesis; L89.629 Pressure ulcer of left heel, unspecified stage; I49.5 Sick sinus syndrome; D50.9 Iron deficiency anemia, unspecified; Z96.641 Presence of right artificial hip joint; S00.83XA Contusion of other part of head, initial encounter; X58.XXXA Exposure to other specified factors, initial encounter; Y92.231 Patient bathroom in hospital as the place of occurrence of the external cause; Y93.89 Activity, other specified; Y99.8 Other external cause status; Y83.8 Other surgical procedures as the cause of abnormal reaction of the patient, or of later complication, without mention of misadventure at the time of the procedure; Y92.89 Other specified places as the place of occurrence of the external cause; Z79.4 Long term (current) use of insulin; Z88.8 Allergy status to other drugs, medicaments and biological substances; Z87.11 Personal history of peptic ulcer disease; Z87.19 Personal history of other diseases of the digestive system; Z87.891 Personal history of nicotine dependence; Z90.49 Acquired absence of other specified parts of digestive tract; Z95.0 Presence of cardiac pacemaker; Z79.899 Other long term (current) drug therapy; Z95.5 Presence of coronary angioplasty implant and graft; Z89.421 Acquired absence of other right toe(s); Z83.3 Family history of diabetes mellitus; Z98.49 Cataract extraction status, unspecified eye
CPT/HCPCS: 43235; 93458; 99285; G0269; 36415; 71045; 80048; 80053; 80061; 82553; 82962; 83690; 83735; 83880; 84484; 85025; 85379; 85610; 86850; 86900; 86901; 86920; 87641; 93005; 93306; 93970; 96374; 99152; 99153; C1713; C1769; C1892; J1644; J1650; J1815; J1940; J2001; J2185; J2250; J2405; J2704; J3010; J7030; J7042; P9016; Q0163; Q9967; 97110; 97116; 97530; 97535